=== PATIENT | female | born 1955 | race Caucasian/White ===

== ENCOUNTER 2017-09-03 06:33 | Inpatient (IN) | payer MEDICARE, OTHER ==
[~2017-09-03] VITALS: Ht 154.9 cm; Wt 43.3 kg
[~2017-09-03 06:33] MED LIST: ACETAMINOPHEN325 M1 PO; AMLODIPINE BESY10 MG PO; BYSTOLIC10 MG PO; CALCIUM CARBON500 MG PO; CATAPRES-TTS 11 EACH PO; CEFUROXIME250 MG PO; CLINDAMYCIN HC300 MG; CLONIDINE HCL0.1 MG PO; COLACE100 MG PO; CREON DR 24,001 EACH PO; CYMBALTA30 MG PO; DIPHENHYDRAMINE25 M2 PO; FERROUS FUMARA324 MG PO; FERROUS SULFAT325 MG; FLUDROCORTISON0.1 MG PO; FOLIC ACID1 MG PO; HI-CAL500 M1; HUMALOG 10100 UNITS/ SQ; HUMALOG MI100 UNIT/4; HUMALOG MI100 UNIT/4 SQ; HUMALOG100 UNIT/3 SC; HUMALOG100 UNITS/ SQ; HUMULIN R100 UNIT/2; HYDROCODON-ACE1 EA11 PO; HYDROCORTISONE10 MG PO; HYDROCORTISONE5 MG PO; LANTUS 3ML100 UNITS/ SQ; LANTUS100 UNITS/ SC; LANTUS100 UNITS/ SQ; LEVEMIR100 UNIT/1 SQ; LEVOTHROID100 MCG PO; LEVOTHYROXINE50 MCG PO; LEVOTHYROXINE75 MCG PO; LEVOTHYROXINE88 MCG PO; LEVOXYL50 MCG PO; LEXAPRO10 MG PO; LIDODERM PATCH1 EA TOP; LIDODERM700 MG TL; LISINOPRIL2.5 MG PO; LOPRESSOR25 MG PO; LOSARTAN POTAS100 MG PO; LOVENOX60 MG/0.6 SC; LYRICA 50MG50 MG; LYRICA100 MG PO; MULTI-VITAMIN1 EACH PO; NORVASC10 MG; PANTOPRAZOLE SO20 MG PO; PANTOPRAZOLE SO40 MG PO; POTASSIUM CHLO10 ME1 PO; PROCARDIA XL30 MG PO; PROGRAF1 MG PO; PROTONIX40 M2 PO; QUESTRAN PACKET4 GM PO; SODIUM BICARBO650 MG PO; TACROLIMUS1 MG PO; ULTRAM 50MG50 MG PO; VANCOMYCIN HCL PO; VICODIN ES TAB1 EACH; VITAMIN D1000 UNI1 PO; Z PROGRAF PO; Z.0.ACTONEL35 MG; Z.0.ATORVASTATIN CA2 PO; Z.0.LANTUS100 UNIT/1 SQ; Z.0.LASIX20 MG PO; Z.0.LEVOTHROID25 MCG PO; Z.0.LEXAPRO10 MG; Z.0.LISINOPRIL5 MG PO; Z.0.MAGNESIUM400 MG PO; Z.0.ZETIA10 MG PO; ZETIA10 MG PO; [UNRECOGNIZED DRUG - OTHER]; [UNRECOGNIZED DRUG - OTHER] PO; [UNRECOGNIZED DRUG - OTHER] PO
--- OUTSIDE RECORDS SUMMARY | 2017-09-03 06:37 | XMS REPORT | Clinical Summary ---
Author Author JEAN [facility] Address Unknown Phone Unavailable Care Team Providers [facility] Name Role Phone PCP Unavailable Allergies No Known Allergies Current Medications Prescription Sig. Disp. Refills Start End Date Status Date ezetimibe (ZETIA) 10 mg Take 10 mg by mouth Active tablet daily. DULOXETINE HCL (CYMBALTA Take 30 mg by mouth 2 Active ORAL) (two) times daily. amLODIPine (NORVASC) 10 Take 10 mg by mouth Active MG tablet daily. famotidine (PEPCID) 20 MG Take 1 tablet (20 mg 0 06/29/20 Active tablet total) by mouth daily. 17 folic acid-multivitamins Take 1 tablet by mouth 0 06/29/20 Active (NEPHRO-RICKY) 0.8 mg Tab daily. 17 tablet levothyroxine (SYNTHROID, Take 1 tablet (137 mcg 0 06/29/20 06/29/20 Active LEVOTHROID) 137 MCG total) by mouth Every 17 18 tablet morning on an empty stomach. hydrocortisone (CORTEF) 5 Take 2 tab (10mg in am) 90 tablet 0 Active MG tablet and 1 tablet (5mg) in the 18 evening.. insulin detemir (LEVEMIR Inject 0.03 mLs (3 Units 3 mL 0 07/29/19 Active FLEXPEN) 100 unit/mL (3 total) subcutaneously 18 mL) InPn injection every morning. insulin lispro (HUMALOG) Inject per sliding scale 3 mL 0 07/29/19 Active 100 unit/mL InPn before meals. 18 subcutaneously. tacrolimus (PROGRAF) 1 MG Take 2mg (2 tab) in the 90 capsule 0 Active capsule morning and 1mg (1tab) in 18 evening 12 HOUR APART.. insulin glargine (LANTUS) Inject 10 Units 01/30/20 Discontin 100 unit/mL injection subcutaneously 2 (two) 17 ued times daily Use as directed. insulin lispro (HUMALOG) Inject 15 Units 01/30/20 Discontin 100 unit/mL injection subcutaneously 3 (three) 17 ued times daily before meals. LISINOPRIL ORAL Take 2.5 mg by mouth 01/30/20 Discontin daily. 17 ued pantoprazole (PROTONIX) Take 40 mg by mouth 01/30/20 Discontin 40 MG tablet daily. 17 ued LEVOTHYROXINE SODIUM Take 75 mcg by mouth 01/30/20 Discontin (LEVOTHYROXINE ORAL) daily . 17 ued insulin glargine (LANTUS) Inject 12 Units 01/27/20 Discontin 100 unit/mL injection subcutaneously nightly. 17 ued Use as directed tacrolimus (PROGRAF) 1 MG Take 3 capsules (3 mg 180 capsule 11 10/09/19 Discontin capsule total) by mouth 2 (two) 15 17 ued times daily. tacrolimus (PROGRAF) 1 MG Take 3 capsules (3 mg 180 capsule 10/18/19 Discontin capsuleIndications: total) by mouth 2 (two) 17 17 ued Status post liver times daily. transplantation (HCC) furosemide (LASIX) 40 MG Take 40 mg by mouth 01/30/20 Discontin tablet daily. 17 ued losartan (COZAAR) 100 MG Take 100 mg by mouth 01/30/20 Discontin tablet daily. 17 ued potassium chloride Take 10 mEq by mouth 01/30/20 Discontin (KLOR-CON) 10 MEQ CR daily. 17 ued tablet cefuroxime (CEFTIN) 250 Take 250 mg by mouth 2 01/30/20 Discontin MG tablet (two) times daily. 17 ued tacrolimus (PROGRAF) 1 MG Take 3 mg by mouth 2 180 capsule 11 07/29/19 Discontin capsuleIndications: (two) times daily . 17 18 ued Status post liver transplantation (HCC) folic acid (FOLVITE) 1 MG Take 1 tablet (1 mg 30 tablet 11 01/30/20 06/28/20 Discontin tablet total) by mouth daily. 17 17 ued hydrocortisone (CORTEF) Take 1 tablet (10 mg 0 01/30/20 02/13/20 10 MG tablet total) by mouth daily for 17 17 14 days. hydrocortisone (CORTEF) 5 Take 1 tablet (5 mg 0 01/30/20 02/13/20 MG tablet total) by mouth every 17 17 evening for 14 days. insulin lispro (HUMALOG) Inject 0-12 Units 10 mL 0 01/30/20 Discontin 100 unit/mL injection subcutaneously as needed 17 18 ued (High blood sugar). vancomycin 125 mg/2.5 mL Take 2.5 mLs (125 mg 0 01/30/20 01/30/20 Discontin Syrg total) by mouth 4 (four) 17 17 ued times daily for 10 days. levothyroxine (SYNTHROID, Take 1 tablet (88 mcg 0 01/30/20 01/30/20 Discontin LEVOTHROID) 88 MCG tablet total) by mouth Every 17 17 ued morning on an empty stomach. vancomycin 125 mg/2.5 mL Take 2.5 mLs (125 mg 0 01/30/20 02/13/20 Syrg total) by mouth 4 (four) 17 17 times daily for 14 days. levothyroxine (SYNTHROID, Take 1 tablet (88 mcg 0 01/31/20 06/28/20 Discontin LEVOTHROID) 88 MCG tablet total) by mouth daily. 17 17 ued insulin detemir (LEVEMIR) Inject 7 Units 10 mL 0 01/30/20 06/28/20 Discontin 100 unit/mL injection subcutaneously nightly. 17 17 ued hydrocortisone (CORTEF) Take 1 tablet (10 mg 0 06/29/20 07/29/19 Discontin 10 MG tablet total) by mouth daily for 17 18 ued 30 days. hydrocortisone (CORTEF) 5 Take 1 tablet (5 mg 0 06/28/20 07/12/20 MG tablet total) by mouth nightly 17 17 for 14 days. insulin detemir (LEVEMIR) Inject 6 Units 10 mL 0 06/28/20 06/28/20 Discontin 100 unit/mL injection subcutaneously nightly. 17 17 ued lisinopril Take 1 tablet (10 mg 0 06/28/20 08/01/19 Discontin (PRINIVIL,ZESTRIL) 10 MG total) by mouth 2 (two) 17 18 ued tablet times daily. polyvinyl alcohol Place 1 drop into both 15 mL 0 06/28/20 07/29/19 Discontin (LIQUIFILM TEARS) 1.4 % eyes 4 (four) times daily 17 18 ued ophthalmic solution as needed for up to 30 days. insulin NPH (HUMULIN Use as directed. 10 mL 0 06/29/20 07/29/19 Discontin N,NOVOLIN N) 100 unit/mL 17 18 ued injection metroNIDAZOLE (FLAGYL) Take 1 tablet (500 mg 39 tablet 0 07/29/19 Discontin 500 MG tablet total) by mouth 3 (three) 18 18 ued times daily for 13 days. sevelamer (RENVELA) 800 Take 1 tablet (800 mg 90 tablet 0 07/29/19 08/28/19 mg tablet total) by mouth 3 (three) 18 18 times daily with meals for 30 days. vancomycin 125 mg/2.5 mL Take 2.5 mLs (125 mg 140 mL 0 07/29/19 Discontin Syrg total) by mouth 4 (four) 18 18 ued times daily for 14 days. tacrolimus (PROGRAF) 1 MG Take 3 mg ( 3 pills) in 180 capsule 11 07/2908/01/19 Discontin capsuleIndications: am and 2mg ( 2 pills )in 18 18 ued Status post liver pm. transplantation (HCC) hydrALAZINE (APRESOLINE) Take 1 tablet (25 mg 90 tablet 0 07/31/19 08/30/19 25 MG tablet total) by mouth 3 (three) 18 18 times daily for 30 days. vancomycin 125 mg/2.5 mL Take 2.5 mLs (125 mg 110 mL 0 07/31/19 Discontin Syrg total) by mouth 4 (four) 18 18 ued times daily for 11 days. vancomycin 125 mg/2.5 mL Take 2.5 mLs (125 mg 120 mL 0 07/31/19 Discontin Syrg total) by mouth 4 (four) 18 18 ued times daily for 12 days. tacrolimus (PROGRAF) 1 MG Take 1 capsule (1 mg 60 capsule 0 07/31/19 08/01/19 Discontin capsule total) by mouth every 12 18 18 ued (twelve) hours for 30 days. tacrolimus (PROGRAF) 1 MG Take 2 capsules (2 mg 120 capsule 0 08/01/19 Discontin capsule total) by mouth every 12 18 18 ued (twelve) hours for 30 days. vancomycin 125 mg/2.5 mL Take 2.5 mLs (125 mg 110 mL 0 08/01/19 Syrg total) by mouth 4 (four) 18 18 times daily for 11 days. lisinopril Take 1 tablet (20 mg 60 tablet 0 08/01/19 08/31/19 (PRINIVIL,ZESTRIL) 20 MG total) by mouth 2 (two) 18 18 tablet times daily for 30 days. Active Problems Problem Noted Date C. 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 She is doing well with normal liver enzymes. She is on low dose prograf for immunosuppression. Her dose has been changed and she is on 3/3 daily. Full labs pending today for dosing. DM (diabetes mellitus) (HCC) 04/21/2013 Last Assessment & Plan: Poorly controlled diabetes in the past prompting hospital admissions. On insulin. I have recommended she follow with endocrinology. Screening for malignant neoplasm 04/21/2013 Last Assessment & Plan: She can not remember when she last had a colonoscopy. She does report bowel habit changes but no bleeding. She will be seen by one of our physicians for colonoscopy. Hypothyroid 04/21/2013 Last Assessment & Plan: Continue supplement and follow up with endocrinology. Hyperlipidemia 04/21/2013 Last Assessment & Plan: I have encouraged her to verify with her assisted living apartment if she is on a defined diet when participating with meals. She needs to be on 2 gram sodium, ADA, low fat, healthy heart diet. Bowel habit changes 04/21/2013 Last Assessment & Plan: The patient has noted increase in stools on occasion. She is s/p transplant so I have recommended she has MAC-colonoscopy. Encounters Date Type Specialty Care Team Description 07/27/2017 [facility] General Internal Medicine Gee Crenshaw MD Hypoglycemia (Primary - Encounter Castro Mcclain MD Dx);ESRD (end stage renal 08/01/2017 Bryec Angelo, orlin) ([facility]);Adrenal MD insufficiency ([facility]);Dominic Nieto MD difficile diarrhea;Type 2 Arnie Syed MD diabetes mellitus with other specified complication, with long-term current use of insulin ([facility]);Status post liver transplantation ([facility]);Diabetes mellitus due to underlying condition with ketoacidosis without coma, with long-term current use of insulin ([facility]);ESRD (end stage renal disease) on dialysis ([facility]) 06/23/2017 [facility] Cardiology Chad Hendesron MD Acute - Encounter Gisele Ponce MD encephalopathy;Bradycardi 06/28/2017 a;Hypoglycemia;Hypothyroi dism, unspecified type;Status post liver transplantation ([facility]);Acute cystitis without hematuria;Adrenal insufficiency ([facility]);Severe sepsis ([facility]);Type 2 diabetes mellitus treated with insulin ([facility]);ESRD (end stage renal disease) ([facility]);Essential hypertension;Immunosuppre ssion ([facility]);VRE (vancomycin-resistant Enterococci) infection 06/23/2017 Telephone Critical Care Medicine Chad Henderson MD Advice Only 01/26/2017 [facility] General Internal Medicine Michele Ryan Severe sepsis ([facility]);Acute - Encounter MD Kali encephalopathy;Hypoglycem 01/29/2017 Iron Malik ia;Type 2 diabetes MD Antwon mellitus with other Promise Crabtree MD specified complication Hannah Su MD ([facility]);Status post liver transplantation ([facility]);Sepsis secondary to UTI ([facility]);Type 2 diabetes mellitus with other specified complication, with long-term current use of insulin ([facility]);Clostridium difficile diarrhea;Urinary tract infection without hematuria, site unspecified;Type 2 diabetes mellitus with insulin therapy ([facility]) 01/26/2017 Telephone Critical Care Medicine Michele Ryan Peer- to-Peer Call MD Kali 12/31/2016 Telephone Transplant Hepatology Kristen May RN 10/17/2016 Orders Only Transplant Hepatology Kristen May RN Status post liver transplantation (HCC) (Primary Dx) 10/17/2016 Telephone Transplant Hepatology Kristen May RN Medication Dose Change 10/15/2016 [facility] Radiology Palma Varner MD Dilated bile duct Encounter 10/15/2016 Follow-Up Transplant Hepatology Palma Varner MD Status post liver transplantation (Primary Dx);Immunosuppression (HCC);Dilated bile duct;Screening for malignant neoplasm;Type 2 diabetes mellitus with other specified complication (HCC);Elevated serum creatinine 10/15/2016 [facility] Radiology Palma Varner MD Status post liver Encounter transplantation (HCC);Encounter for long-term (current) use of high-risk medication;Encounter for therapeutic drug monitoring;Disorder of magnesium metabolism 10/15/2016 Palma Dunne MD Status post liver Encounter transplantation (HCC);Encounter for long-term (current) use of high-risk medication;Encounter for therapeutic drug monitoring;Disorder of magnesium metabolism 10/15/2016 Orders Only [facility] Palma Varner MD Status post liver transplantation (HCC);Encounter for long-term (current) use of high-risk medication;Encounter for therapeutic drug monitoring;Disorder of magnesium metabolism 10/15/2016 Abstract Transplant Hepatology Palma Varner MD 10/15/2016 Outside Orders Palma Varner MD 10/08/2016 Orders Only Transplant Hepatology Kristen May RN Status post liver transplantation (HCC) (Primary Dx) 09/12/2016 Orders Only Transplant Hepatology Kristen May RN Status post liver transplantation (HCC) (Primary Dx);Encounter for long-term (current) use of high-risk medication;Encounter for therapeutic drug monitoring;Disorder of magnesium metabolism 09/12/2016 Abstract Transplant Hepatology Kristen May RN after 09/02/2016 Family History Medical History Relation Name Comments Cancer Maternal history of cancer Grandmother Cancer Paternal history of cancer Grandmother Breast cancer Sister history of breast cancer Relation Name Status Comments Father secondary to unknown causes (Age 67) Maternal Grandmother Paternal Grandmother Sister Social History Tobacco Use Types Packs/Day Years Used Date Never Smoker Smokeless Tobacco: Never Used Sex Assigned at Date Recorded Not on file Last Filed Vital Signs Vital Sign Reading Time Taken Blood Pressure 158/77 08/01/2017 4:00 PM [employer] Pulse 68 08/01/2017 4:00 PM [employer] Temperature 35.7 C (96.3 F) 08/01/2017 4:00 PM [employer] Respiratory Rate 18 08/01/2017 4:00 PM [employer] Oxygen Saturation 100% 08/01/2017 4:00 PM [employer] Inhaled Oxygen - - Concentration Weight 41.7 kg (92 lb) 07/26/2017 3:53 PM [employer] Height 157.5 cm (5' 2") 07/26/2017 3:53 PM [employer] Body Mass Index 16.83 07/26/2017 3:53 PM [employer]ER Plan of Treatment Health Maintenance Due Date Last Done Comments INFLUENZA VACCINE 04/14/2017 Results * RHYTHM STRIP - SCAN (08/05/2017 7:20 AM) Only the most recent of 3 results within the time period is included. * POC-Glucose meter (08/01/2017 12:07 PM) Only the most recent of 79 results within the time period is included. Component Value Ref Range POC-Glucose Meter 114 (H)Comment: TESTED AT [address] 70 - 110 mg /dL [place] [id number] Specimen Performing Laboratory Blood [address] [address] * Tacrolimus level (08/01/2017 6:12 AM) Only the most recent of 14 results within the time period is included. Component Value Ref Range Tacrolimus Lvl 7.2 (L) 10.0 - 20.0 ng/mL Specimen Performing Laboratory Blood - Arm, Right [address] [address] * Hemodialysis (07/31/2017 1:21 PM) Narrative Elías Nation RN 07/31/20171:21 PM Lab Results Component Value Date WBC 4.1 07/31/2017 HGB 11.3 07/31/2017 HCT 33.5 (L) 07/31/2017 MCV 89.1 07/31/2017 PLT 109 (L) 07/31/2017 Lab Results Component Value Date GLUCOSE 94 07/31/2017 CALCIUM 7.7 (L) 07/31/2017 NA 137 07/31/2017 K 4.2 07/31/2017 CO2 25 07/31/2017 CL 104 07/31/2017 BUN 30 (H) 07/31/2017 CREATININE 2.75 (H) 07/31/2017 Lab Results Component Value Date HEPBSAG Nonreactive 07/28/2017 Vitals: 07/31/17 1305 BP: 169/88 Pulse: 74 Resp: 16 Temp: 97.9 F (36.6 C) SpO2: Hd x 3.5hrs. UF net 2L. Treatment tolerated well. * Manual Differential (07/31/2017 5:49 AM) Only the most recent of 2 results within the time period is included. Specimen Performing Laboratory Blood [address] [address] * Calcium, Ionized (07/31/2017 5:49 AM) Only the most recent of 6 results within the time period is included. Component Value Ref Range Calcium, Ion 0.94 (L) 1.12 - 1.27 mmol/L pH, Blood 7.43 Specimen Performing Laboratory Blood [address] [address] * CBC with platelet count + automated diff (07/31/2017 5:49 AM) Only the most recent of 14 results within the time period is included. Component Value Ref Range WBC 4.1 3.5 - 10.5 K/ L RBC 3.76 (L) 3.93 - 5.22 M/ L Hemoglobin 11.3 11.2 - 15.7 GM/DL Hematocrit 33.5 (L) 34.1 - 44.9 % MCV 89.1 79.4 - 94.8 fL MCH 30.1 25.6 - 32.2 pg MCHC 33.7 32.2 - 35.5 GM/DL RDW 16.0 (H) 11.7 - 14.4 % Platelets 109 (L) 150 - 450 K/CU MM MPV 9.3 (L) 9.4 - 12.3 fL nRBC 0 0 - 0 /100 WBC % Neutros 45 % % Lymphs 44 % % Monos 8 % % Eos 2 % % Baso 1 % # Neutros 1.82 1.56 - 6.13 K/ L # Lymphs 1.78 1.18 - 3.74 K/ L # Monos 0.34 0.24 - 0.36 K/ L # Eos 0.10 0.04 - 0.36 K/ L # Baso 0.05 0.01 - 0.08 K/ L Immature 0 0 - 1 % Granulocytes-Relative Specimen Performing Laboratory Blood [address] [address] * CBC with platelet count + automated diff (07/31/2017 5:49 AM) Only the most recent of 14 results within the time period is included. Specimen Performing Laboratory Blood Narrative The following orders were created for panel order CBC with platelet count + automated diff. Procedure Abnormality Status --------- - ------ CBC with platelet count ...[[id number]]AbnormalFinal result Manual Differential[[id number]] Final result Please view results for these tests on the individual orders. * Phosphorus (07/31/2017 5:49 AM) Only the most recent of 11 results within the time period is included. Component Value Ref Range Phosphorus 4.3 2.3 - 4.7 mg/dL Specimen Performing Laboratory Blood [address] [address] * Magnesium (07/31/2017 5:49 AM) Only the most recent of 13 results within the time period is included. Component Value Ref Range Magnesium 1.7 1.6 - 2.6 mg/dL Specimen Performing Laboratory Blood [address] [address] * Hepatic function panel (07/31/2017 5:49 AM) Only the most recent of 9 results within the time period is included. Component Value Ref Range Protein, Total 6.3 6.0 - 8.3 gm/dL Albumin 2.3 (L) 3.5 - 5.0 g/dL Total Bilirubin 0.5 0.2 - 1.2 mg/dL Bilirubin, Direct 0.2 0.1 - 0.5 mg/dL Alkaline Phosphatase 97 40 - 150 U/L AST 19 5 - 34 U/L ALT 11 6 - 55 U/L Specimen Performing Laboratory Blood [address] [place] [address] * Basic Metabolic Panel (07/31/2017 5:49 AM) Only the most recent of 9 results within the time period is included. Component Value Ref Range Sodium 137 136 - 145 meq/L Potassium 4.2 3.5 - 5.1 meq/L Chloride 104 98 - 107 meq/L CO2 25 22 - 29 meq/L BUN 30 (H) 7 - 21 mg/dL Creatinine 2.75 (H) 0.57 - 1.25 mg/dL Glucose 94 70 - 105 mg/dL Calcium 7.7 (L) 8.4 - 10.2 mg/dL EGFR 17Comment: ESTIMATED GFR IS NOT ACCURATE mL/min/1.73 sq m CREATININE CLEARANCE IN PREDICTING GLOMERULAR FILTRATION RATE. ESTIMATED GFR IS NOT APPLICABLE FOR DIALYSIS PATIENTS. Specimen [place] [address] * T4, free (07/29/2017 7:00 AM) Only the most recent of 5 results within the time period is included. Component Value Ref Range Free T4 0.90 0.70 - 1.48 ng/dL Specimen Performing Laboratory Blood - Arm, [address] [address] * TSH/Free T4 If Indicated (07/28/2017 3:46 PM) Only the most recent of 2 results within the time period is included. Component Value Ref Range TSH 15.97 (H) 0.35 - 4.94 uIU/mL Specimen Performing Laboratory Blood - Arm, [address] [address] * Hepatitis B surface antigen (07/28/2017 3:46 PM) Only the most recent of 4 results within the time period is included. Component Value Ref Range hepatitis B Surface Ag Nonreactive Nonreactive Specimen Performing Laboratory Blood - Arm, [address] [address] * Clostridium difficile Toxin PCR (07/27/2017 10:49 AM) Only the most recent of 2 results within the time period is included. Component Value Ref Range C.Diff Toxin, PCR Detected (A) Not Detected Specimen Performing Laboratory Stool [address] [address] Narrative This qualitative real-time polymerase chain reaction assay detects the tcdB gene , encoded on the C.difficile pathogenicity locus (PaLoc).The product of tcdB , toxin B, is a cytotoxin essential for causing C.difficile-associated disease ( CDAD) and is found in virtually all toxigenic C.difficile. This assay is performed for patients suspected of having either community- acquired or nosocomial CDAD.Accordingly, only symptomatic patients should be tested and formed stools will be rejected unless ileus is present (i.e., specified when ordering).Patients may be colonized with toxigenic C.difficile strains not causing active disease; therefore, clinical correlation is needed when deciding how to manage patients with a positive test result. The assay has not been validated as a test of cure as amplifiable nucleic acid may persist after effective treatment; therefore, follow-up testing of a positive result is not recommended. * Hemoglobin A1c (07/27/2017 10:22 AM) Only the most recent of 2 results within the time period is included. Component Value Ref Range Hemoglobin A1C 5.0 4.3 - 6.1 % Specimen [place] [address] * Urinalysis Microscopic Only (07/27/2017 10:17 AM) Component Value Ref Range RBC, UA 2 /HPF WBC, UA 119 /HPF Bacteria, UA Many Squam Epithel, UA 5 /HPF Specimen Performing Laboratory Urine - Urine, [facility] [address] [place] [id number] * Urinalysis with Microscopic If Indicated (07/27/2017 10:17 AM) Component Value Ref Range Color, UA Yellow Clarity, UA Hazy Specific [place], UA 1.009 1.001 - 1.035 pH, UA 6.5 5.0 - 8.0 Protein, UA 300 mg/dL (A) Negative Glucose, UA Negative Negative Ketones, UA Negative Negative Bilirubin, UA Negative Negative Blood, UA Small (A) Negative Nitrite, UA Negative Negative Leukocytes, UA Large (A) Negative Urobilinogen, UA 0.2 0.2 - 1.0 mg/dL Specimen Source Specimen Performing Laboratory Urine - Urine, [facility] [address] [place], [place] [id number] * Influenza A H1N1 PCR (07/27/2017 2:52 AM) Only the most recent of 2 results within the time period is included. Component Value Ref Range Influenza A RNA Not Detected Not Detected, Inconclusive Novel H1N1 RNA Not Detected Not Detected, Inconclusive Specimen Performing Laboratory Nasal - Nasopharyngeal [facility] Swab [address] [place] [address] Narrative These assays were performed by real-time RT-PCR (director of consumer affairs-PCR) utilizing fluorogenic hydrolysis probe technology for the detection of human Influenza A viruses and the differential detection of novel H1N1 Influenza virus in respiratory specimens. The test is composed of (1) an RNA extraction from patient specimen, and (2) director of consumer affairs-PCR amplification and detection with human Influenza A and novel [id number] primers and probes. A well-conserved region of the Influenza A matrix gene is targeted in one set of reactions to identify both seasonal Influenza A and novel H1N1 Influenza virus in the specimen.In addition, a specific region of the hemagglutinin gene is targeted to differentiate the novel H1N1 virus from the seasonal human influenza. An internal control is used to confirm PCR amplification.Genetic variation and other factors can affect the accuracy of nucleic acid testing; therefore, the results should be interpreted in light of clinical data. This test was developed and its performance characteristics determined by the [facility] Pathology Department, Section of Molecular Pathology.It has not been cleared or approved by the U.S. Food and Drug Administration (FDA).Since FDA approval is not required for clinical use of the test, validation was done as required by The Clinical Laboratory Amendments of 1988. These assays were performed by real-time RT-PCR (director of consumer affairs-PCR) utilizing fluorogenic hydrolysis probe technology for the detection of human Influenza A viruses and the differential detection of novel H1N1 Influenza virus in respiratory specimens. The test is composed of (1) an RNA extraction from patient specimen, and (2) director of consumer affairs-PCR amplification and detection with human Influenza A and novel [id number] primers and probes. A well-conserved region of the Influenza A matrix gene is targeted in one set of reactions to identify both seasonal Influenza A and novel H1N1 Influenza virus in the specimen.In addition, a specific region of the hemagglutinin gene is targeted to differentiate the novel H1N1 virus from the seasonal human influenza. An internal control is used to confirm PCR amplification.Genetic variation and other factors can affect the accuracy of nucleic acid testing; therefore, the results should be interpreted in light of clinical data. This test was developed and its performance characteristics determined by the [facility] Pathology Department, Section of Molecular Pathology.It has not been cleared or approved by the U.S. Food and Drug Administration (FDA).Since FDA approval is not required for clinical use of the test, validation was done as required by The Clinical Laboratory Amendments of 1988. * PT/aPTT (07/27/2017 2:52 AM) Only the most recent of 3 results within the time period is included. Component Value Ref Range Protime 15.0 (H) 11.7 - 14.7 seconds INR 1.2 <=5.9 PTT 33.9 22.5 - 36.0 seconds Specimen Performing Laboratory Blood [address] [address] Narrative RECOMMENDED COUMADIN/WARFARIN INR THERAPY RANGES STANDARD DOSE: 2.0 - 3.0 Includes: PROPHYLAXIS for venous thrombosis, systemic embolization; TREATMENT for venous thrombosis and/or pulmonary embolus. HIGH RISK: Target INR is 2.5-3.5 for patients with mechanical heart valves. * Rapid Influenza A&B Screen (07/27/2017 2:52 AM) Only the most recent of 2 results within the time period is included. Component Value Ref Range Rapid Influenza A Antigen Negative Negative, Inconclusive Rapid influenza B Antigen Negative Negative, Inconclusive Specimen Performing Laboratory Nasal - Nasopharyngeal [facility] Swab [address] [place] [address] * Lipase (07/27/2017 2:52 AM) Only the most recent of 2 results within the time period is included. Component Value Ref Range Lipase <4 (L) 8 - 78 U/L Specimen [place] [address] * XR femur right AP and lateral (07/26/2017 11:20 PM) Specimen Performing Laboratory GE R[facility] Narrative FINAL REPORT Right femur, two views. INDICATION: Leg pain COMPARISON: None FINDINGS: AP and lateral views of the right femur were obtained on four radiographs. There is no radiographic evidence of acute fracture or dislocation. There is marked atherosclerotic vascular calcifications. Degenerative changes of the right knee are present. IMPRESSION: No radiographic evidence of acute fracture or dislocation. Signed: Jesus Manuel Leblanc MD Report Verified Date/Time:07/26/2017 23:34:07 Reading Location: [facility] B1 C013W Consult Reading Room Procedure Note Interface, External Ris In - 07/26/2017 11:36 PM SECURITY ALARM INSTALLER FINAL REPORT Right femur, two views. INDICATION: Leg pain COMPARISON: None FINDINGS: AP and lateral views of the right femur were obtained on four radiographs. There is no radiographic evidence of acute fracture or dislocation. There is marked atherosclerotic vascular calcifications. Degenerative changes of the right knee are present. IMPRESSION: No radiographic evidence of acute fracture or dislocation. Signed: Jesus Manuel Leblanc MD Report Verified Date/Time: 07/26/2017 23:34:07 Reading Location: [facility] C013W Consult Reading Room * EKG-SCANNED (07/25/2017 8:42 AM) Only the most recent of 2 results within the time period is included. * CBC (Hemogram only) (06/28/2017 5:54 AM) Component Value Ref Range WBC 4.9 3.5 - 10.5 K/ L RBC 4.05 3.93 - 5.22 M/ L Hemoglobin 11.7 11.2 - 15.7 GM/DL Hematocrit 36.2 34.1 - 44.9 % MCV 89.4 79.4 - 94.8 fL MCH 28.9 25.6 - 32.2 pg MCHC 32.3 32.2 - 35.5 GM/DL RDW 17.0 (H) 11.7 - 14.4 % Platelets 117 (L) 150 - 450 K/CU MM MPV 9.6 9.4 - 12.3 fL nRBC 0 0 - 0 /100 WBC Specimen Performing Laboratory Blood - Arm, [address] [address] * TSH (06/28/2017 5:54 AM) Only the most recent of 2 results within the time period is included. Component Value Ref Range TSH 4.76 0.35 - 4.94 uIU/mL Specimen Performing Laboratory Blood - Arm, [address] [address] * Comprehensive metabolic panel (06/28/2017 5:54 AM) Only the most recent of 6 results within the time period is included. Component Value Ref Range Protein, Total 7.0 6.0 - 8.3 gm/dL Albumin 2.5 (L) 3.5 - 5.0 g/dL Alkaline Phosphatase 136 40 - 150 U/L Total Bilirubin 0.4 0.2 - 1.2 mg/dL Sodium 137 136 - 145 meq/L Potassium 4.0 3.5 - 5.1 meq/L Chloride 104 98 - 107 meq/L CO2 23 22 - 29 meq/L BUN 17 7 - 21 mg/dL Creatinine 2.19 (H) 0.57 - 1.25 mg/dL Glucose 92 70 - 105 mg/dL Calcium 7.7 (L) 8.4 - 10.2 mg/dL AST 62 (H) 5 - 34 U/L ALT 49 6 - 55 U/L EGFR 23Comment: ESTIMATED GFR IS NOT ACCURATE mL/min/1.73 sq m CREATININE CLEARANCE IN PREDICTING GLOMERULAR FILTRATION RATE. ESTIMATED GFR IS NOT APPLICABLE FOR DIALYSIS PATIENTS. Specimen Performing Laboratory Blood - Arm, [place] [address] * Vancomycin level, random (06/24/2017 4:37 AM) Only the most recent of 3 results within the time period is included. Component Value Ref Range Vancomycin Rm 16.5 ug/mL Specimen Performing Laboratory Blood [address] [address] Narrative Reference Range: No Normals * ECG 12 lead (06/23/2017 11:42 AM) Specimen Performing Laboratory GE MUSE Narrative Ventricular Rate 55 BPM Atrial Rate 55 BPM P-R Interval 128 ms QRS Duration 74 ms Q-T Interval 552 ms QTC Calculation(Bazett) 528 ms P [place] 77 degrees R [place] -1 degrees T [place] 0 degrees Sinus bradycardia Septal infarct (cited on or before 23-JUN-2017) Prolonged QT Abnormal ECG When compared with ECG of 31-JUL-2012 20:36, Nonspecific T wave abnormality now evident in Inferior leads QT has lengthened Confirmed by MD KAVITHA, TATO Encinas ([id number]) on 06/24/2017 8:28:24 AM Procedure Note Interface, External Ris In - 06/24/2017 8:28 AM SECURITY ALARM INSTALLER Ventricular Rate 55 BPM Atrial Rate 55 BPM P-R Interval 128 ms QRS Duration 74 ms Q-T Interval 552 ms QTC Calculation(Bazett) 528 ms P [place] 77 degrees R [place] -1 degrees T [place] 0 degrees Sinus bradycardia Septal infarct (cited on or before 23-JUN-2017) Prolonged QT Abnormal ECG When compared with ECG of 31-JUL-2012 20:36, Nonspecific T wave abnormality now evident in Inferior leads QT has lengthened Confirmed by MD KAVITHA, TATO Encinas ([id number]) on 06/24/2017 8:28:24 AM * US Hepatic Portal Vessel with Doppler (06/23/2017 10:42 AM) Specimen Performing Laboratory [place] Narrative FINAL REPORT Ultrasound of the Abdomen and Doppler evaluation Clinical History: Liver transplant 2008 Comparison: Abdominal ultrasound from 10/15/2016 Discussion: Sonographic evaluation of the abdomen is performed. In addition, color Doppler and spectral wave form analysis evaluations of the abdominal vasculature are performed. Liver: Measures 10.6 cm in length at the right midclavicular line. Increased echogenicity.No lesion is identified by ultrasound.Main portal vein diameter measures 0.8 cm. Biliary tree:Common duct measures 8 mm.There is unchanged mild intrahepatic biliary ductal dilation. Gallbladder:Absent. Pancreas: Head, body, and proximal tail unremarkable Ascites:None seen Right kidney measures 9.6 x 4.7 x 5.9 cm.Increased cortical echogenicity.No mass.No shadowing calculus.No hydronephrosis. IVC/Aorta:Segments partially seen. Doppler: The peak systolic velocity of the main portal vein is 47.7 cm/sec, within normal limits. The main portal, right portal, and left portal veins demonstrate normal direction of flow, hepatopetal. The splenic vein is visualized at the portal venous confluence and demonstrate normal direction of flow, hepatopetal. The proper hepatic, right hepatic, and left hepatic arteries demonstrate normal arterial wave forms but elevated resistive indices, measuring 0.9, 0.8, and 0.8, respectively. The proper hepatic artery demonstrates normal acceleration time, acceleration index, and systolic upstroke. Segments of the right hepatic, middle hepatic, and left hepatic veins visualized demonstrate flow and phasic venous waveforms. Impression: 1. Elevation of the hepatic arterial resistive indices. Remainder of the transplant vasculature is grossly within normal limits. 2. Mildly increased echogenicity of the transplant liver, a nonspecific finding which may be seen in diffuse liver disease. Unchanged mild intrahepatic biliary ductal dilation, similar in appearance to 10/15/2016. Signed: Jesus Manuel Lorenzo MD Report Verified Date/Time:06/23/2017 11:16:57 Reading Location: [facility] C013Y CT Body Reading Room Procedure Note Interface, External Ris In - 06/23/2017 11:19 AM SECURITY ALARM INSTALLER FINAL REPORT Ultrasound of the Abdomen and Doppler evaluation Clinical History: Liver transplant 2009 Comparison: Abdominal ultrasound from 10/15/2016 Discussion: Sonographic evaluation of the abdomen is performed. In addition, color Doppler and spectral wave form analysis evaluations of the abdominal vasculature are performed. Liver: Measures 10.6 cm in length at the right midclavicular line. Increased echogenicity. No lesion is identified by ultrasound. Main portal vein diameter measures 0.8 cm. Biliary tree: Common duct measures 8 mm. There is unchanged mild intrahepatic biliary ductal dilation. Gallbladder: Absent. Pancreas: Head, body, and proximal tail unremarkable Ascites: None seen Right kidney measures 9.6 x 4.7 x 5.9 cm. Increased cortical echogenicity. No mass. No shadowing calculus. No hydronephrosis. IVC/Aorta: Segments partially seen. Doppler: The peak systolic velocity of the main portal vein is 47.7 cm/sec, within normal limits. The main portal, right portal, and left portal veins demonstrate normal direction of flow, hepatopetal. The splenic vein is visualized at the portal venous confluence and demonstrate normal direction of flow, hepatopetal. The proper hepatic, right hepatic, and left hepatic arteries demonstrate normal arterial wave forms but elevated resistive indices, measuring 0.9, 0.8, and 0.8, respectively. The proper hepatic artery demonstrates normal acceleration time, acceleration index, and systolic upstroke. Segments of the right hepatic, middle hepatic, and left hepatic veins visualized demonstrate flow and phasic venous waveforms. Impression: 1. Elevation of the hepatic arterial resistive indices. Remainder of the transplant vasculature is grossly within normal limits. 2. Mildly increased echogenicity of the transplant liver, a nonspecific finding which may be seen in diffuse liver disease. Unchanged mild intrahepatic biliary ductal dilation, similar in appearance to 10/15/2016. Signed: Jesus Manuel Lorenzo MD Report Verified Date/Time: 06/23/2017 11:16:57 Reading Location: [facility] B1 C013Y CT Body Reading Room * Blood culture (06/23/2017 9:24 AM) Only the most recent of 3 results within the time period is included. Component Value Ref Range Result No growth in 5 days Specimen Performing Laboratory Blood - Arm, [place] [address] * Troponin I (06/23/2017 9:23 AM) Only the most recent of 2 results within the time period is included. Component Value Ref Range Troponin I <0.01 0.00 - 0.03 ng/mL Specimen Performing Laboratory Blood - Arm, [place] [address] Narrative Troponin I (TnI) levels must be interpreted in the context of the presenting symptoms and the clinical findings. Elevated TnI levels indicate myocardial damage, but are not specific for ischemic heart disease. Elevated TnI levels are seen in patients with other cardiac conditions (including myocarditis and congestive heart failure), and slight TnI elevations occur in patients with other conditions, including sepsis, renal failure, acidosis, acute neurological disease, and persistent tachyarrhythmia. * Lactic acid, venous, whole blood (06/23/2017 9:23 AM) Only the most recent of 5 results within the time period is included. Component Value Ref Range Lactate, Venous 0.9 0.5 - 2.2 mmol/L Specimen Performing Laboratory Blood - Arm, [address] [address] Narrative Effective 11/16/2015: Units/Reference Range Change New: 0.5-2.2 mmol/LPrevious: 5-20 mg/dL * Creatine Kinase (CK), Total and MB (06/23/2017 9:23 AM) Component Value Ref Range Total CK 29 29 - 200 U/L CK-MB 3.5 0.0 - 6.6 ng/mL MB Relative Index 12.1 % Specimen Performing Laboratory Blood - Arm, [address] [address] Narrative CK-MB Reference Range: <6.7Normal 6.7-10.0Borderline >10.0 Abnormal * Ammonia (06/23/2017 9:23 AM) Component Value Ref Range Ammonia 28 18 - 72 mol/L Specimen Performing Laboratory Blood - Arm, Left [address] [address] * Urinalysis w/Microscopic (06/23/2017 9:11 AM) Only the most recent of 2 results within the time period is included. Component Value Ref Range Color, UA Yellow Clarity, UA Hazy Specific [place], UA 1.006 1.001 - 1.035 pH, UA 8.5 (H) 5.0 - 8.0 Protein, UA 600 mg/dL (A) Negative Glucose, UA 1000 mg/dL (A) Negative Ketones, UA Negative Negative Bilirubin, UA Negative Negative Blood, UA Moderate (A) Negative Nitrite, UA Negative Negative Leukocytes, UA Large (A) Negative Urobilinogen, UA 0.2 0.2 - 1.0 mg/dL RBC, UA 29 /HPF WBC, UA 68 /HPF Squam Epithel, UA 1 /HPF Casts 1 /LPF Crystals, Urine Few Yeast Few Specimen Source Urine, [place] Specimen Performing Laboratory Urine - Urine, [address] [address] * Urine culture (06/23/2017 9:11 AM) Only the most recent of 2 results within the time period is included. Component Value Ref Range Result Result 10-19,000 col/mL Vancomycin resistant Enterococcus species (A) Specimen Performing Laboratory Urine - Urine, [address] [address] Organism Antibiotic Method Susceptibility Vancomycin resistant Ampicillin >=32: Resistant Enterococcus species Vancomycin resistant Linezolid 2: Susceptible Enterococcus species Vancomycin resistant Nitrofurantoin 64: Resistant Enterococcus species Vancomycin resistant Tetracycline >=16: Resistant Enterococcus species Vancomycin resistant Vancomycin >=32: Resistant Enterococcus species Vancomycin resistant Daptomycin 3.0: Susceptible Enterococcus species * Cortisol (06/23/2017 9:10 AM) Component Value Ref Range Cortisol, Total 12.1 3.7 - 19.4 ug/dL Specimen Performing Laboratory Blood - Arm, Right [address] [address] * Prothrombin time/INR (06/23/2017 9:10 AM) Only the most recent of 5 results within the time period is included. Component Value Ref Range Protime 15.3 (H) 11.7 - 14.7 seconds INR 1.2 <=5.9 Specimen Performing Laboratory Blood - Arm, [place] [address] Narrative RECOMMENDED COUMADIN/WARFARIN INR THERAPY RANGES STANDARD DOSE: 2.0 - 3.0 Includes: PROPHYLAXIS for venous thrombosis, systemic embolization; TREATMENT for venous thrombosis and/or pulmonary embolus. HIGH RISK: Target INR is 2.5-3.5 for patients with mechanical heart valves. * Fibrinogen (06/23/2017 9:10 AM) Component Value Ref Range Fibrinogen 297 225 - 434 mg/dl Specimen Performing Laboratory Blood - Arm, [place] [address] * T3, free (06/23/2017 9:10 AM) Component Value Ref Range T3, Free 1.26 (L) 1.71 - 3.71 pg/mL Specimen Performing Laboratory Blood - Arm, [place] [address] * Blood gas, arterial (06/23/2017 9:08 AM) Component Value Ref Range pH, Arterial 7.42 7.35 - 7.45 pCO2, Arterial 46 (H) 35 - 45 mmHg pO2, Arterial 197 (H) 80 - 90 mmHg O2 Sat, Arterial 99.4 (H) 96.0 - 97.0 % HCO3, Arterial 29 21 - 29 mmol/L Base Excess, Arterial 4.0 (H) -2.0 - 3.0 mmol/L Patient Temperature 37.0 C FIO2 21.0 % Specimen Performing Laboratory Blood, Arterial - Arm, [facility] Right [address] [place], [place] [id number] * XR chest 1 view portable / bedside (06/23/2017 8:39 AM) Only the most recent of 2 results within the time period is included. Specimen Performing Laboratory GE [facility] Narrative FINAL REPORT HISTORY : myxedema, sepsis. Comparison: 01/27/2017 Comment: Single portable view of the chest was obtained. The cardiac silhouette size is within normal limits. Stable right-sided double-lumen dialysis catheter is in place. No pneumothorax or pleural effusion is seen. There is atherosclerotic calcification of the thoracic aorta. There is some nonspecific diffuse interstitial prominence. Signed: Nga Stephens MD Report Verified Date/Time:06/23/2017 09:32:04 Reading Location: [facility] C013 Transitional Reading Room Procedure Note Interface, External Ris In - 06/23/2017 9:34 AM SECURITY ALARM INSTALLER FINAL REPORT HISTORY : myxedema, sepsis. Comparison: 01/27/2017 Comment: Single portable view of the chest was obtained. The cardiac silhouette size is within normal limits. Stable right-sided double-lumen dialysis catheter is in place. No pneumothorax or pleural effusion is seen. There is atherosclerotic calcification of the thoracic aorta. There is some nonspecific diffuse interstitial prominence. Signed: Nga Stephens MD Report Verified Date/Time: 06/23/2017 09:32:04 Reading Location: [facility] C013T Transitional Reading Room * Prepare Leuko-Red RBC (01/29/2017 11:54 PM) Component Value Ref Range CROSSMATCH COMPATIBLE Unit ABO B Pos UNIT NUMBER [id number] Status TRANSFUSED Blood Bank Product RED BLOOD CELLS PRODUCT CODE [id number] Specimen Performing Laboratory Other [facility] * Hepatitis B PCR, quantitative (01/29/2017 11:15 AM) Component Value Ref Range HBV PCR, Quantitative HBV DNA not detected HBV DNA not detected Specimen Performing Laboratory Blood [facility] [address] [address] Narrative This test uses a Real-Time Polymerase Chain Reaction (RT-PCR) methodology and was performed using [employer] AmpliPrep/SOHA TaqMan HBV Test, v2.0 ([employer] Reportable range for this assay is 20 - 170,000,000 IU per mL (1.30 - 8.23 Log IU/mL). * Hepatitis B Panel (01/29/2017 11:15 AM) Component Value Ref Range Hep B Core Total Ab Nonreactive Nonreactive Hep B S Ab <8.0 <8.0 mIU/mL hepatitis B Surface Ag Reactive (A)Comment: Reactive Hepatitis B Surface Nonreactive Antigen result; Confirmed by Hepatitis B Surface Antigen Neutralization testing. Specimen Performing Laboratory Blood [address] [address] * Hepatitis B core antibody, IgM (01/29/2017 11:15 AM) Component Value Ref Range Hep B C IgM Nonreactive Nonreactive Specimen Performing Laboratory Blood [address] [address] * Hepatitis B core antibody, total (01/29/2017 11:15 AM) Component Value Ref Range Hep B Core Total Ab Nonreactive Nonreactive Specimen Performing Laboratory Blood [address] [address] * Hepatitis B surface antibody (01/29/2017 11:15 AM) Component Value Ref Range Hep B S Ab <8.0 <8.0 mIU/mL Specimen Performing Laboratory Blood [address] [address] * Transfuse Leuko-Red RBC (01/29/2017 5:46 AM) Only the most recent of 2 results within the time period is included. * CMV PCR, quantitative (01/29/2017 5:21 AM) Component Value Ref Range CMV DNA Viral Load Negative or below the linear range of the assay (<375 copies/mL) Specimen [place] [address] Narrative Cytomegalovirus (CMV) infection can cause significant disease in immunosuppressed patients. However, it is common for CMV to manifest as a limited infection which is of no clinical significance in immunosuppressed patients or in healthy individuals. Viral load measurements are helpful to identify clinical CMV infection and to guide the pre-emptive management of antiviral therapy.For treatment of CMV infection due to reactivation in transplant recipients, a threshold between 4, 000 and 5,000 copies/mL is suggested.For treatment of primary CMV infection , a lower threshold can be used. CMV infection may also be monitored using weekly serial measurements. Serial measurements of CMV DNA viral load can be evaluated by identifying a 10-fold change, as well as assessing the CMV DNA viral load and the clinical context for each patient. The plasma CMV DNA viral load was detected using quantitative polymerase chain reaction and fluorescent monitoring of a specific hybridized probe. Genetic variation and other factors can affect the accuracy of nucleic acid testing. Therefore, the results should be interpreted in light of clinical data. A negative result may not exclude the presence of CMV disease. This test was developed and its performance characteristics determined by the [facility] Pathology Department, Section of Molecular Pathology. It has not been cleared or approved by the U.S. Food and Drug Administration ( FDA), since FDA approval is not required for clinical use of the test. Validation was done as required by The Clinical Laboratory Improvement Amendments of 1988. * Cortisol, 60 minutes (01/28/2017 10:18 AM) Component Value Ref Range Cortisol, Baseline 10.8 mcg/dL Cortisol 30 minute 15.7 mcg/dL Cortisol, 60 Minute 16.5 ug/dL Specimen Performing Laboratory Blood - Arm, [place] [address] Narrative ACTH STIMULATION TEST INTERPRETATION GUIDELINES (Synonyms: Cortrosyn Test, Cosyntropin or Corticotropin Stimulation Test) Adenocorticotropic hormone (ACTH)is a tropic hormone, made in the pituitary gland, which travels trhough the bloodstream and stimulates the cortex of the adrenal glands to release cortisol. Cortisol is a primary hormone, which aids the body's metabolism of fats, carbohydrates, and protein as well as sodium and potassium regulation. ACTH Stimulation Test: Exogenous administration of biologically active ACTH stimulates the secretion of cortisol from the adrenal gland. This test is used to evaluate adrenal function by measuring cortisol levels at baseline and at 30 and 60 minutes after the administration of 250 micrograms of cosyntropin ( Cortrosyn). Patients who have received exogenous corticosteroids immediately prior to performing the ACTH Stimulation Test will often have elevated baseline cortisol levels, which may lead to erroneous interpretation of test results. The notable exception is with dexamethasone. Normal Response: An increase in cortisol after stimulation by ACTH is normal. Post-stimulation cortisol concentration should be greater than 20 mcg/dL or the rate of rise from baseline cortisol should be greater than or equal to 9 mcg/dL. Patients with sepsis or septic shock: According to a study by Mirella et al ( DOREEN 2000,283(8):1752-45), the ACTH Stimulation Test provides important prognostic information. This study defined 3 groups of patients with sepsis or septic shock: 1. Good Survival: Low basal cortisol (<or=34 mcg/dL) and high ACTH response (>9mcg/dL) 2.Intermediate Survival: Low basal cortisol (<34 mcg/dL) and low response to ACTH (<or=9 mcg/dL) OR High basal cortisol (>34 mcg/dL) or high ACTH response (>9 mcg/dL) 3.Poor Survival: High basal cortisol (>34 mcg/dL) and low ACTH response (<or=9 mcg/dL). Treatment of patients with relative adrenal dysfunction may be indicated based on test results and the clinical condition of the patient. Additional information, including treatment recommendations, is available in critically ill patients, approved by the Pharmacy, Nutrition, and Therapeutics Committee on 06/23/2004 and available through the Pharmacy Policy and Procedure Section on The Source. Draw baseline cortisol and ACTH level just prior to cosyntropin administration. Administer cosyntropin 0.25 mg diluted in 2-5 mL of normal saline slow IV Push over a period of 2 minutes. Draw serum cortisol level 30 minutes after cosyntropin administration. Draw serum cortisol level 60 minutes after cosyntropin administration. * Store in Refrigerator * * Cortisol, 30 minutes (01/28/2017 9:40 AM) Component Value Ref Range Cortisol, Baseline 10.8 mcg/dL Cortisol, 30 Minute 15.7 ug/dL Specimen Performing Laboratory Blood - Arm, [place] [address] Narrative ACTH STIMULATION TEST INTERPRETATION GUIDELINES (Synonyms: Cortrosyn Test, Cosyntropin or Corticotropin Stimulation Test) Adenocorticotropic hormone (ACTH)is a tropic hormone, made in the pituitary gland, which travels trhough the bloodstream and stimulates the cortex of the adrenal glands to release cortisol. Cortisol is a primary hormone, which aids the body's metabolism of fats, carbohydrates, and protein as well as sodium and potassium regulation. ACTH Stimulation Test: Exogenous administration of biologically active ACTH stimulates the secretion of cortisol from the adrenal gland. This test is used to evaluate adrenal function by measuring cortisol levels at baseline and at 30 and 60 minutes after the administration of 250 micrograms of cosyntropin ( Cortrosyn). Patients who have received exogenous corticosteroids immediately prior to performing the ACTH Stimulation Test will often have elevated baseline cortisol levels, which may lead to erroneous interpretation of test results. The notable exception is with dexamethasone. Normal Response: An increase in cortisol after stimulation by ACTH is normal. Post-stimulation cortisol concentration should be greater than 20 mcg/dL or the rate of rise from baseline cortisol should be greater than or equal to 9 mcg/dL. Patients with sepsis or septic shock: According to a study by Mirella et al ( DOREEN 2000,283(4):9301-45), the ACTH Stimulation Test provides important prognostic information. This study defined 3 groups of patients with sepsis or septic shock: 1. Good Survival: Low basal cortisol (<or=34 mcg/dL) and high ACTH response (>9mcg/dL) 2.Intermediate Survival: Low basal cortisol (<34 mcg/dL) and low response to ACTH (<or=9 mcg/dL) OR High basal cortisol (>34 mcg/dL) or high ACTH response (>9 mcg/dL) 3.Poor Survival: High basal cortisol (>34 mcg/dL) and low ACTH response (<or=9 mcg/dL). Treatment of patients with relative adrenal dysfunction may be indicated based on test results and the clinical condition of the patient. Additional information, including treatment recommendations, is available in critically ill patients, approved by the Pharmacy, Nutrition, and Therapeutics Committee on 06/23/2004 and available through the Pharmacy Policy and Procedure Section on [employer]. Draw baseline cortisol and ACTH level just prior to cosyntropin administration. Administer cosyntropin 0.25 mg diluted in 2-5 mL of normal saline slow IV Push over a period of 2 minutes. Draw serum cortisol level 30 minutes after cosyntropin administration. Draw serum cortisol level 60 minutes after cosyntropin administration. * Store in Refrigerator * * Cortisol, baseline (01/28/2017 8:19 AM) Component Value Ref Range Cortisol, Baseline 10.8 ug/dL Specimen Performing Laboratory Blood - Arm, Right [address] [address] Narrative ACTH STIMULATION TEST INTERPRETATION GUIDELINES (Synonyms: Cortrosyn Test, Cosyntropin or Corticotropin Stimulation Test) Adenocorticotropic hormone (ACTH)is a tropic hormone, made in the pituitary gland, which travels trhough the bloodstream and stimulates the cortex of the adrenal glands to release cortisol. Cortisol is a primary hormone, which aids the body's metabolism of fats, carbohydrates, and protein as well as sodium and potassium regulation. ACTH Stimulation Test: Exogenous administration of biologically active ACTH stimulates the secretion of cortisol from the adrenal gland. This test is used to evaluate adrenal function by measuring cortisol levels at baseline and at 30 and 60 minutes after the administration of 250 micrograms of cosyntropin ( Cortrosyn). Patients who have received exogenous corticosteroids immediately prior to performing the ACTH Stimulation Test will often have elevated baseline cortisol levels, which may lead to erroneous interpretation of test results. The notable exception is with dexamethasone. Normal Response: An increase in cortisol after stimulation by ACTH is normal. Post-stimulation cortisol concentration should be greater than 20 mcg/dL or the rate of rise from baseline cortisol should be greater than or equal to 9 mcg/dL. Patients with sepsis or septic shock: According to a study by Mirella et al ( DOREEN 2000,283(8):1038-45), the ACTH Stimulation Test provides important prognostic information. This study defined 3 groups of patients with sepsis or septic shock: 1. Good Survival: Low basal cortisol (<or=34 mcg/dL) and high ACTH response (>9mcg/dL) 2.Intermediate Survival: Low basal cortisol (<34 mcg/dL) and low response to ACTH (<or=9 mcg/dL) OR High basal cortisol (>34 mcg/dL) or high ACTH response (>9 mcg/dL) 3.Poor Survival: High basal cortisol (>34 mcg/dL) and low ACTH response (<or=9 mcg/dL). Treatment of patients with relative adrenal dysfunction may be indicated based on test results and the clinical condition of the patient. Additional information, including treatment recommendations, is available in critically ill patients, approved by the Pharmacy, Nutrition, and Therapeutics Committee on 06/23/2004 and available through the Pharmacy Policy and Procedure Section on [employer]. Draw baseline cortisol and ACTH level just prior to cosyntropin administration. Administer cosyntropin 0.25 mg diluted in 2-5 mL of normal saline slow IV Push over a period of 2 minutes. Draw serum cortisol level 30 minutes after cosyntropin administration. Draw serum cortisol level 60 minutes after cosyntropin administration. * Store in Refrigerator * * ACTH stimulation (01/28/2017 8:19 AM) Specimen Performing Laboratory Blood Narrative The following orders were created for panel order ACTH stimulation. Procedure Abnormality Status --------- - ------ Cortisol, baseline[[id number]] Final result Cortisol, 30 minutes[[id number]] Final result Cortisol, 60 minutes[[id number]] Final result Please view results for these tests on the individual orders. * 2D Echo W/Doppler (Sepsis Protocol) (01/27/2017 3:16 PM) Component Value Ref Range Ejection Fraction LV EF 72.3 % (55-75) Index 57.8 %/m2 Specimen [facility] [address] [place] [address] Voice:[phone] Transthoracic Echocardiogram Pat.Name:TERRI GANDARA Pat.ID:[id number] St.Date: 01/27/2017 Refer.MD:MICHELE RYAN Exam Time: 3:16:00 PMStudy Type:Echo Complete Height:62inWeight:74lb BSA: 1.25 m2 DOBAge:1954,61Y Sex: FEMALEBP:90 /46 HR:71 bpmSonogrphr: Michelle Sigala [facility] Pat. Stat.:Inpatient Room:[facility] Reason for Study:Sepsis Protocol History / Clinical:Diabetes, ESRD, Sepsis, Liver Transplant (09/04/2008) Procedures:2D ECHO W/ DOPPLER (CW/PW/COLOR) SUMMARY: Left ventricular chamber size (by vol index) is normal (female - LVED vol -29-61 ml/m2). Mild basal septal hypertrophy is present. All of the LV segments contract normally. LVEF by quantitative assessment is normal (> 60%). The right ventricular chamber size and systolic function are within normal limits. Estimated Peak systolic PA pressure is 30-35 mm Hg. No pericardial effusion is visualized. FINDINGS: Rhythm/BP: Regular sinus rhythm during the exam. LV: All of the LV segments contract normally. Global LV systolic functionis normal. Left ventricular chamber size (by vol index)is normal (female - LVED vol -29-61 ml/m2). LVEF byquantitative assessment is normal (> 60%). Mild basal septalhypertrophy is present. LA: LA size is mildly enlarged (35-41 ml/m2). RV: The right ventricular chamber size and systolic function are withinnormal limits. RA: RA cavity size is normal. AV: A trace of aortic regurgitation. No evidence of aortic stenosis.Mild AoV cusp calcification. MV: Mild MV leaflet thickening. A trace of mitral regurgitation. TV: A trace of tricuspid regurgitation. TV structure is normal. EstimatedPeak systolic PA pressure is 30-35 mm Hg. PV: PV is not well visualized. AO: Aortic root size (Sinus of Valsalva diameter) is normal. Pericard: No pericardial effusion is visualized. Systemic Veins: The inferior vena cava size is normal. The estimated RApressure by IVC dynamics 5-10 mmHg. PA/PV/Pleural: The pulmonary artery is not well visualized. Comparison: No prior exam available for comparison. Quality:Technically adequate exam. MEASUREMENTS: 2D LV EF SinglePlane LV Ad 23.9 cm2(9.5-22.3)* LV CO 3.13 l/min LV As 10.9 cm2(4-11.6) LV CI 2.51 l /min/m2 LVEDV 62.8 ml (59-136) Index50.3 ml/m2 LV SV 45.4 ml LVESV 17.4 mlHR 69 bpm Left Ventricle LV A% 54.4 %(36-64) LA Sng Plane LA Vol44.9 mlIndex 35.9 ml/m2 LA Area 15.6 cm2(8.8-23.4) Parasternal Long [place] Ao An2 cm (1.4-2.6) LV%fs 33.8 %(25-46) Ao Rtd2.52 cmLVPWd 1.06 cm IVSd1.21 cm LA Ds 3.72 cm (2.3-3.8) LVIDd 3.72 cm (4.3-5.1)* LV Wmn 1.13 cm LVIDs 2.47 cm (2-4) DOPPLER LVOT LVOT For Flow TOKFckCls778 cm/s (70-110)* LVOT CO 5.77 l/min LVOT VTI26.7 cmLVOT CI 4.61 l/min/m2 LVOTpkPG6.29 mmHgLVOT Area 3.14 cm2 LVOTmnPG3.22 mmHgHR 69 bpm LVOT SV 84 ml Aortic Valve AV DI0.924 SVi (LVOT) 67.2 LVOT AV For Flow/BOOM AV pkVel 166 cm/s (100-170) AV AC/ET 0.282 AV mnVel 102 cm/sAVpkAcRt 3305 cm/s2 AV pkPG 11.1 mmHgAV DeRt 587 cm/s2 AV mnPG 5.06 mmHgArea (VTI) 2.9 cm2(3-5)* AV VTI28.9 cmArea (Jose) 2.37 cm2(3-5)* AV ET283 msec AV AC 80 msec (83-118)* MV E/A Ratio MV pkE 108 cm/s (60-130) MV E/A 0.972 MV pkA 111 cm/s DEFAULT DEFA Em7.7 cm/sDEFA E/Em 15.8 Velocity PG 25.6 mmHg Signed 01/28/2017 12:57 PM Tato White M.D. Procedure Note Interface, External Ris In - 01/28/2017 12:58 PM CDT Echocardiography Laboratory [address] [place] [address] Voice: [phone] Transthoracic Echocardiogram Pat.Name: TERRI GANDARA Pat.ID: [id number] .Date: 01/27/2017 Refer.MD: MICHELE RYAN Exam Time: 3:16:00 PM Study Type:Echo Complete Height: 62in Weight: 74lb BSA: 1.25 m2 Age: 11 1955,61Y Sex: FEMALE BP: 90/46 HR: 71 bpm Sonogrphr: Michelle Sigala [facility] Pat. Stat.:Inpatient Room: 7210 Reason for Study:Sepsis Protocol History / Clinical:Diabetes, ESRD, Sepsis, Liver Transplant (09/04/2008) Procedures:2D ECHO W/ DOPPLER (CW/PW/COLOR) SUMMARY: Left ventricular chamber size (by vol index) is normal (female - LVED vol - 29-61 ml/m2). Mild basal septal hypertrophy is present. All of the LV segments contract normally. LVEF by quantitative assessment is normal (> 60%). The right ventricular chamber size and systolic function are within normal limits. Estimated Peak systolic PA pressure is 30-35 mm Hg. No pericardial effusion is visualized. FINDINGS: Rhythm/BP: Regular sinus rhythm during the exam. LV: All of the LV segments contract normally. Global LV systolic function is normal. Left ventricular chamber size (by vol index) is normal (female - LVED vol - 29-61 ml/m2). LVEF by quantitative assessment is normal (> 60%). Mild basal septal hypertrophy is present. LA: LA size is mildly enlarged (35-41 ml/m2). RV: The right ventricular chamber size and systolic function are within normal limits. RA: RA cavity size is normal. AV: A trace of aortic regurgitation. No evidence of aortic stenosis. Mild AoV cusp calcification. MV: Mild MV leaflet thickening. A trace of mitral regurgitation. TV: A trace of tricuspid regurgitation. TV structure is normal. Estimated Peak systolic PA pressure is 30-35 mm Hg. PV: PV is not well visualized. AO: Aortic root size (Sinus of Valsalva diameter) is normal. Pericard: No pericardial effusion is visualized. Systemic Veins: The inferior vena cava size is normal. The estimated RA pressure by IVC dynamics 5-10 mmHg. PA/PV/Pleural: The pulmonary artery is not well visualized. Comparison: No prior exam available for comparison. Quality: Technically adequate exam. MEASUREMENTS: 2D LV EF SinglePlane LV Ad 23.9 cm2 (9.5-22.3)* LV CO 3.13 l/min LV As 10.9 cm2 (4-11.6) LV CI 2.51 l/min/m2 LVEDV 62.8 ml (59-136) Index 50.3 ml/m2 LV SV 45.4 ml LVESV 17.4 ml HR 69 bpm Left Ventricle LV A% 54.4 % (36-64) LA Sng Plane LA Vol 44.9 ml Index 35.9 ml/m2 LA Area 15.6 cm2 (8.8-23.4) Parasternal [place] Ao An 2 cm (1.4-2.6) LV%fs 33.8 % (25-46) Ao Rtd 2.52 cm LVPWd 1.06 cm IVSd 1.21 cm LA Ds 3.72 cm (2.3-3.8) LVIDd 3.72 cm (4.3-5.1)* LV Wmn 1.13 cm LVIDs 2.47 cm (2-4) DOPPLER LVOT LVOT For Flow LVOTpkVel 125 cm/s (70-110)* LVOT CO 5.77 l/min LVOT VTI 26.7 cm LVOT CI 4.61 l/min/m2 LVOTpkPG 6.29 mmHg LVOT Area 3.14 cm2 LVOTmnPG 3.22 mmHg HR 69 bpm LVOT SV 84 ml Aortic Valve AV DI 0.924 SVi (LVOT) 67.2 LVOT AV For Flow/BOOM AV pkVel 166 cm/s (100-170) AV AC/ET 0.282 AV mnVel 102 cm/s AVpkAcRt 3305 cm/s2 AV pkPG 11.1 mmHg AV DeRt 587 cm/s2 AV mnPG 5.06 mmHg Area (VTI) 2.9 cm2 (3-5)* AV VTI 28.9 cm Area (Jose) 2.37 cm2 (3-5)* AV ET 283 msec AV AC 80 msec (83-118)* MV E/A Ratio MV pkE 108 cm/s (60-130) MV E/A 0.972 MV pkA 111 cm/s DEFAULT DEFA Em 7.7 cm/s DEFA E/Em 15.8 Velocity PG 25.6 mmHg Signed 01/28/2017 12:57 PM Tato White M.D. * Respiratory Panel [facility] (01/27/2017 2:43 PM) Component Value Ref Range Human Metapneumovirus Not detected Not detected, Inconclusive Rhinovirus Not detected Not detected, Inconclusive Influenza A Not detected Not detected, Inconclusive Influenza A subtype H1 Not detected Not detected, Inconclusive Influenza A Subtype H3 Not detected Not detected, Inconclusive Influenza A Subtype Not detected Not detected, H1-2009 Inconclusive Influenza B Not detected Not detected, Inconclusive Respiratory Syncytial Not detected Not detected, Virus Inconclusive Parainfluenza Virus 1 Not detected Not detected, Inconclusive Parainfluenza Virus 2 Not detected Not detected, Inconclusive Parainfluenza virus 3 Not detected Not detected, Inconclusive Parainfluenza Virus 4 Not detected Not detected, Inconclusive Adenovirus Not detected Not detected, Inconclusive Coronavirus 229E Not detected Not detected, Inconclusive Coronavirus HKU1 Not detected Not detected, Inconclusive Coronavirus NL63 Not detected Not detected, Inconclusive Coronavirus OC43 Not detected Not detected, Inconclusive Bordetella Pertussis Not detected Not detected, Inconclusive Chlamydophila Pneumoniae Not detected Not detected, Inconclusive Mycoplasma Pneumoniae Not detected Not detected, Inconclusive Specimen Performing Laboratory Nasopharyngeal - Nasal, [facility] Right [address] [place] [address] * Vitamin B12 and Folate (01/27/2017 5:29 AM) Component Value Ref Range Vitamin B12 480 213 - 816 pg/mL Folate 6.3 (L) >=7.0 ng/mL Specimen Performing Laboratory Blood - Arm, Right [address] [address] Narrative Effective 06/01/2014: Folate Reference Range Change New: >=7.0Previous: >=5.4 * Iron, TIBC, % sat. (without ferritin) (01/27/2017 5:29 AM) Component Value Ref Range Iron 65 40 - 160 ug/dL TIBC 209 (L) 250 - 450 ug/dL Iron % Saturation 31 20 - 55 % Specimen Performing Laboratory Blood - Arm, [address] [address] * Ferritin (01/27/2017 5:29 AM) Component Value Ref Range Ferritin 670 (H) 5 - 275 ng/mL Specimen Performing Laboratory Blood - Arm, [address] [address] Narrative Effective 06/01/2014: Reference Range Change New: Male 5-275Previous: Male 22-322 Female 5-275Female 10-291 * Prepare RBC (01/27/2017 1:01 AM) Component Value Ref Range Status CANCELED Blood Bank Product RED BLOOD CELLS Unit ABO O Pos UNIT NUMBER [id number] Status CANCELED Blood Bank Product RED BLOOD CELLS PRODUCT CODE [id number] Unit ABO O Pos UNIT NUMBER [id number] Status WORK IN PROGRESS Blood Bank Product RED BLOOD CELLS PRODUCT CODE [id number] Specimen Performing Laboratory [facility] [place] * Type and screen, automated (01/27/2017 12:35 AM) Component Value Ref Range ABO/RH AUTOMATED (BEAKER) B POSITIVE Ab Scrn NEGATIVE Specimen Performing Laboratory Blood [address] [address] * Ketones, blood (01/27/2017 12:35 AM) Component Value Ref Range Ketones, Blood 0.0 <0.4 mmol/L Specimen Performing Laboratory Blood [address] [address] * MRI abdomen without contrast (10/15/2016 3:14 PM) Specimen Performing Laboratory [facility] Narrative FINAL REPORT History: Evaluate dilated bile ducts Comparison: CT dated 12/14/2013 and MRI dated 08/29/2011 Technique : Multiplanar imaging with multiple sequences of the abdomen was performed utilizing a 1.5 nancy magnet without the administration of gadolinium contrast. In addition, thin and thick slab images of the biliary tract as well as 3D reconstructions of the biliary system were also performed to evaluate for biliary tract abnormalities. Comment: There is a trace partially visualized right-sided pleural effusion. There are no focal or diffuse abnormalities of the osseous structures. The subcutaneous soft tissues as well as the musculature are within normal limits. The unenhanced spleen, adrenal glands, stomach, and duodenum are within normal limits. There is no abdominal or retroperitoneal lymphadenopathy. The visualized portions of the large and small bowel are within normal limits. The patient does have several cysts arising from the head/uncinate process of the pancreas. The cystic lesions do contain some septations with the largest measuring 1.3 x 1.1 cm. This has decreased in size as compared to 2.1 x 2.1 cm. There are several subcentimeter left renal T2 hyperintense foci that most likely represent cysts. These cannot be fully evaluated with imaging sequences provided. No ascites is identified. The patient does have dilatation of the common hepatic duct as well as some intrahepatic biliary ductal dilatation. The common hepatic duct measures up to a maximum of 1.1 cm in diameter. This finding does not appear to be appreciably changed compared to the prior MRI of 2011. Of note, there is limited visualization of the common bile duct. There is no definite dilatation of the common bile duct. Underlying stones or strictures or other processes cannot be excluded. The findings can be better assessed with an ERCP. Impression: 1. Relatively stable intrahepatic and hepatic ductal dilatation compared to the MRI of 08/29/2011 with a transition possibly at the level of the anastomosis. There is no definite choledocholithiasis. Please see above. 2. Several pancreatic head/uncinate process cystic lesions. Follow-up MRI in 6 months is advised. The largest has diminished in size. Signed: Nga Stephens MD Report Verified Date/Time:10/15/2016 15:39:30 Reading Location: [address] Radiology Reading Room Procedure Note Interface, External Ris In - 10/15/2016 3:41 PM CDT FINAL REPORT History: Evaluate dilated bile ducts Comparison: CT dated 12/14/2013 and MRI dated 08/29/2011 Technique : Multiplanar imaging with multiple sequences of the abdomen was performed utilizing a 1.5 nancy magnet without the administration of gadolinium contrast. In addition, thin and thick slab images of the biliary tract as well as 3D reconstructions of the biliary system were also performed to evaluate for biliary tract abnormalities. Comment: There is a trace partially visualized right-sided pleural effusion. There are no focal or diffuse abnormalities of the osseous structures. The subcutaneous soft tissues as well as the musculature are within normal limits. The unenhanced spleen, adrenal glands, stomach, and duodenum are within normal limits. There is no abdominal or retroperitoneal lymphadenopathy. The visualized portions of the large and small bowel are within normal limits. The patient does have several cysts arising from the head/uncinate process of the pancreas. The cystic lesions do contain some septations with the largest measuring 1.3 x 1.1 cm. This has decreased in size as compared to 2.1 x 2.1 cm. There are several subcentimeter left renal T2 hyperintense foci that most likely represent cysts. These cannot be fully evaluated with imaging sequences provided. No ascites is identified. The patient does have dilatation of the common hepatic duct as well as some intrahepatic biliary ductal dilatation. The common hepatic duct measures up to a maximum of 1.1 cm in diameter. This finding does not appear to be appreciably changed compared to the prior MRI of 2011. Of note, there is limited visualization of the common bile duct. There is no definite dilatation of the common bile duct. Underlying stones or strictures or other processes cannot be excluded. The findings can be better assessed with an ERCP. Impression: 1. Relatively stable intrahepatic and hepatic ductal dilatation compared to the MRI of 08/29/2011 with a transition possibly at the level of the anastomosis. There is no definite choledocholithiasis. Please see above. 2. Several pancreatic head/uncinate process cystic lesions. Follow-up MRI in 6 months is advised. The largest has diminished in size. Signed: Nga Stephens MD Report Verified Date/Time: 10/15/2016 15:39:30 Reading Location: [address] Radiology Reading Room * US abdominal with doppler (10/15/2016 10:34 AM) Specimen Performing Laboratory [place] Narrative FINAL REPORT HISTORY : Liver transplant COMPARISON : 06/22/2014 COMMENT : Complete ultrasound examination of the abdomen with color Doppler and spectral evaluation of the abdominal vasculature was performed. The liver is homogenous in echo-texture without evidence of a focal mass. The patient is status post cholecystectomy. There is biliary ductal dilatation with the common hepatic duct measuring up to a maximum of 9 mm in diameter, increased as compared to the prior exam. There is also some intrahepatic biliary ductal dilatation. The visualized portions of the pancreas are within normal limits. The spleen is normal in size and echo-texture measuring 7.2 x 4.0 x 3.6 cm.The right kidney measures 10.9 x 6.2 x 5.0 cm and the left kidney 10.1 x 5.5 x 5.1 cm in maximum size. There is no evidence of cysts, masses, stones. There is some right renal pelviectasis. There is increased echogenicity of the kidneys suggestive of underlying medical renal disease. There is no ascites or pleural effusion. The abdominal aorta measures to a maximum of 2.3 cm. The main portal vein demonstrates hepatopetal flow and measures 0.9 cm in diameter with a peak systolic velocity of 0.17 m/s. The left and right portal veins demonstrates hepatopetal and hepatopetal flow respectively. No thrombus is identified in the portal veins. The resistive index of the proper hepatic artery is 0.7 with an acceleration time of 0.02 sec. The resistive index of the right hepatic artery is 0.7 and of the left hepatic artery is 0.7. The visualized IVC, hepatic and splenic veins are patent with appropriate directional flow. IMPRESSION : 1. Status post hepatic transplant with a homogeneous echotexture of the transplant liver. 2. Persistent central intrahepatic biliary ductal dilatation and also the common hepatic duct. This has increased as compared to the prior exam. 3. Right renal pelviectasis. 4. Nonspecifically elevated resistive indices of the hepatic arterial system. The remainder of the Doppler examination of the abdominal/hepatic vasculature is within normal limits. 5. Increased echogenicity of the kidneys suggestive of underlying medical renal disease. Signed: Nga Stephens MD Report Verified Date/Time:10/15/2016 11:19:07 Reading Location: [address] Radiology Reading Room Procedure Note Interface, External Ris In - 10/15/2016 11:21 AM CDT FINAL REPORT HISTORY : Liver transplant COMPARISON : 06/22/2014 COMMENT : Complete ultrasound examination of the abdomen with color Doppler and spectral evaluation of the abdominal vasculature was performed. The liver is homogenous in echo-texture without evidence of a focal mass. The patient is status post cholecystectomy. There is biliary ductal dilatation with the common hepatic duct measuring up to a maximum of 9 mm in diameter, increased as compared to the prior exam. There is also some intrahepatic biliary ductal dilatation. The visualized portions of the pancreas are within normal limits. The spleen is normal in size and echo-texture measuring 7.2 x 4.0 x 3.6 cm. The right kidney measures 10.9 x 6.2 x 5.0 cm and the left kidney 10.1 x 5.5 x 5.1 cm in maximum size. There is no evidence of cysts, masses, stones. There is some right renal pelviectasis. There is increased echogenicity of the kidneys suggestive of underlying medical renal disease. There is no ascites or pleural effusion. The abdominal aorta measures to a maximum of 2.3 cm. The main portal vein demonstrates hepatopetal flow and measures 0.9 cm in diameter with a peak systolic velocity of 0.17 m/s. The left and right portal veins demonstrates hepatopetal and hepatopetal flow respectively. No thrombus is identified in the portal veins. The resistive index of the proper hepatic artery is 0.7 with an acceleration time of 0.02 sec. The resistive index of the right hepatic artery is 0.7 and of the left hepatic artery is 0.7. The visualized IVC, hepatic and splenic veins are patent with appropriate directional flow. IMPRESSION : 1. Status post hepatic transplant with a homogeneous echotexture of the transplant liver. 2. Persistent central intrahepatic biliary ductal dilatation and also the common hepatic duct. This has increased as compared to the prior exam. 3. Right renal pelviectasis. 4. Nonspecifically elevated resistive indices of the hepatic arterial system. The remainder of the Doppler examination of the abdominal/hepatic vasculature is within normal limits. 5. Increased echogenicity of the kidneys suggestive of underlying medical renal disease. Signed: Nga Stephens MD Report Verified Date/Time: 10/15/2016 11:19:07 Reading Location: [address] Radiology Reading Room * Bilirubin, direct (10/15/2016 8:40 AM) Component Value Ref Range Bilirubin, Direct 0.2 0.1 - 0.5 mg/dL Specimen Performing Laboratory Blood [address] [address] * Lipid panel (10/15/2016 8:40 AM) Component Value Ref Range Triglycerides 63 mg/dL Cholesterol 124 mg/dL HDL 34 mg/dL LDL Calculated 77 mg/dL Specimen Performing Laboratory Blood [address] [address] Narrative Triglyceride Reference Range: Low Risk <150 [id number] High Risk 200-499 Very High Risk>=500 Cholesterol Reference Range: Low Risk <200 [id number] High Risk>240 HDL Cholesterol Reference Range: Low Risk >=60 High Risk <40 LDL Cholesterol Reference Range: Optimal<100 Near [id number] Very High >=190 * XR chest 2 views (10/15/2016 8:38 AM) Specimen Performing Laboratory GE RIS Narrative FINAL REPORT HISTORY : liver transplant. Comparison: 06/22/2014 Comment: Two views of the chest, PA and lateral, were obtained. The cardiac silhouette is within normal limits. There is no pleural effusion, pneumothorax or infiltrate. No lytic or blastic abnormalities. There is a tortuous/ectatic thoracic aorta with some atherosclerotic calcification. Multilevel degenerative disc changes of the thoracic spine are seen. Impression: No acute cardiothoracic abnormalities. No significant interval change. Signed: Nga Stephens MD Report Verified Date/Time:10/15/2016 08:43:36 Reading Location: [address] Radiology Reading Room Procedure Note Interface, External Ris In - 10/15/2016 8:45 AM CDT FINAL REPORT HISTORY : liver transplant. Comparison: 06/22/2014 Comment: Two views of the chest, PA and lateral, were obtained. The cardiac silhouette is within normal limits. There is no pleural effusion, pneumothorax or infiltrate. No lytic or blastic abnormalities. There is a tortuous/ectatic thoracic aorta with some atherosclerotic calcification. Multilevel degenerative disc changes of the thoracic spine are seen. Impression: No acute cardiothoracic abnormalities. No significant interval change. Signed: Nga Stephens MD Report Verified Date/Time: 10/15/2016 08:43:36 Reading Location: [address] Radiology Reading Room after 09/02/2016
--- OUTSIDE RECORDS SUMMARY | 2017-09-03 06:38 | XMS REPORT ---
Author [facility] Address Unknown Phone Unavailable Care Team Providers Care Manager [employer] Name Role Phone OZIEL RECIO Unavailable Unavailable FLAVIA, NICHELLE Unavailable Unavailable SWEET, LAIRD Unavailable Unavailable LOIS, EBONY Unavailable Unavailable CHUN, CHRISTOPHER Unavailable Unavailable KHADERI, SIDDHARTH Unavailable Unavailable Problems This patient has no known problems. Allergies, Adverse Reactions, Alerts This patient has no known allergies or adverse reactions. Medications This patient has no known medications. Results Test Description Test Time Test Comments Text Results Atomic Results Result Comments POCT-GLUCOSE METER 2017-08-01 12:19:00 POC-GLUCOSE METER (BEAKER) (test qwdo=2410) 114 mg/dL 70-110 TESTED AT [address] [address] TACROLIMUS [id number] 09:46:00* Test Item Value Reference Range Comments TACROLIMUS BLOOD (BEAKER) (test ryuf=183) 7.2 ng/mL 10.0-20.0 POCT-GLUCOSE [id number] 08:08:00* Test Item Value Reference Range Comments POC-GLUCOSE METER (BEAKER) (test axaq=9308) 113 mg/dL 70-110 TESTED AT [address] [address] POCT-GLUCOSE [id number] 23:13:00* Test Item Value Reference Range Comments POC-GLUCOSE METER (BEAKER) (test vswm=4421) 182 mg/dL 70-110 TESTED AT [address] [address] POCT-GLUCOSE [id number] 18:19:00* Test Item Value Reference Range Comments POC-GLUCOSE METER (BEAKER) (test jlkv=5520) 161 mg/dL 70-110 TESTED AT [address] [address] POCT-GLUCOSE [id number] 14:21:00* Test Item Value Reference Range Comments POC-GLUCOSE METER (BEAKER) (test ynub=8431) 89 mg/dL 70-110 TESTED AT [facility] [address] [facility] [address] TACROLIMUS [id number] 11:36:00* Test Item Value Reference Range Comments TACROLIMUS BLOOD (BEAKER) (test uhrj=120) 11.4 ng/mL 10.0-20.0 POCT-GLUCOSE [id number] 08:24:00* Test Item Value Reference Range Comments POC-GLUCOSE METER (BEAKER) (test ryum=6295) 78 mg/dL 70-110 TESTED AT [facility] [address] [facility] [address] BASIC METABOLIC [id number] 07:04:00* Test Item Value Reference Range Comments SODIUM (BEAKER) (test avwr=844) 137 meq/L 136-145 POTASSIUM (BEAKER) (test yrfy=939) 4.2 meq/L 3.5-5.1 CHLORIDE (BEAKER) (test vkeo=372) 104 meq/L 98-107 CO2 (BEAKER) (test zwbx=122) 25 meq/L 22-29 BLOOD UREA NITROGEN (BEAKER) (test mgbb=087) 30 mg/dL 7-21 CREATININE (BEAKER) (test gmui=022) 2.75 mg/dL 0.57-1.25 GLUCOSE RANDOM (BEAKER) (test zswa=159) 94 mg/dL 70-105 CALCIUM (BEAKER) (test pcdn=671) 7.7 mg/dL 8.4-10.2 EGFR (BEAKER) (test rdyf=3199) 17 mL/min/1.73 sq m ESTIMATED GFR IS NOT ACCURATE CREATININE CLEARANCE IN PREDICTING GLOMERULAR FILTRATION RATE. ESTIMATED GFR IS NOT APPLICABLE FOR DIALYSIS PATIENTS. [id number] 07:02:00* Test Item Value Reference Range Comments PHOSPHORUS (BEAKER) (test frvz=667) 4.3 mg/dL 2.3-4.7 [id number] 07:02:00* Test Item Value Reference Range Comments MAGNESIUM (BEAKER) (test jvgn=780) 1.7 mg/dL 1.6-2.6 HEPATIC FUNCTION [id number] 07:02:00* Test Item Value Reference Range Comments TOTAL PROTEIN (BEAKER) (test hzlk=882) 6.3 gm/dL 6.0-8.3 ALBUMIN (BEAKER) (test zkge=2145) 2.3 g/dL 3.5-5.0 BILIRUBIN TOTAL (BEAKER) (test jhib=419) 0.5 mg/dL 0.2-1.2 BILIRUBIN DIRECT (BEAKER) (test enlq=886) 0.2 mg/dL 0.1-0.5 ALKALINE PHOSPHATASE (BEAKER) (test zpaj=519) 97 U/L 40-150 AST (SGOT) (BEAKER) (test midk=023) 19 U/L 5-34 ALT (SGPT) (BEAKER) (test hvme=368) 11 U/L 6-55 CALCIUM, [id number] 06:57:00* Test Item Value Reference Range Comments CALCIUM IONIZED (BEAKER) (test gqev=591) 0.94 mmol/L 1.12-1.27 PH, BLOOD (BEAKER) (test wzxv=3437) 7.43 CBC W/PLT COUNT & AUTO [id number] 06:45:00* Test Item Value Reference Range Comments WHITE BLOOD CELL COUNT (BEAKER) (test ifmd=226) 4.1 K/ L 3.5-10.5 RED BLOOD CELL COUNT (BEAKER) (test yizn=750) 3.76 M/ L 3.93-5.22 HEMOGLOBIN (BEAKER) (test bfgj=793) 11.3 GM/DL 11.2-15.7 HEMATOCRIT (BEAKER) (test qjsy=216) 33.5 % 34.1-44.9 MEAN CORPUSCULAR VOLUME (BEAKER) (test tzuc=552) 89.1 fL 79.4-94.8 MEAN CORPUSCULAR HEMOGLOBIN (BEAKER) (test ylde=106) 30.1 pg 25.6-32.2 MEAN CORPUSCULAR HEMOGLOBIN CONC (BEAKER) (test oirt=640) 33.7 GM/DL 32.2- 35.5 RED CELL DISTRIBUTION WIDTH (BEAKER) (test gfgi=216) 16.0 % 11.7-14.4 PLATELET COUNT (BEAKER) (test bbib=683) 109 K/CU MM 150-450 MEAN PLATELET VOLUME (BEAKER) (test awjr=572) 9.3 fL 9.4-12.3 NUCLEATED RED BLOOD CELLS (BEAKER) (test nwnh=868) 0 /100 WBC 0-0 NEUTROPHILS RELATIVE PERCENT (BEAKER) (test yvly=628) 45 % LYMPHOCYTES RELATIVE PERCENT (BEAKER) (test yuaj=084) 44 % MONOCYTES RELATIVE PERCENT (BEAKER) (test zkpn=404) 8 % EOSINOPHILS RELATIVE PERCENT (BEAKER) (test uirv=530) 2 % BASOPHILS RELATIVE PERCENT (BEAKER) (test cjrf=689) 1 % NEUTROPHILS ABSOLUTE COUNT (BEAKER) (test cbrn=356) 1.82 K/ L 1.56-6.13 LYMPHOCYTES ABSOLUTE COUNT (BEAKER) (test uuet=868) 1.78 K/ L 1.18-3.74 MONOCYTES ABSOLUTE COUNT (BEAKER) (test rvnh=530) 0.34 K/ L 0.24-0.36 EOSINOPHILS ABSOLUTE COUNT (BEAKER) (test ywdy=362) 0.10 K/ L 0.04-0.36 BASOPHILS ABSOLUTE COUNT (BEAKER) (test lwnn=453) 0.05 K/ L 0.01-0.08 IMMATURE GRANULOCYTES-RELATIVE PERCENT (BEAKER) (test etmz=2196) 0 % 0-1 POCT-GLUCOSE [id number] 22:56:00* Test Item Value Reference Range Comments POC-GLUCOSE METER (BEAKER) (test vlyf=1960) 115 mg/dL 70-110 [address]ED AT [address] [address] POCT-GLUCOSE [id number] 17:38:00* Test Item Value Reference Range Comments POC-GLUCOSE METER (BEAKER) (test jfpm=3268) 171 mg/dL 70-110 TESTED AT [address] [address] POCT-GLUCOSE [id number] 12:17:00* Test Item Value Reference Range Comments POC-GLUCOSE METER (BEAKER) (test jfpu=4720) 169 mg/dL 70-110 TESTED AT [address] [address] TACROLIMUS [id number] 11:10:00* Test Item Value Reference Range Comments TACROLIMUS BLOOD (BEAKER) (test manc=960) 8.6 ng/mL 10.0-20.0 POCT-GLUCOSE [id number] 09:40:00* Test Item Value Reference Range Comments POC-GLUCOSE METER (BEAKER) (test ykos=1726) 133 mg/dL 70-110 TESTED AT [place] [address] [facility] [address] BASIC METABOLIC [id number] 08:25:00* Test Item Value Reference Range Comments SODIUM (BEAKER) (test guxo=583) 137 meq/L 136-145 POTASSIUM (BEAKER) (test oubl=389) 3.6 meq/L 3.5-5.1 Specimen slightly hemolyzed CHLORIDE (BEAKER) (test eujv=048) 104 meq/L 98-107 CO2 (BEAKER) (test ldmf=661) 25 meq/L 22-29 BLOOD UREA NITROGEN (BEAKER) (test czej=324) 21 mg/dL 7-21 CREATININE (BEAKER) (test pllz=989) 2.35 mg/dL 0.57-1.25 Specimen slightly hemolyzed GLUCOSE RANDOM (BEAKER) (test zgku=893) 114 mg/dL 70-105 CALCIUM (BEAKER) (test rzps=527) 8.0 mg/dL 8.4-10.2 EGFR (BEAKER) (test zpqg=4923) 21 mL/min/1.73 sq m ESTIMATED GFR IS NOT ACCURATE CREATININE CLEARANCE IN PREDICTING GLOMERULAR FILTRATION RATE. ESTIMATED GFR IS NOT APPLICABLE FOR DIALYSIS PATIENTS. CBC W/PLT COUNT & AUTO [id number] 08:25:00* Test Item Value Reference Range Comments WHITE BLOOD CELL COUNT (BEAKER) (test eaof=910) 3.7 K/ L 3.5-10.5 RED BLOOD CELL COUNT (BEAKER) (test gsta=829) 3.59 M/ L 3.93-5.22 HEMOGLOBIN (BEAKER) (test bobk=964) 10.8 GM/DL 11.2-15.7 HEMATOCRIT (BEAKER) (test ivwt=684) 32.3 % 34.1-44.9 MEAN CORPUSCULAR VOLUME (BEAKER) (test kjuf=450) 90.0 fL 79.4-94.8 MEAN CORPUSCULAR HEMOGLOBIN (BEAKER) (test janp=469) 30.1 pg 25.6-32.2 MEAN CORPUSCULAR HEMOGLOBIN CONC (BEAKER) (test cnby=542) 33.4 GM/DL 32.2- 35.5 RED CELL DISTRIBUTION WIDTH (BEAKER) (test idet=642) 16.1 % 11.7-14.4 PLATELET COUNT (BEAKER) (test erwx=506) 111 K/CU MM 150-450 MEAN PLATELET VOLUME (BEAKER) (test pgzt=106) 9.3 fL 9.4-12.3 NUCLEATED RED BLOOD CELLS (BEAKER) (test iqgw=680) 0 /100 WBC 0-0 NEUTROPHILS RELATIVE PERCENT (BEAKER) (test rhky=247) 40 % LYMPHOCYTES RELATIVE PERCENT (BEAKER) (test gzgd=768) 48 % MONOCYTES RELATIVE PERCENT (BEAKER) (test xgap=339) 8 % EOSINOPHILS RELATIVE PERCENT (BEAKER) (test cumq=650) 3 % BASOPHILS RELATIVE PERCENT (BEAKER) (test ueyr=638) 1 % NEUTROPHILS ABSOLUTE COUNT (BEAKER) (test imrt=165) 1.49 K/ L 1.56-6.13 LYMPHOCYTES ABSOLUTE COUNT (BEAKER) (test xnbj=831) 1.78 K/ L 1.18-3.74 MONOCYTES ABSOLUTE COUNT (BEAKER) (test oekf=365) 0.28 K/ L 0.24-0.36 EOSINOPHILS ABSOLUTE COUNT (BEAKER) (test oonm=897) 0.11 K/ L 0.04-0.36 BASOPHILS ABSOLUTE COUNT (BEAKER) (test bhww=771) 0.05 K/ L 0.01-0.08 IMMATURE GRANULOCYTES-RELATIVE PERCENT (BEAKER) (test mmvq=2782) 0 % 0-1 (MANUAL DIFFERENTIAL)2017-07-30 08:25:00* Test Item Value Reference Range Comments TOTAL COUNTED (BEAKER) (test axig=0950) CALCIUM, [id number] 07:50:00* Test Item Value Reference Range Comments CALCIUM IONIZED (BEAKER) (test juxc=027) 0.93 mmol/L 1.12-1.27 PH, BLOOD (BEAKER) (test ecvn=2916) 7.38 [id number] 07:13:00* Test Item Value Reference Range Comments MAGNESIUM (BEAKER) (test xnjc=393) 1.7 mg/dL 1.6-2.6 Specimen slightly hemolyzed [id number] 07:13:00* Test Item Value Reference Range Comments PHOSPHORUS (BEAKER) (test svdq=360) 3.6 mg/dL 2.3-4.7 Specimen slightly hemolyzed HEPATIC FUNCTION [id number] 07:13:00* Test Item Value Reference Range Comments TOTAL PROTEIN (BEAKER) (test ciuz=754) 6.9 gm/dL 6.0-8.3 Specimen slightly hemolyzed ALBUMIN (BEAKER) (test wjwl=4941) 2.6 g/dL 3.5-5.0 Specimen slightly hemolyzed BILIRUBIN TOTAL (BEAKER) (test lvbb=248) 0.6 mg/dL 0.2-1.2 Specimen slightly hemolyzed BILIRUBIN DIRECT (BEAKER) (test oqjk=633) 0.2 mg/dL 0.1-0.5 Specimen slightly hemolyzed ALKALINE PHOSPHATASE (BEAKER) (test asrv=449) 104 U/L 40-150 AST (SGOT) (BEAKER) (test gofh=157) 23 U/L 5-34 Specimen slightly hemolyzed ALT (SGPT) (BEAKER) (test cjxa=282) 13 U/L 6-55 Specimen slightly hemolyzed POCT-GLUCOSE [id number] 21:42:00* Test Item Value Reference Range Comments POC-GLUCOSE METER (BEAKER) (test ydkl=1449) 202 mg/dL 70-110 [address]ED AT [address] [address] POCT-GLUCOSE [id number] 16:40:00* Test Item Value Reference Range Comments POC-GLUCOSE METER (BEAKER) (test lbtw=2821) 181 mg/dL 70-110 TESTED AT [address] [address] POCT-GLUCOSE [id number] 13:45:00* Test Item Value Reference Range Comments POC-GLUCOSE METER (BEAKER) (test sxht=0954) 151 mg/dL 70-110 TESTED AT [address] [address] TACROLIMUS [id number] 11:43:00* Test Item Value Reference Range Comments TACROLIMUS BLOOD (BEAKER) (test lsta=597) 10.9 ng/mL 10.0-20.0 POCT-GLUCOSE [id number] 08:34:00* Test Item Value Reference Range Comments POC-GLUCOSE METER (BEAKER) (test lpic=4929) 70 mg/dL 70-110 TESTED AT [address] [address] T4, [id number] 07:50:00* Test Item Value Reference Range Comments FREE T4 (BEAKER) (test cmij=963) 0.90 ng/dL 0.70-1.48 BASIC METABOLIC [id number] 07:48:00* Test Item Value Reference Range Comments SODIUM (BEAKER) (test jijm=142) 133 meq/L 136-145 POTASSIUM (BEAKER) (test egyo=189) 3.5 meq/L 3.5-5.1 CHLORIDE (BEAKER) (test jjdk=129) 102 meq/L 98-107 CO2 (BEAKER) (test ttjd=728) 22 meq/L 22-29 BLOOD UREA NITROGEN (BEAKER) (test dvkq=953) 52 mg/dL 7-21 CREATININE (BEAKER) (test fpgy=363) 4.05 mg/dL 0.57-1.25 GLUCOSE RANDOM (BEAKER) (test urru=296) 76 mg/dL 70-105 CALCIUM (BEAKER) (test wjbq=606) 7.7 mg/dL 8.4-10.2 EGFR (BEAKER) (test qpwk=6835) 11 mL/min/1.73 sq m ESTIMATED GFR IS NOT ACCURATE CREATININE CLEARANCE IN PREDICTING GLOMERULAR FILTRATION RATE. ESTIMATED GFR IS NOT APPLICABLE FOR DIALYSIS PATIENTS. [id number] 07:34:00* Test Item Value Reference Range Comments PHOSPHORUS (BEAKER) (test pdsm=638) 5.3 mg/dL 2.3-4.7 [id number] 07:34:00* Test Item Value Reference Range Comments MAGNESIUM (BEAKER) (test rjhc=594) 1.9 mg/dL 1.6-2.6 HEPATIC FUNCTION [id number] 07:34:00* Test Item Value Reference Range Comments TOTAL PROTEIN (BEAKER) (test jouj=325) 6.6 gm/dL 6.0-8.3 ALBUMIN (BEAKER) (test fwnr=9848) 2.4 g/dL 3.5-5.0 BILIRUBIN TOTAL (BEAKER) (test btwr=682) 0.4 mg/dL 0.2-1.2 BILIRUBIN DIRECT (BEAKER) (test eqnz=090) 0.2 mg/dL 0.1-0.5 ALKALINE PHOSPHATASE (BEAKER) (test qggm=813) 109 U/L 40-150 AST (SGOT) (BEAKER) (test bidr=779) 21 U/L 5-34 ALT (SGPT) (BEAKER) (test whxb=731) 13 U/L 6-55 CALCIUM, [id number] 07:30:00* Test Item Value Reference Range Comments CALCIUM IONIZED (BEAKER) (test gazo=177) 0.81 mmol/L 1.12-1.27 PH, BLOOD (BEAKER) (test sqir=5478) 7.50 CBC W/PLT COUNT & AUTO [id number] 07:15:00* Test Item Value Reference Range Comments WHITE BLOOD CELL COUNT (BEAKER) (test sbmd=841) 5.3 K/ L 3.5-10.5 RED BLOOD CELL COUNT (BEAKER) (test qiij=461) 3.54 M/ L 3.93-5.22 HEMOGLOBIN (BEAKER) (test poth=996) 10.6 GM/DL 11.2-15.7 HEMATOCRIT (BEAKER) (test jokj=158) 31.1 % 34.1-44.9 MEAN CORPUSCULAR VOLUME (BEAKER) (test fxeu=929) 87.9 fL 79.4-94.8 MEAN CORPUSCULAR HEMOGLOBIN (BEAKER) (test lscs=740) 29.9 pg 25.6-32.2 MEAN CORPUSCULAR HEMOGLOBIN CONC (BEAKER) (test ghfu=869) 34.1 GM/DL 32.2- 35.5 RED CELL DISTRIBUTION WIDTH (BEAKER) (test iety=908) 16.2 % 11.7-14.4 PLATELET COUNT (BEAKER) (test dbhx=392) 124 K/CU MM 150-450 MEAN PLATELET VOLUME (BEAKER) (test jjci=490) 8.8 fL 9.4-12.3 NUCLEATED RED BLOOD CELLS (BEAKER) (test whez=768) 0 /100 WBC 0-0 NEUTROPHILS RELATIVE PERCENT (BEAKER) (test adwr=032) 47 % LYMPHOCYTES RELATIVE PERCENT (BEAKER) (test beib=556) 41 % MONOCYTES RELATIVE PERCENT (BEAKER) (test jsbv=259) 7 % EOSINOPHILS RELATIVE PERCENT (BEAKER) (test gvom=924) 3 % BASOPHILS RELATIVE PERCENT (BEAKER) (test fksn=605) 2 % NEUTROPHILS ABSOLUTE COUNT (BEAKER) (test alvz=848) 2.51 K/ L 1.56-6.13 LYMPHOCYTES ABSOLUTE COUNT (BEAKER) (test zzhe=468) 2.16 K/ L 1.18-3.74 MONOCYTES ABSOLUTE COUNT (BEAKER) (test qknk=210) 0.39 K/ L 0.24-0.36 EOSINOPHILS ABSOLUTE COUNT (BEAKER) (test uapc=396) 0.14 K/ L 0.04-0.36 BASOPHILS ABSOLUTE COUNT (BEAKER) (test arqg=785) 0.09 K/ L 0.01-0.08 IMMATURE GRANULOCYTES-RELATIVE PERCENT (BEAKER) (test jkvk=4353) 0 % 0-1 POCT-GLUCOSE [id number] 23:36:00* Test Item Value Reference Range Comments POC-GLUCOSE METER (BETRISTON) (test jgma=7817) 84 mg/dL 70-110 TESTED AT [address] [address] HEPATITIS B SURFACE [id number] 18:32:00* Test Item Value Reference Range Comments HEPATITIS B SURFACE ANTIGEN (2) ([facility]) (test cihm=7976) Nonreactive Nonreactive T4, [id number] 18:21:00* Test Item Value Reference Range Comments FREE T4 ([facility]) (test cqum=170) 0.90 ng/dL 0.70-1.48 TSH/FREE T4 IF [id number] 17:05:00* Test Item Value Reference Range Comments THYROID STIMULATING HORMONE ([facility]) (test cogu=391) 15.97 uIU/mL 0.35-4.94 POCT-GLUCOSE [id number] 12:19:00* Test Item Value Reference Range Comments POC-GLUCOSE METER (BEAKER) (test tnjy=2790) 226 mg/dL 70-110 TESTED AT [address] [address] POCT-GLUCOSE [id number] 08:40:00* Test Item Value Reference Range Comments POC-GLUCOSE METER (BEAKER) (test fqek=8947) 68 mg/dL 70-110 Notified ABRAHAM WONG/ TESTED AT [address] [address] POCT-GLUCOSE [id number] 00:41:00* Test Item Value Reference Range Comments POC-GLUCOSE METER (BEAKER) (test pzeg=0915) 481 mg/dL 70-110 TESTED AT [place] [id number] POCT-GLUCOSE [id number] 22:26:00* Test Item Value Reference Range Comments POC-GLUCOSE METER (BEAKER) (test wfaq=7232) 458 mg/dL 70-110 Notified ABRAHAM WONG/ TESTED AT [place] [address] POCT-GLUCOSE [id number] 18:18:00* Test Item Value Reference Range Comments POC-GLUCOSE METER (BEAKER) (test kfbn=7481) 225 mg/dL 70-110 TESTED AT [place] [address] POCT-GLUCOSE [id number] 13:49:00* Test Item Value Reference Range Comments POC-GLUCOSE METER (BEAKER) (test xzro=1675) 104 mg/dL 70-110 TESTED AT [place] [address] INFLUENZA A H1N1 [id number] 13:47:00* Test Item Value Reference Range Comments INFLUENZA A RNA (BEAKER) (test ycnf=0926) Not Detected Not Detected, Inconclusive NOVEL H1N1 RNA (BEAKER) (test kxiv=1733) Not Detected Not Detected, Inconclusive These assays were performed by real-time RT-PCR (artificial marble worker-PCR) utilizing fluorogenic hydrolysis probe technology for the detection of human Influenza A viruses and the differential detection of novel H1N1 Influenza virus in respiratory specimens. The test is composed of (1) an RNA extraction from patient specimen, and (2) artificial marble worker-PCR amplification and detection with human Influenza A and novel U0A7-jzslksge primers and probes. A well-conserved region of the Influenza A matrix gene is targeted in one set of reactions to identify both seasonal Influenza A and novel H1N1 Influenza virus in the specimen. In addition, a specific region of the hemagglutinin gene is targeted to differentiate the novel H1N1 virus from the seasonal human influenza. An internal control is used to confirm PCR amplification. Genetic variation and other factors can affect the accuracy of nucleic acid testing; therefore, the results should be interpreted in light of clinical data. This test was developed and its performance characteristics determined by the [facility]ology Department, Section of Molecular Pathology. It has not been cleared or approved by the U.S. Food and Drug Administration (FDA). Since FDA approval is not required for clinical use of the test, validation was done as required by The Clinical Laboratory Amendments of 1988.These assays were performed by real-time RT-PCR (artificial marble worker-PCR) utilizing fluorogenic hydrolysis probe technology for the detection of human Influenza A viruses and the differential detection of novel H1N1 Influenza virus in respiratory specimens. The test is composed of (1) an RNA extraction from patient specimen, and (2) artificial marble worker-PCR amplification and detection with human Influenza A and novel M2R2-nwxtwlbm primers and probes. A well-conserved region of the Influenza A matrix gene is targeted in one set of reactions to identify both seasonal Influenza A and novel H1N1 Influenza virus in the specimen. In addition, a specific region of the hemagglutinin gene is targeted to differentiate the novel H1N1 virus from the seasonal human influenza. An internal control is used to confirm PCR amplification. Genetic variation and other factors can affect the accuracy of nucleic acid testing; therefore, the results should be interpreted in light of clinical data. This test was developed and its performance characteristics determined by the [facility] Pathology Department, Section of Molecular Pathology. It has not been cleared or approved by the U.S. Food and Drug Administration ( FDA). Since FDA approval is not required for clinical use of the test, validation was done as required by The Clinical Laboratory Amendments of 1988.CLOSTRIDIUM DIFFICILE TOXIN [id number] 13:31:00* Test Item Value Reference Range Comments CLOSTRIDIUM DIFFICILE TOXIN, PCR ([employer]) (test abuh=7792) Detected Not Detected This qualitative real-time polymerase chain reaction assay detects the tcdB gene , encoded on the C.difficile pathogenicity locus (PaLoc). The product of tcdB, toxin B, is a cytotoxin essential for causing C.difficile-associated disease ( CDAD) and is found in virtually all toxigenic C.difficile.This assay is performed for patients suspected of having either community-acquired or nosocomial CDAD. Accordingly, only symptomatic patients should be tested and formed stools will be rejected unless ileus is present (i.e., specified when ordering). Patients may be colonized with toxigenic C.difficile strains not causing active disease; therefore, clinical correlation is needed when deciding how to manage patients with a positive test result.The assay has not been validated as a test of cure as amplifiable nucleic acid may persist after effective treatment; therefore, follow-up testing of a positive result is not recommended.URINALYSIS WITH MICROSCOPIC IF [id number] 11:39:00* Test Item Value Reference Range Comments COLOR (BEAKER) (test yllh=904) Yellow CLARITY (BEAKER) (test vhse=497) Hazy SPECIFIC GRAVITY UA (BEAKER) (test fmxy=602) 1.009 1.001-1.035 PH UA (BEAKER) (test mgdh=900) 6.5 5.0-8.0 PROTEIN UA (BEAKER) (test nwue=208) 300 mg/dL Negative GLUCOSE UA (BEAKER) (test oakm=589) Negative Negative KETONES UA (BEAKER) (test weqj=069) Negative Negative BILIRUBIN UA (BEAKER) (test iebg=418) Negative Negative BLOOD UA (BEAKER) (test kpzj=209) Small Negative NITRITE UA (BEAKER) (test jtxk=708) Negative Negative LEUKOCYTE ESTERASE UA (BEAKER) (test myzf=189) Large Negative UROBILINOGEN UA (BEAKER) (test vbmi=967) 0.2 mg/dL 0.2-1.0 SOURCE(BEAKER) (test woxi=6761) URINALYSIS [id number] 11:39:00* Test Item Value Reference Range Comments RBC UA (BEAKER) (test cjvr=903) 2 /HPF WBC UA (BEAKER) (test qbio=299) 119 /HPF BACTERIA (BEAKER) (test bkel=749) Many SQUAMOUS EPITHELIAL (BEAKER) (test ikhf=206) 5 /HPF HEMOGLOBIN [id number] 11:15:00* Test Item Value Reference Range Comments HEMOGLOBIN A1C (BEAKER) (test mtnc=375) 5.0 % 4.3-6.1 POCT-GLUCOSE [id number] 10:17:00* Test Item Value Reference Range Comments POC-GLUCOSE METER (BEAKER) (test eemg=0283) 155 mg/dL 70-110 TESTED AT [facility] [address] [facility] [address] POCT-GLUCOSE [id number] 08:14:00* Test Item Value Reference Range Comments POC-GLUCOSE METER (BEAKER) (test guou=1392) 129 mg/dL 70-110 TESTED AT [place] [id number] [facility] [address] POCT-GLUCOSE [id number] 08:14:00* Test Item Value Reference Range Comments POC-GLUCOSE METER (BEAKER) (test xvfz=9985) 193 mg/dL 70-110 TESTED AT [facility] [address] [facility] [address] POCT-GLUCOSE [id number] 08:14:00* Test Item Value Reference Range Comments POC-GLUCOSE METER (BEAKER) (test jdek=7645) 39 mg/dL 70-110 TESTED AT [facility] [address] [facility] [address] POCT-GLUCOSE [id number] 08:14:00* Test Item Value Reference Range Comments POC-GLUCOSE METER (BEAKER) (test jppf=1998) 34 mg/dL 70-110 TESTED AT [facility] [address] [facility] [address] RAPID INFLUENZA A&B [id number] 04:28:00* Test Item Value Reference Range Comments RAPID INFLUENZA A AG (BEAKER) (test qgdi=6481) Negative Negative, Inconclusive RAPID INFLUENZA B AG (BEAKER) (test spfx=8808) Negative Negative, Inconclusive [id number] 04:15:00* Test Item Value Reference Range Comments LIPASE (BEAKER) (test tvin=675) < U/L 8-78 [id number] 03:46:00* Test Item Value Reference Range Comments MAGNESIUM (BEAKER) (test ftmu=439) 1.8 mg/dL 1.6-2.6 [id number] 03:28:00* Test Item Value Reference Range Comments PROTIME (BEAKER) (test mbpe=492) 15.0 seconds 11.7-14.7 INR (BEAKER) (test whvu=245) 1.2 <=5.9 PARTIAL THROMBOPLASTIN TIME (BEAKER) (test bago=931) 33.9 seconds 22.5-36.0 RECOMMENDED COUMADIN/WARFARIN INR THERAPY RANGESSTANDARD DOSE: 2.0 - 3.0 Includes: PROPHYLAXIS for venous thrombosis, systemic embolization; TREATMENT for venous thrombosis and/or pulmonary embolus.HIGH RISK: Target INR is 2.5-3.5 for patients with mechanical heart valves.RAD, FEMUR, MIN. 2 VIEWS, [id number] 23:34:00Reason for exam:->LEG PAINReason for exam:->DIARRHEAFINAL REPORT Right femur, two views. INDICATION: Leg pain COMPARISON: None FINDINGS:AP and lateral views of the right femur were obtained on four radiographs. There is no radiographic evidence of acute fracture or dislocation. There is marked atherosclerotic vascular calcifications. Degenerative changes of the right knee are present. IMPRESSION:No radiographic evidence of acute fracture or dislocation. Signed: Jesus Manuel Leblancort Verified Date/Time: 07/26/2017 23:34:07 Reading Location: [address] Consult Reading Room C METABOLIC [id number] 18:23:00* Test Item Value Reference Range Comments SODIUM (BEAKER) (test nbhl=745) 137 meq/L 136-145 POTASSIUM (BEAKER) (test zqpd=430) 4.2 meq/L 3.5-5.1 CHLORIDE (BEAKER) (test zuqg=414) 100 meq/L 98-107 CO2 (BEAKER) (test qggs=668) 27 meq/L 22-29 BLOOD UREA NITROGEN (BEAKER) (test fukq=898) 48 mg/dL 7-21 CREATININE (BEAKER) (test pfmm=648) 2.91 mg/dL 0.57-1.25 GLUCOSE RANDOM (BEAKER) (test ozxp=217) 62 mg/dL 70-105 CALCIUM (BEAKER) (test hunb=802) 8.2 mg/dL 8.4-10.2 EGFR (BEAKER) (test ljie=3143) 16 mL/min/1.73 sq m ESTIMATED GFR IS NOT ACCURATE CREATININE CLEARANCE IN PREDICTING GLOMERULAR FILTRATION RATE. ESTIMATED GFR IS NOT APPLICABLE FOR DIALYSIS PATIENTS. CBC W/PLT COUNT & AUTO [id number] 17:59:00* Test Item Value Reference Range Comments WHITE BLOOD CELL COUNT (BEAKER) (test vwec=989) 6.4 K/ L 3.5-10.5 RED BLOOD CELL COUNT (BEAKER) (test axus=441) 3.79 M/ L 3.93-5.22 HEMOGLOBIN (BEAKER) (test hmfq=188) 11.7 GM/DL 11.2-15.7 HEMATOCRIT (BEAKER) (test prto=997) 34.4 % 34.1-44.9 MEAN CORPUSCULAR VOLUME (BEAKER) (test rtoa=027) 90.8 fL 79.4-94.8 MEAN CORPUSCULAR HEMOGLOBIN (BEAKER) (test knav=818) 30.9 pg 25.6-32.2 MEAN CORPUSCULAR HEMOGLOBIN CONC (BEAKER) (test spuo=949) 34.0 GM/DL 32.2- 35.5 RED CELL DISTRIBUTION WIDTH (BEAKER) (test cjhw=789) 16.9 % 11.7-14.4 PLATELET COUNT (BEAKER) (test volr=156) 120 K/CU MM 150-450 MEAN PLATELET VOLUME (BEAKER) (test rwyo=799) 8.7 fL 9.4-12.3 NUCLEATED RED BLOOD CELLS (BEAKER) (test smeb=467) 0 /100 WBC 0-0 NEUTROPHILS RELATIVE PERCENT (BEAKER) (test qbvt=979) 61 % LYMPHOCYTES RELATIVE PERCENT (BEAKER) (test cdma=304) 30 % MONOCYTES RELATIVE PERCENT (BEAKER) (test jaci=421) 5 % EOSINOPHILS RELATIVE PERCENT (BEAKER) (test xvlo=667) 3 % BASOPHILS RELATIVE PERCENT (BEAKER) (test rtku=199) 1 % NEUTROPHILS ABSOLUTE COUNT (BEAKER) (test ayss=688) 3.92 K/ L 1.56-6.13 LYMPHOCYTES ABSOLUTE COUNT (BEAKER) (test apdg=127) 1.91 K/ L 1.18-3.74 MONOCYTES ABSOLUTE COUNT (BEAKER) (test wwth=751) 0.31 K/ L 0.24-0.36 EOSINOPHILS ABSOLUTE COUNT (BEAKER) (test yhtd=454) 0.20 K/ L 0.04-0.36 BASOPHILS ABSOLUTE COUNT (BEAKER) (test aztf=755) 0.08 K/ L 0.01-0.08 IMMATURE GRANULOCYTES-RELATIVE PERCENT (BEAKER) (test cdci=4463) 0 % 0-1 POCT-GLUCOSE [id number] 06:05:00* Test Item Value Reference Range Comments POC-GLUCOSE METER (BEAKER) (test wloy=7715) 201 mg/dL 70-110 TESTED AT [place] [id number] [facility] [address] BLOOD [id number] 17:00:00* Test Item Value Reference Range Comments CULTURE (BEAKER) (test ckmx=0517) No growth in 5 days BLOOD [id number] 17:00:00* Test Item Value Reference Range Comments CULTURE (BEAKER) (test zjsz=7675) No growth in 5 days POCT-GLUCOSE [id number] 11:47:00* Test Item Value Reference Range Comments POC-GLUCOSE METER (BEAKER) (test nbgk=9669) 113 mg/dL 70-110 TESTED AT [facility] [address] [facility] [address] TACROLIMUS [id number] 11:43:00* Test Item Value Reference Range Comments TACROLIMUS BLOOD (BEAKER) (test lqsp=771) 12.3 ng/mL 10.0-20.0 COMPREHENSIVE METABOLIC [id number] 10:52:00* Test Item Value Reference Range Comments TOTAL PROTEIN (BEAKER) (test ueai=599) 7.0 gm/dL 6.0-8.3 ALBUMIN (BEAKER) (test hwzj=5403) 2.5 g/dL 3.5-5.0 ALKALINE PHOSPHATASE (BEAKER) (test wjoj=231) 136 U/L 40-150 BILIRUBIN TOTAL (BEAKER) (test axrg=403) 0.4 mg/dL 0.2-1.2 SODIUM (BEAKER) (test tnck=760) 137 meq/L 136-145 POTASSIUM (BEAKER) (test htdj=463) 4.0 meq/L 3.5-5.1 CHLORIDE (BEAKER) (test aujf=732) 104 meq/L 98-107 CO2 (BEAKER) (test enit=684) 23 meq/L 22-29 BLOOD UREA NITROGEN (BEAKER) (test gscj=774) 17 mg/dL 7-21 CREATININE (BEAKER) (test tznz=936) 2.19 mg/dL 0.57-1.25 GLUCOSE RANDOM (BEAKER) (test quun=105) 92 mg/dL 70-105 CALCIUM (BEAKER) (test gbyr=503) 7.7 mg/dL 8.4-10.2 AST (SGOT) (BEAKER) (test sodr=076) 62 U/L 5-34 ALT (SGPT) (BEAKER) (test wiax=942) 49 U/L 6-55 EGFR (BEAKER) (test mkbx=3410) 23 mL/min/1.73 sq m ESTIMATED GFR IS NOT ACCURATE CREATININE CLEARANCE IN PREDICTING GLOMERULAR FILTRATION RATE. ESTIMATED GFR IS NOT APPLICABLE FOR DIALYSIS PATIENTS. HEPATIC FUNCTION [id number] 10:01:00* Test Item Value Reference Range Comments TOTAL PROTEIN (BEAKER) (test rcio=090) 7.0 gm/dL 6.0-8.3 ALBUMIN (BEAKER) (test hpdd=3332) 2.5 g/dL 3.5-5.0 BILIRUBIN TOTAL (BEAKER) (test cbaz=060) 0.4 mg/dL 0.2-1.2 BILIRUBIN DIRECT (BEAKER) (test lrpu=947) 0.2 mg/dL 0.1-0.5 ALKALINE PHOSPHATASE (BEAKER) (test tzac=937) 136 U/L 40-150 AST (SGOT) (BEAKER) (test dpmp=615) 62 U/L 5-34 ALT (SGPT) (BEAKER) (test uozd=286) 49 U/L 6-55 POCT-GLUCOSE [id number] 08:12:00* Test Item Value Reference Range Comments POC-GLUCOSE METER (BEAKER) (test llfr=0868) 87 mg/dL 70-110 TESTED AT [facility] [address] [facility] [address] T4, [id number] 07:43:00* Test Item Value Reference Range Comments FREE T4 (BEAKER) (test bvxi=912) 1.07 ng/dL 0.70-1.48 [id number] 07:43:00* Test Item Value Reference Range Comments THYROID STIMULATING HORMONE (BEAKER) (test avmk=678) 4.76 uIU/mL 0.35-4.94 CBC (HEMOGRAM ONLY)2017-06-28 06:52:00* Test Item Value Reference Range Comments WHITE BLOOD CELL COUNT (BEAKER) (test lglu=593) 4.9 K/ L 3.5-10.5 RED BLOOD CELL COUNT (BEAKER) (test snrb=398) 4.05 M/ L 3.93-5.22 HEMOGLOBIN (BEAKER) (test jvvh=716) 11.7 GM/DL 11.2-15.7 HEMATOCRIT (BEAKER) (test chjz=863) 36.2 % 34.1-44.9 MEAN CORPUSCULAR VOLUME (BEAKER) (test zcie=499) 89.4 fL 79.4-94.8 MEAN CORPUSCULAR HEMOGLOBIN (BEAKER) (test gmms=779) 28.9 pg 25.6-32.2 MEAN CORPUSCULAR HEMOGLOBIN CONC (BEAKER) (test vmff=024) 32.3 GM/DL 32.2- 35.5 RED CELL DISTRIBUTION WIDTH (BEAKER) (test sctx=296) 17.0 % 11.7-14.4 PLATELET COUNT (BEAKER) (test vfjz=608) 117 K/CU MM 150-450 MEAN PLATELET VOLUME (BEAKER) (test veww=377) 9.6 fL 9.4-12.3 NUCLEATED RED BLOOD CELLS (BEAKER) (test zozi=578) 0 /100 WBC 0-0 POCT-GLUCOSE [id number] 22:17:00* Test Item Value Reference Range Comments POC-GLUCOSE METER (BEAKER) (test jsen=3871) 201 mg/dL 70-110 TESTED AT [address] [address] POCT-GLUCOSE [id number] 17:48:00* Test Item Value Reference Range Comments POC-GLUCOSE METER (BEAKER) (test ozpb=8129) 173 mg/dL 70-110 TESTED AT [address] [address] POCT-GLUCOSE [id number] 12:47:00* Test Item Value Reference Range Comments POC-GLUCOSE METER (BEAKER) (test arlg=3021) 119 mg/dL 70-110 TESTED AT [address] [address] POCT-GLUCOSE [id number] 11:42:00* Test Item Value Reference Range Comments POC-GLUCOSE METER (BEAKER) (test dfic=8432) 142 mg/dL 70-110 TESTED AT [address] [address] TACROLIMUS [id number] 09:48:00* Test Item Value Reference Range Comments TACROLIMUS BLOOD (BEAKER) (test csuy=995) 17.8 ng/mL 10.0-20.0 POCT-GLUCOSE [id number] 08:47:00* Test Item Value Reference Range Comments POC-GLUCOSE METER (BEAKER) (test xpzt=4732) 71 mg/dL 70-110 TESTED AT [address] [address] BASIC METABOLIC [id number] 07:04:00* Test Item Value Reference Range Comments SODIUM (BEAKER) (test nfdo=876) 137 meq/L 136-145 POTASSIUM (BEAKER) (test zohm=412) 4.0 meq/L 3.5-5.1 Specimen slightly hemolyzed CHLORIDE (BEAKER) (test jhyh=965) 106 meq/L 98-107 CO2 (BEAKER) (test nopx=845) 22 meq/L 22-29 BLOOD UREA NITROGEN (BEAKER) (test opik=386) 38 mg/dL 7-21 CREATININE (BEAKER) (test tyjb=343) 3.43 mg/dL 0.57-1.25 Specimen slightly hemolyzed GLUCOSE RANDOM (BEAKER) (test gcao=520) 73 mg/dL 70-105 CALCIUM (BEAKER) (test fnta=977) 7.6 mg/dL 8.4-10.2 EGFR (BEAKER) (test utta=2018) 14 mL/min/1.73 sq m ESTIMATED GFR IS NOT ACCURATE CREATININE CLEARANCE IN PREDICTING GLOMERULAR FILTRATION RATE. ESTIMATED GFR IS NOT APPLICABLE FOR DIALYSIS PATIENTS. CALCIUM, [id number] 06:58:00* Test Item Value Reference Range Comments CALCIUM IONIZED (BEAKER) (test itxw=886) 1.02 mmol/L 1.12-1.27 PH, BLOOD (BEAKER) (test nbxz=2748) 7.35 [id number] 06:53:00* Test Item Value Reference Range Comments MAGNESIUM (BEAKER) (test vkxx=884) 2.1 mg/dL 1.6-2.6 Specimen slightly hemolyzed [id number] 06:53:00* Test Item Value Reference Range Comments PHOSPHORUS (BEAKER) (test sgkn=519) 6.1 mg/dL 2.3-4.7 Specimen slightly hemolyzed HEPATIC FUNCTION [id number] 06:53:00* Test Item Value Reference Range Comments TOTAL PROTEIN (BEAKER) (test botw=127) 6.6 gm/dL 6.0-8.3 Specimen slightly hemolyzed ALBUMIN (BEAKER) (test oimr=0383) 2.3 g/dL 3.5-5.0 Specimen slightly hemolyzed BILIRUBIN TOTAL (BEAKER) (test answ=589) 0.4 mg/dL 0.2-1.2 Specimen slightly hemolyzed BILIRUBIN DIRECT (BEAKER) (test utmk=990) 0.2 mg/dL 0.1-0.5 Specimen slightly hemolyzed ALKALINE PHOSPHATASE (BEAKER) (test hxib=052) 143 U/L 40-150 AST (SGOT) (BEAKER) (test dfmq=062) 95 U/L 5-34 Specimen slightly hemolyzed ALT (SGPT) (BEAKER) (test otkl=256) 54 U/L 6-55 Specimen slightly hemolyzed CBC W/PLT COUNT & AUTO [id number] 06:26:00* Test Item Value Reference Range Comments WHITE BLOOD CELL COUNT (BEAKER) (test xwfm=834) 8.0 K/ L 3.5-10.5 RED BLOOD CELL COUNT (BEAKER) (test vuvx=131) 4.01 M/ L 3.93-5.22 HEMOGLOBIN (BEAKER) (test igzz=125) 11.7 GM/DL 11.2-15.7 HEMATOCRIT (BEAKER) (test rsoe=933) 35.4 % 34.1-44.9 MEAN CORPUSCULAR VOLUME (BEAKER) (test qwdm=255) 88.3 fL 79.4-94.8 MEAN CORPUSCULAR HEMOGLOBIN (BEAKER) (test goct=328) 29.2 pg 25.6-32.2 MEAN CORPUSCULAR HEMOGLOBIN CONC (BEAKER) (test qbex=627) 33.1 GM/DL 32.2- 35.5 RED CELL DISTRIBUTION WIDTH (BEAKER) (test cgwh=521) 17.0 % 11.7-14.4 PLATELET COUNT (BEAKER) (test cjto=054) 128 K/CU MM 150-450 MEAN PLATELET VOLUME (BEAKER) (test crld=195) 9.9 fL 9.4-12.3 NUCLEATED RED BLOOD CELLS (BEAKER) (test mvef=216) 0 /100 WBC 0-0 NEUTROPHILS RELATIVE PERCENT (BEAKER) (test aqbp=919) 62 % LYMPHOCYTES RELATIVE PERCENT (BEAKER) (test mmkw=678) 26 % MONOCYTES RELATIVE PERCENT (BEAKER) (test snxu=103) 8 % EOSINOPHILS RELATIVE PERCENT (BEAKER) (test amum=113) 3 % BASOPHILS RELATIVE PERCENT (BEAKER) (test ezag=700) 1 % NEUTROPHILS ABSOLUTE COUNT (BEAKER) (test fghj=283) 4.95 K/ L 1.56-6.13 LYMPHOCYTES ABSOLUTE COUNT (BEAKER) (test kuvy=692) 2.09 K/ L 1.18-3.74 MONOCYTES ABSOLUTE COUNT (BEAKER) (test gbmz=093) 0.63 K/ L 0.24-0.36 EOSINOPHILS ABSOLUTE COUNT (BEAKER) (test vsym=956) 0.24 K/ L 0.04-0.36 BASOPHILS ABSOLUTE COUNT (BEAKER) (test xybf=920) 0.07 K/ L 0.01-0.08 IMMATURE GRANULOCYTES-RELATIVE PERCENT (BEAKER) (test gpcg=9670) 0 % 0-1 POCT-GLUCOSE [id number] 22:20:00* Test Item Value Reference Range Comments POC-GLUCOSE METER (BEAKER) (test imzc=7413) 198 mg/dL 70-110 TESTED AT [address] [address] POCT-GLUCOSE [id number] 17:27:00* Test Item Value Reference Range Comments POC-GLUCOSE METER (BEAKER) (test sffk=6149) 164 mg/dL 70-110 TESTED AT [address] [address] POCT-GLUCOSE [id number] 12:07:00* Test Item Value Reference Range Comments POC-GLUCOSE METER (BEAKER) (test kwpx=9821) 256 mg/dL 70-110 TESTED AT [address] [address] URINE [id number] 10:41:00* Test Item Value Reference Range Comments CULTURE (AKER) (test vwba=9817) Ampicillin (test code=26) Linezolid (test code=40) Nitrofurantoin (test code=23) Tetracycline (test code=2) Vancomycin (test code=13) Daptomycin (test code=59) Susceptible 0-4 , No Interpretations Established <0 or >4 CULTURE (BEAKER) (test gnsy=0244) 10-19,000 col/mL Vancomycin resistant Enterococcus species TACROLIMUS [id number] 10:25:00* Test Item Value Reference Range Comments TACROLIMUS BLOOD (BEAKER) (test lvnk=384) 11.4 ng/mL 10.0-20.0 POCT-GLUCOSE [id number] 09:45:00* Test Item Value Reference Range Comments POC-GLUCOSE METER (BEAKER) (test zmom=0793) 119 mg/dL 70-110 TESTED AT [address] [address] BASIC METABOLIC [id number] 06:29:00* Test Item Value Reference Range Comments SODIUM (BEAKER) (test eeuc=019) 138 meq/L 136-145 POTASSIUM (BEAKER) (test view=181) 3.9 meq/L 3.5-5.1 CHLORIDE (BEAKER) (test dnyf=578) 105 meq/L 98-107 CO2 (BEAKER) (test jknd=709) 23 meq/L 22-29 BLOOD UREA NITROGEN (BEAKER) (test egrz=824) 27 mg/dL 7-21 CREATININE (BEAKER) (test mbpz=410) 2.88 mg/dL 0.57-1.25 GLUCOSE RANDOM (BEAKER) (test wqwo=820) 164 mg/dL 70-105 CALCIUM (BEAKER) (test xsfw=125) 8.2 mg/dL 8.4-10.2 EGFR (BEAKER) (test nqwz=8837) 17 mL/min/1.73 sq m ESTIMATED GFR IS NOT ACCURATE CREATININE CLEARANCE IN PREDICTING GLOMERULAR FILTRATION RATE. ESTIMATED GFR IS NOT APPLICABLE FOR DIALYSIS PATIENTS. [id number] 06:26:00* Test Item Value Reference Range Comments MAGNESIUM (BEAKER) (test maqc=393) 2.0 mg/dL 1.6-2.6 HEPATIC FUNCTION [id number] 06:26:00* Test Item Value Reference Range Comments TOTAL PROTEIN (BEAKER) (test lmop=142) 7.3 gm/dL 6.0-8.3 ALBUMIN (BEAKER) (test chuu=2406) 2.5 g/dL 3.5-5.0 BILIRUBIN TOTAL (BEAKER) (test lspe=088) 0.4 mg/dL 0.2-1.2 BILIRUBIN DIRECT (BEAKER) (test bcyw=239) 0.2 mg/dL 0.1-0.5 ALKALINE PHOSPHATASE (BEAKER) (test bbob=954) 118 U/L 40-150 AST (SGOT) (BEAKER) (test fpas=343) 73 U/L 5-34 ALT (SGPT) (BEAKER) (test xyvz=288) 36 U/L 6-55 CBC W/PLT COUNT & AUTO [id number] 06:13:00* Test Item Value Reference Range Comments WHITE BLOOD CELL COUNT (BEAKER) (test wctv=168) 6.6 K/ L 3.5-10.5 RED BLOOD CELL COUNT (BEAKER) (test hyhd=669) 4.00 M/ L 3.93-5.22 HEMOGLOBIN (BEAKER) (test ymjo=515) 11.5 GM/DL 11.2-15.7 HEMATOCRIT (BEAKER) (test ifpq=293) 35.5 % 34.1-44.9 MEAN CORPUSCULAR VOLUME (BEAKER) (test jkjp=324) 88.8 fL 79.4-94.8 MEAN CORPUSCULAR HEMOGLOBIN (BEAKER) (test mjko=088) 28.8 pg 25.6-32.2 MEAN CORPUSCULAR HEMOGLOBIN CONC (BEAKER) (test qutf=461) 32.4 GM/DL 32.2- 35.5 RED CELL DISTRIBUTION WIDTH (BEAKER) (test galu=926) 17.2 % 11.7-14.4 PLATELET COUNT (BEAKER) (test qxmv=735) 104 K/CU MM 150-450 MEAN PLATELET VOLUME (BEAKER) (test inoy=049) 11.4 fL 9.4-12.3 NUCLEATED RED BLOOD CELLS (BEAKER) (test nxrp=789) 0 /100 WBC 0-0 NEUTROPHILS RELATIVE PERCENT (BEAKER) (test elrq=219) 78 % LYMPHOCYTES RELATIVE PERCENT (BEAKER) (test kndx=145) 17 % MONOCYTES RELATIVE PERCENT (BEAKER) (test ukpe=570) 4 % EOSINOPHILS RELATIVE PERCENT (BEAKER) (test nlge=958) 0 % BASOPHILS RELATIVE PERCENT (BEAKER) (test giaq=750) 1 % NEUTROPHILS ABSOLUTE COUNT (BEAKER) (test mttz=496) 5.14 K/ L 1.56-6.13 LYMPHOCYTES ABSOLUTE COUNT (BEAKER) (test ssob=466) 1.11 K/ L 1.18-3.74 MONOCYTES ABSOLUTE COUNT (BEAKER) (test hjmi=623) 0.28 K/ L 0.24-0.36 EOSINOPHILS ABSOLUTE COUNT (BEAKER) (test nxzp=649) 0.02 K/ L 0.04-0.36 BASOPHILS ABSOLUTE COUNT (BEAKER) (test kwog=477) 0.04 K/ L 0.01-0.08 IMMATURE GRANULOCYTES-RELATIVE PERCENT (BEAKER) (test uvdg=6857) 0 % 0-1 POCT-GLUCOSE [id number] 21:44:00* Test Item Value Reference Range Comments POC-GLUCOSE METER (BEAKER) (test mmng=7583) 270 mg/dL 70-110 TESTED AT [address] [address] POCT-GLUCOSE [id number] 17:14:00* Test Item Value Reference Range Comments POC-GLUCOSE METER (BEAKER) (test cody=6297) 390 mg/dL 70-110 TESTED AT [address] [address] TACROLIMUS [id number] 13:17:00* Test Item Value Reference Range Comments TACROLIMUS BLOOD (BEAKER) (test khgm=503) 12.9 ng/mL 10.0-20.0 POCT-GLUCOSE [id number] 12:07:00* Test Item Value Reference Range Comments POC-GLUCOSE METER (BEAKER) (test hbtn=1660) 305 mg/dL 70-110 TESTED AT [address] [address] POCT-GLUCOSE [id number] 10:11:00* Test Item Value Reference Range Comments POC-GLUCOSE METER (BEAKER) (test ggrs=3881) 298 mg/dL 70-110 TESTED AT [address] [address] CALCIUM, [id number] 06:39:00* Test Item Value Reference Range Comments CALCIUM IONIZED (BEAKER) (test pwcz=770) 1.12 mmol/L 1.12-1.27 PH, BLOOD (BEAKER) (test mhqz=6028) 7.36 BASIC METABOLIC [id number] 04:31:00* Test Item Value Reference Range Comments SODIUM (BEAKER) (test ibla=227) 137 meq/L 136-145 POTASSIUM (BEAKER) (test qxnb=993) 3.9 meq/L 3.5-5.1 CHLORIDE (BEAKER) (test kueb=845) 108 meq/L 98-107 CO2 (BEAKER) (test hxbc=949) 24 meq/L 22-29 BLOOD UREA NITROGEN (BEAKER) (test ajdh=654) 11 mg/dL 7-21 CREATININE (BEAKER) (test wmop=476) 1.92 mg/dL 0.57-1.25 GLUCOSE RANDOM (BEAKER) (test hfxe=945) 219 mg/dL 70-105 CALCIUM (BEAKER) (test rprr=762) 7.2 mg/dL 8.4-10.2 EGFR (BEAKER) (test cqyb=3295) 26 mL/min/1.73 sq m ESTIMATED GFR IS NOT ACCURATE CREATININE CLEARANCE IN PREDICTING GLOMERULAR FILTRATION RATE. ESTIMATED GFR IS NOT APPLICABLE FOR DIALYSIS PATIENTS. [id number] 04:21:00* Test Item Value Reference Range Comments PHOSPHORUS (BEAKER) (test elsa=660) 3.3 mg/dL 2.3-4.7 [id number] 04:21:00* Test Item Value Reference Range Comments MAGNESIUM (BEAKER) (test nfte=861) 1.7 mg/dL 1.6-2.6 HEPATIC FUNCTION [id number] 04:21:00* Test Item Value Reference Range Comments TOTAL PROTEIN (BEAKER) (test pvld=518) 6.3 gm/dL 6.0-8.3 ALBUMIN (BEAKER) (test rbxa=7019) 2.1 g/dL 3.5-5.0 BILIRUBIN TOTAL (BEAKER) (test shlo=354) 0.3 mg/dL 0.2-1.2 BILIRUBIN DIRECT (BEAKER) (test bwsl=611) 0.1 mg/dL 0.1-0.5 ALKALINE PHOSPHATASE (BEAKER) (test spxu=731) 76 U/L 40-150 AST (SGOT) (BEAKER) (test xhln=180) 16 U/L 5-34 ALT (SGPT) (BEAKER) (test bihm=809) 11 U/L 6-55 CBC W/PLT COUNT & AUTO [id number] 03:53:00* Test Item Value Reference Range Comments WHITE BLOOD CELL COUNT (BEAKER) (test gctc=517) 5.7 K/ L 3.5-10.5 RED BLOOD CELL COUNT (BEAKER) (test hqed=295) 3.88 M/ L 3.93-5.22 HEMOGLOBIN (BEAKER) (test kwyz=657) 11.2 GM/DL 11.2-15.7 HEMATOCRIT (BEAKER) (test jbrv=221) 34.5 % 34.1-44.9 MEAN CORPUSCULAR VOLUME (BEAKER) (test tpcm=407) 88.9 fL 79.4-94.8 MEAN CORPUSCULAR HEMOGLOBIN (BEAKER) (test yzoh=287) 28.9 pg 25.6-32.2 MEAN CORPUSCULAR HEMOGLOBIN CONC (BEAKER) (test ngvu=026) 32.5 GM/DL 32.2- 35.5 RED CELL DISTRIBUTION WIDTH (BEAKER) (test spkn=800) 17.2 % 11.7-14.4 PLATELET COUNT (BEAKER) (test bsdm=024) 102 K/CU MM 150-450 MEAN PLATELET VOLUME (BEAKER) (test ewju=496) 10.0 fL 9.4-12.3 NUCLEATED RED BLOOD CELLS (BEAKER) (test ezjj=245) 0 /100 WBC 0-0 NEUTROPHILS RELATIVE PERCENT (BEAKER) (test gdfu=925) 80 % LYMPHOCYTES RELATIVE PERCENT (BEAKER) (test sxlg=931) 17 % MONOCYTES RELATIVE PERCENT (BEAKER) (test huej=485) 3 % EOSINOPHILS RELATIVE PERCENT (BEAKER) (test imzt=928) 0 % BASOPHILS RELATIVE PERCENT (BEAKER) (test sizi=548) 1 % NEUTROPHILS ABSOLUTE COUNT (BEAKER) (test giao=661) 4.52 K/ L 1.56-6.13 LYMPHOCYTES ABSOLUTE COUNT (BEAKER) (test soql=039) 0.95 K/ L 1.18-3.74 MONOCYTES ABSOLUTE COUNT (BEAKER) (test dkls=675) 0.14 K/ L 0.24-0.36 EOSINOPHILS ABSOLUTE COUNT (BEAKER) (test tlfs=132) 0.02 K/ L 0.04-0.36 BASOPHILS ABSOLUTE COUNT (BEAKER) (test wzag=039) 0.03 K/ L 0.01-0.08 IMMATURE GRANULOCYTES-RELATIVE PERCENT (BEAKER) (test doyl=2685) 0 % 0-1 POCT-GLUCOSE [id number] 22:01:00* Test Item Value Reference Range Comments POC-GLUCOSE METER (BEAKER) (test ffyn=7952) 188 mg/dL 70-110 TESTED AT [address] [address] POCT-GLUCOSE [id number] 17:37:00* Test Item Value Reference Range Comments POC-GLUCOSE METER (BEAKER) (test wxxd=5106) 116 mg/dL 70-110 TESTED AT [address] [address] HEPATITIS B SURFACE [id number] 16:45:00* Test Item Value Reference Range Comments HEPATITIS B SURFACE ANTIGEN (2) (BEAKER) (test lkrs=0853) Nonreactive Nonreactive INFLUENZA A H1N1 [id number] 15:29:00* Test Item Value Reference Range Comments INFLUENZA A RNA (BEAKER) (test gaue=6718) Not Detected Not Detected, Inconclusive NOVEL H1N1 RNA (BEAKER) (test agvf=1934) Not Detected Not Detected, Inconclusive These assays were performed by real-time RT-PCR (artificial marble worker-PCR) utilizing fluorogenic hydrolysis probe technology for the detection of human Influenza A viruses and the differential detection of novel H1N1 Influenza virus in respiratory specimens. The test is composed of (1) an RNA extraction from patient specimen, and (2) artificial marble worker-PCR amplification and detection with human Influenza A and novel [id number] primers and probes. A well-conserved region of the Influenza A matrix gene is targeted in one set of reactions to identify both seasonal Influenza A and novel H1N1 Influenza virus in the specimen. In addition, a specific region of the hemagglutinin gene is targeted to differentiate the novel H1N1 virus from the seasonal human influenza. An internal control is used to confirm PCR amplification. Genetic variation and other factors can affect the accuracy of nucleic acid testing; therefore, the results should be interpreted in light of clinical data. This test was developed and its performance characteristics determined by the [facility] Department, Section of Molecular Pathology. It has not been cleared or approved by the U.S. Food and Drug Administration (FDA). Since FDA approval is not required for clinical use of the test, validation was done as required by The Clinical Laboratory Amendments of 1988.These assays were performed by real-time RT-PCR (artificial marble worker-PCR) utilizing fluorogenic hydrolysis probe technology for the detection of human Influenza A viruses and the differential detection of novel H1N1 Influenza virus in respiratory specimens. The test is composed of (1) an RNA extraction from patient specimen, and (2) artificial marble worker-PCR amplification and detection with human Influenza A and novel [id number] primers and probes. A well-conserved region of the Influenza A matrix gene is targeted in one set of reactions to identify both seasonal Influenza A and novel H1N1 Influenza virus in the specimen. In addition, a specific region of the hemagglutinin gene is targeted to differentiate the novel H1N1 virus from the seasonal human influenza. An internal control is used to confirm PCR amplification. Genetic variation and other factors can affect the accuracy of nucleic acid testing; therefore, the results should be interpreted in light of clinical data. This test was developed and its performance characteristics determined by the [facility]ology Department, Section of Molecular Pathology. It has not been cleared or approved by the U.S. Food and Drug Administration ( FDA). Since FDA approval is not required for clinical use of the test, validation was done as required by The Clinical Laboratory Amendments of 1988.POCT-GLUCOSE [id number] 12:20:00* Test Item Value Reference Range Comments POC-GLUCOSE METER (BEAKER) (test jyij=9725) 101 mg/dL 70-110 TESTED AT [address] [address] BASIC METABOLIC [id number] 09:26:00* Test Item Value Reference Range Comments SODIUM (BEAKER) (test lodx=099) 133 meq/L 136-145 POTASSIUM (BEAKER) (test msiy=953) 3.5 meq/L 3.5-5.1 CHLORIDE (BEAKER) (test irxo=860) 98 meq/L 98-107 CO2 (BEAKER) (test qikv=792) 25 meq/L 22-29 BLOOD UREA NITROGEN (BEAKER) (test jzoe=790) 42 mg/dL 7-21 CREATININE (BEAKER) (test njhj=549) 4.12 mg/dL 0.57-1.25 GLUCOSE RANDOM (BEAKER) (test nzbj=329) 37 mg/dL 70-105 CALCIUM (BEAKER) (test bmwz=314) 8.2 mg/dL 8.4-10.2 EGFR (BEAKER) (test eeqr=2010) 11 mL/min/1.73 sq m ESTIMATED GFR IS NOT ACCURATE CREATININE CLEARANCE IN PREDICTING GLOMERULAR FILTRATION RATE. ESTIMATED GFR IS NOT APPLICABLE FOR DIALYSIS PATIENTS. POCT-GLUCOSE [id number] 08:13:00* Test Item Value Reference Range Comments POC-GLUCOSE METER (BEAKER) (test oxud=8627) 90 mg/dL 70-110 TESTED AT [facility] [address] [facility] [address] POCT-GLUCOSE [id number] 07:29:00* Test Item Value Reference Range Comments POC-GLUCOSE METER (BEAKER) (test ejpy=3903) 163 mg/dL 70-110 TESTED AT [facility] [address] [facility] [address] POCT-GLUCOSE [id number] 07:29:00* Test Item Value Reference Range Comments POC-GLUCOSE METER (BEAKER) (test mtan=8442) 24 mg/dL 70-110 TESTED AT [facility] [address] [facility] [address] CBC W/PLT COUNT & AUTO [id number] 07:20:00* Test Item Value Reference Range Comments WHITE BLOOD CELL COUNT (BEAKER) (test epst=919) 7.3 K/ L 3.5-10.5 RED BLOOD CELL COUNT (BEAKER) (test ploy=509) 3.70 M/ L 3.93-5.22 HEMOGLOBIN (BEAKER) (test ztuh=990) 10.8 GM/DL 11.2-15.7 HEMATOCRIT (BEAKER) (test mzsu=606) 32.8 % 34.1-44.9 MEAN CORPUSCULAR VOLUME (BEAKER) (test vhqe=512) 88.6 fL 79.4-94.8 MEAN CORPUSCULAR HEMOGLOBIN (BEAKER) (test rebu=620) 29.2 pg 25.6-32.2 MEAN CORPUSCULAR HEMOGLOBIN CONC (BEAKER) (test oaly=360) 32.9 GM/DL 32.2- 35.5 RED CELL DISTRIBUTION WIDTH (BEAKER) (test eepi=778) 17.2 % 11.7-14.4 PLATELET COUNT (BEAKER) (test jtut=873) 113 K/CU MM 150-450 MEAN PLATELET VOLUME (BEAKER) (test gyfc=425) 10.9 fL 9.4-12.3 NUCLEATED RED BLOOD CELLS (BEAKER) (test jxxm=401) 0 /100 WBC 0-0 NEUTROPHILS RELATIVE PERCENT (BEAKER) (test ahln=772) 61 % LYMPHOCYTES RELATIVE PERCENT (BEAKER) (test yqwa=143) 27 % MONOCYTES RELATIVE PERCENT (BEAKER) (test mwqh=871) 9 % EOSINOPHILS RELATIVE PERCENT (BEAKER) (test rkbi=946) 2 % BASOPHILS RELATIVE PERCENT (BEAKER) (test lqmt=159) 1 % NEUTROPHILS ABSOLUTE COUNT (BEAKER) (test crgg=796) 4.43 K/ L 1.56-6.13 LYMPHOCYTES ABSOLUTE COUNT (BEAKER) (test ileo=056) 1.95 K/ L 1.18-3.74 MONOCYTES ABSOLUTE COUNT (BEAKER) (test podq=452) 0.65 K/ L 0.24-0.36 EOSINOPHILS ABSOLUTE COUNT (BEAKER) (test eonv=405) 0.17 K/ L 0.04-0.36 BASOPHILS ABSOLUTE COUNT (BEAKER) (test ncye=543) 0.07 K/ L 0.01-0.08 IMMATURE GRANULOCYTES-RELATIVE PERCENT (BEAKER) (test pdli=7401) 0 % 0-1 VANCOMYCIN LEVEL, [id number] 07:13:00* Test Item Value Reference Range Comments VANCOMYCIN RANDOM (BEAKER) (test esqb=289) 16.5 ug/mL Reference Range: No NormalsPOCT-GLUCOSE [id number] 22:14:00* Test Item Value Reference Range Comments POC-GLUCOSE METER (BEAKER) (test nplj=7829) 349 mg/dL 70-110 Notified ABRAHAM WONG/ TESTED AT [address] [address] POCT-GLUCOSE [id number] 18:34:00* Test Item Value Reference Range Comments POC-GLUCOSE METER (BEAKER) (test dmmq=3040) 386 mg/dL 70-110 TESTED AT [address] [address] RAPID INFLUENZA A&B [id number] 16:54:00* Test Item Value Reference Range Comments RAPID INFLUENZA A AG (BEAKER) (test gucn=8947) Negative Negative, Inconclusive RAPID INFLUENZA B AG (BEAKER) (test zddj=1814) Negative Negative, Inconclusive POCT-GLUCOSE [id number] 16:13:00* Test Item Value Reference Range Comments POC-GLUCOSE METER (BEAKER) (test yjse=8565) 401 mg/dL 70-110 TESTED AT [address] [address] POCT-GLUCOSE [id number] 15:19:00* Test Item Value Reference Range Comments POC-GLUCOSE METER (BEAKER) (test kcyd=0577) 380 mg/dL 70-110 TESTED AT [address] [address] POCT-GLUCOSE [id number] 14:31:00* Test Item Value Reference Range Comments POC-GLUCOSE METER (BEAKER) (test ppgw=9492) 329 mg/dL 70-110 TESTED AT [facility] [address] [facility] [address] POCT-GLUCOSE [id number] 13:03:00* Test Item Value Reference Range Comments POC-GLUCOSE METER (BEAKER) (test muen=3121) 299 mg/dL 70-110 TESTED AT [facility] [address] [facility] [address] TACROLIMUS [id number] 12:55:00* Test Item Value Reference Range Comments TACROLIMUS BLOOD (BEAKER) (test gbqm=452) < ng/mL 10.0-20.0 URINALYSIS W/ [id number] 12:13:00* Test Item Value Reference Range Comments COLOR (BEAKER) (test sbin=649) Yellow CLARITY (BEAKER) (test svao=121) Hazy SPECIFIC GRAVITY UA (BEAKER) (test ruwc=348) 1.006 1.001-1.035 PH UA (BEAKER) (test qsdm=964) 8.5 5.0-8.0 PROTEIN UA (BEAKER) (test kwwo=455) 600 mg/dL Negative GLUCOSE UA (BEAKER) (test vixc=823) 1000 mg/dL Negative KETONES UA (BEAKER) (test cicp=263) Negative Negative BILIRUBIN UA (BEAKER) (test qxna=021) Negative Negative BLOOD UA (BEAKER) (test szzn=501) Moderate Negative NITRITE UA (BEAKER) (test kjrq=988) Negative Negative LEUKOCYTE ESTERASE UA (BEAKER) (test jffl=338) Large Negative UROBILINOGEN UA (BEAKER) (test tkmk=749) 0.2 mg/dL 0.2-1.0 RBC UA (BEAKER) (test vkvf=524) 29 /HPF WBC UA (BEAKER) (test dvep=618) 68 /HPF SQUAMOUS EPITHELIAL (BEAKER) (test btfk=069) 1 /HPF CASTS (BEAKER) (test kbff=7776) 1 /LPF CRYSTALS, URINE (BEAKER) (test gdxl=6441) Few YEAST (BEAKER) (test hgoe=7826) Few SOURCE(BEAKER) (test cuxw=2382) Urine, Mann POCT-GLUCOSE [id number] 12:00:00* Test Item Value Reference Range Comments POC-GLUCOSE METER (BEAKER) (test zekg=2750) 213 mg/dL 70-110 TESTED AT [facility] [address] [facility] [address] [id number] 11:32:00* Test Item Value Reference Range Comments THYROID STIMULATING HORMONE (BEAKER) (test gsof=183) 27.48 uIU/mL 0.35-4.94 BASIC METABOLIC [id number] 11:22:00* Test Item Value Reference Range Comments SODIUM (BEAKER) (test vooy=226) 134 meq/L 136-145 POTASSIUM (BEAKER) (test fgpc=168) 3.2 meq/L 3.5-5.1 CHLORIDE (BEAKER) (test uexb=349) 99 meq/L 98-107 CO2 (BEAKER) (test heuj=459) 27 meq/L 22-29 BLOOD UREA NITROGEN (BEAKER) (test vhwe=341) 41 mg/dL 7-21 CREATININE (BEAKER) (test gtbp=130) 3.75 mg/dL 0.57-1.25 GLUCOSE RANDOM (BEAKER) (test lkqe=482) 276 mg/dL 70-105 CALCIUM (BEAKER) (test qxyq=529) 7.7 mg/dL 8.4-10.2 EGFR (BEAKER) (test fvba=1777) 12 mL/min/1.73 sq m ESTIMATED GFR IS NOT ACCURATE CREATININE CLEARANCE IN PREDICTING GLOMERULAR FILTRATION RATE. ESTIMATED GFR IS NOT APPLICABLE FOR DIALYSIS PATIENTS. [id number] 11:22:00* Test Item Value Reference Range Comments LIPASE (BEAKER) (test ihmg=513) < U/L 8-78 POCT-GLUCOSE [id number] 11:17:00* Test Item Value Reference Range Comments POC-GLUCOSE METER (BEAKER) (test mfeg=0633) 246 mg/dL 70-110 TESTED AT [facility] [address] [facility] [address] T4, [id number] 11:17:00* Test Item Value Reference Range Comments FREE T4 (BEAKER) (test tsdc=743) 0.77 ng/dL 0.70-1.48 T3, [id number] 11:17:00* Test Item Value Reference Range Comments T3 FREE (BEAKER) (test ljbt=870) 1.26 pg/mL 1.71-3.71 [id number] 11:16:00* Test Item Value Reference Range Comments CORTISOL, TOTAL (TAHMINA) (test jxuk=5495) 12.1 ug/dL 3.7-19.4 U/S, HEPATIC PORTAL VESSEL WITH [id number] 11:16:00Reason for exam:->s/p liver transplant, now sepsis; assess transplant liver, including vascular doppler Should this be performed at the bedside?->YesFINAL REPORT Ultrasound of the Abdomen and Doppler evaluation Clinical History: Liver transplant 2008 Comparison: Abdominal ultrasound from 10/15/2016 Discussion : Sonographic evaluation of the abdomen is performed. [...] elevated resistive indices, measuring 0.9, 0.8, and 0.8 , respectively. The proper hepatic artery demonstrates normal acceleration time , acceleration index, and systolic upstroke. Segments of the right hepatic, middle hepatic, and left hepatic veins visualized demonstrate flow and phasic venous waveforms. Impression:1. Elevation of the hepatic arterial resistive indices. Remainder of the transplant vasculature is grossly within normal limits.2. Mildly increased echogenicity of the transplant liver, a nonspecific finding which may be seen in diffuse liver disease. Unchanged mild intrahepatic biliary ductal dilation, similar in appearance to 10/15/2016. Signed: Jesus Manuel Lorenzoeport Verified Date/Time: 06/23/2017 11:16:57 Reading Location: [facility] B1 C013Y CT Body Reading Room TINE KINASE (CK), TOTAL AND [id number] 11:06:00 * Test Item Value Reference Range Comments CREATINE KINASE TOTAL (BEAKER) (test amjl=056) 29 U/L 29-200 CREATINE KINASE-MB (BEAKER) (test swso=107) 3.5 ng/mL 0.0-6.6 CREATINE KINASE-MB INDEX (BEAKER) (test fljx=935) 12.1 % CK-MB Reference Range:<6.7 Normal6.7-10.0 Borderline>10.0 AbnormalTROPONIN [id number] 11:06:00* Test Item Value Reference Range Comments TROPONIN I (BEAKER) (test dnim=670) < ng/mL 0.00-0.03 Troponin I (TnI) levels must be interpreted [...] failure, acidosis, acute neurological disease, and persistent tachyarrhythmia.[id number] 11:00:00* Test Item Value Reference Range Comments PHOSPHORUS (BEAKER) (test ksfb=790) 4.0 mg/dL 2.3-4.7 [id number] 11:00:00* Test Item Value Reference Range Comments MAGNESIUM (BEAKER) (test cxzi=444) 1.6 mg/dL 1.6-2.6 HEPATIC FUNCTION [id number] 11:00:00* Test Item Value Reference Range Comments TOTAL PROTEIN (BEAKER) (test cnxv=940) 7.1 gm/dL 6.0-8.3 ALBUMIN (BEAKER) (test huul=5473) 2.5 g/dL 3.5-5.0 BILIRUBIN TOTAL (BEAKER) (test rcks=783) 0.5 mg/dL 0.2-1.2 BILIRUBIN DIRECT (BEAKER) (test rptn=904) 0.3 mg/dL 0.1-0.5 ALKALINE PHOSPHATASE (BEAKER) (test etyy=132) 87 U/L 40-150 AST (SGOT) (BEAKER) (test ajic=923) 21 U/L 5-34 ALT (SGPT) (BEAKER) (test zbwx=649) 15 U/L 6-55 VANCOMYCIN LEVEL, [id number] 10:57:00* Test Item Value Reference Range Comments VANCOMYCIN RANDOM (BEAKER) (test pvae=705) 21.6 ug/mL Reference Range: No NormalsNeed baseline Vanc lvl as pt supposedly received it in [id number] 10:52:00* Test Item Value Reference Range Comments AMMONIA (BEAKER) (test knmd=712) 28 mol/L 18-72 LACTIC ACID, VENOUS, WHOLE [id number] 10:52:00* Test Item Value Reference Range Comments LACTATE BLOOD VENOUS (2) (BEAKER) (test upih=6643) 0.9 mmol/L 0.5-2.2 Effective 11/16/2015: Units/Reference Range ChangeNew: 0.5-2.2 mmol/L Previous: 5 -20 mg/dLPOCT-GLUCOSE [id number] 10:34:00* Test Item Value Reference Range Comments POC-GLUCOSE METER (BEAKER) (test zrpt=2181) 262 mg/dL 70-110 [address]ED AT [address] [address] PT/[id number] 09:54:00* Test Item Value Reference Range Comments PROTIME (BEAKER) (test uubo=073) 15.3 seconds 11.7-14.7 INR (BEAKER) (test ayuj=400) 1.2 <=5.9 PARTIAL THROMBOPLASTIN TIME (BEAKER) (test cfeb=742) 30.9 seconds 22.5-36.0 RECOMMENDED COUMADIN/WARFARIN INR THERAPY RANGESSTANDARD DOSE: 2.0 - 3.0 Includes: PROPHYLAXIS for venous thrombosis, systemic embolization; TREATMENT for venous thrombosis and/or pulmonary embolus.HIGH RISK: Target INR is 2.5-3.5 for patients with mechanical heart valves.PROTHROMBIN [id number] 09:53: 00* Test Item Value Reference Range Comments PROTIME (BEAKER) (test nnrt=103) 15.3 seconds 11.7-14.7 INR (BEAKER) (test srbg=094) 1.2 <=5.9 RECOMMENDED COUMADIN/WARFARIN INR THERAPY RANGESSTANDARD DOSE: 2.0 - 3.0 Includes: PROPHYLAXIS for venous thrombosis, systemic embolization; TREATMENT for venous thrombosis and/or pulmonary embolus.HIGH RISK: Target INR is 2.5-3.5 for patients with mechanical heart valves.[id number] 09:53:00* Test Item Value Reference Range Comments FIBRINOGEN LEVEL (BEAKER) (test gihd=346) 297 mg/dl 225-434 CBC W/PLT COUNT & AUTO [id number] 09:42:00* Test Item Value Reference Range Comments WHITE BLOOD CELL COUNT (BEAKER) (test dhpl=312) 6.2 K/ L 3.5-10.5 RED BLOOD CELL COUNT (BEAKER) (test kzfi=555) 4.07 M/ L 3.93-5.22 HEMOGLOBIN (BEAKER) (test ptmj=908) 11.8 GM/DL 11.2-15.7 HEMATOCRIT (BEAKER) (test xqyv=477) 35.4 % 34.1-44.9 MEAN CORPUSCULAR VOLUME (BEAKER) (test olqw=965) 87.0 fL 79.4-94.8 MEAN CORPUSCULAR HEMOGLOBIN (BEAKER) (test nrfy=388) 29.0 pg 25.6-32.2 MEAN CORPUSCULAR HEMOGLOBIN CONC (BEAKER) (test djab=741) 33.3 GM/DL 32.2- 35.5 RED CELL DISTRIBUTION WIDTH (BEAKER) (test cjhj=031) 16.9 % 11.7-14.4 PLATELET COUNT (BEAKER) (test jeoo=764) 94 K/CU MM 150-450 MEAN PLATELET VOLUME (BEAKER) (test nwoy=084) 10.5 fL 9.4-12.3 NUCLEATED RED BLOOD CELLS (BEAKER) (test wwzz=633) 0 /100 WBC 0-0 NEUTROPHILS RELATIVE PERCENT (BEAKER) (test xmzf=647) 64 % LYMPHOCYTES RELATIVE PERCENT (BEAKER) (test wbtp=179) 22 % MONOCYTES RELATIVE PERCENT (BEAKER) (test stwn=906) 5 % EOSINOPHILS RELATIVE PERCENT (BEAKER) (test wglg=822) 7 % BASOPHILS RELATIVE PERCENT (BEAKER) (test biqv=922) 2 % NEUTROPHILS ABSOLUTE COUNT (BEAKER) (test kgoo=008) 3.98 K/ L 1.56-6.13 LYMPHOCYTES ABSOLUTE COUNT (BEAKER) (test lemv=623) 1.35 K/ L 1.18-3.74 MONOCYTES ABSOLUTE COUNT (BEAKER) (test ylbm=066) 0.33 K/ L 0.24-0.36 EOSINOPHILS ABSOLUTE COUNT (BEAKER) (test kokm=125) 0.40 K/ L 0.04-0.36 BASOPHILS ABSOLUTE COUNT (BEAKER) (test wzif=591) 0.11 K/ L 0.01-0.08 IMMATURE GRANULOCYTES-RELATIVE PERCENT (BEAKER) (test mcey=4175) 0 % 0-1 POCT-GLUCOSE [id number] 09:32:00* Test Item Value Reference Range Comments POC-GLUCOSE METER (BEAKER) (test yyxj=6056) 263 mg/dL 70-110 TESTED AT [facility] [address] [facility] [address] RAD, CHEST, 1 VIEW, NON [id number] 09:32:00Reason for exam:->myxedema, sepsisShould this be performed at the bedside?->YesFINAL REPORT HISTORY : myxedema, sepsis. Comparison: 01/27/2017 Comment: Single portable view of the chest was obtained. The cardiac silhouette size is within normal limits. Stable right-sided double-lumen dialysis catheter is in place. No pneumothorax or pleural effusion is seen. There is atherosclerotic calcification of the thoracic aorta. There is some nonspecific diffuse interstitial prominence. Signed: Nga Stephens MDReport Verified Date/Time: 04/2017 09:32:04 Reading Location: [address] Transitional Reading Room D GAS, [id number] 09:19:00* Test Item Value Reference Range Comments PH ARTERIAL (BEAKER) (test enat=649) 7.42 7.35-7.45 PCO2 ARTERIAL (BEAKER) (test lxet=000) 46 mmHg 35-45 PO2 ARTERIAL (BEAKER) (test skjy=205) 197 mmHg 80-90 O2 SATURATION ARTERIAL (BEAKER) (test uyja=176) 99.4 % 96.0-97.0 HCO3 ARTERIAL (BEAKER) (test wcav=345) 29 mmol/L 21-29 BASE EXCESS ARTERIAL (BEAKER) (test xwjx=830) 4.0 mmol/L -2.0-3.0 PATIENT TEMPERATURE (BEAKER) (test exxe=8974) 37.0 C FIO2 (BEAKER) (test awhd=3764) 21.0 % BLOOD [id number] 06:00:00* Test Item Value Reference Range Comments CULTURE (BEAKER) (test hppz=8355) No growth in 5 days HEPATITIS B PCR, [id number] 11:38:00* Test Item Value Reference Range Comments HBV RESULT COMPONENT (BEAKER) (test wgpl=3283) HBV DNA not detected HBV DNA not detected This test uses a Real-Time Polymerase Chain Reaction (RT-PCR) methodology and was performed using [employer] AmpliPrep/SOH[employer] TaqMan HBV Test, v2.0 ([employer]Reportable range for this assay is 20 - 170,000,000 IU per mL (1.30 - 8.23 Log IU/mL).HEPATITIS B [id number] 14:55:00* Test Item Value Reference Range Comments HEPATITIS B CORE TOTAL ANTIBODY (BEAKER) (test vlxs=459) Nonreactive Nonreactive HEPATITIS B SURFACE ANTIBODY (BEAKER) (test irez=452) < mIU/mL <8.0 HEPATITIS B SURFACE ANTIGEN (2) (BEAKER) (test xkxj=5065) Reactive Nonreactive Reactive Hepatitis B Surface Antigen result; Confirmed by Hepatitis B Surface Antigen Neutralization testing. HEPATITIS B SURFACE [id number] 14:55:00* Test Item Value Reference Range Comments HEPATITIS B SURFACE ANTIGEN (2) (BEAKER) (test aczs=0582) Reactive Nonreactive Reactive Hepatitis B Surface Antigen result; Confirmed by Hepatitis B Surface Antigen Neutralization testing. CMV PCR, [id number] 14:46:00* Test Item Value Reference Range Comments CMV VIRAL LOAD - NEGATIVE (BEAKER) (test zztz=3156) Negative or below the linear range of the assay (<375 copies/mL) Cytomegalovirus (CMV) infection can cause significant disease in immunosuppressed patients. However, it is common for CMV to manifest as a limited infection which is of no clinical significance in immunosuppressed patients or in healthy individuals.Viral load measurements are helpful to identify clinical CMV infection and to guide the pre-emptive management of antiviral therapy. For treatment of CMV infection due to reactivation in transplant recipients, a threshold between 4,000 and 5,000 copies/mL is suggested. For treatment of primary CMV infection, a lower threshold can be used.CMV infection may also be monitored using weekly serial measurements. Serial measurements of CMV DNA viral load can be evaluated by identifying a 10- fold change, as well as assessing the CMV DNA viral load and the clinical context for each patient.The plasma CMV DNA viral load was detected using quantitative polymerase chain reaction and fluorescent monitoring of a specific hybridized probe. Genetic variation and other factors can affect the accuracy of nucleic acid testing. Therefore, the results should be interpreted in light of clinical data. A negative result may not exclude the presence of CMV disease.This test was developed and its performance characteristics determined by the [facility] Department, Section of Molecular Pathology. It has not been cleared or approved by the U.S. Food and Drug Administration (FDA), since FDA approval is not required for clinical use of the test. Validation was done as required by The Clinical Laboratory Improvement Amendments of 1988.POCT-GLUCOSE [id number] 12:42:00* Test Item Value Reference Range Comments POC-GLUCOSE METER (BEAKER) (test eink=2045) 212 mg/dL 70-110 TESTED AT [place] [address] HEPATITIS B SURFACE [id number] 12:17:00* Test Item Value Reference Range Comments HEPATITIS B SURFACE ANTIBODY (BEAKER) (test ngea=793) < mIU/mL <8.0 HEPATITIS B CORE ANTIBODY, [id number] 12:15:00* Test Item Value Reference Range Comments HEPATITIS B CORE IGM ANTIBODY (BEAKER) (test uncr=036) Nonreactive Nonreactive HEPATITIS B CORE ANTIBODY, [id number] 12:15:00* Test Item Value Reference Range Comments HEPATITIS B CORE TOTAL ANTIBODY (BEAKER) (test jcaq=199) Nonreactive Nonreactive POCT-GLUCOSE [id number] 11:48:00* Test Item Value Reference Range Comments POC-GLUCOSE METER (BEAKER) (test kprx=0357) 145 mg/dL 70-110 TESTED AT [address] [address] TACROLIMUS [id number] 10:36:00* Test Item Value Reference Range Comments TACROLIMUS BLOOD (BEAKER) (test ioiu=180) 8.3 ng/mL 10.0-20.0 URINE [id number] 09:19:00* Test Item Value Reference Range Comments CULTURE (BEAKER) (test fnnd=2929) No growth COMPREHENSIVE METABOLIC [id number] 08:13:00* Test Item Value Reference Range Comments TOTAL PROTEIN (BEAKER) (test rjtn=079) 6.2 gm/dL 6.0-8.3 ALBUMIN (BEAKER) (test lanm=7899) 2.2 g/dL 3.5-5.0 ALKALINE PHOSPHATASE (BEAKER) (test jyrm=111) 89 U/L 40-150 BILIRUBIN TOTAL (BEAKER) (test ekpz=532) 0.3 mg/dL 0.2-1.2 SODIUM (BEAKER) (test ftek=394) 138 meq/L 136-145 POTASSIUM (BEAKER) (test necv=810) 3.4 meq/L 3.5-5.1 CHLORIDE (BEAKER) (test imzk=346) 106 meq/L 98-107 CO2 (BEAKER) (test hykq=380) 24 meq/L 22-29 BLOOD UREA NITROGEN (BEAKER) (test kqjf=285) 23 mg/dL 7-21 CREATININE (BEAKER) (test neht=033) 2.19 mg/dL 0.57-1.25 GLUCOSE RANDOM (BEAKER) (test ukse=129) 98 mg/dL 70-105 CALCIUM (BEAKER) (test holu=458) 7.8 mg/dL 8.4-10.2 AST (SGOT) (BEAKER) (test eozr=555) 17 U/L 5-34 ALT (SGPT) (BEAKER) (test uywv=325) 13 U/L 6-55 EGFR (BEAKER) (test ppny=2392) 23 mL/min/1.73 sq m ESTIMATED GFR IS NOT ACCURATE CREATININE CLEARANCE IN PREDICTING GLOMERULAR FILTRATION RATE. ESTIMATED GFR IS NOT APPLICABLE FOR DIALYSIS PATIENTS. CBC W/PLT COUNT & AUTO [id number] 08:07:00* Test Item Value Reference Range Comments WHITE BLOOD CELL COUNT (BEAKER) (test dnsw=213) 7.3 K/ L 4.0-10.0 RED BLOOD CELL COUNT (BEAKER) (test uxvy=283) 2.70 M/ L 4.00-5.00 HEMOGLOBIN (BEAKER) (test htvk=629) 8.7 GM/DL 12.0-15.0 HEMATOCRIT (BEAKER) (test oqhv=276) 25.2 % 36.0-45.0 MEAN CORPUSCULAR VOLUME (BEAKER) (test oqih=335) 93.2 fL 82.0-99.0 MEAN CORPUSCULAR HEMOGLOBIN (BEAKER) (test xrnh=649) 32.1 pg 27.0-33.0 MEAN CORPUSCULAR HEMOGLOBIN CONC (BEAKER) (test sufo=792) 34.4 GM/DL 32.0- 36.0 RED CELL DISTRIBUTION WIDTH (BEAKER) (test uaqi=001) 13.8 % 10.3-14.2 PLATELET COUNT (BEAKER) (test vqta=048) 180 K/CU MM 150-430 MEAN PLATELET VOLUME (BEAKER) (test smry=058) 7.2 fL 6.5-10.5 NUCLEATED RED BLOOD CELLS (BEAKER) (test rdij=622) 0 /100 WBC 0-0 NEUTROPHILS RELATIVE PERCENT (BEAKER) (test jayi=373) 68 % LYMPHOCYTES RELATIVE PERCENT (BEAKER) (test wspz=171) 20 % MONOCYTES RELATIVE PERCENT (BEAKER) (test yzsh=528) 7 % EOSINOPHILS RELATIVE PERCENT (BEAKER) (test gbvq=922) 4 % BASOPHILS RELATIVE PERCENT (BEAKER) (test cndq=897) 1 % NEUTROPHILS ABSOLUTE COUNT (BEAKER) (test pvcd=377) 4.96 K/ L 1.80-8.00 LYMPHOCYTES ABSOLUTE COUNT (BEAKER) (test dkoa=257) 1.49 K/ L 1.48-4.50 MONOCYTES ABSOLUTE COUNT (BEAKER) (test kjfv=463) 0.50 K/ L 0.00-1.30 EOSINOPHILS ABSOLUTE COUNT (BEAKER) (test ufzi=305) 0.32 K/ L 0.00-0.50 BASOPHILS ABSOLUTE COUNT (BEAKER) (test jzip=495) 0.05 K/ L 0.00-0.20 [id number] 08:04:00* Test Item Value Reference Range Comments PHOSPHORUS (BEAKER) (test shva=290) 4.2 mg/dL 2.3-4.7 [id number] 08:04:00* Test Item Value Reference Range Comments MAGNESIUM (BEAKER) (test zdkq=596) 1.8 mg/dL 1.6-2.6 HEPATIC FUNCTION [id number] 08:04:00* Test Item Value Reference Range Comments TOTAL PROTEIN (BEAKER) (test lovz=007) 6.2 gm/dL 6.0-8.3 ALBUMIN (BEAKER) (test ouvg=6878) 2.2 g/dL 3.5-5.0 BILIRUBIN TOTAL (BEAKER) (test nari=414) 0.3 mg/dL 0.2-1.2 BILIRUBIN DIRECT (BEAKER) (test cgdi=011) 0.2 mg/dL 0.1-0.5 ALKALINE PHOSPHATASE (BEAKER) (test flxa=150) 89 U/L 40-150 AST (SGOT) (BEAKER) (test zkby=818) 17 U/L 5-34 ALT (SGPT) (BEAKER) (test mumv=429) 13 U/L 6-55 POCT-GLUCOSE [id number] 07:58:00* Test Item Value Reference Range Comments POC-GLUCOSE METER (BEAKER) (test dfwi=1101) 114 mg/dL 70-110 TESTED AT [address] [address] PROTHROMBIN [id number] 07:39:00* Test Item Value Reference Range Comments PROTIME (BEAKER) (test fbyj=753) 14.2 seconds 11.7-14.7 INR (BEAKER) (test qocv=727) 1.1 <=5.9 RECOMMENDED COUMADIN/WARFARIN INR THERAPY RANGESSTANDARD DOSE: 2.0 - 3.0 Includes: PROPHYLAXIS for venous thrombosis, systemic embolization; TREATMENT for venous thrombosis and/or pulmonary embolus.HIGH RISK: Target INR is 2.5-3.5 for patients with mechanical heart valves.POCT-GLUCOSE [id number] 02:59:00 * Test Item Value Reference Range Comments POC-GLUCOSE METER (BEAKER) (test srnx=1620) 321 mg/dL 70-110 Notified ABRAHAM WONG/ TESTED AT [address] [address] HEPATITIS B SURFACE [id number] 18:08:00* Test Item Value Reference Range Comments HEPATITIS B SURFACE ANTIGEN (2) (BEAKER) (test exem=7263) Reactive Nonreactive Reactive Hepatitis B Surface Antigen result; Confirmed by Hepatitis B Surface Antigen Neutralization testing. RESPIRATORY PANEL [id number] 13:23:00* Test Item Value Reference Range Comments HUMAN METAPNEUMOVIRUS (BEAKER) (test xvxj=8751) Not detected Not detected, Inconclusive RHINOVIRUS (BEAKER) (test vlxf=7875) Not detected Not detected, Inconclusive INFLUENZA A (BEAKER) (test rpjd=8251) Not detected Not detected, Inconclusive INFLUENZA A SUBTYPE H1 (BEAKER) (test wozb=1031) Not detected Not detected, Inconclusive INFLUENZA A SUBTYPE H3 (BEAKER) (test znty=4602) Not detected Not detected, Inconclusive INFLUENZA A SUBTYPE H1-2009 (BEAKER) (test jdrm=1059) Not detected Not detected, Inconclusive INFLUENZA B (BEAKER) (test hdlx=9056) Not detected Not detected, Inconclusive RESPIRATORY SYNCYTIAL VIRUS (BEAKER) (test ujth=0569) Not detected Not detected, Inconclusive PARAINFLUENZA VIRUS 1 (BEAKER) (test aglp=6238) Not detected Not detected, Inconclusive PARAINFLUENZA VIRUS 2 (BEAKER) (test tomk=8464) Not detected Not detected, Inconclusive PARAINFLUENZA VIRUS 3 (BEAKER) (test huim=4592) Not detected Not detected, Inconclusive PARAINFLUENZA VIRUS 4 (BEAKER) (test rpkv=6219) Not detected Not detected, Inconclusive ADENOVIRUS (BEAKER) (test twir=4086) Not detected Not detected, Inconclusive CORONAVIRUS 229E (BEAKER) (test wmvh=8951) Not detected Not detected, Inconclusive CORONAVIRUS HKU1 (BEAKER) (test wvtb=0437) Not detected Not detected, Inconclusive CORONAVIRUS NL63 (BEAKER) (test gipv=6229) Not detected Not detected, Inconclusive CORONAVIRUS OC43 (BEAKER) (test cwpl=4769) Not detected Not detected, Inconclusive BORDETELLA PERTUSSIS (BEAKER) (test ngdc=8236) Not detected Not detected, Inconclusive CHLAMYDOPHILA PNEUMONIAE (BEAKER) (test xfrm=9718) Not detected Not detected , Inconclusive MYCOPLASMA PNEUMONIAE (BEAKER) (test ghpi=1017) Not detected Not detected, Inconclusive CORTISOL,60 [id number] 12:53:00* Test Item Value Reference Range Comments CORTISOL BASELINE NETWORKED (BEAKER) (test bwhg=0201) 10.8 mcg/dL CORTISOL 30 MINUTE NETWORKED (BEAKER) (test tnrz=4955) 15.7 mcg/dL CORTISOL, 60 MINUTE (BEAKER) (test jnbv=1414) 16.5 ug/dL ACTH STIMULATION TEST INTERPRETATION GUIDELINES(Synonyms: Cortrosyn Test, Cosyntropin or Corticotropin Stimulation Test)Adenocorticotropic hormone (ACTH) is a tropic hormone, made in the pituitary gland, which travels trhough the bloodstream and stimulates the cortex of the adrenal glands to release cortisol. Cortisol is a primary hormone, which aids the body's metabolism of fats, carbohydrates, and protein as well as sodium and potassium regulation.ACTH Stimulation Test: Exogenous administration of biologically active ACTH stimulates the secretion of cortisol from the adrenal gland. This test is used to evaluate adrenal function by measuring cortisol levels at baseline and at 30 and 60 minutes after the administration of 250 micrograms of cosyntropin (Cortrosyn). Patients who have received exogenous corticosteroids immediately prior to performing the ACTH Stimulation Test will often have elevated baseline cortisol levels, which may lead to erroneous interpretation of test results. The notable exception is with dexamethasone.Normal Response: An increase in cortisol after stimulation by ACTH is normal. Post-stimulation cortisol concentration should be greater than 20 mcg/dL or the rate of rise from baseline cortisol should be greater than or equal to 9 mcg/dL.Patients with sepsis or septic shock: According to a study by Mirella et al (DOREEN [id number] (8):1038-45), the ACTH Stimulation Test provides important prognostic information. This study defined 3 groups of patients with sepsis or septic shock : 1. Good Survival: Low basal cortisol (<or=34 mcg/dL) and high ACTH response (>9mcg/dL) 2. Intermediate Survival: Low basal cortisol (<34 mcg/dL) and low response to ACTH (<or=9 mcg/dL) OR High basal cortisol (>34 mcg/dL ) or high ACTH response (>9 mcg/dL) 3. Poor Survival: High basal cortisol (> 34 mcg/dL) and low ACTH response (<or=9 mcg/dL).Treatment of patients with relative adrenal dysfunction may be indicated based on test results and the clinical condition of the patient. Additional information, including treatment recommendations, is available in critically ill patients, approved by the Pharmacy, Nutrition, and Therapeutics Committee on 06/23/2004 and available through the Pharmacy Policy and Procedure Section on The Source.Draw baseline cortisol and ACTH level just prior to cosyntropin administration.Administer cosyntropin 0.25 mg diluted in 2-5 mL of normal saline slow IV Push over a period of 2 minutes.Draw serum cortisol level 30 minutes after cosyntropin administration.Draw serum cortisol level 60 minutes after cosyntropin administration.* Store in Refrigerator *CORTISOL,30 [id number] 12:53:00* Test Item Value Reference Range Comments CORTISOL BASELINE NETWORKED (BEAKER) (test sheb=5464) 10.8 mcg/dL CORTISOL, 30 MINUTE (BEAKER) (test gjbd=1533) 15.7 ug/dL ACTH STIMULATION TEST INTERPRETATION GUIDELINES(Synonyms: Cortrosyn Test, Cosyntropin or Corticotropin Stimulation Test)Adenocorticotropic hormone (ACTH) is a tropic hormone, made in the pituitary gland, which travels trhough the bloodstream and stimulates the cortex of the adrenal glands to release cortisol. Cortisol is a primary hormone, which aids the body's metabolism of fats, carbohydrates, and protein as well as sodium and potassium regulation.ACTH Stimulation Test: Exogenous administration of biologically active ACTH stimulates the secretion of cortisol from the adrenal gland. This test is used to evaluate adrenal function by measuring cortisol levels at baseline and at 30 and 60 minutes after the administration of 250 micrograms of cosyntropin (Cortrosyn). Patients who have received exogenous corticosteroids immediately prior to performing the ACTH Stimulation Test will often have elevated baseline cortisol levels, which may lead to erroneous interpretation of test results. The notable exception is with dexamethasone.Normal Response: An increase in cortisol after stimulation by ACTH is normal. Post-stimulation cortisol concentration should be greater than 20 mcg/dL or the rate of rise from baseline cortisol should be greater than or equal to 9 mcg/dL.Patients with sepsis or septic shock: According to a study by Mirella et al (DOREEN 2000,283 (8):6330-45), the ACTH Stimulation Test provides important prognostic information. This study defined 3 groups of patients with sepsis or septic shock : 1. Good Survival: Low basal cortisol (<or=34 mcg/dL) and high ACTH response (>9mcg/dL) 2. Intermediate Survival: Low basal cortisol (<34 mcg/dL) and low response to ACTH (<or=9 mcg/dL) OR High basal cortisol (>34 mcg/dL ) or high ACTH response (>9 mcg/dL) 3. Poor Survival: High basal cortisol (> 34 mcg/dL) and low ACTH response (<or=9 mcg/dL).Treatment of patients with relative adrenal dysfunction may be indicated based on test results and the clinical condition of the patient. Additional information, including treatment recommendations, is available in critically ill patients, approved by the Pharmacy, Nutrition, and Therapeutics Committee on 06/23/2004 and available through the Pharmacy Policy and Procedure Section on The Source.Draw baseline cortisol and ACTH level just prior to cosyntropin administration.Administer cosyntropin 0.25 mg diluted in 2-5 mL of normal saline slow IV Push over a period of 2 minutes.Draw serum cortisol level 30 minutes after cosyntropin administration.Draw serum cortisol level 60 minutes after cosyntropin administration.* Store in Refrigerator *POCT-GLUCOSE [id number] 12:13:00* Test Item Value Reference Range Comments POC-GLUCOSE METER (Arachnys) (test nwlc=1150) 328 mg/dL 70-110 Notified ABRAHAM WONG/ TESTED AT [facility] [address] [place] [address] CLOSTRIDIUM DIFFICILE TOXIN [id number] 10:10:00* Test Item Value Reference Range Comments CLOSTRIDIUM DIFFICILE TOXIN, PCR (Arachnys) (test ziom=2698) Detected Not Detected This qualitative real-time polymerase chain reaction assay detects the tcdB gene , encoded on the C.difficile pathogenicity locus (PaLoc). The product of tcdB, toxin B, is a cytotoxin essential for causing C.difficile-associated disease ( CDAD) and is found in virtually all toxigenic C.difficile.This assay is performed for patients suspected of having either community-acquired or nosocomial CDAD. Accordingly, only symptomatic patients should be tested and formed stools will be rejected unless ileus is present (i.e., specified when ordering). Patients may be colonized with toxigenic C.difficile strains not causing active disease; therefore, clinical correlation is needed when deciding how to manage patients with a positive test result.The assay has not been validated as a test of cure as amplifiable nucleic acid may persist after effective treatment; therefore, follow-up testing of a positive result is not recommended.CORTISOL,[id number] 09:48:00* Test Item Value Reference Range Comments CORTISOL, BASELINE (TAHMINA) (test fbxw=6827) 10.8 ug/dL ACTH STIMULATION TEST INTERPRETATION GUIDELINES(Synonyms: Cortrosyn Test, Cosyntropin or Corticotropin Stimulation Test)Adenocorticotropic hormone (ACTH) is a tropic hormone, made in the pituitary gland, which travels trhough the bloodstream and stimulates the cortex of the adrenal glands to release cortisol. Cortisol is a primary hormone, which aids the body's metabolism of fats, carbohydrates, and protein as well as sodium and potassium regulation.ACTH Stimulation Test: Exogenous administration of biologically active ACTH stimulates the secretion of cortisol from the adrenal gland. This test is used to evaluate adrenal function by measuring cortisol levels at baseline and at 30 and 60 minutes after the administration of 250 micrograms of cosyntropin (Cortrosyn). Patients who have received exogenous corticosteroids immediately prior to performing the ACTH Stimulation Test will often have elevated baseline cortisol levels, which may lead to erroneous interpretation of test results. The notable exception is with dexamethasone.Normal Response: An increase in cortisol after stimulation by ACTH is normal. Post-stimulation cortisol concentration should be greater than 20 mcg/dL or the rate of rise from baseline cortisol should be greater than or equal to 9 mcg/dL.Patients with sepsis or septic shock: According to a study by Mirella et al (DOREEN 2000,283 (8):1982-45), the ACTH Stimulation Test provides important prognostic information. This study defined 3 groups of patients with sepsis or septic shock : 1. Good Survival: Low basal cortisol (<or=34 mcg/dL) and high ACTH response (>9mcg/dL) 2. Intermediate Survival: Low basal cortisol (<34 mcg/dL) and low response to ACTH (<or=9 mcg/dL) OR High basal cortisol (>34 mcg/dL ) or high ACTH response (>9 mcg/dL) 3. Poor Survival: High basal cortisol (> 34 mcg/dL) and low ACTH response (<or=9 mcg/dL).Treatment of patients with relative adrenal dysfunction may be indicated based on test results and the clinical condition of the patient. Additional information, including treatment recommendations, is available in critically ill patients, approved by the Pharmacy, Nutrition, and Therapeutics Committee on 06/23/2004 and available through the Pharmacy Policy and Procedure Section on The Source.Draw baseline cortisol and ACTH level just prior to cosyntropin administration.Administer cosyntropin 0.25 mg diluted in 2-5 mL of normal saline slow IV Push over a period of 2 minutes.Draw serum cortisol level 30 minutes after cosyntropin administration.Draw serum cortisol level 60 minutes after cosyntropin administration.* Store in Refrigerator *TACROLIMUS [id number] 09:05:00* Test Item Value Reference Range Comments TACROLIMUS BLOOD (BEAKER) (test kchw=425) 6.0 ng/mL 10.0-20.0 POCT-GLUCOSE [id number] 07:47:00* Test Item Value Reference Range Comments POC-GLUCOSE METER (BEAKER) (test utov=9266) 173 mg/dL 70-110 TESTED AT [facility] [address] [facility] [address] CBC W/PLT COUNT & AUTO [id number] 05:32:00* Test Item Value Reference Range Comments WHITE BLOOD CELL COUNT (BEAKER) (test rygy=084) 10.0 K/ L 4.0-10.0 RED BLOOD CELL COUNT (BEAKER) (test pwdb=377) 2.00 M/ L 4.00-5.00 HEMOGLOBIN (BEAKER) (test flws=086) 6.7 GM/DL 12.0-15.0 HEMATOCRIT (BEAKER) (test fymt=159) 19.3 % 36.0-45.0 MEAN CORPUSCULAR VOLUME (BEAKER) (test yqtm=240) 96.1 fL 82.0-99.0 MEAN CORPUSCULAR HEMOGLOBIN (BEAKER) (test rdfp=062) 33.5 pg 27.0-33.0 MEAN CORPUSCULAR HEMOGLOBIN CONC (BEAKER) (test pvkd=263) 34.8 GM/DL 32.0- 36.0 RED CELL DISTRIBUTION WIDTH (BEAKER) (test dzno=151) 14.0 % 10.3-14.2 PLATELET COUNT (BEAKER) (test olct=053) 144 K/CU MM 150-430 MEAN PLATELET VOLUME (BEAKER) (test szzj=667) 7.1 fL 6.5-10.5 NUCLEATED RED BLOOD CELLS (BEAKER) (test nxcc=677) 0 /100 WBC 0-0 NEUTROPHILS RELATIVE PERCENT (BEAKER) (test sxrh=191) 65 % LYMPHOCYTES RELATIVE PERCENT (BEAKER) (test yohc=109) 25 % MONOCYTES RELATIVE PERCENT (BEAKER) (test iist=798) 5 % EOSINOPHILS RELATIVE PERCENT (BEAKER) (test aghw=004) 4 % BASOPHILS RELATIVE PERCENT (BEAKER) (test jzmf=649) 1 % NEUTROPHILS ABSOLUTE COUNT (BEAKER) (test zedm=092) 6.50 K/ L 1.80-8.00 LYMPHOCYTES ABSOLUTE COUNT (BEAKER) (test djza=803) 2.51 K/ L 1.48-4.50 MONOCYTES ABSOLUTE COUNT (BEAKER) (test ahwp=312) 0.52 K/ L 0.00-1.30 EOSINOPHILS ABSOLUTE COUNT (BEAKER) (test tapr=855) 0.44 K/ L 0.00-0.50 BASOPHILS ABSOLUTE COUNT (BEAKER) (test xmpr=506) 0.06 K/ L 0.00-0.20 0.00COMPREHENSIVE METABOLIC [id number] 05:32:00* Test Item Value Reference Range Comments TOTAL PROTEIN (BEAKER) (test jmte=879) 5.8 gm/dL 6.0-8.3 ALBUMIN (BEAKER) (test kzar=8504) 2.1 g/dL 3.5-5.0 ALKALINE PHOSPHATASE (BEAKER) (test krei=079) 81 U/L 40-150 BILIRUBIN TOTAL (BEAKER) (test xoct=763) 0.3 mg/dL 0.2-1.2 SODIUM (BEAKER) (test kfrk=331) 130 meq/L 136-145 POTASSIUM (BEAKER) (test uahd=936) 4.3 meq/L 3.5-5.1 CHLORIDE (BEAKER) (test keuz=090) 103 meq/L 98-107 CO2 (BEAKER) (test nmed=060) 19 meq/L 22-29 BLOOD UREA NITROGEN (BEAKER) (test hovf=232) 36 mg/dL 7-21 CREATININE (BEAKER) (test zkrm=077) 3.22 mg/dL 0.57-1.25 GLUCOSE RANDOM (BEAKER) (test tdwo=309) 128 mg/dL 70-105 CALCIUM (BEAKER) (test fmyv=104) 7.4 mg/dL 8.4-10.2 AST (SGOT) (BEAKER) (test bchl=832) 16 U/L 5-34 ALT (SGPT) (BEAKER) (test vmin=667) 15 U/L 6-55 EGFR (BEAKER) (test gjyt=4345) 15 mL/min/1.73 sq m ESTIMATED GFR IS NOT ACCURATE CREATININE CLEARANCE IN PREDICTING GLOMERULAR FILTRATION RATE. ESTIMATED GFR IS NOT APPLICABLE FOR DIALYSIS PATIENTS. [id number] 05:28:00* Test Item Value Reference Range Comments PHOSPHORUS (BEAKER) (test yyue=729) 6.0 mg/dL 2.3-4.7 [id number] 05:28:00* Test Item Value Reference Range Comments MAGNESIUM (BEAKER) (test ourj=320) 1.8 mg/dL 1.6-2.6 VANCOMYCIN LEVEL, [id number] 05:23:00* Test Item Value Reference Range Comments VANCOMYCIN RANDOM (BEAKER) (test ujiy=166) 15.0 ug/mL Reference Range: No NormalsLACTIC ACID, VENOUS, WHOLE [id number] 05:14:00* Test Item Value Reference Range Comments LACTATE BLOOD VENOUS (2) (BEAKER) (test kgvp=9489) 0.9 mmol/L 0.5-2.2 Effective 11/16/2015: Units/Reference Range ChangeNew: 0.5-2.2 mmol/L Previous: 5 -20 mg/dLCALCIUM, [id number] 05:07:00* Test Item Value Reference Range Comments CALCIUM IONIZED (BEAKER) (test gpyo=532) 0.98 mmol/L 1.12-1.27 PH, BLOOD (BEAKER) (test oljx=1421) 7.44 PROTHROMBIN [id number] 05:00:00* Test Item Value Reference Range Comments PROTIME (BEAKER) (test klpf=329) 15.1 seconds 11.7-14.7 INR (BEAKER) (test otjb=350) 1.2 <=5.9 RECOMMENDED COUMADIN/WARFARIN INR THERAPY RANGESSTANDARD DOSE: 2.0 - 3.0 Includes: PROPHYLAXIS for venous thrombosis, systemic embolization; TREATMENT for venous thrombosis and/or pulmonary embolus.HIGH RISK: Target INR is 2.5-3.5 for patients with mechanical heart valves.POCT-GLUCOSE [id number] 22:28:00 * Test Item Value Reference Range Comments POC-GLUCOSE METER (BEAKER) (test gafz=0683) 172 mg/dL 70-110 TESTED AT [facility] [address] [facility] [address] POCT-GLUCOSE [id number] 18:29:00* Test Item Value Reference Range Comments POC-GLUCOSE METER (BEAKER) (test cbwg=6143) 42 mg/dL 70-110 TESTED AT [place] [id number] [facility] [address] HEMOGLOBIN [id number] 12:19:00* Test Item Value Reference Range Comments HEMOGLOBIN A1C (BEAKER) (test jjfw=661) 6.0 % 4.3-6.1 POCT-GLUCOSE [id number] 11:49:00* Test Item Value Reference Range Comments POC-GLUCOSE METER (BEAKER) (test nwxd=5967) 431 mg/dL 70-110 TESTED AT [place] [id number] [facility] [address] TACROLIMUS [id number] 09:53:00* Test Item Value Reference Range Comments TACROLIMUS BLOOD (BEAKER) (test znvr=827) 2.8 ng/mL 10.0-20.0 TACROLIMUS [id number] 08:33:00* Test Item Value Reference Range Comments TACROLIMUS BLOOD (BEAKER) (test tzqu=420) 3.8 ng/mL 10.0-20.0 URINALYSIS W/ [id number] 07:47:00* Test Item Value Reference Range Comments COLOR (BEAKER) (test jspz=471) Yellow CLARITY (BEAKER) (test iflt=506) Hazy SPECIFIC GRAVITY UA (BEAKER) (test ulqg=603) 1.014 1.001-1.035 PH UA (BEAKER) (test sdlv=105) 6.5 5.0-8.0 PROTEIN UA (BEAKER) (test tmoj=238) 600 mg/dL Negative GLUCOSE UA (BEAKER) (test csip=465) 50 mg/dL Negative KETONES UA (BEAKER) (test jnoa=178) Negative Negative BILIRUBIN UA (BEAKER) (test rnko=265) Negative Negative BLOOD UA (BEAKER) (test majp=976) Small Negative NITRITE UA (BEAKER) (test hxic=905) Negative Negative LEUKOCYTE ESTERASE UA (BEAKER) (test dsuc=987) Moderate Negative UROBILINOGEN UA (BEAKER) (test pawo=536) 0.2 mg/dL 0.2-1.0 RBC UA (BEAKER) (test bvig=045) 1 /HPF WBC UA (BEAKER) (test qbxg=122) 60 /HPF MUCUS (BEAKER) (test pkqc=1127) Rare SQUAMOUS EPITHELIAL (BEAKER) (test pkxd=713) 1 /HPF SOURCE(BEAKER) (test tqzh=5934) Urine, Mann POCT-GLUCOSE [id number] 07:12:00* Test Item Value Reference Range Comments POC-GLUCOSE METER (BEAKER) (test kvph=0715) 172 mg/dL 70-110 TESTED AT [facility] [address] [facility] [address] [id number] 07:10:00* Test Item Value Reference Range Comments FERRITIN (BEAKER) (test dfal=291) 670 ng/mL 5-275 Effective 06/01/2014: Reference Range ChangeNew: Male 5-275 Previous: Male 22-322 Female 5-275 Female 10-291 VITAMIN B12 AND [id number] 07:10:00* Test Item Value Reference Range Comments VITAMIN B12 (BEAKER) (test ckxa=193) 480 pg/mL 213-816 FOLATE (BEAKER) (test nqls=699) 6.3 ng/mL >=7.0 Effective 06/01/2014: Folate Reference Range ChangeNew: >=7.0 Previous: >= 5.4COMPREHENSIVE METABOLIC [id number] 06:53:00* Test Item Value Reference Range Comments TOTAL PROTEIN (BEAKER) (test mebj=543) 6.5 gm/dL 6.0-8.3 ALBUMIN (BEAKER) (test flds=7886) 2.5 g/dL 3.5-5.0 ALKALINE PHOSPHATASE (BEAKER) (test skic=078) 94 U/L 40-150 BILIRUBIN TOTAL (BEAKER) (test rwtc=958) 0.3 mg/dL 0.2-1.2 SODIUM (BEAKER) (test cjqn=497) 136 meq/L 136-145 POTASSIUM (BEAKER) (test jzml=800) 3.8 meq/L 3.5-5.1 CHLORIDE (BEAKER) (test biae=434) 105 meq/L 98-107 CO2 (BEAKER) (test prwa=526) 20 meq/L 22-29 BLOOD UREA NITROGEN (BEAKER) (test tvbd=222) 28 mg/dL 7-21 CREATININE (BEAKER) (test acfl=259) 2.75 mg/dL 0.57-1.25 GLUCOSE RANDOM (BEAKER) (test hyhv=095) 94 mg/dL 70-105 CALCIUM (BEAKER) (test ohoc=599) 7.4 mg/dL 8.4-10.2 AST (SGOT) (BEAKER) (test vvge=086) 37 U/L 5-34 ALT (SGPT) (BEAKER) (test qnmx=322) 26 U/L 6-55 EGFR (BEAKER) (test kquu=9677) 17 mL/min/1.73 sq m ESTIMATED GFR IS NOT ACCURATE CREATININE CLEARANCE IN PREDICTING GLOMERULAR FILTRATION RATE. ESTIMATED GFR IS NOT APPLICABLE FOR DIALYSIS PATIENTS. IRON, TIBC, % SAT. (WITHOUT FERRITIN)2017-01-27 06:43:00* Test Item Value Reference Range Comments IRON (BEAKER) (test puuq=273) 65 ug/dL 40-160 TOTAL IRON BINDING CAPACITY (BEAKER) (test lyqg=865) 209 ug/dL 250-450 IRON % SATURATION (2) (BEAKER) (test vjsp=9791) 31 % 20-55 [id number] 06:37:00* Test Item Value Reference Range Comments PHOSPHORUS (BEAKER) (test sggz=702) 5.7 mg/dL 2.3-4.7 [id number] 06:37:00* Test Item Value Reference Range Comments MAGNESIUM (BEAKER) (test wplj=419) 1.4 mg/dL 1.6-2.6 LACTIC ACID, VENOUS, WHOLE [id number] 06:34:00* Test Item Value Reference Range Comments LACTATE BLOOD VENOUS (2) (BEAKER) (test qkop=7033) 1.8 mmol/L 0.5-2.2 Specimen slightly hemolyzed Effective 11/16/2015: Units/Reference Range ChangeNew: 0.5-2.2 mmol/L Previous: 5 -20 mg/dLCBC W/PLT COUNT & AUTO [id number] 06:26:00* Test Item Value Reference Range Comments WHITE BLOOD CELL COUNT (BEAKER) (test bwue=239) 11.8 K/ L 4.0-10.0 RED BLOOD CELL COUNT (BEAKER) (test xeti=000) 2.24 M/ L 4.00-5.00 HEMOGLOBIN (BEAKER) (test bgkz=146) 7.3 GM/DL 12.0-15.0 HEMATOCRIT (BEAKER) (test skjb=024) 21.5 % 36.0-45.0 MEAN CORPUSCULAR VOLUME (BEAKER) (test pmns=426) 95.9 fL 82.0-99.0 MEAN CORPUSCULAR HEMOGLOBIN (BEAKER) (test fexn=456) 32.7 pg 27.0-33.0 MEAN CORPUSCULAR HEMOGLOBIN CONC (BEAKER) (test bybq=289) 34.1 GM/DL 32.0- 36.0 RED CELL DISTRIBUTION WIDTH (BEAKER) (test pxcm=176) 14.0 % 10.3-14.2 PLATELET COUNT (BEAKER) (test horg=380) 178 K/CU MM 150-430 MEAN PLATELET VOLUME (BEAKER) (test fubf=660) 7.0 fL 6.5-10.5 NUCLEATED RED BLOOD CELLS (BEAKER) (test owqr=677) 0 /100 WBC 0-0 NEUTROPHILS RELATIVE PERCENT (BEAKER) (test oacd=425) 81 % LYMPHOCYTES RELATIVE PERCENT (BEAKER) (test niap=210) 11 % MONOCYTES RELATIVE PERCENT (BEAKER) (test dumg=713) 5 % EOSINOPHILS RELATIVE PERCENT (BEAKER) (test sdtt=030) 3 % BASOPHILS RELATIVE PERCENT (BEAKER) (test nplu=528) 0 % NEUTROPHILS ABSOLUTE COUNT (BEAKER) (test szqk=443) 9.52 K/ L 1.80-8.00 LYMPHOCYTES ABSOLUTE COUNT (BEAKER) (test dkke=511) 1.33 K/ L 1.48-4.50 MONOCYTES ABSOLUTE COUNT (BEAKER) (test qtpq=357) 0.60 K/ L 0.00-1.30 EOSINOPHILS ABSOLUTE COUNT (BEAKER) (test xyub=367) 0.31 K/ L 0.00-0.50 BASOPHILS ABSOLUTE COUNT (BEAKER) (test wfds=410) 0.05 K/ L 0.00-0.20 0.00POCT-GLUCOSE [id number] 06:21:00* Test Item Value Reference Range Comments POC-GLUCOSE METER (BEAKER) (test jszy=4336) 199 mg/dL 70-110 TESTED AT [address] [address] PROTHROMBIN [id number] 06:05:00* Test Item Value Reference Range Comments PROTIME (BEAKER) (test pvfb=512) 14.0 seconds 11.7-14.7 INR (BEAKER) (test iudc=270) 1.1 <=5.9 RECOMMENDED COUMADIN/WARFARIN INR THERAPY RANGESSTANDARD DOSE: 2.0 - 3.0 Includes: PROPHYLAXIS for venous thrombosis, systemic embolization; TREATMENT for venous thrombosis and/or pulmonary embolus.HIGH RISK: Target INR is 2.5-3.5 for patients with mechanical heart valves.T4, [id number] 05:03:00* Test Item Value Reference Range Comments FREE T4 (TAHMINA) (test iock=035) 0.85 ng/dL 0.70-1.48 POCT-GLUCOSE [id number] 05:02:00* Test Item Value Reference Range Comments POC-GLUCOSE METER (BEAKER) (test hafg=5645) 138 mg/dL 70-110 TESTED AT [address] [address] TSH/FREE T4 IF [id number] 04:18:00* Test Item Value Reference Range Comments THYROID STIMULATING HORMONE (TERRENCEAKER) (test pizk=264) 24.18 uIU/mL 0.35-4.94 POCT-GLUCOSE [id number] 03:57:00* Test Item Value Reference Range Comments POC-GLUCOSE METER (BEAKER) (test rwma=3993) 55 mg/dL 70-110 Will Repeat Test /TESTED AT [address] [address] LACTIC ACID, VENOUS, WHOLE [id number] 03:25:00* Test Item Value Reference Range Comments LACTATE BLOOD VENOUS (2) (BEAKER) (test ymmx=2176) 3.6 mmol/L 0.5-2.2 Effective 11/16/2015: Units/Reference Range ChangeNew: 0.5-2.2 mmol/L Previous: 5 -20 mg/dLPOCT-GLUCOSE [id number] 02:59:00* Test Item Value Reference Range Comments POC-GLUCOSE METER (BEAKER) (test aiwv=4135) 74 mg/dL 70-110 TESTED AT [place] [id number] [facility] [address] POCT-GLUCOSE [id number] 02:03:00* Test Item Value Reference Range Comments POC-GLUCOSE METER (BEAKER) (test cjmv=9715) 57 mg/dL 70-110 Will Repeat Test /TESTED AT [address] [address] POCT-GLUCOSE [id number] 01:53:00* Test Item Value Reference Range Comments POC-GLUCOSE METER (BEAKER) (test gfmp=7143) 61 mg/dL 70-110 Will Repeat Test /TESTED AT [address] [address] COMPREHENSIVE METABOLIC [id number] 01:51:00* Test Item Value Reference Range Comments TOTAL PROTEIN (BEAKER) (test rhis=164) 6.8 gm/dL 6.0-8.3 ALBUMIN (BEAKER) (test aygk=1265) 2.6 g/dL 3.5-5.0 ALKALINE PHOSPHATASE (BEAKER) (test nasd=186) 92 U/L 40-150 BILIRUBIN TOTAL (BEAKER) (test apmw=445) 0.4 mg/dL 0.2-1.2 SODIUM (BEAKER) (test eedq=880) 138 meq/L 136-145 POTASSIUM (BEAKER) (test yfqz=983) 4.1 meq/L 3.5-5.1 CHLORIDE (BEAKER) (test klpl=591) 105 meq/L 98-107 CO2 (BEAKER) (test qauf=564) 22 meq/L 22-29 BLOOD UREA NITROGEN (BEAKER) (test lvwj=040) 27 mg/dL 7-21 CREATININE (BEAKER) (test rlme=784) 2.68 mg/dL 0.57-1.25 GLUCOSE RANDOM (BEAKER) (test yzls=486) 72 mg/dL 70-105 CALCIUM (BEAKER) (test dzlt=738) 7.4 mg/dL 8.4-10.2 AST (SGOT) (BEAKER) (test vdwt=990) 41 U/L 5-34 ALT (SGPT) (BEAKER) (test dbvy=755) 27 U/L 6-55 EGFR (BEAKER) (test qmvf=7094) 18 mL/min/1.73 sq m ESTIMATED GFR IS NOT ACCURATE CREATININE CLEARANCE IN PREDICTING GLOMERULAR FILTRATION RATE. ESTIMATED GFR IS NOT APPLICABLE FOR DIALYSIS PATIENTS. TROPONIN [id number] 01:15:00* Test Item Value Reference Range Comments TROPONIN I (BEAKER) (test pwbe=439) 0.01 ng/mL 0.00-0.03 Effective 06/01/2014: Reference Range ChangeNew: 0.00-0.03 Previous 0.00- 0.15Troponin I (TnI) levels must be interpreted in [...] failure, acidosis, acute neurological disease, and persistent tachyarrhythmia.[id number] 01:11:00* Test Item Value Reference Range Comments PHOSPHORUS (BEAKER) (test ugop=210) 5.5 mg/dL 2.3-4.7 [id number] 01:11:00* Test Item Value Reference Range Comments MAGNESIUM (BEAKER) (test qsjm=928) 1.6 mg/dL 1.6-2.6 LACTIC ACID, VENOUS, WHOLE [id number] 01:03:00* Test Item Value Reference Range Comments LACTATE BLOOD VENOUS (2) (BEAKER) (test vmzi=7529) 1.7 mmol/L 0.5-2.2 Effective 11/16/2015: Units/Reference Range ChangeNew: 0.5-2.2 mmol/L Previous: 5 -20 mg/dLCBC W/PLT COUNT & AUTO [id number] 00:58:00* Test Item Value Reference Range Comments WHITE BLOOD CELL COUNT (BEAKER) (test wayd=136) 10.3 K/ L 4.0-10.0 RED BLOOD CELL COUNT (BEAKER) (test ztcl=194) 2.38 M/ L 4.00-5.00 HEMOGLOBIN (BEAKER) (test ydnt=705) 8.3 GM/DL 12.0-15.0 HEMATOCRIT (BEAKER) (test jtqs=912) 22.5 % 36.0-45.0 MEAN CORPUSCULAR VOLUME (BEAKER) (test klke=703) 94.6 fL 82.0-99.0 MEAN CORPUSCULAR HEMOGLOBIN (BEAKER) (test zkrt=132) 34.9 pg 27.0-33.0 MEAN CORPUSCULAR HEMOGLOBIN CONC (BEAKER) (test emwh=938) 36.9 GM/DL 32.0- 36.0 RED CELL DISTRIBUTION WIDTH (BEAKER) (test rydm=501) 15.7 % 10.3-14.2 PLATELET COUNT (BEAKER) (test fnvn=876) 188 K/CU MM 150-430 MEAN PLATELET VOLUME (BEAKER) (test diuq=738) 7.0 fL 6.5-10.5 NUCLEATED RED BLOOD CELLS (BEAKER) (test ynds=437) 0 /100 WBC 0-0 NEUTROPHILS RELATIVE PERCENT (BEAKER) (test yagk=173) 81 % LYMPHOCYTES RELATIVE PERCENT (BEAKER) (test eflo=832) 10 % MONOCYTES RELATIVE PERCENT (BEAKER) (test sdrg=308) 5 % EOSINOPHILS RELATIVE PERCENT (BEAKER) (test bbft=846) 3 % BASOPHILS RELATIVE PERCENT (BEAKER) (test qkfu=880) 1 % NEUTROPHILS ABSOLUTE COUNT (BEAKER) (test sgwo=689) 8.29 K/ L 1.80-8.00 LYMPHOCYTES ABSOLUTE COUNT (BEAKER) (test kdhb=127) 1.06 K/ L 1.48-4.50 MONOCYTES ABSOLUTE COUNT (BEAKER) (test bgfw=712) 0.47 K/ L 0.00-1.30 EOSINOPHILS ABSOLUTE COUNT (BEAKER) (test vcch=895) 0.34 K/ L 0.00-0.50 BASOPHILS ABSOLUTE COUNT (BEAKER) (test pndf=768) 0.10 K/ L 0.00-0.20 0.00PROTHROMBIN [id number] 00:57:00* Test Item Value Reference Range Comments PROTIME (BEAKER) (test bjkd=627) 13.3 seconds 11.7-14.7 INR (BEAKER) (test hoqw=191) 1.0 <=5.9 RECOMMENDED COUMADIN/WARFARIN INR THERAPY RANGESSTANDARD DOSE: 2.0 - 3.0 Includes: PROPHYLAXIS for venous thrombosis, systemic embolization; TREATMENT for venous thrombosis and/or pulmonary embolus.HIGH RISK: Target INR is 2.5-3.5 for patients with mechanical heart valves.PT/[id number] 00:57:00* Test Item Value Reference Range Comments PROTIME (BEAKER) (test uiha=526) 13.3 seconds 11.7-14.7 INR (BEAKER) (test zvux=275) 1.0 <=5.9 PARTIAL THROMBOPLASTIN TIME (BEAKER) (test fala=419) 30.3 seconds 22.5-36.0 RECOMMENDED COUMADIN/WARFARIN INR THERAPY RANGESSTANDARD DOSE: 2.0 - 3.0 Includes: PROPHYLAXIS for venous thrombosis, systemic embolization; TREATMENT for venous thrombosis and/or pulmonary embolus.HIGH RISK: Target INR is 2.5-3.5 for patients with mechanical heart valves.POCT-GLUCOSE [id number] 00:56:00 * Test Item Value Reference Range Comments POC-GLUCOSE METER (BEAKER) (test lpud=6066) 81 mg/dL 70-110 TESTED AT [address] [address] [place], [id number] 00:56:00* Test Item Value Reference Range Comments KETONES, BLOOD (BEAKER) (test vcxj=9900) 0.0 mmol/L <0.4 POCT-GLUCOSE [id number] 00:31:00* Test Item Value Reference Range Comments POC-GLUCOSE METER (BEAKER) (test mixn=3898) 94 mg/dL 70-110 [address]ED AT [address] [address] POCT-GLUCOSE [id number] 23:07:00* Test Item Value Reference Range Comments POC-GLUCOSE METER (BEAKER) (test skcj=9880) 110 mg/dL 70-110 TESTED AT [address] [address] POCT-GLUCOSE [id number] 22:38:00* Test Item Value Reference Range Comments POC-GLUCOSE METER (BEAKER) (test xvsa=4918) 135 mg/dL 70-110 TESTED AT [address] [address] POCT-GLUCOSE [id number] 22:14:00* Test Item Value Reference Range Comments POC-GLUCOSE METER (BEAKER) (test fjra=4574) < mg/dL 70-110 OUTSIDE MEASURING RANGETESTED AT [facility] [address] [place] [address] TACROLIMUS [id number] 13:40:00* Test Item Value Reference Range Comments TACROLIMUS BLOOD (BEAKER) (test psgf=340) < ng/mL 10.0-20.0 COMPREHENSIVE METABOLIC [id number] 10:02:00* Test Item Value Reference Range Comments TOTAL PROTEIN (BEAKER) (test vrzy=758) 7.1 gm/dL 6.0-8.3 ALBUMIN (BEAKER) (test izpa=3100) 2.0 g/dL 3.5-5.0 ALKALINE PHOSPHATASE (BEAKER) (test xoak=863) 92 U/L 40-150 BILIRUBIN TOTAL (BEAKER) (test mqpl=799) 0.3 mg/dL 0.2-1.2 SODIUM (BEAKER) (test msjk=156) 134 meq/L 136-145 POTASSIUM (BEAKER) (test awik=666) 4.0 meq/L 3.5-5.1 CHLORIDE (BEAKER) (test tlan=158) 100 meq/L 98-107 CO2 (BEAKER) (test ebhc=005) 22 meq/L 22-29 BLOOD UREA NITROGEN (BEAKER) (test jgvi=263) 45 mg/dL 7-21 CREATININE (BEAKER) (test kfoj=210) 2.19 mg/dL 0.57-1.25 GLUCOSE RANDOM (BEAKER) (test yeml=820) 160 mg/dL 70-105 CALCIUM (BEAKER) (test okfz=282) 6.8 mg/dL 8.4-10.2 AST (SGOT) (BEAKER) (test xsps=362) 20 U/L 5-34 ALT (SGPT) (BEAKER) (test qxwz=919) 8 U/L 6-55 EGFR (BEAKER) (test rkne=3635) 23 mL/min/1.73 sq m ESTIMATED GFR IS NOT ACCURATE CREATININE CLEARANCE IN PREDICTING GLOMERULAR FILTRATION RATE. ESTIMATED GFR IS NOT APPLICABLE FOR DIALYSIS PATIENTS. [id number] 10:00:00* Test Item Value Reference Range Comments PHOSPHORUS (BEAKER) (test yhwz=262) 5.9 mg/dL 2.3-4.7 [id number] 10:00:00* Test Item Value Reference Range Comments MAGNESIUM (BEAKER) (test iaio=267) 1.3 mg/dL 1.6-2.6 LIPID [id number] 10:00:00* Test Item Value Reference Range Comments TRIGLYCERIDES (BEAKER) (test oxpo=662) 63 mg/dL CHOLESTEROL (BEAKER) (test keqr=526) 124 mg/dL HDL CHOLESTEROL (BEAKER) (test oata=772) 34 mg/dL LDL CHOLESTEROL CALCULATED (BEAKER) (test lfmy=453) 77 mg/dL Triglyceride Reference Range: Low Risk <150 Borderline 150-199 High Risk 200-499 Very High Risk >=500Cholesterol Reference Range: Low Risk <200 Borderline 200-239 High Risk >240HDL Cholesterol Reference Range: Low Risk >=60 High Risk <40LDL Cholesterol Reference Range: Optimal <100 Near Optimal 100-129 Borderline 130-159 High 160-189 Very High >=190 BILIRUBIN, [id number] 10:00:00* Test Item Value Reference Range Comments BILIRUBIN DIRECT (BEAKER) (test ainv=334) 0.2 mg/dL 0.1-0.5 CBC W/PLT COUNT & AUTO [id number] 09:52:00* Test Item Value Reference Range Comments WHITE BLOOD CELL COUNT (BEAKER) (test qnkq=371) 7.7 K/ L 4.0-10.0 RED BLOOD CELL COUNT (BEAKER) (test fdap=765) 3.10 M/ L 4.00-5.00 HEMOGLOBIN (BEAKER) (test xlbc=537) 10.0 GM/DL 12.0-15.0 HEMATOCRIT (BEAKER) (test gqmr=205) 28.4 % 36.0-45.0 MEAN CORPUSCULAR VOLUME (BEAKER) (test kbvx=570) 91.7 fL 82.0-99.0 MEAN CORPUSCULAR HEMOGLOBIN (BEAKER) (test yobs=284) 32.3 pg 27.0-33.0 MEAN CORPUSCULAR HEMOGLOBIN CONC (BEAKER) (test ovqa=788) 35.2 GM/DL 32.0- 36.0 RED CELL DISTRIBUTION WIDTH (BEAKER) (test hlux=553) 13.2 % 10.3-14.2 PLATELET COUNT (BEAKER) (test nwci=129) 178 K/CU MM 150-430 MEAN PLATELET VOLUME (BEAKER) (test rrtu=153) 7.3 fL 6.5-10.5 NUCLEATED RED BLOOD CELLS (BEAKER) (test cjcz=919) 0 /100 WBC 0-0 NEUTROPHILS RELATIVE PERCENT (BEAKER) (test rmiq=859) 57 % LYMPHOCYTES RELATIVE PERCENT (BEAKER) (test amhm=550) 27 % MONOCYTES RELATIVE PERCENT (BEAKER) (test sdyq=166) 8 % EOSINOPHILS RELATIVE PERCENT (BEAKER) (test hrke=055) 7 % BASOPHILS RELATIVE PERCENT (BEAKER) (test jcvt=427) 1 % NEUTROPHILS ABSOLUTE COUNT (BEAKER) (test fkyq=596) 4.41 K/ L 1.80-8.00 LYMPHOCYTES ABSOLUTE COUNT (BEAKER) (test lukh=137) 2.08 K/ L 1.48-4.50 MONOCYTES ABSOLUTE COUNT (BEAKER) (test lscm=953) 0.62 K/ L 0.00-1.30 EOSINOPHILS ABSOLUTE COUNT (BEAKER) (test owre=866) 0.51 K/ L 0.00-0.50 BASOPHILS ABSOLUTE COUNT (BEAKER) (test yits=026) 0.09 K/ L 0.00-0.20 0.00CT BRAIN WO [place] [address] Patient Name: NINFA GANDARA MR #: [id number] : 1955 Age/Sex: 62/F Req #: [id number] Adm Physician: Ordered by: EDA SAVAGE MD Report #: [id number] Location: ER Room/Bed: Procedure: [id number] CT/CT BRAIN WO Exam Date: Exam Time: REPORT STATUS : Signed History:hypoglycemia Comparison studies:None Technique: Axial images were obtained from the skull base to the vertex. Coronal and sagittal images reconstructed from the axial data. Intravenous contrast: None Findings: Scalp/skull: No abnormalities. Extra-axial spaces: No masses. No fluid collections. Brain sulci: Appropriate for age. Ventricles: Asymmetric prominence of the left lateral ventricle atria and temporal horn. No hydrocephalus. Parenchyma: No abnormal densities No masses, hemorrhage, acute or chronic cortical vascular insults. Volume loss right hippocampus. Sellar/suprasellar region: No abnormalities. Craniocervical junction: Patent foramen magnum. No Chiari one malformation. Incidental findings: Atherosclerotic calcifications in the carotid siphons . Impression: No acute abnormalities. Signed by: DR Phuc Zelaya M.D. on 06/23/2017 3:35 AM Dictated By: PHUC ZELAYA MD 4 Transcribed By: AYDEE on 06/23/17334 COPY TO: EDA SAVAGE MD CHEST SINGLE (PORTABLE) [place] [address] Patient Name: NINFA GANDARA MR #: [id number] : 1955 Age/Sex: 62/F Req #: [id number] Adm Physician: Ordered by: EDA SAVAGE MD Report #: [id number] Location: ER Room/Bed: Procedure: [id number] DX/CHEST SINGLE (PORTABLE) Exam Date: Exam Time: REPORT STATUS: Signed EXAM: CHEST SINGLE (PORTABLE), AP 1 view DATE: 06/23/2017 1:33 AM Time stamp on exam: 0304 hours INDICATION: Hypoglycemia COMPARISON: PA and lateral view of the chest May 31, 2017 FINDINGS: LINES/TUBES: Stable position right internal jugular vein tunneled hemodialysis catheter. LUNGS: No consolidations or edema. PLEURA: No effusions or pneumothorax. HEART AND MEDIASTINUM: Stable BONES AND SOFT TISSUES : No acute findings. IMPRESSION: No acute thoracic abnormality. Signed by: Dr. Tobin Flowers M.D. on 06/23/2017 3:42 AM Dictated By: TOBIN FLOWERS MD 1 COPY TO: EDA SAVAGE MD Stress Test - Treadmill ONLY [place] [address] Patient Name : NINFA GANDARA MR #: [id number] : 1955 Age/Sex : 62/F Adm Physician : EBONY ABREU MD Admit Date : 06/01/17 Location : [facility] Room/Bed : [place] [address] REPORT: Cardiology Report DATE OF STUDY: June 03, 2017 LEXISCAN NUCLEAR STRESS TEST INDICATIONS: Chest pain. DESCRIPTION OF PROCEDURE: After informed consent, patient was brought to the stress lab. She was given 0.4 mg Lexiscan over 10 seconds. Patient was given 10 mCi of technetium 99 Myoview, and myocardial perfusion SPECT images were obtained in the horizontal long-axis, short-axis and vertical long-axis views. Subsequently patient was given 30.5 mCi of technetium 99 Myoview, and myocardial perfusion SPECT images were obtained in the horizontal long-axis, short-axis and vertical long-axis views. Gating images were also obtained. Patient tolerated the procedure without any complications. REPORT: Baseline EKG shows sinus bradycardia at 51 beats per minute, normal axis, normal intervals, T-wave inversions in II, III , AVF. PARAMETERS 1. Resting heart rate is 51 beats per minute. 2. Maximum heart rate is 60 beats per minute. 3. Resting blood pressure 113/65 mmHg. 4. Maximum blood pressure 113/65 mmHg. REASON FOR TERMINATION: Endpoint attained. INTERPRETATION 1. Negative for chest pain. 2. Negative for arrhythmias. 3. Blood pressure response consistent with Lexiscan. 4. No significant ST-T changes seen during Lexiscan infusion compared to baseline. 5. Analysis of SPECT images reveals uniform radioisotope uptake in all segments of the myocardium without any significant perfusion defects. CONCLUSION 1. No evidence of significant ischemia or infarction on this study. 2. No wall motion abnormalities. 3. Overall ejection fraction is 67%. Job#: [id number] EV Signature Date Dictated By: MARIMAR MARCH MD Transcribed By: SMEDS on 06/03/17 < Electronically signed by MARIMAR MARCH MD><<Signature on File>>06/11/17 1139 COPY TO: CHEST 2 VIEWS [place] [address] Patient Name: NINFA GANDARA MR #: [id number] : 1955 Age/Sex: 61/F Req #: [id number] Adm Physician: Ordered by: EDA SAVAGE MD Report #: [id number] Location: ER Room/Bed: Procedure: [id number] DX/CHEST 2 VIEWS Exam Date: Exam Time: REPORT STATUS: Signed EXAMINATION: CHEST 2 VIEWS INDICATION: COMPARISON: Chest radiograph 02/18/2017 FINDINGS: PA and lateral views TUBES and LINES: Dual-lumen central venous catheter tips overlie the cavoatrial junction and right atrium. LUNGS: Lungs are well inflated. Lungs are clear. There is no evidence of pneumonia or pulmonary edema. PLEURA: No pleural effusion or pneumothorax. HEART AND MEDIASTINUM: Aortic arch calcifications. The cardiomediastinal silhouette is unremarkable. BONES AND SOFT TISSUES: No acute osseous lesion. Soft tissues are unremarkable. UPPER ABDOMEN: No free air under the diaphragm. IMPRESSION: No acute thoracic abnormality. Signed by: DR. Michele Pagan MD on 05/31/2017 8:35 PM Dictated By: MICHELE PAGAN MD 34 Transcribed By: AYDEE on 05/31/172034 COPY TO: EDA SAVAGE MD
[2017-09-03] MEDS ORDERED: DEXTROSE 50% SYRINGE 50 ML IV STA (06:43)
[2017-09-03] MEDS ORDERED: DEXTROSE 5%/0.45% SOD CHL 1,000 ML IV ONE (06:45)
[2017-09-03 06:59] LABS: BASOPHILS # (AUTO) 0.1 (0.0-0.1); BASOPHILS % 0.5 % (0.0-1.0); EOSINOPHILS # (AUTO) 0.1 (0.0-0.4); EOSINOPHILS % 0.3 % (0.0-6.0); HEMATOCRIT 36.6 % (34.2-44.1); HEMOGLOBIN 12.4 g/dL (12.0-16.0); LYMPHOCYTES # (AUTO) 0.7 (1.0-3.2); LYMPHOCYTES % 4.2 % (18.0-39.1); MEAN CORPUSCULAR HEMOGLOBIN 31.2 pg (28-32); MEAN CORPUSCULAR HGB CONC 33.9 g/dL (31-35); MONOCYTES # (AUTO) 0.7 (0.2-0.8); MONOCYTES % 4.1 % (4.4-11.3); NEUTROPHILS # (AUTO) 14.9 (2.1-6.9); NEUTROPHILS % 90.1 % (38.7-80.0); PLATELET COUNT 145 x10e3/uL (140-360); RED BLOOD COUNT 3.98 x10e6/uL (3.6-5.1); RED CELL DISTRIBUTION WIDTH 15.6 % (11.7-14.4)
[2017-09-03 07:13] LABS: ALBUMIN/GLOBULIN RATIO 0.4 (0.8-2.0); ALKALINE PHOSPHATASE 121 IU/L (40-150); ANION GAP 15.4 mmol/L (8-16); BLOOD UREA NITROGEN 60 mg/dL (7-26); BUN/CREATININE RATIO 16 (6-25); CALCIUM 7.1 mg/dL (8.4-10.2); CARBON DIOXIDE 26 mmol/L (22-29); CHLORIDE 98 mmol/L (98-107); CREATININE, SERUM 3.69 mg/dL (0.57-1.11); EST GLOMERULAR FILTRATION RATE 12 ML/MIN (60-); POTASSIUM 3.4 mmol/L (3.5-5.1); SODIUM 136 mmol/L (136-145)
[2017-09-03 07:18] LABS: ALANINE AMINOTRANSFERASE < 6 IU/L (0-55); GLUCOSE 37 mg/dL (74-118)
[2017-09-03] MEDS ORDERED: CEFTRIAXONE SOD 1 GM VIAL IM STA (07:31)
--- NOTE | 2017-09-03 07:42 | Diagnostic Imaging Report ---
PROCEDURE: A single AP view of the chest. COMPARISON: Portable chest 06/23/2017. INDICATIONS: SHORTNESS OF BREATH. WEAKNESS. NAUSEA/VOMITING FINDINGS: Lines/tubes: Right internal jugular tunneled central venous catheter with tip projecting over the expected region of the right atrium. Lungs: No focal consolidation. No parenchymal mass. Bibasilar atelectasis. Pleura: Small left pleural effusion. No pneumothorax. Heart and mediastinum: The heart and the mediastinum are unremarkable. Atherosclerotic calcifications. Bones: No acute bony abnormality. Degenerative changes of the thoracic spine. IMPRESSION: Small left pleural effusion. Dictated by: Wilson Cox M.D. on 09/03/2017 at 7:40 Electronically approved by: Wilson Cox M.D. on 09/03/2017 at 7:40
[2017-09-03] MEDS ORDERED: VANCOMYCIN 1GM/NS 250 ML 250 ML IV ONE (07:45)
[2017-09-03] MEDS ORDERED: ONDANSETRON HCL INJ 2 MG/ML VIAL IV PRN (08:00)
[2017-09-03] MEDS ORDERED: SODIUM CHLORIDE FLUSH 10 ML SYR INJ PRN (08:00)
[2017-09-03 08:10] LABS: CREATINE KINASE MB 2.1 ng/mL (0-5.0)
--- OUTSIDE RECORDS SUMMARY | 2017-09-03 08:40 | XMS REPORT | Clinical Summary ---
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 L ast Assessment & Plan: The patient [...] Date Type Specialty Care Team Description 07/27/2017 [facility] General Internal Medicine Gee Crenshaw MD Hypoglycemia (Primary - Encounter Castro Mcclain MD Dx);ESRD (end stage renal 08/01/2017 Bryce Angelo, orlin) ([facility]);Adrenal MD insufficiency ([facility]);Dominic Neito MD difficile diarrhea;Type 2 Arnie Syed MD diabetes mellitus with other specified complication, with long-term current use of insulin ([facility]);Status post liver transplantation ([facility]);Diabetes mellitus due to underlying condition with ketoacidosis without coma, with long-term current use of insulin ([facility]);ESRD (end stage renal disease) on dialysis ([facility]) 06/23/2017 [facility] Cardiology Chad Henderson MD Acute - Encounter Gisele Ponce MD encephalopathy;Bradycardi 06/28/2017 a;Hypoglycemia;Hypothyroi dism, unspecified type;Status post liver transplantation ([facility]);Acute cystitis without hematuria;Adrenal insufficiency ([facility]);Severe sepsis ([facility]);Type 2 diabetes mellitus treated with insulin ([facility]);ESRD (end stage renal disease) ([facility]);Essential hypertension;Immunosuppre ssion ([facility]);VRE (vancomycin-resistant Enterococci) infection 06/23/2017 Telephone Critical Care Medicine Chad Henderson MD Advice Only 01/26/2017 [facility] General Internal Medicine Michele Ryan Severe sepsis ([facility]);Acute - Encounter MD Kali encephalopathy;Hypoglycem 01/29/2017 Iron Malik ia;Type 2 diabetes MD Antwon mellitus with other Promise Crabtree MD specified complication Hannah Su MD ([facility]);Status post liver transplantation ([facility]);Sepsis secondary to UTI ([facility]);Type 2 diabetes mellitus with other specified complication, with long-term current use of insulin ([facility]);Clostridium difficile diarrhea;Urinary tract infection without hematuria, site unspecified;Type 2 diabetes mellitus with insulin therapy ([facility]) 01/26/2017 Telephone Critical Care Medicine Michele Ryan Peer- to-Peer Call MD Kali 12/31/2016 Telephone Transplant Hepatology Kristen May RN 10/17/2016 Orders Only Transplant Hepatology Kristen May RN Status post liver transplantation (HCC) (Primary Dx) 10/17/2016 Telephone Transplant Hepatology Kristen May RN Medication Dose Change 10/15/2016 [facility] Radiology Palma Varner MD Dilated bile duct Encounter 10/15/2016 Follow-Up Transplant Hepatology Palma Varner MD Status post liver transplantation (Primary Dx);Immunosuppression (HCC);Dilated bile duct;Screening for malignant neoplasm;Type 2 diabetes mellitus with other specified complication (HCC);Elevated serum creatinine 10/15/2016 [facility] Radiology Palma Varner MD Status post liver Encounter transplantation (HCC);Encounter for long-term (current) use of high-risk medication;Encounter for therapeutic drug monitoring;Disorder of magnesium metabolism 10/15/2016 Palma Dunne MD Status post liver Encounter transplantation (HCC);Encounter for long-term (current) use of high-risk medication;Encounter for therapeutic drug monitoring;Disorder of magnesium metabolism 10/15/2016 Orders Only [facility] Palma Varner MD Status post liver transplantation [...] Taken Blood Pressure 158/77 08/01/2017 4:00 PM MALT HOUSE OPERATOR Pulse 68 08/01/2017 4:00 PM MALT HOUSE OPERATOR Temperature 35.7 C (96.3 F) 08/01/2017 4:00 PM MALT HOUSE OPERATOR Respiratory Rate 18 08/01/2017 4:00 PM MALT HOUSE OPERATOR Oxygen Saturation 100% 08/01/2017 4:00 PM MALT HOUSE OPERATOR Inhaled Oxygen - - Concentration Weight 41.7 kg (92 lb) 07/26/2017 3:53 PM MALT HOUSE OPERATOR Height 157.5 cm (5' 2") 07/26/2017 3:53 PM MALT HOUSE OPERATOR Body Mass Index 16.83 07/26/2017 3:53 PM MALT HOUSE OPERATOR Plan of Treatment Health Maintenance Due Date [...] Range POC-Glucose Meter 114 (H)Comment: TESTED AT [address] 70 - 110 mg /dL [place] [id number] Specimen Performing Laboratory Blood [address] [address] * Tacrolimus level (08/01/2017 6:12 AM) Only the most recent of 14 results within the time period is included. Component Value Ref Range Tacrolimus Lvl 7.2 (L) 10.0 - 20.0 ng/mL Specimen Performing Laboratory Blood - Arm, Right [address] [address] * Hemodialysis (07/31/2017 1:21 PM) Narrative Elías [...] period is included. Specimen Performing Laboratory Blood [address] [address] * Calcium, Ionized (07/31/2017 5:49 AM) Only the most recent of 6 results within the time period is included. Component Value Ref Range Calcium, Ion 0.94 (L) 1.12 - 1.27 mmol/L pH, Blood 7.43 Specimen Performing Laboratory Blood [address] [address] * CBC with platelet count + automated [...] 1 % Granulocytes-Relative Specimen Performing Laboratory Blood [address] [address] * CBC with platelet count + automated diff (07/31/2017 5:49 AM) Only the most recent of 14 results within the time period is included. Specimen Performing Laboratory Blood Narrative The following orders were created for panel order CBC with platelet count + automated diff. Procedure Abnormality Status --------- - ------ CBC with platelet count ...[[id number]]AbnormalFinal result Manual Differential[[id number]] Final result Please view results for these tests on the individual orders. * Phosphorus (07/31/2017 5:49 AM) Only the most recent of 11 results within the time period is included. Component Value Ref Range Phosphorus 4.3 2.3 - 4.7 mg/dL Specimen Performing Laboratory Blood [address] [address] * Magnesium (07/31/2017 5:49 AM) Only the most recent of 13 results within the time period is included. Component Value Ref Range Magnesium 1.7 1.6 - 2.6 mg/dL Specimen Performing Laboratory Blood [address] [address] * Hepatic function panel (07/31/2017 5:49 AM) [...] - 55 U/L Specimen Performing Laboratory Blood [address] [place] [address] * Basic Metabolic Panel (07/31/2017 5:49 AM) [...] FOR DIALYSIS PATIENTS. Specimen Performing [place] [address] * T4, free (07/29/2017 7:00 AM) Only the most recent of 5 results within the time period is included. Component Value Ref Range Free T4 0.90 0.70 - 1.48 ng/dL Specimen Performing Laboratory Blood - Arm, [address] [address] * TSH/Free T4 If Indicated (07/28/2017 3:46 PM) Only the most recent of 2 results within the time period is included. Component Value Ref Range TSH 15.97 (H) 0.35 - 4.94 uIU/mL Specimen Performing Laboratory Blood - Arm, [address] [address] * Hepatitis B surface antigen (07/28/2017 3:46 PM) Only the most recent of 4 results within the time period is included. Component Value Ref Range hepatitis B Surface Ag Nonreactive Nonreactive Specimen Performing Laboratory Blood - Arm, [address] [address] * Clostridium difficile Toxin PCR (07/27/2017 10:49 AM) Only the most recent of 2 results within the time period is included. Component Value Ref Range C.Diff Toxin, PCR Detected (A) Not Detected Specimen Performing Laboratory Stool [address] [address] Narrative This qualitative real-time polymerase chain reaction [...] - 6.1 % Specimen Performing [place] [address] * Urinalysis Microscopic Only (07/27/2017 10:17 AM) Component Value Ref Range RBC, UA 2 /HPF WBC, UA 119 /HPF Bacteria, UA Many Squam Epithel, UA 5 /HPF Specimen Performing Laboratory Urine - Urine, [facility] Catch [address] [place] [address] * Urinalysis with Microscopic If Indicated (07/27/2017 10:17 AM) Component Value Ref Range Color, UA Yellow Clarity, UA Hazy Specific [place], UA 1.009 1.001 - 1.035 pH, UA 6.5 5.0 - 8.0 Protein, UA 300 mg/dL (A) Negative Glucose, UA Negative Negative Ketones, UA Negative Negative Bilirubin, UA Negative Negative Blood, UA Small (A) Negative Nitrite, UA Negative Negative Leukocytes, UA Large (A) Negative Urobilinogen, UA 0.2 0.2 - 1.0 mg/dL Specimen Source Specimen Performing Laboratory Urine - Urine, [facility] Catch [address] [place], [place] [address] * Influenza A H1N1 PCR (07/27/2017 2:52 AM) Only the most recent of 2 results within the time period is included. Component Value Ref Range Influenza A RNA Not Detected Not Detected, Inconclusive Novel H1N1 RNA Not Detected Not Detected, Inconclusive Specimen Performing Laboratory Nasal - Nasopharyngeal [facility] Swab [address] [place] [address] Narrative These assays were performed by real-time RT-PCR (baker apprentice-PCR) utilizing fluorogenic hydrolysis probe technology for the detection of human Influenza A viruses and the differential detection of novel H1N1 Influenza virus in respiratory specimens. The test is composed of (1) an RNA extraction from patient specimen, and (2) baker apprentice-PCR amplification and detection with human Influenza A and novel M4H2-lahobpju primers and probes. A well-conserved region of [...] and its performance characteristics determined by the [facility] Pathology Department, Section of Molecular Pathology.It has not been cleared or approved by the U.S. Food and Drug Administration (FDA).Since FDA approval is not required for clinical use of the test, validation was done as required by The Clinical Laboratory Amendments of 1988. These assays were performed by real-time RT-PCR (baker apprentice-PCR) utilizing fluorogenic hydrolysis probe technology for the detection of human Influenza A viruses and the differential detection of novel H1N1 Influenza virus in respiratory specimens. The test is composed of (1) an RNA extraction from patient specimen, and (2) baker apprentice-PCR amplification and detection with human Influenza A and novel [id number]-zeslknxh primers and probes. A well-conserved region of [...] and its performance characteristics determined by the [facility] Pathology Department, Section of Molecular Pathology.It has [...] - 36.0 seconds Specimen Performing Laboratory Blood [address] [address] Narrative RECOMMENDED COUMADIN/WARFARIN INR THERAPY RANGES STANDARD [...] Inconclusive Specimen Performing Laboratory Nasal - Nasopharyngeal [facility] Swab [address] [place] [address] * Lipase (07/27/2017 2:52 AM) Only the most recent of 2 results within the time period is included. Component Value Ref Range Lipase <4 (L) 8 - 78 U/L Specimen Performing [place] [address] * XR femur right AP and lateral [...] MD Report Verified Date/Time:07/26/2017 23:34:07 Reading Location: [facility] B1 C013W Consult Reading Room Procedure Note Interface, External Ris In - 07/26/2017 11:36 PM MALT HOUSE OPERATOR FINAL REPORT Right femur, two views. INDICATION: [...] Report Verified Date/Time: 07/26/2017 23:34:07 Reading Location: [facility] C013W Consult Reading Room * EKG-SCANNED (07/25/2017 [...] WBC Specimen Performing Laboratory Blood - Arm, [address] [address] * TSH (06/28/2017 5:54 AM) Only the most recent of 2 results within the time period is included. Component Value Ref Range TSH 4.76 0.35 - 4.94 uIU/mL Specimen Performing Laboratory Blood - Arm, [address] [address] * Comprehensive metabolic panel (06/28/2017 5:54 AM) [...] Specimen Performing Laboratory Blood - Arm, [place] [address] * Vancomycin level, random (06/24/2017 4:37 AM) Only the most recent of 3 results within the time period is included. Component Value Ref Range Vancomycin Rm 16.5 ug/mL Specimen Performing Laboratory Blood [address] [address] Narrative Reference Range: No Normals * ECG 12 lead (06/23/2017 11:42 AM) Specimen Performing Laboratory GE MUSE Narrative Ventricular Rate 55 BPM Atrial Rate 55 BPM P-R Interval 128 ms QRS Duration 74 ms Q-T Interval 552 ms QTC Calculation(Bazett) 528 ms P Garrison 77 degrees R Garrison -1 degrees T Garrison 0 degrees Sinus bradycardia Septal infarct (cited on or before 23-JUN-2017) Prolonged QT Abnormal ECG When compared with ECG of 31-JUL-2012 20:36, Nonspecific T wave abnormality now evident in Inferior leads QT has lengthened Confirmed by MD KAVITHA, TATO Encinas ([id number]) on 06/24/2017 8:28:24 AM Procedure Note Interface, External Ris In - 06/24/2017 8:28 AM MALT HOUSE OPERATOR Ventricular Rate 55 BPM Atrial Rate 55 BPM P-R Interval 128 ms QRS Duration 74 ms Q-T Interval 552 ms QTC Calculation(Bazett) 528 ms P Garrison 77 degrees R Garrison -1 degrees T Garrison 0 degrees Sinus bradycardia Septal infarct (cited on or before 23-JUN-2017) Prolonged QT Abnormal ECG When compared with ECG of 31-JUL-2012 20:36, Nonspecific T wave abnormality now evident in Inferior leads QT has lengthened Confirmed by MD KAVITHA, TATO Encinas ([id number]) on 06/24/2017 8:28:24 AM * US Hepatic Portal Vessel with Doppler (06/23/2017 10:42 AM) Specimen Performing Laboratory Magin Narrative FINAL REPORT Ultrasound of the Abdomen [...] MD Report Verified Date/Time:06/23/2017 11:16:57 Reading Location: [facility] C013Y CT Body Reading Room Procedure Note Interface, External Ris In - 06/23/2017 11:19 AM MALT HOUSE OPERATOR FINAL REPORT Ultrasound of the Abdomen and [...] Report Verified Date/Time: 06/23/2017 11:16:57 Reading Location: [facility] B1 C013Y CT Body Reading Room * Blood culture (06/23/2017 9:24 AM) Only the most recent of 3 results within the time period is included. Component Value Ref Range Result No growth in 5 days Specimen Performing Laboratory Blood - Arm, [place] [address] * Troponin I (06/23/2017 9:23 AM) Only the most recent of 2 results within the time period is included. Component Value Ref Range Troponin I <0.01 0.00 - 0.03 ng/mL Specimen Performing Laboratory Blood - Arm, [place] [address] Narrative Troponin I (TnI) levels must be [...] mmol/L Specimen Performing Laboratory Blood - Arm, [address] [address] Narrative Effective 11/16/2015: Units/Reference Range Change New: 0.5-2.2 mmol/LPrevious: 5-20 mg/dL * Creatine Kinase (CK), Total and MB (06/23/2017 9:23 AM) Component Value Ref Range Total CK 29 29 - 200 U/L CK-MB 3.5 0.0 - 6.6 ng/mL MB Relative Index 12.1 % Specimen Performing Laboratory Blood - Arm, [address] [address] Narrative CK-MB Reference Range: <6.7Normal 6.7-10.0Borderline >10.0 Abnormal * Ammonia (06/23/2017 9:23 AM) Component Value Ref Range Ammonia 28 18 - 72 mol/L Specimen Performing Laboratory Blood - Arm, Left [address] [address] * Urinalysis w/Microscopic (06/23/2017 9:11 AM) Only the most recent of 2 results within the time period is included. Component Value Ref Range Color, UA Yellow Clarity, UA Hazy Specific [place], UA 1.006 1.001 - 1.035 pH, UA [...] Urine Few Yeast Few Specimen Source Urine, [place] Specimen Performing Laboratory Urine - Urine, [address] [address] * Urine culture (06/23/2017 9:11 AM) Only the most recent of 2 results within the time period is included. Component Value Ref Range Result Result 10-19,000 col/mL Vancomycin resistant Enterococcus species (A) Specimen Performing Laboratory Urine - Urine, [address] [address] Organism Antibiotic Method Susceptibility Vancomycin resistant Ampicillin [...] Specimen Performing Laboratory Blood - Arm, Right [address] [address] * Prothrombin time/INR (06/23/2017 9:10 AM) Only the most recent of 5 results within the time period is included. Component Value Ref Range Protime 15.3 (H) 11.7 - 14.7 seconds INR 1.2 <=5.9 Specimen Performing Laboratory Blood - Arm, [place] [address] Narrative RECOMMENDED COUMADIN/WARFARIN INR THERAPY RANGES STANDARD DOSE: 2.0 - 3.0 Includes: PROPHYLAXIS for venous thrombosis, systemic embolization; TREATMENT for venous thrombosis and/or pulmonary embolus. HIGH RISK: Target INR is 2.5-3.5 for patients with mechanical heart valves. * Fibrinogen (06/23/2017 9:10 AM) Component Value Ref Range Fibrinogen 297 225 - 434 mg/dl Specimen Performing Laboratory Blood - Arm, [place] [address] * T3, free (06/23/2017 9:10 AM) Component Value Ref Range T3, Free 1.26 (L) 1.71 - 3.71 pg/mL Specimen Performing Laboratory Blood - Arm, [place] [address] * Blood gas, arterial (06/23/2017 9:08 AM) [...] Specimen Performing Laboratory Blood, Arterial - Arm, [facility] Right [address] [place], [place] [address] * XR chest 1 view portable / [...] MD Report Verified Date/Time:06/23/2017 09:32:04 Reading Location: [facility] C013 Transitional Reading Room Procedure Note Interface, External Ris In - 06/23/2017 9:34 AM MALT HOUSE OPERATOR FINAL REPORT HISTORY : myxedema, sepsis. Comparison: [...] Report Verified Date/Time: 06/23/2017 09:32:04 Reading Location: [facility] C013T Transitional Reading Room * Prepare Leuko-Red RBC (01/29/2017 11:54 PM) Component Value Ref Range CROSSMATCH COMPATIBLE Unit ABO B Pos UNIT NUMBER [id number] Status TRANSFUSED Blood Bank Product RED BLOOD CELLS PRODUCT CODE [id number] Specimen Performing Laboratory Other [place] * Hepatitis B PCR, quantitative (01/29/2017 11:15 AM) Component Value Ref Range HBV PCR, Quantitative HBV DNA not detected HBV DNA not detected Specimen Performing Laboratory Blood [facility] [address] [address] Narrative This test uses a Real-Time Polymerase [...] Antigen Neutralization testing. Specimen Performing Laboratory Blood [address] [address] * Hepatitis B core antibody, IgM (01/29/2017 11:15 AM) Component Value Ref Range Hep B C IgM Nonreactive Nonreactive Specimen Performing Laboratory Blood [address] [address] * Hepatitis B core antibody, total (01/29/2017 11:15 AM) Component Value Ref Range Hep B Core Total Ab Nonreactive Nonreactive Specimen Performing Laboratory Blood [address] [address] * Hepatitis B surface antibody (01/29/2017 11:15 AM) Component Value Ref Range Hep B S Ab <8.0 <8.0 mIU/mL Specimen Performing Laboratory Blood [address] [address] * Transfuse Leuko-Red RBC (01/29/2017 5:46 AM) Only the most recent of 2 results within the time period is included. * CMV PCR, quantitative (01/29/2017 5:21 AM) Component Value Ref Range CMV DNA Viral Load Negative or below the linear range of the assay (<375 copies/mL) Specimen Performing [place] [address] Narrative Cytomegalovirus (CMV) infection can cause significant [...] and its performance characteristics determined by the [facility] Pathology Department, Section of Molecular Pathology. It [...] Performing Laboratory Blood - Arm, [place] [address] Narrative ACTH STIMULATION TEST INTERPRETATION GUIDELINES (Synonyms: [...] study by Mirella et al ( DOREEN 2000,283(8):7442-45), the ACTH Stimulation Test provides important prognostic [...] Specimen Performing Laboratory Blood - Arm, [place] [address] Narrative ACTH STIMULATION TEST INTERPRETATION GUIDELINES (Synonyms: [...] study by Mirella et al ( DOREEN 2000,283(5):3933-45), the ACTH Stimulation Test provides important prognostic [...] Specimen Performing Laboratory Blood - Arm, Right [address] [address] Narrative ACTH STIMULATION TEST INTERPRETATION GUIDELINES (Synonyms: [...] Procedure Abnormality Status --------- - ------ Cortisol, baseline[[id number]] Final result Cortisol, 30 minutes[[id number]] Final result Cortisol, 60 minutes[[id number]] Final result Please view results for these tests on the individual orders. * 2D Echo W/Doppler (Sepsis Protocol) (01/27/2017 3:16 PM) Component Value Ref Range Ejection Fraction LV EF 72.3 % (55-75) Index 57.8 %/m2 Specimen Performing [facility] [address] [place] [address] Voice:[phone] Transthoracic Echocardiogram Pat.Name:TERRI GANDARA Pat.ID:[id number] St.Date: 01/27/2017 Refer.MD:MICHELE RYAN Exam Time: 3:16:00 PMStudy Type:Echo Complete Height:62inWeight:74lb BSA: 1.25 m2 DOBAge:1954,61Y Sex: FEMALEBP:90 /46 HR:71 bpmSonogrphr: Michelle Sigala [facility] Pat. Stat.:Inpatient Room:[facility] Reason for Study:Sepsis Protocol History / Clinical:Diabetes, [...] ml/m2 LA Area 15.6 cm2(8.8-23.4) Parasternal Long [place] Ao An2 cm (1.4-2.6) LV%fs 33.8 %(25-46) Ao Rtd2.52 cmLVPWd 1.06 cm IVSd1.21 cm LA Ds 3.72 cm (2.3-3.8) LVIDd 3.72 cm (4.3-5.1)* LV Wmn 1.13 cm LVIDs 2.47 cm (2-4) DOPPLER LVOT LVOT For Flow [id number] cm/s (70-110)* LVOT CO 5.77 l/min LVOT [...] - 01/28/2017 12:58 PM CDT Echocardiography Laboratory [address] [place] [address] Voice: [phone] Transthoracic Echocardiogram Pat.Name: TERRI GANDARA Pat.ID: [id number] .Date: 01/27/2017 Refer.MD: MICHELE RYAN Exam Time: 3:16:00 PM Study Type:Echo Complete Height: 62in Weight: 74lb BSA: 1.25 m2 Age: 11 1955,61Y Sex: FEMALE BP: 90/46 HR: 71 bpm Sonogrphr: Michelle Sigala [facility] Pat. Stat.:Inpatient Room: 7210 Reason for [...] LA Area 15.6 cm2 (8.8-23.4) Parasternal Long [place] Ao An 2 cm (1.4-2.6) LV%fs 33.8 [...] PM Tato White M.D. * Respiratory Panel [facility] (01/27/2017 2:43 PM) Component Value Ref Range [...] Inconclusive Specimen Performing Laboratory Nasopharyngeal - Nasal, [facility] Right [address] [place] [address] * Vitamin B12 and Folate (01/27/2017 5:29 AM) Component Value Ref Range Vitamin B12 480 213 - 816 pg/mL Folate 6.3 (L) >=7.0 ng/mL Specimen Performing Laboratory Blood - Arm, Right [address] [address] Narrative Effective 06/01/2014: Folate Reference Range Change New: >=7.0Previous: >=5.4 * Iron, TIBC, % sat. (without ferritin) (01/27/2017 5:29 AM) Component Value Ref Range Iron 65 40 - 160 ug/dL TIBC 209 (L) 250 - 450 ug/dL Iron % Saturation 31 20 - 55 % Specimen Performing Laboratory Blood - Arm, [address] [address] * Ferritin (01/27/2017 5:29 AM) Component Value Ref Range Ferritin 670 (H) 5 - 275 ng/mL Specimen Performing Laboratory Blood - Arm, [address] [address] Narrative Effective 06/01/2014: Reference Range Change New: Male 5-275Previous: Male 22-322 Female 5-275Female 10-291 * Prepare RBC (01/27/2017 1:01 AM) Component Value Ref Range Status CANCELED Blood Bank Product RED BLOOD CELLS Unit ABO O Pos UNIT NUMBER [id number] Status CANCELED Blood Bank Product RED BLOOD CELLS PRODUCT CODE [id number] Unit ABO O Pos UNIT NUMBER [id number] Status WORK IN PROGRESS Blood Bank Product RED BLOOD CELLS PRODUCT CODE [id number] Specimen Performing Laboratory [place] * Type and screen, automated (01/27/2017 12:35 AM) Component Value Ref Range ABO/RH AUTOMATED (BEAKER) B POSITIVE Ab Scrn NEGATIVE Specimen Performing Laboratory Blood [address] [address] * Ketones, blood (01/27/2017 12:35 AM) Component Value Ref Range Ketones, Blood 0.0 <0.4 mmol/L Specimen Performing Laboratory Blood [address] [address] * MRI abdomen without contrast (10/15/2016 3:14 [...] MD Report Verified Date/Time:10/15/2016 15:39:30 Reading Location: [address] Radiology Reading Room Procedure Note Interface, [...] Report Verified Date/Time: 10/15/2016 15:39:30 Reading Location: [address] Radiology Reading Room * US abdominal with doppler (10/15/2016 10:34 AM) Specimen Performing Laboratory Magin Narrative FINAL REPORT HISTORY : Liver transplant [...] MD Report Verified Date/Time:10/15/2016 11:19:07 Reading Location: [address] Radiology Reading Room Procedure Note Interface, [...] Report Verified Date/Time: 10/15/2016 11:19:07 Reading Location: [address] Radiology Reading Room * Bilirubin, direct (10/15/2016 8:40 AM) Component Value Ref Range Bilirubin, Direct 0.2 0.1 - 0.5 mg/dL Specimen Performing Laboratory Blood [address] [address] * Lipid panel (10/15/2016 8:40 AM) Component Value Ref Range Triglycerides 63 mg/dL Cholesterol 124 mg/dL HDL 34 mg/dL LDL Calculated 77 mg/dL Specimen Performing Laboratory Blood [address] [address] Narrative Triglyceride Reference Range: Low Risk <150 [id number] High Risk 200-499 Very High Risk>=500 Cholesterol Reference Range: Low Risk <200 [id number] High Risk>240 HDL Cholesterol Reference Range: Low Risk >=60 High Risk <40 LDL Cholesterol Reference Range: Optimal<100 Near [id number] Very High >=190 * XR chest 2 [...] MD Report Verified Date/Time:10/15/2016 08:43:36 Reading Location: [address] Radiology Reading Room Procedure Note Interface, [...] Report Verified Date/Time: 10/15/2016 08:43:36 Reading Location: [address] Radiology Reading Room after 09/02/2016
[2017-09-03] MEDS ORDERED: ACETAMINOPHEN 325 MG TAB PO PRN ×2 (08:45→09:00)
[2017-09-03] MEDS ORDERED: LEVOTHYROXINE SODIUM 50 MCG TAB PO SCH (09:00)
[2017-09-03] MEDS: HYDROCORTISONE 10 MG TAB PO SCH (09:18)
[2017-09-03] MEDS: TACROLIMUS 1 MG CAP PO SCH ×2 (09:18→17:47)
[2017-09-03] MEDS: EZETIMIBE 10 MG TAB PO SCH (09:18)
[2017-09-03] MEDS: OYST-CAL-D 500MG TABLET PO SCH ×3 (09:18→21:00)
[2017-09-03] MEDS: DULOXETINE HCL 30 MG DELAYED RELEASE PO SCH ×2 (09:18→17:47)
--- NOTE | 2017-09-03 09:24 | History and Physical ---
CHIEF COMPLAINT: The patient found to have altered mental status this morning with very low sugar at assisted. HISTORY OF PRESENT MEDICAL ILLNESS: A 62-year-old pleasant white female with a past medical history of multiple medical problems was admitted at [facility] this morning with the above complaints. Also, the patient started having upper lip sore with redness, swelling of the face surrounding it for the last 1-2 days. The patient this morning was found confused and altered mental status this morning. Found to have a very low blood sugar. Was referred to ER. In the ER, the patient was seen by the emergency room doctor. Blood sugar was 32. The patient was given D50 IV. The patient improved. At present, the patient is lying comfortably in bed. No apparent distress. No chest pain. No shortness of breath. No nausea. No diarrhea. No abdominal pain, loss of consciousness or headaches. No edema. No hematuria or dysuria. No fever. No cough. No witnessed seizures. PAST MEDICAL HISTORY 1. Hypertension. 2. Diabetes mellitus, brittle. 3. Liver cirrhosis, status post liver transplant. 4. End-stage renal disease, on dialysis. 5. CHF. 6. Chronic back pain. 7. Eric's disease. PAST SURGICAL HISTORY 1. Cholecystectomy. 2. Hysterectomy. 3. Liver transplant. 4. Appendectomy. ALLERGIES: NO KNOWN DRUG ALLERGIES. SOCIAL HISTORY: No smoking. No alcohol. long-term resident. FAMILY HISTORY: Unremarkable. REVIEW OF SYSTEMS: As per HPI. PHYSICAL EXAMINATION GENERAL: The patient is alert, awake and oriented times 3 and in no apparent distress. Sitting in bed eating breakfast. VITALS: Temperature is 97, pulse 82 per minute, respiratory rate 16 per minute, blood pressure is 150/80, and saturation is 97%. HEENT: No icterus. No pallor. Normocephalic and atraumatic. PERRLA. Upper lip swelling, sore plus surrounding redness, swelling of the face plus. NECK: Soft and supple. No JVD. No carotid bruits. LUNGS: Air entry bilaterally. HEART: Regular rate and rhythm. ABDOMEN: Soft. Normal bowel sounds. RELASTER: Alert and without any focal deficits. EXTREMITIES: No cyanosis, clubbing or edema. No calf pain. LABS: On admission to the ER, white count 16.56, hemoglobin 12.4, hematocrit 36.6, and platelets 145,000. Sodium 136, potassium 3.5, chloride 98, bicarb 26, BUN 60, creatinine 3.69. Sugar 37 on admission to the ER. Right now is 133. LFTs noted. Chest x-ray with small left pleural effusion. ASSESSMENT 1. Altered mental status likely due to severe hypoglycemia. 2. Face cellulitis and sepsis. 3. History of brittle diabetes mellitus. 4. Liver cirrhosis, status post liver transplant. 5. End-stage renal disease, on hemodialysis. 6. Hypertension. 7. Eric's disease. PLAN: Admit the patient to the medical floor. The patient received IV vancomycin and IV Rocephin in the ER. Will get pancultures, blood cultures times 2. ID consultation with Dr. Mayfield. Renal consultation with Dr. Su. Endocrine consultation with Dr. Diaz. Further care for the patient here in the hospital. Discussed with the patient in detail. Job#: [id number] DC
--- NOTE | 2017-09-03 12:58 | Consultation ---
DATE OF CONSULTATION: September 03, 2017 RENAL CONSULTATION REASON FOR CONSULTATION: End-stage renal disease. HISTORY OF PRESENT ILLNESS: Ms. Terri Black is known to me. She is a pleasant 62-year-old female, looks much older than stated age. History of orthotopic liver transplant, end-stage renal disease, dialyzes at [facility] with our associate, Dr. Ness. Presented with weakness, swelling of the upper lip. There is a small eschar there just at the base of the naris. The swelling involves the upper lip only, and it is difficult to open her mouth entirely to take a look at the gums. She denies any difficulty breathing. Has an elevated white count of 16.5, hemoglobin 12.2. Her chemistry shows potassium 3.4. Other than that, except for hypoalbuminemia, labs look relatively stable. ALLERGIES: SHE HAS NO APPARENT DRUG ALLERGIES. She is maintained on tacrolimus 2 mg p.o. b.i.d. for her liver transplant. She is on levothyroxine 25 mcg p.o. daily. She did receive a liter of D5 half NS because of hypoglycemia. Repeat blood sugar is 133. She is currently on calcium carbonate 1000 mg p.o. t.i.d., ceftriaxone 1 gram IV stat. She received hydrocortisone 10 mg p.o. daily. She is on ezetimibe/Zetia 10 mg daily. She is on Cymbalta 30 mg p.o. b.i.d. PHYSICAL EXAMINATION: GENERAL: Awake, alert, lying supine. Thin-built female. Very poor muscle mass. VITALS: Blood pressure 152/81. Pulse rate 82. HEAD AND NECK: Exam as described. Oral mucosa relatively moist. Neck veins flat. Right IJ tunneled dialysis catheter noted with dressing which is dry, not removed for evaluation. HEART: S1 and S2 audible. ABDOMEN: Otherwise soft, nontender. LOWER EXTREMITY EXAMINATION: No edema. IMPRESSION/PLAN: 1. End-stage renal disease, stable. No acute indications for dialysis. Orthotopic liver transplant back in 2008, maintained on immunosuppression. 2. Upper lip swelling. This could be an insect bite and abscess. I am not really sure since it is so close to the nose and she is immunosuppressed. I will consult ENT/ear, nose, throat stat. Agree with empiric antibiotics. No respiratory compromise noted. She is breathing fine. Nurse in the room. I will arrange for dialysis. Appropriate diet. Hypokalemia should correct with diet. Please see orders. Job#: [id number] EV
[2017-09-03 13:09] VITALS: BP 162/78
[2017-09-03 15:18] LABS: FREE T4 (FREE THYROXINE) 0.77 ng/dL (0.9-1.8); THYROID STIMULATING HORMONE 29.986 uIU/mL (0.350-4.940)
--- NOTE | 2017-09-03 15:25 | Consultation ---
DATE OF CONSULTATION: September 03, 2017 HISTORY OF PRESENT ILLNESS: Ms. Murray is known to me. A 62-year-old female who appears quite ill. She has got a some evidence of swelling in the upper and lower lip area, which is reddish in appearance. She has got some excoriations noted on upper extremities. She is a end-stage renal disease patient with multiple comorbidities, very thin-built, poor muscle mass, awake, alert, but looks ill. Denies shortness of breath or nausea. Here in the emergency room, patient was found to have hypoglycemia, currently on D5 half NS at 100 mL an hour. She is due for dialysis tomorrow. Workup shows chest x-ray which is negative. Her chemistry shows a potassium level of 3.4 with creatinine of 3.69 and calcium 7.1. LFTs normal. CK 19, albumin low at 2. Last blood sugar 133. Lactic acid is 9.5. CBC shows white count 16.5, hemoglobin 12.4, and platelets 145. She has prior history of hypothyroidism. Allograft transplant on Prograf 2 mg p.o. b.i.d. CANCELLED DICTATION Job#: [id number] VAS
[2017-09-03 15:28] LABS: CREATINE KINASE MB 2.6 ng/mL (0-5.0)
[2017-09-03 16:14] VITALS: BP 180/95
[2017-09-03] MEDS: INSULIN LISPRO 100 UNIT/1 ML 3ML VIAL SQ SCH ×2 (16:30→21:24)
--- NOTE | 2017-09-03 17:16 | Consultation ---
DATE OF CONSULTATION: September 03, 2017 INFECTIOUS DISEASE CONSULTATION REASON FOR CONSULTATION: Cellulitis of the face. HISTORY OF PRESENT ILLNESS: This patient, who is a 62-year-old female who has history of hypertension, diabetes mellitus brittle, liver cirrhosis status post liver transplant, end-stage renal disease on hemodialysis, congestive heart failure, chronic back pain, [place] disease, looks very ill, comes in with redness and swelling of her upper lip both sides. There is swelling, tender. She is not really sure how long this has been going on. The patient is a little bit confused. She is coming with pain in the upper lip. The patient apparently was transferred here. Her glucose was low, in the 30s. She was given D50. She was started on antibiotic. Infectious Disease was asked to see her. She is currently alert, follows simple command. PAST MEDICAL HISTORY: This patient has history of hypertension, diabetes, liver cirrhosis, end-stage renal disease, congestive heart failure, chronic back pain, [place] disease. PAST SURGICAL HISTORY: Status post liver transplant, status post cholecystectomy, hysterectomy, appendectomy. ALLERGIES: NKA. SOCIAL HISTORY: There is no smoking, drug abuse, alcohol abuse. FAMILY HISTORY: Hypertension. REVIEW OF SYSTEMS CONSTITUTIONAL: At the present time she is feeling fair. HEENT: There is no headache or visual changes or hearing changes. GI: There is no nausea, no vomiting, no diarrhea. CARDIAC: There is no arrhythmia. NEURO: No seizure activity. SKIN: There is no rash. Laboratory data reviewed. Her medication list reviewed. She is currently on Prograf 2 mg p.o. b.i.d., Cortef 10 mg p.o. daily, Zetia, Cymbalta, Os-Patricio, Humalog, Synthroid. She received 1 dose of vancomycin. Her blood culture is still pending. Her laboratory data: White count 16.56, hemoglobin 12. Her sodium 136, potassium 3.4, creatinine 3.69, glucose is 37. PHYSICAL EXAMINATION GENERAL: She is currently alert, oriented, does not seem to be in acute distress. VITAL SIGNS: Stable. Afebrile. HEENT: She does not appear icteric. There is significant erythema and edema affecting her upper lip. NECK: Supple. No JVD, no lymphadenopathy, no thyromegaly. CHEST: Clear bilaterally. HEART: S1 and S2. No S3 or S4, no murmur. ABDOMEN: Soft. Bowel sounds present. No tenderness. EXTREMITIES: Otherwise no edema. IMPRESSION 1. Sepsis in a patient who is immunocompromised with face cellulitis, perhaps early abscess. Agree with vancomycin. Will add Zosyn. Would consult Plastic Surgery because she may need I\T\D. 2. End-stage renal disease. She is not on dialysis. 3. End-stage liver disease. 4. History of anemia. Will follow with you. Job#: [id number] EV
--- NOTE | 2017-09-03 17:29 | Consultation ---
DATE OF CONSULTATION: September 03, 2017 ENDOCRINE CONSULTATION This is a patient of Dr. Young. Thank you very much for referring this patient. HISTORY OF PRESENT ILLNESS: This is a 62-year-old female who is very well known to me from her previous hospital admissions. This time the patient came to the hospital with altered mental status. Her blood sugar was found to be 37, and the repeat blood sugar was 54. Patient also was found to have cellulitis of the face. She is a known diabetic for the last several years and takes a combination of the Levemir and the Humalog at home. Her other medical problems include history of hypothyroidism. She is at end-stage renal failure on hemodialysis. Patient also has history of anemia, status post liver transplant. She is on several medications at home including levothyroxine 0.137 mg once daily. PHYSICAL EXAMINATION GENERAL: On physical examination today, the patient is alert, awake. She is thin-built, looks slightly cachectic. She has cellulitis of the face, particularly upper lip. VITAL SIGNS: Her heart rate is around 70. Blood pressure 130 mmHg. HEENT: Essentially unremarkable. NECK: Thyroid is palpable. Clinically she looks near euthyroid. CHEST: Bilateral vesicular breathing. She has mild bronchospasm. CARDIOVASCULAR: Both 1st and 2nd heart sounds. There is no 3rd or 4th heart sound. Ejection sound grade 2/6. EXTREMITIES: Patient has evidence of diabetic sensory neuropathy in both lower extremities. CLINICAL IMPRESSION 1. Diabetes mellitus type 2, uncontrolled with complications. 2. Hypoglycemia. 3. Decreased, poor oral intake. 4. End-stage renal failure on chronic hemodialysis. 5. Chronic anemia. 6. Hypothyroidism. 7. Status post liver transplant. The plan at this time is to monitor her blood sugars closely, put her on the sliding scale, increase the p.o. intake, IV antibiotics. Thanks for referring this patient. I will be following this patient with you. Job#: [id number] EV
[2017-09-03] MEDS ORDERED: SODIUM CHLORIDE 0.9% 250ML 250 ML ONE (17:38)
[2017-09-03] MEDS: PIPERACILLIN/TAZO 2.25 GM 50 ML IV SCH (17:47)
[2017-09-03] MEDS: DEXTROSE 5%/0.45% SOD CHL 1,000 ML IV SCH (17:47)
[2017-09-03 20:00] VITALS: BP 164/84
[2017-09-03 20:01] VITALS: BP 164/84
[2017-09-03] MEDS: MUPIROCIN 2% OINT 22 GM TUBE TOP SCH (21:25)
[2017-09-04] VITALS: BP 174/82
[2017-09-04] MEDS: PIPERACILLIN/TAZO 2.25 GM 50 ML IV SCH ×3 (00:18→16:02)
[2017-09-04] MEDS ORDERED: NIFEDIPINE CR 30 MG TAB PO ONE (01:15)
[2017-09-04] MEDS: HYDROCODONE/APAP 5MG-325MG TAB PO PRN ×2 (01:26→01:56)
[2017-09-04 04:00] VITALS: BP 169/85
[2017-09-04 05:44] LABS: BASOPHILS # (AUTO) 0.1 (0.0-0.1); BASOPHILS % 0.5 % (0.0-1.0); EOSINOPHILS # (AUTO) 0.3 (0.0-0.4); EOSINOPHILS % 2.7 % (0.0-6.0); HEMATOCRIT 33.9 % (34.2-44.1); HEMOGLOBIN 11.5 g/dL (12.0-16.0); LYMPHOCYTES # (AUTO) 1.5 (1.0-3.2); LYMPHOCYTES % 12.3 % (18.0-39.1); MEAN CORPUSCULAR HEMOGLOBIN 30.7 pg (28-32); MEAN CORPUSCULAR HGB CONC 33.9 g/dL (31-35); MEAN CORPUSCULAR VOLUME 90.4 fL (81-99); MONOCYTES # (AUTO) 0.5 (0.2-0.8); MONOCYTES % 4.2 % (4.4-11.3); NEUTROPHILS # (AUTO) 9.8 (2.1-6.9); PLATELET COUNT 163 x10e3/uL (140-360); RED BLOOD COUNT 3.75 x10e6/uL (3.6-5.1); RED CELL DISTRIBUTION WIDTH 15.2 % (11.7-14.4)
[2017-09-04] MEDS ORDERED: LEVOTHYROXINE SODIUM 112 MCG TAB PO SCH (06:00)
[2017-09-04] MEDS ORDERED: LEVOTHYROXINE SODIUM 25 MCG TABLET PO SCH (06:00)
[2017-09-04 06:08] LABS: ALBUMIN 1.9 g/dL (3.5-5.0); ALBUMIN/GLOBULIN RATIO 0.4 (0.8-2.0); ANION GAP 16.2 mmol/L (8-16); CREATININE, SERUM 4.15 mg/dL (0.57-1.11); POTASSIUM 3.2 mmol/L (3.5-5.1)
[2017-09-04 06:18] LABS: CREATINE KINASE MB 2.3 ng/mL (0-5.0)
[2017-09-04] MEDS: INSULIN LISPRO 100 UNIT/1 ML 3ML VIAL SQ SCH ×4 (07:30→21:00)
[2017-09-04] MEDS: DEXTROSE 5%/0.45% SOD CHL 1,000 ML IV SCH ×2 (08:15→13:45)
[2017-09-04] MEDS ORDERED: SODIUM CHLORIDE 0.9% 1000ML 2,000 ML ONE (08:21)
[2017-09-04] MEDS ORDERED: ALBUMIN HUMAN 50 ML IV PRN (08:30)
[2017-09-04] MEDS ORDERED: HEPARIN SOD (PORCINE) 1000 UNIT/ML SDV IV PRN (08:30)
[2017-09-04] MEDS ORDERED: MANNITOL 25% 12.5GM/50 ML VIAL IV PRN (08:30)
[2017-09-04] MEDS: OYST-CAL-D 500MG TABLET PO SCH ×3 (09:00→22:06)
[2017-09-04] MEDS: DULOXETINE HCL 30 MG DELAYED RELEASE PO SCH ×2 (09:00→16:02)
[2017-09-04] MEDS: NIFEDIPINE CR 30 MG TAB PO SCH (09:00)
[2017-09-04] MEDS: MUPIROCIN 2% OINT 22 GM TUBE TOP SCH ×4 (09:00→22:06)
[2017-09-04] MEDS: TACROLIMUS 1 MG CAP PO SCH ×2 (09:00→16:02)
[2017-09-04 09:16] VITALS: BP 118/70
--- NOTE | 2017-09-04 12:47 | Consultation ---
HISTORY OF PRESENT ILLNESS: I was kindly asked to see this pleasant 62-year-old woman with multiple medical problems for evaluation of facial cellulitis and early abscess formation. The patient reports a 1-week history of progressive discomfort and swelling at her upper lip and region below her nose. She presented with hypoglycemia. Her history of present illness is reviewed in detail and is pertinent for previous liver transplant and currently on immunosuppressive medications. PAST MEDICAL HISTORY AND PAST SURGICAL HISTORY: Reviewed in detail in the chart. PHYSICAL EXAMINATION: The tympanic membranes and external auditory canals are normal. There is erythema and edema from the floor of the nose extending to the lip and extending to the nasolabial fold region. Intraoral examination is limited due to the swelling, but is otherwise unremarkable. There is eschar located at the septocollumellar region just below the base of the nose. There is no palpable cervical adenopathy. Intranasal examination is pertinent for edema and erythema along the floor of the nose, but not active paranasal sinus pathology is noted. She has a mild nasal septal deviation to the left. ASSESSMENT 1. Patient with cellulitis and possible early abscess formation. The epicenter of the infection is at the base of the nose and extending to the upper lip region. 2. No palpable abscess formation. PLAN 1. Continue patient with antibiotic therapy. 2. Consideration of incision and drainage based on clinical course. Job#: [id number] BECKI
[2017-09-04] MEDS: HYDROCORTISONE 10 MG TAB PO SCH (14:24)
[2017-09-04] MEDS: EZETIMIBE 10 MG TAB PO SCH (14:24)
[2017-09-04 15:27] VITALS: BP 93/56
[2017-09-04] MEDS ORDERED: SODIUM CHLORIDE 0.9% 250ML 500 ML IV PRN (16:45)
[2017-09-04] MEDS ORDERED: SODIUM CHLORIDE 0.9% 1000ML 2,000 ML IV PRN (16:45)
[2017-09-04 19:00] VITALS: BP 119/65
[2017-09-04] MEDS ORDERED: IOPAMIDOL 370 MG/ML 200 ML INFUS..BTL INJ ONE (22:19)
[2017-09-05] VITALS (7 sets, daily range): BP systolic 122–167; BP diastolic 66–91
[2017-09-05] MEDS: PIPERACILLIN/TAZO 2.25 GM 50 ML IV SCH ×3 (00:32→17:07)
[2017-09-05] MEDS: LEVOTHYROXINE SODIUM 100 MCG TAB PO SCH (05:18)
[2017-09-05] MEDS: LEVOTHYROXINE SODIUM 75 MCG TAB PO SCH (05:19)
[2017-09-05] MEDS ORDERED: LEVOTHYROXINE SODIUM 112 MCG TAB PO SCH (06:00)
[2017-09-05] MEDS: OYST-CAL-D 500MG TABLET PO SCH ×4 (08:47→23:44)
[2017-09-05] MEDS: NIFEDIPINE CR 30 MG TAB PO SCH (08:47)
[2017-09-05] MEDS: EZETIMIBE 10 MG TAB PO SCH ×2 (08:47→09:00)
[2017-09-05] MEDS: HYDROCORTISONE 10 MG TAB PO SCH ×2 (08:47→09:00)
[2017-09-05] MEDS: DULOXETINE HCL 30 MG DELAYED RELEASE PO SCH ×3 (08:47→17:07)
[2017-09-05] MEDS: MUPIROCIN 2% OINT 22 GM TUBE TOP SCH ×4 (08:47→21:00)
[2017-09-05] MEDS: TACROLIMUS 1 MG CAP PO SCH ×2 (08:47→17:07)
[2017-09-05] MEDS: HYDROCODONE/APAP 5MG-325MG TAB PO PRN (08:48)
[2017-09-05] MEDS: INSULIN LISPRO 100 UNIT/1 ML 3ML VIAL SQ SCH ×4 (09:33→23:44)
[2017-09-05] MEDS: DEXTROSE 5%/0.45% SOD CHL 1,000 ML IV SCH (09:45)
[2017-09-05] MEDS: INSULIN DETEMIR 100 UNIT/ML PEN SQ SCH (13:20)
[2017-09-06] VITALS (8 sets, daily range): BP systolic 141–197; BP diastolic 75–92
[2017-09-06] MEDS: PIPERACILLIN/TAZO 2.25 GM 50 ML IV SCH ×3 (00:50→16:42)
[2017-09-06] MEDS: LEVOTHYROXINE SODIUM 100 MCG TAB PO SCH (05:31)
[2017-09-06] MEDS: LEVOTHYROXINE SODIUM 75 MCG TAB PO SCH (05:31)
[2017-09-06] MEDS: DEXTROSE 50% SYRINGE 50 ML IV PRN ×3 (07:15→07:21)
[2017-09-06 07:23] LABS: BASOPHILS # (AUTO) 0.1 (0.0-0.1); BASOPHILS % 0.9 % (0.0-1.0); EOSINOPHILS # (AUTO) 0.4 (0.0-0.4); EOSINOPHILS % 4.1 % (0.0-6.0); HEMATOCRIT 34.2 % (34.2-44.1); HEMOGLOBIN 11.6 g/dL (12.0-16.0); LYMPHOCYTES # (AUTO) 2.1 (1.0-3.2); LYMPHOCYTES % 23.4 % (18.0-39.1); MEAN CORPUSCULAR HEMOGLOBIN 31.1 pg (28-32); MEAN CORPUSCULAR HGB CONC 33.9 g/dL (31-35); MEAN CORPUSCULAR VOLUME 91.7 fL (81-99); MONOCYTES # (AUTO) 0.7 (0.2-0.8); MONOCYTES % 7.7 % (4.4-11.3); NEUTROPHILS # (AUTO) 5.7 (2.1-6.9); NEUTROPHILS % 63.6 % (38.7-80.0); PLATELET COUNT 128 x10e3/uL (140-360); RED BLOOD COUNT 3.73 x10e6/uL (3.6-5.1); RED CELL DISTRIBUTION WIDTH 14.7 % (11.7-14.4)
[2017-09-06] MEDS: INSULIN LISPRO 100 UNIT/1 ML 3ML VIAL SQ SCH ×4 (07:30→21:36)
--- NOTE | 2017-09-06 08:01 | Diagnostic Imaging Report ---
Images made available for interpretation on 09/06/2017. EXAMINATION: CT of the face HISTORY: Upper lip swelling, cellulitis, patient on dialysis COMPARISON: None available TECHNIQUE: Multidetector helical axial images were acquired through the face with contrast and were reconstructed in bone and soft tissue algorithms. Images were viewed in multiplanar format. Intravenous contrast: 100 mL of Isovue-370 FINDINGS: Bones: Unremarkable. Facial soft tissues: Prominent upper lid/premaxillary soft tissue swelling with peripherally enhancing multiloculated/septated fluid collection, the largest transverse diameter is about 6 cm x 1 cm AP and about 2.2 cm superior to inferior. Stranding/inflammation of the surrounding subcutaneous fat is consistent with cellulitis. Paranasal sinuses and drainage pathways: Possible small retention cyst and mucosal inflammatory thickening in the left sphenoid sinus, otherwise the frontal, ethmoidal, maxillary and right sphenoid sinuses are clear. The ostiomeatal units, fronto-nasal and spheno-ethmoidal recesses are clear. Orbits contents: Unremarkable. Nasal septum: Mildly S-shaped Anatomic variations: No significant anatomic variations. Dentition: Partially visualized. Dental cavities and some biapical lucencies. IMPRESSION: 1. Prominent upper lip/premaxillary cellulitis and subcutaneous multiloculated abscess. 2. Multiple scatter dental cavities and a few periapical lucencies. No discrete direct extension of dental process into the soft tissues at this time. Signed by: Dr. Zoe Ogden M.D. on 09/06/2017 7:57 AM
[2017-09-06] MEDS: NIFEDIPINE CR 30 MG TAB PO SCH (08:22)
[2017-09-06] MEDS: MUPIROCIN 2% OINT 22 GM TUBE TOP SCH ×4 (09:00→21:35)
[2017-09-06] MEDS: EZETIMIBE 10 MG TAB PO SCH (09:00)
[2017-09-06] MEDS: INSULIN DETEMIR 100 UNIT/ML PEN SQ SCH (09:00)
[2017-09-06] MEDS: TACROLIMUS 1 MG CAP PO SCH ×2 (09:00→16:42)
[2017-09-06] MEDS ORDERED: INSULIN DETEMIR 100 UNIT/ML PEN SQ SCH (09:00)
[2017-09-06] MEDS: HYDROCORTISONE 10 MG TAB PO SCH (09:00)
[2017-09-06] MEDS: DULOXETINE HCL 30 MG DELAYED RELEASE PO SCH ×2 (09:00→16:42)
[2017-09-06] MEDS: OYST-CAL-D 500MG TABLET PO SCH ×3 (09:00→20:51)
[2017-09-06] MEDS: DEXTROSE 5%/0.45% SOD CHL 1,000 ML IV SCH (12:22)
[2017-09-07] VITALS (9 sets, daily range): BP systolic 133–196; BP diastolic 63–89
[2017-09-07] MEDS: PIPERACILLIN/TAZO 2.25 GM 50 ML IV SCH ×3 (00:37→17:00)
[2017-09-07] MEDS: DEXTROSE 5%/0.45% SOD CHL 1,000 ML IV SCH ×2 (01:45→21:40)
[2017-09-07] MEDS: LEVOTHYROXINE SODIUM 100 MCG TAB PO SCH (05:57)
[2017-09-07] MEDS: LEVOTHYROXINE SODIUM 75 MCG TAB PO SCH (05:57)
[2017-09-07] MEDS: DEXTROSE 50% SYRINGE 50 ML IV PRN (07:15)
[2017-09-07] MEDS ORDERED: BACITRACIN 50,000 UNIT VIAL ONE (07:26)
[2017-09-07] MEDS ORDERED: MUPIROCIN 2% OINT 22 GM TUBE ONE (07:26)
[2017-09-07] MEDS: INSULIN LISPRO 100 UNIT/1 ML 3ML VIAL SQ SCH ×4 (07:30→20:56)
[2017-09-07] MEDS ORDERED: LIDOCAINE 2% /EPINEPHRINE 20 ML SDV INJ ONE (07:40)
[2017-09-07] MEDS: OYST-CAL-D 500MG TABLET PO SCH ×3 (09:00→20:55)
[2017-09-07] MEDS: MUPIROCIN 2% OINT 22 GM TUBE TOP SCH ×3 (09:00→17:07)
[2017-09-07] MEDS: INSULIN DETEMIR 100 UNIT/ML PEN SQ SCH (09:00)
--- NOTE | 2017-09-07 09:18 | Operative Report ---
DATE OF PROCEDURE: September 07, 2017 PREOPERATIVE DIAGNOSIS: Bilateral facial abscesses. POSTOPERATIVE DIAGNOSIS: Bilateral facial abscesses. PROCEDURE: Incision and drainage of bilateral facial abscess. ANESTHESIA: MAC/local. HISTORY: The patient is a 62-year-old female who was admitted to the hospital several days ago with cellulitis of the upper lip and cheeks. The cellulitis has progressed to 2 fluctuant areas amenable to incision and drainage on the inferior portion of the nasolabial lines. The risks, benefits and alternatives of treatment were discussed with the patient and the family. They are prepared to undergo the procedures outlined. DETAILS OF PROCEDURE: Patient was marked preoperatively in the holding area. She was brought to the operating theater, and after the induction of adequate IV sedation she was prepped and draped in a supine position. Two percent Xylocaine with epinephrine was injected into the soft tissues around the proposed incisions. The incisions were then made through the skin and subcutaneous tissues. Small bleeding areas were coapted with the electrocautery. Using a hemostat, the incisions were deepened into the subcutaneous abscesses where a multilobular abscess was located on each cheek. The loculations were widely broken up and purulent exudate was encountered. The exudate was cultured for both anaerobic and aerobic studies. At this point, using antibiotic containing solution several hundred mL was used to irrigate both pockets until the effluent was clear. At this point, intraoral exam revealed there to be no extension of the abscesses into the intraoral cavity. There was multiple carries and devitalized tooth sockets noted on exam. Quarter-inch packing was placed into each abscess cavity and then Bactroban ointment and sterile dressings were applied. The estimated blood loss for the procedure was minimal. The patient tolerated the procedure well, and was brought to the recovery room in satisfactory condition, and then readmitted to her hospital room for further care and treatment. Job#: [id number] LONG
[2017-09-07] MEDS: EZETIMIBE 10 MG TAB PO SCH (09:45)
[2017-09-07] MEDS: NIFEDIPINE CR 30 MG TAB PO SCH (09:45)
[2017-09-07] MEDS: HYDROCORTISONE 10 MG TAB PO SCH (09:45)
[2017-09-07] MEDS: DULOXETINE HCL 30 MG DELAYED RELEASE PO SCH ×2 (09:45→17:00)
[2017-09-07] MEDS: TACROLIMUS 1 MG CAP PO SCH ×2 (09:45→17:00)
[2017-09-07] MEDS ORDERED: FENTANYL CITRATE/PF 100MCG/2 ML INJ ONE (15:53)
[2017-09-07] MEDS ORDERED: MIDAZOLAM HCL 2 MG/2 ML VIAL ONE (15:53)
[2017-09-08] VITALS (7 sets, daily range): BP systolic 139–197; BP diastolic 83–98
[2017-09-08] MEDS: PIPERACILLIN/TAZO 2.25 GM 50 ML IV SCH ×3 (00:30→17:00)
[2017-09-08] MEDS: MUPIROCIN 2% OINT 22 GM TUBE TOP SCH ×5 (00:41→20:41)
[2017-09-08] MEDS: LEVOTHYROXINE SODIUM 75 MCG TAB PO SCH (05:30)
[2017-09-08] MEDS: LEVOTHYROXINE SODIUM 100 MCG TAB PO SCH (05:30)
[2017-09-08] MEDS: INSULIN LISPRO 100 UNIT/1 ML 3ML VIAL SQ SCH ×4 (07:30→20:41)
[2017-09-08] MEDS: NIFEDIPINE CR 30 MG TAB PO SCH (08:41)
[2017-09-08] MEDS: OYST-CAL-D 500MG TABLET PO SCH ×3 (08:41→20:40)
[2017-09-08] MEDS: HYDROCORTISONE 10 MG TAB PO SCH (08:41)
[2017-09-08] MEDS: DULOXETINE HCL 30 MG DELAYED RELEASE PO SCH ×2 (08:41→16:30)
[2017-09-08] MEDS: TACROLIMUS 1 MG CAP PO SCH ×2 (08:42→17:00)
[2017-09-08] MEDS: EZETIMIBE 10 MG TAB PO SCH (08:42)
[2017-09-08] MEDS: INSULIN DETEMIR 100 UNIT/ML PEN SQ SCH (09:00)
[2017-09-09] VITALS (9 sets, daily range): BP systolic 128–198; BP diastolic 78–99
[2017-09-09] MEDS ORDERED: CLONIDINE HCL 0.1 MG TAB PO ONE (00:30)
[2017-09-09] MEDS: PIPERACILLIN/TAZO 2.25 GM 50 ML IV SCH ×3 (01:00→16:57)
[2017-09-09] MEDS: LEVOTHYROXINE SODIUM 100 MCG TAB PO SCH (05:37)
[2017-09-09] MEDS: LEVOTHYROXINE SODIUM 75 MCG TAB PO SCH (05:37)
[2017-09-09 06:26] LABS: BASOPHILS % 0.7 % (0.0-1.0); EOSINOPHILS # (AUTO) 0.3 (0.0-0.4); EOSINOPHILS % 5.4 % (0.0-6.0); HEMATOCRIT 28.7 % (34.2-44.1); HEMOGLOBIN 9.8 g/dL (12.0-16.0); LYMPHOCYTES # (AUTO) 1.9 (1.0-3.2); LYMPHOCYTES % 33.9 % (18.0-39.1); MEAN CORPUSCULAR HEMOGLOBIN 30.9 pg (28-32); MEAN CORPUSCULAR HGB CONC 34.1 g/dL (31-35); MEAN CORPUSCULAR VOLUME 90.5 fL (81-99); MONOCYTES # (AUTO) 0.3 (0.2-0.8); MONOCYTES % 6.1 % (4.4-11.3); NEUTROPHILS % 53.5 % (38.7-80.0); PLATELET COUNT 104 x10e3/uL (140-360); RED BLOOD COUNT 3.17 x10e6/uL (3.6-5.1); RED CELL DISTRIBUTION WIDTH 14.2 % (11.7-14.4)
[2017-09-09 06:48] LABS: ALBUMIN 1.6 g/dL (3.5-5.0); ALBUMIN/GLOBULIN RATIO 0.4 (0.8-2.0); ANION GAP 9.4 mmol/L (8-16); CREATININE, SERUM 2.87 mg/dL (0.57-1.11); POTASSIUM 3.4 mmol/L (3.5-5.1)
[2017-09-09 06:51] LABS: CALCIUM 6.8 mg/dL (8.4-10.2)
[2017-09-09] MEDS: INSULIN LISPRO 100 UNIT/1 ML 3ML VIAL SQ SCH ×4 (07:30→21:00)
[2017-09-09] MEDS ORDERED: EPOETIN ALFA 10000 UNIT/ML VIAL SC NR (08:00)
[2017-09-09] MEDS: OYST-CAL-D 500MG TABLET PO SCH ×4 (09:00→22:30)
[2017-09-09] MEDS: HYDROCORTISONE 10 MG TAB PO SCH (09:00)
[2017-09-09] MEDS: DULOXETINE HCL 30 MG DELAYED RELEASE PO SCH ×2 (09:00→16:57)
[2017-09-09] MEDS: EZETIMIBE 10 MG TAB PO SCH (09:00)
[2017-09-09] MEDS: INSULIN DETEMIR 100 UNIT/ML PEN SQ SCH (09:00)
[2017-09-09] MEDS: NIFEDIPINE CR 30 MG TAB PO SCH (09:00)
[2017-09-09] MEDS: LOSARTAN POTASSIUM 100 MG TAB PO SCH ×2 (09:00→16:30)
[2017-09-09] MEDS: TACROLIMUS 1 MG CAP PO SCH ×2 (09:00→16:57)
[2017-09-09] MEDS: MUPIROCIN 2% OINT 22 GM TUBE TOP SCH ×5 (09:03→22:30)
[2017-09-09] MEDS ORDERED: VANCOMYCIN 1GM/NS 250 ML 250 ML IV ONE (12:30)
[2017-09-10] VITALS: BP 154/82
[2017-09-10] MEDS: PIPERACILLIN/TAZO 2.25 GM 50 ML IV SCH ×3 (01:41→16:50)
[2017-09-10 04:00] VITALS: BP 149/76
[2017-09-10] MEDS: LEVOTHYROXINE SODIUM 75 MCG TAB PO SCH (06:23)
[2017-09-10] MEDS: LEVOTHYROXINE SODIUM 100 MCG TAB PO SCH (06:23)
[2017-09-10] MEDS: INSULIN LISPRO 100 UNIT/1 ML 3ML VIAL SQ SCH ×4 (07:30→21:00)
[2017-09-10 08:00] VITALS: BP 184/89
[2017-09-10] MEDS: TACROLIMUS 1 MG CAP PO SCH ×2 (09:00→16:50)
[2017-09-10] MEDS: HYDROCORTISONE 10 MG TAB PO SCH (09:00)
[2017-09-10] MEDS: OYST-CAL-D 500MG TABLET PO SCH ×3 (09:00→20:25)
[2017-09-10] MEDS: DULOXETINE HCL 30 MG DELAYED RELEASE PO SCH ×2 (09:00→16:50)
[2017-09-10] MEDS: EZETIMIBE 10 MG TAB PO SCH (09:00)
[2017-09-10] MEDS: INSULIN DETEMIR 100 UNIT/ML PEN SQ SCH (09:00)
[2017-09-10] MEDS: LOSARTAN POTASSIUM 100 MG TAB PO SCH (09:47)
[2017-09-10] MEDS: MUPIROCIN 2% OINT 22 GM TUBE TOP SCH ×4 (09:48→21:00)
[2017-09-10] MEDS: NIFEDIPINE CR 30 MG TAB PO SCH (09:48)
[2017-09-10 12:00] VITALS: BP 187/88
[2017-09-10] MEDS ORDERED: VANCOMYCIN 750MG/NS 150ML IVPB 150 ML IV SCH (14:00)
[2017-09-10 16:00] VITALS: BP 171/79
[2017-09-10 20:00] VITALS: BP 155/82
[2017-09-11] MEDS: PIPERACILLIN/TAZO 2.25 GM 50 ML IV SCH ×3 (00:25→22:15)
[2017-09-11] MEDS: CLONIDINE HCL 0.1 MG TAB PO PRN (00:25)
[2017-09-11 04:00] VITALS: BP 154/82
[2017-09-11] MEDS: LEVOTHYROXINE SODIUM 75 MCG TAB PO SCH (05:34)
[2017-09-11] MEDS: LEVOTHYROXINE SODIUM 100 MCG TAB PO SCH (05:34)
[2017-09-11] MEDS: INSULIN LISPRO 100 UNIT/1 ML 3ML VIAL SQ SCH ×4 (07:30→20:54)
[2017-09-11] MEDS ORDERED: HEPARIN SOD (PORCINE) 1000 UNIT/ML SDV IV PRN (08:45)
[2017-09-11] MEDS ORDERED: EPOETIN ALFA 10000 UNIT/ML VIAL SC NR (09:00)
[2017-09-11] MEDS: INSULIN DETEMIR 100 UNIT/ML PEN SQ SCH (09:00)
[2017-09-11] MEDS: OYST-CAL-D 500MG TABLET PO SCH ×3 (09:00→20:54)
[2017-09-11 09:29] VITALS: BP 179/87
[2017-09-11 09:38] VITALS: BP 179/87
[2017-09-11] MEDS: HYDROCORTISONE 10 MG TAB PO SCH (15:08)
[2017-09-11] MEDS: EZETIMIBE 10 MG TAB PO SCH (15:09)
[2017-09-11] MEDS: LOSARTAN POTASSIUM 100 MG TAB PO SCH (15:09)
[2017-09-11] MEDS: DULOXETINE HCL 30 MG DELAYED RELEASE PO SCH ×2 (15:09→17:00)
[2017-09-11] MEDS: TACROLIMUS 1 MG CAP PO SCH ×2 (15:09→17:00)
[2017-09-11] MEDS: NIFEDIPINE CR 30 MG TAB PO SCH (15:09)
[2017-09-11] MEDS: MUPIROCIN 2% OINT 22 GM TUBE TOP SCH ×3 (15:10→22:54)
[2017-09-11 16:15] VITALS: BP 164/77
[2017-09-11 21:03] VITALS: BP 198/87
[2017-09-11] MEDS ORDERED: SODIUM CHLORIDE 0.9% 250ML 250 ML ONE (22:13)
[2017-09-12] VITALS (7 sets, daily range): BP systolic 155–188; BP diastolic 76–91
[2017-09-12] MEDS: PIPERACILLIN/TAZO 2.25 GM 50 ML IV SCH ×3 (01:02→16:51)
[2017-09-12] MEDS: LEVOTHYROXINE SODIUM 75 MCG TAB PO SCH (05:20)
[2017-09-12] MEDS: LEVOTHYROXINE SODIUM 100 MCG TAB PO SCH (05:20)
[2017-09-12] MEDS: INSULIN LISPRO 100 UNIT/1 ML 3ML VIAL SQ SCH ×5 (07:30→20:33)
[2017-09-12] MEDS: MUPIROCIN 2% OINT 22 GM TUBE TOP SCH ×4 (08:14→21:22)
[2017-09-12] MEDS: LOSARTAN POTASSIUM 100 MG TAB PO SCH (08:38)
[2017-09-12] MEDS: HYDROCORTISONE 10 MG TAB PO SCH (08:38)
[2017-09-12] MEDS: DULOXETINE HCL 30 MG DELAYED RELEASE PO SCH ×2 (08:38→16:51)
[2017-09-12] MEDS: OYST-CAL-D 500MG TABLET PO SCH ×3 (08:38→20:33)
[2017-09-12] MEDS: TACROLIMUS 1 MG CAP PO SCH ×2 (08:39→16:52)
[2017-09-12] MEDS: NIFEDIPINE CR 30 MG TAB PO SCH ×2 (08:39→16:51)
[2017-09-12] MEDS: INSULIN DETEMIR 100 UNIT/ML PEN SQ SCH (08:39)
[2017-09-12] MEDS: EZETIMIBE 10 MG TAB PO SCH (08:39)
[2017-09-12] MEDS: CLONIDINE HCL 0.1 MG TAB PO PRN (12:38)
[2017-09-12] MEDS ORDERED: INSULIN LISPRO 100 UNIT/1 ML 3ML VIAL SQ SCH (16:30)
[2017-09-13] MEDS: PIPERACILLIN/TAZO 2.25 GM 50 ML IV SCH ×2 (00:59→09:00)
[2017-09-13 01:04] VITALS: BP 119/62
[2017-09-13] MEDS: LEVOTHYROXINE SODIUM 100 MCG TAB PO SCH (05:38)
[2017-09-13] MEDS: LEVOTHYROXINE SODIUM 75 MCG TAB PO SCH (05:38)
[2017-09-13] MEDS: INSULIN LISPRO 100 UNIT/1 ML 3ML VIAL SQ SCH ×6 (07:30→16:30)
[2017-09-13 08:00] VITALS: BP 150/85
[2017-09-13] MEDS: NIFEDIPINE CR 30 MG TAB PO SCH ×2 (09:00→16:50)
[2017-09-13] MEDS: LOSARTAN POTASSIUM 100 MG TAB PO SCH (09:00)
[2017-09-13] MEDS: OYST-CAL-D 500MG TABLET PO SCH ×2 (09:00→15:00)
[2017-09-13] MEDS: EZETIMIBE 10 MG TAB PO SCH (09:06)
[2017-09-13] MEDS: DULOXETINE HCL 30 MG DELAYED RELEASE PO SCH ×2 (09:06→16:50)
[2017-09-13] MEDS: MUPIROCIN 2% OINT 22 GM TUBE TOP SCH ×3 (09:06→16:50)
[2017-09-13] MEDS: HYDROCORTISONE 10 MG TAB PO SCH (09:06)
[2017-09-13] MEDS: TACROLIMUS 1 MG CAP PO SCH ×2 (09:06→16:50)
[2017-09-13 09:17] LABS: BASOPHILS # (AUTO) 0.1 (0.0-0.1); BASOPHILS % 1.1 % (0.0-1.0); EOSINOPHILS # (AUTO) 0.3 (0.0-0.4); EOSINOPHILS % 4.6 % (0.0-6.0); HEMATOCRIT 30.3 % (34.2-44.1); HEMOGLOBIN 10.6 g/dL (12.0-16.0); LYMPHOCYTES # (AUTO) 2.3 (1.0-3.2); MEAN CORPUSCULAR HEMOGLOBIN 30.4 pg (28-32); MEAN CORPUSCULAR VOLUME 86.8 fL (81-99); MONOCYTES # (AUTO) 0.4 (0.2-0.8); MONOCYTES % 6.7 % (4.4-11.3); NEUTROPHILS # (AUTO) 3.1 (2.1-6.9); NEUTROPHILS % 50.6 % (38.7-80.0); PLATELET COUNT 98 x10e3/uL (140-360); RED BLOOD COUNT 3.49 x10e6/uL (3.6-5.1); RED CELL DISTRIBUTION WIDTH 13.9 % (11.7-14.4)
[2017-09-13] MEDS: INSULIN DETEMIR 100 UNIT/ML PEN SQ SCH (09:31)
[2017-09-13 09:34] LABS: CREATININE, SERUM 2.45 mg/dL (0.57-1.11)
[2017-09-13 12:00] VITALS: BP 121/73
[2017-09-13 16:00] VITALS: BP 187/84
== END 2017-09-13 18:00 | DRG 871 ==
LOC: ER 06:33 → ERHOLD 08:38 → IMCU 12:02 → OBSVTOIN 09-05 08:40 → MED/SURG2 09-05 15:57
PROVIDERS: ADMIT Internal Medicine; ATTEND Internal Medicine
PROC: 0J910ZX Drainage of Face Subcutaneous Tissue and Fascia, Open Approach, Diagnostic (ICD-10-PCS; principal; 2017-09-07 08:00)
DX: A41.9 Sepsis, unspecified organism (principal); E43 Unspecified severe protein-calorie malnutrition; I13.2 Hypertensive heart and chronic kidney disease with heart failure and with stage 5 chronic kidney disease, or end stage renal disease; E11.22 Type 2 diabetes mellitus with diabetic chronic kidney disease; Z94.4 Liver transplant status; E11.649 Type 2 diabetes mellitus with hypoglycemia without coma; E27.1 Primary adrenocortical insufficiency; R63.0 Anorexia; J34.0 Abscess, furuncle and carbuncle of nose; E11.65 Type 2 diabetes mellitus with hyperglycemia; R63.3 Feeding difficulties; Z99.2 Dependence on renal dialysis; Z79.4 Long term (current) use of insulin; E03.9 Hypothyroidism, unspecified; D63.1 Anemia in chronic kidney disease; J98.01 Acute bronchospasm; I50.9 Heart failure, unspecified; B95.62 Methicillin resistant Staphylococcus aureus infection as the cause of diseases classified elsewhere
CPT/HCPCS: 36415; 70487; 71045; 80048; 80053; 80202; 82550; 82553; 82948; 83036; 83605; 84100; 84132; 84439; 84443; 84484; 85025; 86704; 86705; 86706; 87040; 87071; 87075; 87186; 87205; 87340; 90962; 93005; 99285; G0378; J0696; J1644; J2001; J2150; J2250; J2405; J2543; J3370; J7030; J7050; J7507; J7799; Q9967

== ENCOUNTER 2017-09-30 02:57 | Inpatient (IN) | payer MEDICARE, OTHER ==
[~2017-09-30] VITALS: Ht 154.9 cm; Wt 42.2 kg
--- OUTSIDE RECORDS SUMMARY | 2017-09-30 03:02 | XMS REPORT | Continuity of Care Document ---
Author Author [facility] Organization [facility] Address [address] [place] [address] Phone Unavailable Care Team Providers Care Acute Care Occupational Therapist Name Role Phone EBONY ABREU MD PCP Insurance Providers Guarantor Terri Gandara Address [address] [place] [address] Payer [employer] Policy Number [id number] Subscriber's Name Terri Gandara Relationship 18 Self / Same As Patient Group Number [id number] Group Name FORMERLY [facility], 1928–1983 Effective Date 17 Payer [employer] Policy Number [id number] Subscriber's Name Terri Gandara Relationship 18 Self / Same As Patient Group Number [id number] Group Name [place] MEDICARE [place]AN ([place] Effective Date 17 Advance Directives Directive Response Recorded Date/Time Does the patient have an advance directive? No 09/03/17 1:00pm If yes, is advance directive on file with [facility]? No 09/03/17 1:00pm If not on file with [facility] will patient provide a copy? No 09/03/17 1:00pm Do you have a Directive to Physician? No 09/03/17 7:33am Do you have a Medical Power of Quarry Plug And Feather Driller? No 09/03/17 7:33am Do you have an out of hospital Do Not Resuscitate Order? No 09/03/17 7:33am Do you have any special needs we should be aware of? No 09/03/17 7:33am Do you have a support person here with you today? No 09/03/17 7:33am Did patient receive Notice of Privacy Practices? No 09/03/17 7:33am Did patient receive patient rights and responsibilities? No 09/03/17 7:33am Problems Medical Problem Onset Date Status Anemia Unknown Cellulitis, face Unknown Chronic anemia Unknown Dehydration Unknown Hyperglycemia 09/09/2014 Acute Hypocalcemia Unknown Hypoglycemia Unknown Renal failure Unknown Syncope and collapse Unknown UTI (urinary tract infection) Unknown Surgical Problem Onset Date Status Liver transplanted Unknown Medications Current Home Medications Medication Dose Units Route Directions Days Qty Instructions Start Date Acetaminophen 325 Mg Tablet 500 Mg Oral Every 6 Hours as needed for Pain 5 Days Amlodipine Besylate 10 Mg Tablet 10 Mg Oral Daily 30 Tab Calcium Carbonate 500 Mg Tablet 1,000 Mg Oral Three Times A Day Cholestyramine (With Sugar) (Questran Packet) 4 Gm Packet 4 Gm Oral Four Times Daily Clonidine Hcl 0.1 Mg Tablet 0.1 Mg Oral Every 8 Hours as needed for High Blood Pressure 60 Tab Diphenhydramine Hcl 25 Mg Tablet 25 Mg Oral Every 8 Hours as needed for Itching Duloxetine Hcl (Cymbalta) 30 Mg Capsule.dr 30 Mg Oral Twice A Day 30 Cap Ezetimibe (Zetia) 10 Mg Tablet 10 Mg Oral Daily 30 Tab Fludrocortisone Acetate 0.1 Mg Tab 0.1 Mg Oral Every 48 Hours Hydrocortisone 5 Mg Tablet 5 Mg Oral Bedtime 14 Hydrocortisone 10 Mg Tablet 10 Mg Oral Daily 14 Tab Insulin Detemir (Levemir) 100 Unit/1 Ml Vial 5 Units Sub-Q Daily Levothyroxine Sodium 50 Mcg Tablet 25 Mcg Oral Daily 30 Tab Multivitamin (Multi-Vitamin Daily) 1 Each Tablet 1 Ea Oral Daily Nebivolol Hcl (Bystolic) 10 Mg Tablet 10 Mg Oral Daily Nifedipine (Procardia Xl) 30 Mg Tab.er.24 30 Mg Oral Every 12 Hours 30 Tab Pantoprazole Sodium (Protonix) 40 Mg Tablet.dr 40 Mg Oral Daily Sodium Bicarbonate 650 Mg Tablet 1,300 Mg Oral Daily 30 Tab Tacrolimus 1 Mg Capsule 3 Mg Oral Twice A Day 30 Cap Vancomycin Hcl Susp 2.5 Ml Oral Four Times Daily as needed for C.diff 14 Days Past Home Medications Medication Directions Ordered Status Amlodipine Besylate (Norvasc) 10 Mg Tab, Daily Discontinued Atorvastatin Calcium 20 Mg Tablet, 20 Mg Oral Bedtime Discontinued Cefuroxime Axetil (Cefuroxime) 250 Mg Tablet, 250 Mg Oral Every 12 Hours Discontinued Cholecalciferol (Vitamin D3) (Vitamin D) 1,000 Unit Tablet, 5000 Unit Oral Discontinued Clindamycin Hcl 300 Mg Capsule, Discontinued Docusate Sodium (Colace) 100 Mg Cap, 100 Mg Oral Daily Discontinued Duloxetine Hcl (Cymbalta) 30 Mg Capsule., 30 Mg Oral Twice A Day Discontinued Enoxaparin Sodium (Lovenox) 60 Mg/0.6 Ml Inj, 40 Mg Subcutaneously Today At 5: 00PM Discontinued Escitalopram Oxalate (Lexapro) 10 Mg Tablet, 10 Mg Oral Daily Discontinued Ezetimibe (Zetia) 10 Mg Tablet, 10 Mg Oral Daily Discontinued Ezetimibe (Zetia) 10 Mg Tablet, 10 Mg Oral Daily Discontinued Ferrous Fumarate 324 Mg Tablet, 324 Mg Oral Daily Discontinued Ferrous Sulfate 325 Mg Tablet, Discontinued Fludrocortisone Acetate 0.1 Mg Tab, 0.5 Mg Oral Daily Discontinued Fludrocortisone Acetate 0.1 Mg Tablet, 0.1 Mg Oral Daily Discontinued Folic Acid 1 Mg Tablet, 1 Mg Oral Daily Discontinued Furosemide (Lasix) 20 Mg Tablet, 20 Mg Oral Daily Discontinued Hydrocodone Bit/Acetaminophen (Hydrocodon-Acetaminophen 5-325) 1 Each Tablet, 1 Tab Oral Q6prn Discontinued Insulin Glargine (Lantus) 100 Units/Ml Ml, 10 Units Sub-Q Twice A Day Discontinued Insulin Glargine (Lantus) 100 Units/Ml Ml, 12 Units Sub-Q 7 Am Discontinued Insulin Glargine (Lantus 3ML Pen) 100 Units/1 Ml Inj, 8 Units Sub-Q Bedtime Discontinued Insulin Glargine (Lantus) 100 Units/Ml Ml, 12 Units Subcutaneously Before Supper Discontinued Insulin Glargine,Hum.rec.anlog (Lantus) 100 Unit/1 Ml Vial, 6 Units Sub-Q Every Morning Discontinued Insulin Human Lispro (Humalog) 100 Units/Ml Ml, 8 Units Sub-Q Before Meals Discontinued Insulin Human Lispro (Humalog 10ML Vial) 100 Units/Ml Ml, 40 Units Sub-Q Before Meals Discontinued Insulin Lispro (Humalog) 100 Unit/1 Ml Insuln.pen, 10 Units Subcutaneously Three Times A Day Discontinued Insulin Npl/Insulin Lispro (Humalog Mix 50-50 Kwikpen) 100 Unit/1 Ml Insuln.pen , Discontinued Insulin Npl/Insulin Lispro (Humalog Mix 50-50 Kwikpen) 100 Unit/1 Ml Insuln.pen , 12 U Sub-Q Before Meals Discontinued Insulin Regular, Human (Humulin R) 100 Unit/1 Ml Vial, Discontinued Levothyroxine Sodium 75 Mcg Tablet, 75 Mcg Oral Daily Discontinued Levothyroxine Sodium 50 Mcg Tablet, 50 Mcg Oral Daily Discontinued Levothyroxine Sodium (Levoxyl) 50 Mcg Tablet, 50 Mcg Oral Daily Discontinued Levothyroxine Sodium (Levothroid) 100 Mcg Tablet, 100 Mcg Oral Daily Discontinued Levothyroxine Sodium (Levothroid) 25 Mcg Tablet, 25 Mcg Oral Daily Discontinued Lidocaine (Lidoderm Patch) 1 Ea Patch, 1 Patch Topically As Needed Discontinued Lidocaine (Lidoderm) 700 Mg Adh..patch, Transling Daily as needed Discontinued Lipase/Protease/Amylase (Danial Pryor 24,000 Units Capsule) 1 Each Capsule.dr, 2 Cap Oral Ac Once A Day Discontinued Lisinopril 2.5 Mg Tablet, 2.5 Mg Oral Daily Discontinued Lisinopril 5 Mg Tablet, 5 Mg Oral Daily Discontinued Losartan Potassium 100 Mg Tablet, 100 Mg Oral Daily Discontinued Magnesium Oxide (Magnesium) 400 Mg Capsule, 400 Mg Oral Three Times A Day Discontinued Metoprolol Tartrate (Lopressor) 25 Mg Tab, 25 Mg Oral Daily Discontinued Pantoprazole Sodium (Protonix) 40 Mg Tablet.dr, 40 Mg Oral Discontinued Pantoprazole Sodium 20 Mg Tablet.dr, 80 Mg Oral Daily Discontinued Pantoprazole Sodium (Protonix) 40 Mg Suspdr.pkt, 40 Mg Oral Daily Discontinued Potassium Chloride 10 Meq Tab.er.prt, 10 Meq Oral Daily Discontinued Pregabalin (Lyrica) 100 Mg Capsule, 100 Mg Oral Bedtime Discontinued Tacrolimus (Prograf) 1 Mg Cap, 3 Mg Oral Twice A Day Discontinued Tacrolimus (Prograf) 1 Mg Cap, 1 Oral Twice A Day Discontinued Tacrolimus (Prograf) 1 Mg Cap, 1 Mg Oral Twice A Day Discontinued Tacrolimus (Prograf) 1 Mg Cap, 1 - 2 Mg Oral Twice A Day Discontinued Tacrolimus Anhydrous (Prograf) 5 Mg Capsule, 2 Mg Oral Twice A Day Discontinued Tramadol Hcl (Ultram 50MG*) 50 Mg Tab, 50 Mg Oral Three Times A Day as needed Discontinued Ursodiol 300 Mg Capsule, 300 Mg Oral Twice A Day Discontinued Social History Social History Problem Response Recorded Date/Time Onset Date Status Hx Psychiatric Problems No 09/03/2017 1:00pm Not Applicable Not Applicable Hx Eating Disorder No 09/03/2017 1:00pm Not Applicable Not Applicable Hx Substance Use Disorder No 09/03/2017 1:00pm Not Applicable Not Applicable Hx Depression No 09/03/2017 1:00pm Not Applicable Not Applicable Hx Alcohol Use No 09/03/2017 1:00pm Not Applicable Not Applicable Hx Substance Use Treatment No 09/03/2017 1:00pm Not Applicable Not Applicable Hx Physical Abuse No 09/03/2017 1:00pm Not Applicable Not Applicable Smoking Status Start Date Stop Date Never Smoker Hospital Discharge Instructions No hospital discharge instruction information available. Plan of Care Discharge Date 09/13/17 6:00pm Disposition [facility] Prescriptions See Medication Section Functional Status Query Response Date Recorded FUNCTIONAL STATUS . September 12, 2017 11:59am Assistive Devices None September 03, 2017 1:09pm Ambulation Ability Maximum Assistance September 03, 2017 1:09pm Toileting Ability Total Assistance September 13, 2017 5:41pm Allergies, Adverse Reactions, Alerts No known allergies. Immunizations No immunization information available. Vital Signs Acute Vital Signs Vital Response Date/Time Temperature (Fahrenheit) 96.6 degrees F (97.6 - 99.5) 09/13/2017 4:00pm Pulse Pulse Rate (adult) 61 bpm (60 - 90) 09/13/2017 4:00pm Respiratory Rate 18 bpm (12 - 24) 09/13/2017 4:00pm Blood Pressure 187/84 mm Hg 09/13/2017 4:00pm Height 5 ft 1 in 09/03/2017 1:00pm Weight 95.50 lb 09/12/2017 8:42am Body Mass Index 18.0 kg/m^2 09/12/2017 8:42am Results Laboratory Results Test Name Result Units Flags Reference Collection Date/Time Result Date/ Time Comments Percent Reticulocyte Count 0.9 % 0.8-2.2 11/19/2016 7:20pm 11/19/2016 7 :46pm Urine Random Total Protein < 0.1 mg/dL L 1-14 11/20/2016 11:30am 2016 12:29pm Urine Collection Time 24 hrs 11/20/2016 11:30am 11/20/2016 12:31pm Urine Total Volume 600 ml/24hr L 800-2000 11/20/2016 11:30am 11/20/2016 12:31pm Urine Creatinine 42.56 mg/dL L 47-110 11/20/2016 11:30am 11/20/2016 12: 29pm Urine Creatinine 24 Hour 255 mg/24hr L 600-1800 11/20/2016 11:30am 11/20 12:31pm Creatinine Clearance 4 ml/min L 88-128 11/20/2016 11:30am 11/20/2016 12: 31pm Urine Total Protein 24 Hour 0.47778 mg/24hr L 50-100 11/20/2016 11:30am 11/20/2016 12:31pm Ionized Calcium 0.8 mmol/L L 1.09-1.30 11/21/2016 2:20pm 11/21/2016 3: 52pm Immunoglobulin A 494 mg/dL H 87-352 11/19/2016 7:20pm 11/21/2016 7:57am Immunoglobulin G 2020 mg/dL H 700-1600 11/19/2016 7:20pm 11/21/2016 7: 57am Immunoglobulin M 76 mg/dL 26-217 11/19/2016 7:20pm 11/21/2016 7:57am Performed at: [address] [id number] [employer] Architect: Sharath Sims MD, Phone: [phone] Clostridium Difficile Toxin A & B NEGATIVE NEGATIVE 11/19/2016 10: 00am 11/19/2016 9:28pm test performed by Matti Rosa MLS Testing on stool aspirate specimens is outside bench worker helper claims since specimen type not validated on this assay. Lipase < 4 U/L L 8-78 01/26/2017 5:43pm 01/26/2017 6:34pm Platelet Estimate SLIGHTLY DECREASED 02/03/2017 3:36pm 02/03/2017 4 :59pm Platelet Morphology Comment NORMAL 02/03/2017 3:36pm 02/03/2017 4: 59pm Red Cell Morphology Comment NORMAL 02/03/2017 3:36pm 02/03/2017 4: 59pm Free Thyroxine Index 1.3477 L 1.4-3.8 02/05/2017 6:02am 02/05/2017 7: 01am Thyroxine (T4) 4.28 ug/dL L 4.5-10.9 02/05/2017 6:02am 02/05/2017 7: 01am Our current method for Total T4 is not recommended for use as the only marker for evaluating patients for thyroid disorders. Triiodothyronine (T3) Uptake 31.49 % 22.50-37.00 02/05/2017 6:02am 7:01am Hepatitis Be Antibody Negative Negative 02/04/2017 3:00pm 02/06/2017 4:07pm Performed at: [address] [id number] [employer] Architect: Edd Worthington MD, Phone: [phone] Hepatitis B Surface Ag Confirmation Positive H . 02/04/2017 3:00pm 3:32pm HBsAg testing of a subsequent specimen may be required to confirm the results. In some instances, samples found to be repeatedly weakly reactive and confirmed by a neutralization assay have been found negative on subsequent testing. For diagnostic purposes, these results should be used in conjunction with other serological and clinical information. Result confirmed by neutralization. Performed at: [address] [id number] [employer] Architect: Sharath Sims MD, Phone: [phone] B-Type Natriuretic Peptide 760.8 pg/mL H 0-100 05/31/2017 7:45pm 2016 5:27am Hepatitis A IgM Antibody Negative 06/01/2017 1:25pm 06/04/2017 8: 49am Hepatitis C Antibody 0.1 06/01/2017 1:25pm 06/04/2017 8:49am Reference Range: 0.0 - 0.9 Negative: < 0.8 Indeterminate: 0.8 - 0.9 Positive: > 0.9 The CDC recommends that a positive HCV antibody result be followed up with a HCV Nucleic Acid Amplification test (117477). Testing performed by: [facility] [id number] Dir. Edd Worthington MD Prothrombin Time 13.9 seconds 11.9-14.5 06/23/2017 1:56am 06/23/2017 2: 25am Prothromb Time International Ratio 1.02 06/23/2017 1:56am 2016 2:25am Oral Anticoagulant Therapy INR Values: 1. Low Intensity Therapy 1.5 - 2.0 2. Moderate Intensity Therapy 2.0 - 3.0 3. High Intensity Therapy(1) 2.5 - 3.5 4. High Intensity Therapy(2) 3.0 - 4.0 5. Panic Value INR > 5.0 Activated Partial Thromboplast Time 32.6 seconds 23.8-35.5 06/23/2017 1: 56am 06/23/2017 2:25am Urine Color YELLOW YELLOW 06/23/2017 3:40am 06/23/2017 4:08am Urine Clarity SL CLOUDY CLEAR 06/23/2017 3:40am 06/23/2017 4:08am Urine Specific [place] 1.015 1.010-1.025 06/23/2017 3:40am 2016 4:08am Urine pH 8 H 5 - 7 06/23/2017 3:40am 06/23/2017 4:08am Urine Leukocyte Esterase 1+ H NEGATIVE 06/23/2017 3:40am 06/23/2017 4: 08am Urine Nitrite NEGATIVE NEGATIVE 06/23/2017 3:40am 06/23/2017 4:08am Urine Protein 2+ H NEGATIVE 06/23/2017 3:40am 06/23/2017 4:08am Urine Glucose (UA) 3+ H NEGATIVE 06/23/2017 3:40am 06/23/2017 4:08am Urine Ketones NEGATIVE NEGATIVE 06/23/2017 3:40am 06/23/2017 4:08am Urine Urobilinogen 0.2 mg/dL 0.2 - 1 06/23/2017 3:40am 06/23/2017 4: 08am Urine Bilirubin NEGATIVE NEGATIVE 06/23/2017 3:40am 06/23/2017 4: 08am Urine Blood 3+ H NEGATIVE 06/23/2017 3:40am 06/23/2017 4:08am Urine WBC 11-20 /HPF H 0-5 06/23/2017 3:40am 06/23/2017 4:17am Urine RBC 21-50 /HPF H 0-5 06/23/2017 3:40am 06/23/2017 4:17am Urine Bacteria FEW /HPF NONE 06/23/2017 3:40am 06/23/2017 4:17am Urine Epithelial Cells FEW /LPF NONE 06/23/2017 3:40am 06/23/2017 4: 17am Influenza Virus Types A,B Antigen NEGATIVE NEGATIVE 06/23/2017 2:40am 06/23/2017 3:31am Magnesium Level 2.1 MG/DL 1.3-2.1 06/23/2017 1:56am 06/23/2017 2:39am Group A Streptococcus Screen NEGATIVE NEGATIVE 06/23/2017 2:40am 04/2017 3:29am White Blood Count 6.11 x10e3/uL 4.8-10.8 09/13/2017 8:59am 09/13/2017 9 :18am Red Blood Count 3.49 x10e6/uL L 3.6-5.1 09/13/2017 8:59am 09/13/2017 9: 18am Hemoglobin 10.6 g/dL L 12.0-16.0 09/13/2017 8:59am 09/13/2017 9:18am Hematocrit 30.3 % L 34.2-44.1 09/13/2017 8:59am 09/13/2017 9:18am Mean Corpuscular Volume 86.8 fL 81-99 09/13/2017 8:59am 09/13/2017 9: 18am Mean Corpuscular Hemoglobin 30.4 pg 28-32 09/13/2017 8:59am 09/13/2017 9:18am Mean Corpuscular Hemoglobin Concent 35.0 g/dL 31-35 09/13/2017 8:59am 09/13/2017 9:18am Red Cell Distribution Width 13.9 % 11.7-14.4 09/13/2017 8:59am 2017 9:18am Platelet Count 98 x10e3/uL L 140-360 09/13/2017 8:59am 09/13/2017 9: 18am Neutrophils (%) (Auto) 50.6 % 38.7-80.0 09/13/2017 8:59am 09/13/2017 9: 18am Lymphocytes (%) (Auto) 37.0 % 18.0-39.1 09/13/2017 8:59am 09/13/2017 9: 18am Monocytes (%) (Auto) 6.7 % 4.4-11.3 09/13/2017 8:59am 09/13/2017 9: 18am Eosinophils (%) (Auto) 4.6 % 0.0-6.0 09/13/2017 8:59am 09/13/2017 9: 18am Basophils (%) (Auto) 1.1 % H 0.0-1.0 09/13/2017 8:59am 09/13/2017 9: 18am IM GRANULOCYTES % 0.0 % 0.0-1.0 09/13/2017 8:59am 09/13/2017 9:18am Neutrophils # (Auto) 3.1 2.1-6.9 09/13/2017 8:59am 09/13/2017 9:18am Lymphocytes # (Auto) 2.3 1.0-3.2 09/13/2017 8:59am 09/13/2017 9:18am Monocytes # (Auto) 0.4 0.2-0.8 09/13/2017 8:59am 09/13/2017 9:18am Eosinophils # (Auto) 0.3 0.0-0.4 09/13/2017 8:59am 09/13/2017 9:18am Basophils # (Auto) 0.1 0.0-0.1 09/13/2017 8:59am 09/13/2017 9:18am Absolute Immature Granulocyte (auto 0 x10e3/uL 0-0.1 09/13/2017 8:59am 09/13/2017 9:18am Sodium Level 132 mmol/L L 136-145 09/13/2017 8:59am 09/13/2017 9:48am Potassium Level 3.0 mmol/L L 3.5-5.1 09/13/2017 8:59am 09/13/2017 9: 48am Results called to [] at 0948 on 09/13/17 by Teri Marin. RB OK. Chloride Level 102 mmol/L 98-107 09/13/2017 8:59am 09/13/2017 9:48am Carbon Dioxide Level 22 mmol/L 22-29 09/13/2017 8:59am 09/13/2017 9: 48am Anion Gap 11.0 mmol/L 8-16 09/13/2017 8:59am 09/13/2017 9:48am Blood Urea Nitrogen 12 mg/dL 7-26 09/13/2017 8:59am 09/13/2017 9:48am Creatinine 2.45 mg/dL H 0.57-1.11 09/13/2017 8:59am 09/13/2017 9:48am BUN/Creatinine Ratio 5 L 6-25 09/13/2017 8:59am 09/13/2017 9:48am Estimat Glomerular Filtration Rate 20 ML/MIN L 60- 09/13/2017 8:59am 08/2017 9:48am Ranges were taken from the National Kidney Disease Education Program and the National Kid[employer] Foundation literature. Reference ranges: 60 or greater: Normal 16-59 (for 3 consecutive months): Chronic kidney disease 15 or less: Kidney failure Glucose Level 128 mg/dL H 74-118 09/13/2017 8:59am 09/13/2017 9:48am Calcium Level 7.0 mg/dL L 8.4-10.2 09/13/2017 8:59am 09/13/2017 9:48am Bedside Glucose 95 mg/dL 70-120 09/13/2017 4:00pm 09/13/2017 4:40pm Meter ID: [id number] Hemoglobin A1c Percent 4.2 % 4.0-7.0 09/03/2017 6:35am 09/03/2017 2: 57pm Lactic Acid Level 9.5 MG/DL 4.5-19.8 09/03/2017 7:49am 09/03/2017 8: 21am Phosphorus Level 2.9 MG/DL 2.3-4.7 09/09/2017 6:05am 09/09/2017 6:52am Total Bilirubin 0.4 mg/dL 0.2-1.2 09/09/2017 6:05am 09/09/2017 6:51am Aspartate Amino Transf (AST/SGOT) 16 IU/L 5-34 09/09/2017 6:05am 2017 6:51am Alanine Aminotransferase (ALT/SGPT) 7 IU/L 0-55 09/09/2017 6:05am 09/09 6:51am Total Protein 5.5 g/dL L 6.5-8.1 09/09/2017 6:05am 09/09/2017 6:51am Albumin 1.6 g/dL L 3.5-5.0 09/09/2017 6:05am 09/09/2017 6:51am Globulin 3.9 g/dL H 2.3-3.5 09/09/2017 6:05am 09/09/2017 6:51am Albumin/Globulin Ratio 0.4 L 0.8-2.0 09/09/2017 6:05am 09/09/2017 6: 51am Alkaline Phosphatase 81 IU/L 40-150 09/09/2017 6:05am 09/09/2017 6: 51am Creatine Kinase 15 IU/L L 29-168 09/04/2017 5:23am 09/04/2017 6:15am Creatine Kinase MB 2.30 ng/mL 0-5.0 09/04/2017 5:23am 09/04/2017 6: 22am Troponin I 0.018 ng/mL 0-0.300 09/04/2017 5:23am 09/04/2017 6:22am Free Thyroxine 0.77 ng/dL L 0.9-1.8 09/03/2017 6:35am 09/03/2017 3:18pm Thyroid Stimulating Hormone (TSH) 29.986 uIU/mL H 0.350-4.940 09/03/2017 6:35am 09/03/2017 3:18pm Random Vancomycin Level 8.4 ug/mL 09/05/2017 4:14pm 09/05/2017 4: 51pm Hepatitis B Surface Antibody, Quant 16.9 mIU/mL Immunity>9.9 09/04/2017 8:45am 09/05/2017 7:42am Status of Immunity Anti-HBs Level Inconsistent with Immunity 0.0 - 9.9 Consistent with Immunity >9.9 Hepatitis B Core Total Antibody Negative Negative 09/04/2017 8:45am 09/05/2017 7:42am Hepatitis B Surface Antigen Negative Negative 09/04/2017 8:45am 09/05 7:42am Hepatitis B Core IgM Antibody Negative Negative 09/04/2017 8:45am 7:42am Performed at: - [facility] [id number] [employer]: Sharath Sims MD, Phone: [phone] Microbiology Results Procedure Source Organism/Result Collection Date/Time Result Date/Time Result Status Urine Culture Urine,Clean Catch ESCHERICHIA COLI 11/16/2016 7:49pm 2016 7:57am Final Blood Culture Blood STAPH HOMINIS SUB HOMINIS 06/23/2017 2:40am 2017 5:56am Final Blood Culture Blood NO GROWTH AFTER 5 DAYS, FINAL REPORT 09/03/2017 7:54am 09/08/2017 8:02am Final Wound Culture Face STAPHYLOCOCCUS AUREUS-MRSA 09/07/2017 8:29am 2017 6:20am Final Procedures Procedure Status Date Provider(s) TRANSFUSE NONAUT RED BLOOD CELLS IN CENTRAL VEIN, PERC Completed 11/17/16 HONG BUNDY MD INSERTION OF INFUSION DEV INTO SUP VENA CAVA, PERC APPROACH Completed EBONY ABREU MD INSERTION OF INFUSION DEV INTO SUP VENA CAVA, PERC APPROACH Completed LINDA MASTERSON PERFORMANCE OF URINARY FILTRATION, MULTIPLE Completed 11/21/16 LINDA MASTERSON REPAIR CHEST SKIN, EXTERNAL APPROACH Completed 11/23/16 PARVIZ WORTHINGTON MD Unsched dialysis ESRD pt hos Completed 02/03/17 LINDA MASTERSON Unsched dialysis ESRD pt hos Completed 06/01/17 LINDA MASTERSON Incision and drainage Completed 09/07/17 DOTTIE HERNANDEZ MD Ultrasound, renal Active 11/17/[address] of abdomen and pelvis without contrast Active 11/19/16 EBONY ABREU MD Ultrasound guidance for vascular access Active 11/20/16 EBONY ABREU MD X-ray of chest, two views Active 05/31/17 EDA SAVAGE MD Computed tomography of brain without radiopaque contrast Active 06/23/17 EDA SAVAGE MD Computed tomography of maxillofacial area with contrast Active 09/04/17 DOTTIE HERNANDEZ MD Encounters Encounter Location Arrival/Admit Date Discharge/Depart Date Attending Provider Discharged Inpatient [facility] 09/05/17 8:40am 09/13/17 6:00pm EBONY ABREU MD Departed Emergency Room [facility] 06/23/17 12:59am 06/23 6:30am EDA SAVAGE MD Discharged Inpatient (obs) [facility] 06/01/17 9:49am 12:53pm EBONY ABREU MD Departed Emergency Room [facility] 02/26/17 4:01pm 11:00pm JOSEY PINK MD Departed Emergency Room [facility] 02/18/17 9:02pm 2:30am JOSEY PINK MD Discharged Inpatient (obs) [facility] 02/03/17 5:48pm 3:56pm EBONY ABREU MD Departed Emergency Room [facility] 01/26/17 4:30pm 9:01pm ERNIE PAUL Discharged Inpatient [facility] 11/16/16 10:17pm 7:39pm EBONY ABREU MD
[2017-09-30] MEDS ORDERED: ONDANSETRON HCL INJ 2 MG/ML VIAL IV STA (03:08)
[2017-09-30 03:20] LABS: BASOPHILS % 0.3 % (0.0-1.0); EOSINOPHILS % 0.3 % (0.0-6.0); HEMATOCRIT 28.4 % (34.2-44.1); HEMOGLOBIN 9.9 g/dL (12.0-16.0); LYMPHOCYTES # (AUTO) 0.9 (1.0-3.2); MEAN CORPUSCULAR HGB CONC 34.9 g/dL (31-35); MONOCYTES # (AUTO) 0.4 (0.2-0.8); MONOCYTES % 3.3 % (4.4-11.3); NEUTROPHILS # (AUTO) 10.2 (2.1-6.9); NEUTROPHILS % 87.6 % (38.7-80.0); PLATELET COUNT 109 x10e3/uL (140-360); RED BLOOD COUNT 3.19 x10e6/uL (3.6-5.1); RED CELL DISTRIBUTION WIDTH 17.6 % (11.7-14.4)
[2017-09-30 03:39] LABS: ALBUMIN 1.9 g/dL (3.5-5.0); ALBUMIN/GLOBULIN RATIO 0.5 (0.8-2.0); ANION GAP 14.4 mmol/L (8-16); CALCIUM 7.7 mg/dL (8.4-10.2); CREATININE, SERUM 3.14 mg/dL (0.57-1.11); POTASSIUM 3.4 mmol/L (3.5-5.1)
[2017-09-30 03:46] LABS: CREATINE KINASE MB 2.4 ng/mL (0-5.0)
[2017-09-30 04:01] LABS: BAND NEUTROPHILS % (MANUAL) 15 %; EOSINOPHILS % (MANUAL) 1 % (0-7); LYMPHOCYTES % (MANUAL) 7 % (19-48); MONOCYTES % (MANUAL) 2 % (3.4-9.0); NEUTROPHILS % (MANUAL) 75 % (40-74)
--- NOTE | 2017-09-30 04:01 | Diagnostic Imaging Report ---
CHEST SINGLE (PORTABLE), 09/30/2017 3:06 AM Technique: CHEST SINGLE (PORTABLE) Comparison: 09/03/2017 Clinical history: Shortness of breath Findings: See Impression Impression: 1. Lines/Tubes: Stable right tunneled hemodialysis catheter over the right atrium. Placement of left IJ IVC at least to the cavoatrial junction, tip partially obscured. 2. Stable normal cardiomediastinal silhouette. 3. Mild bibasilar opacities which may reflect atelectasis, aspiration or infection. Possible small effusions. Signed by: Dr Homa Fernández MD on 09/30/2017 3:57 AM
[2017-09-30 04:02] LABS: POIKILOCYTOSIS SLIGHT
[2017-09-30 04:03] LABS: ANISOCYTOSIS SLIG; PLATELET ESTIMATE SLIGHTLY DECREASED; PLATELET MORPHOLOGY COMMENT NORMAL
[2017-09-30] MEDS ORDERED: HYDRALAZINE HCL 20 MG/ML VIAL IV STA (05:46)
--- NOTE | 2017-09-30 06:12 | Diagnostic Imaging Report ---
EXAM: CT CHEST WO DATE: 09/30/2017 4:23 AM INDICATION: Evaluate chest x-ray changes, shortness of breath COMPARISON: 04/19/2011 TECHNIQUE: Multidetector CT scanning of the chest was performed. Coronal and sagittal multiplanar reformations were obtained. IV Contrast: 0 ml Isovue 370/300 FINDINGS: Right tunneled hemodialysis catheter terminates in the right atrium. Left IJ central venous catheter at the cavoatrial junction. LUNGS AND PLEURA: There are bibasilar consolidative opacities with minimal groundglass and nodular opacity in the upper and right middle lobes. Small bilateral effusions. HEART, MEDIASTINUM, VESSELS: Normal heart size with coronary artery and aortic atherosclerotic calcifications. No pericardial effusion. No adenopathy. UPPER ABDOMEN: Diffuse atherosclerotic calcifications. Postsurgical related to liver transplantation. Ascites. Mild biliary ductal dilation status post cholecystectomy. MUSCULOSKELETAL: Multilevel degenerative changes with unchanged mild anterior wedging at T7. Nonspecific epidural calcification along the posterior aspect of T8, similar to prior, possibly migrated disc or old calcified hematoma. IMPRESSION: Multifocal pneumonia with small effusions. Signed by: Dr Homa Fernández MD on 09/30/2017 5:25 AM
[2017-09-30] MEDS ORDERED: SODIUM CHLORIDE FLUSH 10 ML SYR INJ PRN (06:30)
[2017-09-30] MEDS ORDERED: CEFTRIAXONE SOD 1 GM VIAL IV SCH (06:30)
[2017-09-30] MEDS: AZITHROMYCIN 500MG/NS 250 ML 250 ML IV SCH (07:34)
[2017-09-30] MEDS: ALBUTEROL SULF 0.083% NEB SOLN 3 ML NEB NEB SCH ×4 (07:35→19:25)
[2017-09-30] MEDS: INSULIN REGULAR, HUMAN 100 UNIT/1 ML 3ML VIAL SQ SCH ×4 (07:35→21:00)
[2017-09-30] MEDS: IPRATROPIUM BROMIDE 0.02% 2.5 ML NEB NEB SCH ×3 (07:35→19:25)
[2017-09-30] MEDS ORDERED: ACETAMINOPHEN 325 MG TAB PO PRN (08:30)
--- NOTE | 2017-09-30 08:53 | History and Physical ---
CHIEF COMPLAINT: Patient was transferred from the skilled nursing due to decreased mental status and low blood sugar. HISTORY OF PRESENT ILLNESS: A 62-year-old pleasant white female with a past medical history of multiple medical problems was admitted at [facility] with the above complaints. As per ER notes, in the skilled nursing the patient was found have decreased mental status. EMS was called. EMS checked blood sugar and was 38. Patient was given IV D50 dose. Patient's responsiveness improved. By the time the patient reached the hospital, the patient was alert and oriented times 3 at baseline. In the emergency room, the patient was seen by the emergency room doctor. Basic workup was done. X-ray of chest and CT scan of the chest was done, which showed multifocal pneumonia. Hence, the patient was admitted to the hospital. Patient is laying comfortably in the bed. No apparent distress. No chest pain. No shortness of breath. No nausea, vomiting or diarrhea. No abdominal pain or loss of consciousness. No paresthesia. No headaches. No hematemesis or melena. No hematuria or dysuria. No fever. No cough. No witnessed seizures. PAST MEDICAL HISTORY 1. Hypertension. 2. Diabetes mellitus, brittle. 3. Liver cirrhosis, status post liver transplant. 4. End-stage renal disease, on hemodialysis. 5. CHF. 6. Chronic back pain. 7. Eric's disease. PAST SURGICAL HISTORY 1. Cholecystectomy. 2. Hysterectomy. 3. Liver transplant. 4. Appendectomy. ALLERGIES: NO KNOWN DRUG ALLERGIES. SOCIAL HISTORY: No smoking. No alcohol. [facility] resident. FAMILY HISTORY: Unremarkable. REVIEW OF SYSTEMS: As per HPI. PHYSICAL EXAMINATION GENERAL: The patient is alert and oriented times 3. No apparent distress. Laying in bed. VITALS: Temperature is 98, pulse 80 per minute, respirations , blood pressure 117/70, and saturation is 100% on 2 L oxygen. HEENT: No cyanosis. No icterus. No pallor. Normocephalic and atraumatic. PERRLA. NECK: Soft and supple. No JVD or carotid bruits. LUNGS: Air entry bilaterally. HEART: S1 and S2 normal. ABDOMEN: Soft and nontender. Normal bowel sounds. MEDIA ACCOUNT EXECUTIVE: Alert, awake and oriented times 3. No apparent distress. Moves extremities. LABS: On admission to ER, white count 11.6, hemoglobin 9.9, hematocrit 28.4, and platelets 109,000. Sodium 134, potassium 3.4, chloride 108, bicarb 23, BUN 33, creatinine 3.14, glucose 163, AST 88, ALT 76. Chest x-ray shows mild bibasilar opacities and may be atelectasis as the patient has an infection and possible small effusion. CT scan of the chest without contrast shows multifocal pneumonia with small effusions. ASSESSMENT 1. Hypoglycemia with brittle diabetes mellitus. 2. Multifocal pneumonia. 3. History of hypertension. 4. End-stage renal disease, on hemodialysis. 5. Eric's disease. PLAN: Admit the patient to [facility]. Patient was started on IV Rocephin and IV Zithromax. Will get pulmonary consultation, Dr. Ansari. The patient receives hemodialysis on Saturday, Saturday and Saturday. Will get renal consultation, Dr. Su. Endocrine consultation with Dr. Diaz for hypoglycemia and brittle diabetes mellitus. Pancultures. Further care and treatment while the patient is in the hospital. Prognosis and condition guarded. Discussed with the patient in detail. Job#: [id number] LONG
[2017-09-30] MEDS ORDERED: LEVOTHYROXINE SODIUM 50 MCG TAB PO SCH (09:00)
[2017-09-30] MEDS ORDERED: AMLODIPINE BESYLATE 10 MG TAB PO SCH (09:00)
[2017-09-30] MEDS: TACROLIMUS 1 MG CAP PO SCH (10:18)
[2017-09-30] MEDS: LEVOTHYROXINE SODIUM 75 MCG TAB PO SCH (10:18)
[2017-09-30] MEDS: LEVOTHYROXINE SODIUM 100 MCG TAB PO SCH (10:18)
[2017-09-30] MEDS: PANTOPRAZOLE SOD 40 MG TABEC PO SCH (10:18)
[2017-09-30] MEDS: NIFEDIPINE CR 30 MG TAB PO SCH ×2 (10:19→20:30)
[2017-09-30] MEDS: HYDROCORTISONE 10 MG TAB PO SCH (10:19)
[2017-09-30] MEDS: DULOXETINE HCL 30 MG DELAYED RELEASE PO SCH ×2 (10:19→17:34)
[2017-09-30 11:52] LABS: CREATINE KINASE 20 IU/L (29-168)
--- NOTE | 2017-09-30 14:35 | Consultation ---
DATE OF CONSULTATION: September 30, 2017 HISTORY OF PRESENT ILLNESS: The patient was seen in the emergency room. This 62-year-old female is well known to me with history of type-2 diabetes and underlying liver cirrhosis, status post orthotopic liver transplant, end-stage renal disease, failure to thrive, underlying [place] disease, prior appendectomy and cholecystectomy. Apparently was at [facility] and was found to have altered mental status and was subsequently sent here. Found to have a blood sugar of 38. She is currently comfortable, awake, alert, oriented times 3 in no apparent distress. She is due for dialysis today. She herself does not know why she was sent here, though. MEDICATIONS: Include: 1. Amlodipine 10 mg daily, which has been stopped. 2. She is on albuterol and Atrovent nebulizer. 3. She is on azithromycin IV q.24. 4. She is on Cymbalta 30 mg p.o. b.i.d. 5. Ceftriaxone 1 g q.24. 6. Nifedipine 30 mg p.o. q.12. 7. Tacrolimus 2 mg p.o. q.12. 8. Levothyroxine 100 mcg daily. 9. Hydrocortisone 10 mg daily. 10. Insulin. 11. Duloxetine. ALLERGIES: NO APPARENT DRUG ALLERGIES. SOCIAL HISTORY: Does not smoke or drink. FAMILY HISTORY: Significant for hypertension. CURRENT LABS: White count 11.6 and hemoglobin 9.9 with chemistry showing potassium 3.4, creatinine 3.1, bicarbonate 23, CK 26. Troponin I less than 0.001. PHYSICAL EXAMINATION GENERAL: Awake, alert, lying supine. Frail, older lady in no apparent distress. VITALS: Blood pressure 102/54, pulse rate 77, afebrile. Oxygen saturation 100% on 2 L nasal cannula. HEAD AND NECK: Corneas clear. Oral mucosa dry. Neck veins flat. LUNGS: Relatively clear. HEART: S1 and S2 audible. ABDOMEN: Otherwise soft and nontender. LOWER EXTREMITY EXAMINATION: No edema. IMPRESSION AND PLAN 1. Orthotopic liver transplant on immunosuppressive medication. 2. Underlying Eric disease on steroids. 3. End-stage renal disease. 4. No evidence of fluid overload. 5. Hypokalemia. 6. Blood sugar better. 7. Plan on hemodialysis. Please see orders. Job#: [id number]
[2017-09-30] MEDS: INSULIN LISPRO 100 UNIT/1 ML 3ML VIAL SQ SCH ×2 (14:51→21:00)
[2017-09-30] MEDS ORDERED: SODIUM CHLORIDE 0.9% 1000ML 1,000 ML ONE (14:51)
--- NOTE | 2017-09-30 15:09 | Consultation ---
DATE OF CONSULTATION: September 30, 2017 ENDOCRINE CONSULTATION Thank you very much for referring this patient. This is a 62-year-old female who is very well known to me from her previous hospital admission. In fact, the patient was recently discharged from the hospital. Patient has history of diabetes mellitus with complications, end-stage renal failure on chronic hemodialysis, hypocortisolism, hypothyroidism, and she is status post liver transplant. At this time, the patient came to the hospital with history of altered mental status, cough, chest congestion and possible pneumonia. She also has history of hypothyroidism, and she is on Synthroid 0.1 mg once daily. She is on a combination of the NovoLog and the Lantus at bedtime. Patient is also on hydrocortisone 30 mg once daily. PHYSICAL EXAMINATION GENERAL: Today, the patient is alert, awake, a little bit apprehensive. She is thin built, slightly cachectic. VITALS: Her heart rate is around 70. Blood pressure is 110/70 mmHg. HEENT: Essentially unremarkable. NECK: Thyroid is barely palpable. Clinically, she looks hypothyroid. CHEST: Bilateral vesicular breathing. She has mild bronchospasm. CARDIAC: First and 2nd heart sounds. There is no 3rd or 4th heart sound. Ejection systolic murmur, grade 2/6. CLINICAL IMPRESSION 1. Diabetes mellitus, type 2, with complications. 2. End-stage renal failure on chronic hemodialysis. 3. Hypocortisolism. 4. Hypothyroidism. 5. Pneumonia. 6. Status post liver transplant. The plan at this time is to do hemoglobin A1c and thyroid function test. Monitor her blood sugars. Put her on sliding-scale insulin for now. Increase the p.o. feedings. Thanks again for referring this patient. I will be following this patient with you. Job#: [id number]
[2017-09-30 15:30] VITALS: BP 133/69
[2017-09-30 15:56] VITALS: BP 133/69
[2017-09-30 19:00] VITALS: BP 125/59
[2017-09-30 19:37] LABS: CREATINE KINASE MB 3.6 ng/mL (0-5.0)
[2017-09-30 20:00] VITALS: BP 115/67
--- NOTE | 2017-09-30 21:03 | Consultation ---
DATE OF CONSULTATION: September 30, 2017 PULMONARY CONSULTATION REASON FOR CONSULTATION: Possibility of pneumonia. HPI: Ms. Black is a 62-year-old female. She is unable to give me a detailed history. She is awake and alert but she is telling me I do not remember anything. She was transferred from [facility] because of altered mental status. Patient's blood sugar was 38. She was given D50. She denies any complaints of chest pain, nausea, vomiting. Her CT of the chest was done in the emergency room. I reviewed the images showing right lower lobe pneumonia. It is reported as multifocal pneumonia. Patient is denying any complaints of nausea, vomiting or diarrhea. REVIEW OF SYSTEMS: GENERAL: Denies any fever or chills. Denies any head trauma. HEENT: Denies any earache, nose bleed, throat pain. CVS: Denies any chest pain. RESPIRATORY: She denies any shortness of breath. GI: Denies any nausea, vomiting. Rest of the review systems are negative except as in history of present illness. PAST MEDICAL HISTORY: Hypertension, diabetes, cirrhosis of liver, status post liver transplant, end-stage renal disease on hemodialysis, chronic back pain, Eric's disease. PAST SURGICAL HISTORY: Cholecystectomy, hysterectomy, liver transplant, appendectomy. ALLERGIES: NO KNOWN DRUG ALLERGIES. FAMILY HISTORY: Never smoked. A [place] resident. PHYSICAL EXAMINATION: VITALS: Temperature 96, pulse of 83, blood pressure 133/69, respiratory rate of 18, O2 sat was 100% on 2 liters. SKIN: Warm and dry. GENERAL APPEARANCE: She is a middle-aged female, very cachectic, weak looking. HEENT: Head atraumatic, normocephalic. Pupils are reactive. NECK: Supple. CHEST: Clear to auscultation bilaterally. HEART: S1 and S2 audible. ABDOMEN: Soft and nontender, nondistended. EXTREMITIES: No clubbing, cyanosis or edema. NEUROLOGIC: Awake and alert. LABORATORY DATA: White count of 11,000, hemoglobin 9.9, platelets 109,000. Chemistry: Sodium 134, potassium 3.4, chloride 100, BUN 33, creatinine 3.14, AST and ALT slightly high. CT of the chest: I reviewed the images and most likely right lower lobe pneumonia, possibility of multifocal but mostly right lower lobe. ASSESSMENT/PLAN: 1. Mr. Black is a 62-year-old female who presented with altered mental status, was hypoglycemic. CT of the chest a possibility of pneumonia. She is a [place] [facility] resident. I will discontinue Rocephin and start the patient on Zosyn. The patient is a [place] [facility] resident and will broaden the antibiotic coverage and also she is on immunosuppressant because of liver transplant. 2. Blood pressure is stable. Continue the patient on Cortef as ordered. 3. Nebulizer treatment. 4. Hemodialysis per nephrology recommendations. Thank you for this consult. Job#: [id number] DANTE
[2017-10-01] VITALS (7 sets, daily range): BP systolic 106–153; BP diastolic 57–79
[2017-10-01] MEDS: ALBUTEROL SULF 0.083% NEB SOLN 3 ML NEB NEB SCH ×6 (00:10→19:25)
[2017-10-01] MEDS: IPRATROPIUM BROMIDE 0.02% 2.5 ML NEB NEB SCH ×4 (00:10→19:25)
[2017-10-01] MEDS: PIPER-TAZ 3.375 GM 50 ML IV SCH ×4 (01:31→22:25)
[2017-10-01] MEDS ORDERED: SODIUM CHLORIDE 0.9% 250ML 250 ML ONE (04:56)
[2017-10-01] MEDS: LEVOTHYROXINE SODIUM 75 MCG TAB PO SCH (05:36)
[2017-10-01] MEDS: LEVOTHYROXINE SODIUM 100 MCG TAB PO SCH (05:36)
[2017-10-01] MEDS: INSULIN LISPRO 100 UNIT/1 ML 3ML VIAL SQ SCH ×4 (07:30→23:34)
[2017-10-01] MEDS: INSULIN REGULAR, HUMAN 100 UNIT/1 ML 3ML VIAL SQ SCH ×4 (07:30→23:34)
[2017-10-01] MEDS: AZITHROMYCIN 500MG/NS 250 ML 250 ML IV SCH (07:38)
[2017-10-01] MEDS: NIFEDIPINE CR 30 MG TAB PO SCH ×2 (09:45→20:30)
[2017-10-01] MEDS: PANTOPRAZOLE SOD 40 MG TABEC PO SCH (09:45)
[2017-10-01] MEDS: HYDROCORTISONE 10 MG TAB PO SCH (09:45)
[2017-10-01] MEDS: TACROLIMUS 1 MG CAP PO SCH ×3 (09:45→22:25)
[2017-10-01] MEDS: DULOXETINE HCL 30 MG DELAYED RELEASE PO SCH ×2 (09:45→17:49)
[2017-10-02] VITALS (8 sets, daily range): BP systolic 116–188; BP diastolic 65–99
[2017-10-02] MEDS: ALBUTEROL SULF 0.083% NEB SOLN 3 ML NEB NEB SCH ×7 (00:10→23:10)
[2017-10-02] MEDS: IPRATROPIUM BROMIDE 0.02% 2.5 ML NEB NEB SCH ×4 (00:10→20:00)
[2017-10-02] MEDS: PIPER-TAZ 3.375 GM 50 ML IV SCH ×3 (05:12→21:57)
[2017-10-02] MEDS: LEVOTHYROXINE SODIUM 100 MCG TAB PO SCH (05:12)
[2017-10-02] MEDS: LEVOTHYROXINE SODIUM 75 MCG TAB PO SCH (05:13)
[2017-10-02] MEDS: AZITHROMYCIN 500MG/NS 250 ML 250 ML IV SCH (05:35)
[2017-10-02 06:53] LABS: BASOPHILS # (AUTO) 0.1 (0.0-0.1); BASOPHILS % 0.5 % (0.0-1.0); EOSINOPHILS # (AUTO) 0.3 (0.0-0.4); EOSINOPHILS % 2.7 % (0.0-6.0); HEMATOCRIT 23.9 % (34.2-44.1); LYMPHOCYTES # (AUTO) 1.6 (1.0-3.2); LYMPHOCYTES % 14.9 % (18.0-39.1); MEAN CORPUSCULAR HEMOGLOBIN 30.7 pg (28-32); MEAN CORPUSCULAR HGB CONC 32.6 g/dL (31-35); MEAN CORPUSCULAR VOLUME 94.1 fL (81-99); MONOCYTES # (AUTO) 0.4 (0.2-0.8); MONOCYTES % 3.7 % (4.4-11.3); NEUTROPHILS # (AUTO) 8.1 (2.1-6.9); NEUTROPHILS % 77.5 % (38.7-80.0); PLATELET COUNT 109 x10e3/uL (140-360); RED BLOOD COUNT 2.54 x10e6/uL (3.6-5.1); RED CELL DISTRIBUTION WIDTH 19.1 % (11.7-14.4)
[2017-10-02 06:59] LABS: HEMOGLOBIN 7.8 g/dL (12.0-16.0)
[2017-10-02 07:20] LABS: ALBUMIN 1.7 g/dL (3.5-5.0); ALBUMIN/GLOBULIN RATIO 0.4 (0.8-2.0); ANION GAP 8.1 mmol/L (8-16); CALCIUM 7.5 mg/dL (8.4-10.2); CREATININE, SERUM 2.06 mg/dL (0.57-1.11); POTASSIUM 3.1 mmol/L (3.5-5.1)
[2017-10-02] MEDS: INSULIN LISPRO 100 UNIT/1 ML 3ML VIAL SQ SCH ×4 (07:30→21:00)
[2017-10-02] MEDS: NIFEDIPINE CR 30 MG TAB PO SCH ×2 (08:30→21:00)
[2017-10-02] MEDS ORDERED: SODIUM CHLORIDE 0.9% 250ML 250 ML IV ONE (09:30)
[2017-10-02] MEDS: HYDROCORTISONE 10 MG TAB PO SCH (09:46)
[2017-10-02] MEDS: PANTOPRAZOLE SOD 40 MG TABEC PO SCH (09:46)
[2017-10-02] MEDS: TACROLIMUS 1 MG CAP PO SCH ×2 (09:46→21:15)
[2017-10-02] MEDS: DULOXETINE HCL 30 MG DELAYED RELEASE PO SCH ×2 (09:46→17:13)
[2017-10-02] MEDS ORDERED: SODIUM CHLORIDE 0.9% 250ML 250 ML ONE (18:13)
[2017-10-03] VITALS (8 sets, daily range): BP systolic 132–187; BP diastolic 68–98
[2017-10-03] MEDS: IPRATROPIUM BROMIDE 0.02% 2.5 ML NEB NEB SCH ×4 (01:00→20:25)
[2017-10-03] MEDS ORDERED: CLONIDINE HCL 0.1 MG TAB PO PRN (01:15)
[2017-10-03] MEDS: ALBUTEROL SULF 0.083% NEB SOLN 3 ML NEB NEB SCH ×6 (03:00→23:25)
[2017-10-03] MEDS: PIPER-TAZ 3.375 GM 50 ML IV SCH ×3 (05:37→21:39)
[2017-10-03] MEDS: LEVOTHYROXINE SODIUM 100 MCG TAB PO SCH (05:37)
[2017-10-03] MEDS: LEVOTHYROXINE SODIUM 75 MCG TAB PO SCH (05:37)
[2017-10-03] MEDS: AZITHROMYCIN 500MG/NS 250 ML 250 ML IV SCH (06:11)
[2017-10-03 07:18] LABS: BASOPHILS % 0.5 % (0.0-1.0); EOSINOPHILS # (AUTO) 0.3 (0.0-0.4); EOSINOPHILS % 3.9 % (0.0-6.0); HEMATOCRIT 35.7 % (34.2-44.1); HEMOGLOBIN 12.4 g/dL (12.0-16.0); LYMPHOCYTES # (AUTO) 1.6 (1.0-3.2); LYMPHOCYTES % 21.5 % (18.0-39.1); MEAN CORPUSCULAR HEMOGLOBIN 30.8 pg (28-32); MEAN CORPUSCULAR HGB CONC 34.7 g/dL (31-35); MEAN CORPUSCULAR VOLUME 88.6 fL (81-99); MONOCYTES # (AUTO) 0.3 (0.2-0.8); MONOCYTES % 3.4 % (4.4-11.3); NEUTROPHILS # (AUTO) 5.4 (2.1-6.9); NEUTROPHILS % 70.2 % (38.7-80.0); PLATELET COUNT 78 x10e3/uL (140-360); RED BLOOD COUNT 4.03 x10e6/uL (3.6-5.1); RED CELL DISTRIBUTION WIDTH 17.5 % (11.7-14.4)
[2017-10-03] MEDS: INSULIN LISPRO 100 UNIT/1 ML 3ML VIAL SQ SCH ×4 (07:30→21:00)
[2017-10-03 08:10] LABS: CALCIUM 7.5 mg/dL (8.4-10.2); CREATININE, SERUM 1.33 mg/dL (0.57-1.11)
[2017-10-03] MEDS: LOSARTAN POTASSIUM 100 MG TAB PO SCH (08:42)
[2017-10-03] MEDS: PANTOPRAZOLE SOD 40 MG TABEC PO SCH (08:42)
[2017-10-03] MEDS: NIFEDIPINE CR 30 MG TAB PO SCH ×2 (08:42→21:39)
[2017-10-03] MEDS: HYDROCORTISONE 10 MG TAB PO SCH (08:42)
[2017-10-03] MEDS: DULOXETINE HCL 30 MG DELAYED RELEASE PO SCH ×2 (08:42→17:02)
[2017-10-03] MEDS: TACROLIMUS 1 MG CAP PO SCH ×2 (08:42→21:39)
--- NOTE | 2017-10-03 11:04 | Diagnostic Imaging Report ---
PROCEDURE: A single AP view of the chest. COMPARISON: Portable chest 09/30/2017. INDICATIONS: PNEUMONIA FINDINGS: Lines/tubes: Right internal jugular tunneled central venous catheter with tip projecting over the expected region of the right atrium. Left internal jugular temporary central venous catheter with the tip projecting over the expected region of the right atrium. Lungs: The lungs are well inflated and clear. There is no evidence of pneumonia or pulmonary edema. Pleura: There is no pleural effusion or pneumothorax. Heart and mediastinum: The heart and the mediastinum are unremarkable. Atherosclerotic calcifications. Bones: No acute bony abnormality. Degenerative changes of the thoracic spine. IMPRESSION: No acute radiographic abnormality. Dictated by: Wilson Cox M.D. on 10/03/2017 at 11:04 Electronically approved by: Wilson Cox M.D. on 10/03/2017 at 11:04
[2017-10-03] MEDS: BALSAM PERU/CASTOR OIL 60 GM OINT...G. TP SCH (17:02)
[2017-10-03] MEDS: CLONIDINE HCL 0.1 MG TAB PO PRN (17:02)
[2017-10-04] VITALS (7 sets, daily range): BP systolic 114–200; BP diastolic 60–86
[2017-10-04] MEDS: IPRATROPIUM BROMIDE 0.02% 2.5 ML NEB NEB SCH ×4 (03:35→19:00)
[2017-10-04] MEDS: ALBUTEROL SULF 0.083% NEB SOLN 3 ML NEB NEB SCH ×6 (03:35→22:05)
[2017-10-04] MEDS: LEVOTHYROXINE SODIUM 100 MCG TAB PO SCH (06:12)
[2017-10-04] MEDS: PIPER-TAZ 3.375 GM 50 ML IV SCH ×3 (06:12→22:10)
[2017-10-04] MEDS: LEVOTHYROXINE SODIUM 75 MCG TAB PO SCH (06:12)
[2017-10-04] MEDS: INSULIN LISPRO 100 UNIT/1 ML 3ML VIAL SQ SCH ×4 (07:30→20:49)
[2017-10-04] MEDS: BALSAM PERU/CASTOR OIL 60 GM OINT...G. TP SCH ×2 (08:00→17:38)
[2017-10-04] MEDS: NIFEDIPINE CR 30 MG TAB PO SCH ×2 (08:30→20:48)
[2017-10-04] MEDS: DULOXETINE HCL 30 MG DELAYED RELEASE PO SCH ×2 (09:17→17:38)
[2017-10-04] MEDS: TACROLIMUS 1 MG CAP PO SCH ×2 (09:17→20:48)
[2017-10-04] MEDS: PANTOPRAZOLE SOD 40 MG TABEC PO SCH (09:17)
[2017-10-04] MEDS: AZITHROMYCIN 250 MG TAB PO SCH (09:17)
[2017-10-04] MEDS: HYDROCORTISONE 10 MG TAB PO SCH (09:17)
[2017-10-04] MEDS ORDERED: HEPARIN SOD (PORCINE) 1000 UNIT/ML SDV IV PRN (11:15)
[2017-10-04] MEDS ORDERED: MANNITOL 25% 12.5GM/50 ML VIAL IV PRN (11:15)
[2017-10-04] MEDS ORDERED: SODIUM CHLORIDE 0.9% 250ML 500 ML IV PRN (11:15)
[2017-10-04] MEDS ORDERED: ALBUMIN 25% 12.5GM 0.25 GM/ML BTL IV PRN (11:15)
[2017-10-04] MEDS ORDERED: SODIUM CHLORIDE 0.9% 1000ML 2,000 ML IV PRN (11:15)
[2017-10-04] MEDS: LOSARTAN POTASSIUM 100 MG TAB PO SCH (17:38)
[2017-10-04] MEDS: DEXTROSE 50% SYRINGE 50 ML IV PRN (22:09)
[2017-10-05] VITALS (9 sets, daily range): BP systolic 134–209; BP diastolic 73–110
[2017-10-05] MEDS: CLONIDINE HCL 0.1 MG TAB PO PRN ×3 (01:12→16:06)
[2017-10-05] MEDS: ALBUTEROL SULF 0.083% NEB SOLN 3 ML NEB NEB SCH ×6 (02:45→23:05)
[2017-10-05] MEDS: IPRATROPIUM BROMIDE 0.02% 2.5 ML NEB NEB SCH ×4 (02:45→18:50)
[2017-10-05] MEDS: LEVOTHYROXINE SODIUM 100 MCG TAB PO SCH (05:16)
[2017-10-05] MEDS: PIPER-TAZ 3.375 GM 50 ML IV SCH ×3 (05:16→22:06)
[2017-10-05] MEDS: LEVOTHYROXINE SODIUM 75 MCG TAB PO SCH (05:17)
[2017-10-05] MEDS: INSULIN LISPRO 100 UNIT/1 ML 3ML VIAL SQ SCH ×4 (07:30→21:10)
[2017-10-05] MEDS: PANTOPRAZOLE SOD 40 MG TABEC PO SCH (08:48)
[2017-10-05] MEDS: TACROLIMUS 1 MG CAP PO SCH ×2 (08:48→20:19)
[2017-10-05] MEDS: DULOXETINE HCL 30 MG DELAYED RELEASE PO SCH ×2 (08:48→17:01)
[2017-10-05] MEDS: AZITHROMYCIN 250 MG TAB PO SCH (08:48)
[2017-10-05] MEDS: LOSARTAN POTASSIUM 100 MG TAB PO SCH (08:48)
[2017-10-05] MEDS: HYDROCORTISONE 10 MG TAB PO SCH (08:48)
[2017-10-05] MEDS: BALSAM PERU/CASTOR OIL 60 GM OINT...G. TP SCH ×2 (08:48→16:59)
[2017-10-05] MEDS: NIFEDIPINE CR 30 MG TAB PO SCH ×2 (08:48→20:19)
[2017-10-05 11:31] LABS: ANION GAP 9.5 mmol/L (8-16); CALCIUM 7.9 mg/dL (8.4-10.2); CREATININE, SERUM 1.48 mg/dL (0.57-1.11); POTASSIUM 3.5 mmol/L (3.5-5.1)
[2017-10-06] VITALS (7 sets, daily range): BP systolic 127–203; BP diastolic 73–100
[2017-10-06] MEDS: ALBUTEROL SULF 0.083% NEB SOLN 3 ML NEB NEB SCH ×5 (03:25→15:11)
[2017-10-06] MEDS: IPRATROPIUM BROMIDE 0.02% 2.5 ML NEB NEB SCH ×4 (03:25→19:38)
[2017-10-06] MEDS: PIPER-TAZ 3.375 GM 50 ML IV SCH ×3 (05:09→21:14)
[2017-10-06] MEDS: LEVOTHYROXINE SODIUM 75 MCG TAB PO SCH (05:13)
[2017-10-06] MEDS: LEVOTHYROXINE SODIUM 100 MCG TAB PO SCH (05:13)
[2017-10-06] MEDS: INSULIN LISPRO 100 UNIT/1 ML 3ML VIAL SQ SCH ×4 (07:30→20:21)
[2017-10-06] MEDS: BALSAM PERU/CASTOR OIL 60 GM OINT...G. TP SCH ×3 (08:16→20:20)
[2017-10-06] MEDS: LOSARTAN POTASSIUM 100 MG TAB PO SCH (08:20)
[2017-10-06] MEDS: DULOXETINE HCL 30 MG DELAYED RELEASE PO SCH ×2 (08:20→16:17)
[2017-10-06] MEDS: TACROLIMUS 1 MG CAP PO SCH ×2 (08:20→20:20)
[2017-10-06] MEDS: NIFEDIPINE CR 30 MG TAB PO SCH ×2 (08:20→20:20)
[2017-10-06] MEDS: HYDROCORTISONE 10 MG TAB PO SCH (08:20)
[2017-10-06] MEDS: PANTOPRAZOLE SOD 40 MG TABEC PO SCH (08:20)
[2017-10-06] MEDS: AZITHROMYCIN 250 MG TAB PO SCH (08:20)
[2017-10-06] MEDS: DEXTROSE 50% SYRINGE 50 ML IV PRN (11:29)
[2017-10-06] MEDS: CLONIDINE HCL 0.1 MG TAB PO PRN (20:19)
[2017-10-06] MEDS ORDERED: INSULIN DETEMIR 100 UNIT/ML PEN SQ SCH (21:00)
[2017-10-07] VITALS: BP_SYST 149; BP_SYST 214; BP_DIAS 105; BP_DIAS 70
[2017-10-07] MEDS: IPRATROPIUM BROMIDE 0.02% 2.5 ML NEB NEB SCH ×3 (00:02→11:35)
[2017-10-07] MEDS: ALBUTEROL SULF 0.083% NEB SOLN 3 ML NEB NEB SCH ×5 (00:02→15:00)
[2017-10-07 00:05] VITALS: BP 160/85
[2017-10-07 04:00] VITALS: BP 150/80
[2017-10-07] MEDS: LEVOTHYROXINE SODIUM 100 MCG TAB PO SCH (05:15)
[2017-10-07] MEDS: PIPER-TAZ 3.375 GM 50 ML IV SCH (05:16)
[2017-10-07] MEDS: LEVOTHYROXINE SODIUM 75 MCG TAB PO SCH (05:38)
[2017-10-07] MEDS: INSULIN LISPRO 100 UNIT/1 ML 3ML VIAL SQ SCH ×3 (07:30→16:17)
[2017-10-07] MEDS: TACROLIMUS 1 MG CAP PO SCH (09:23)
[2017-10-07] MEDS: PANTOPRAZOLE SOD 40 MG TABEC PO SCH (09:23)
[2017-10-07] MEDS: HYDROCORTISONE 10 MG TAB PO SCH (09:23)
[2017-10-07] MEDS: DULOXETINE HCL 30 MG DELAYED RELEASE PO SCH ×2 (09:23→16:25)
[2017-10-07 09:25] VITALS: BP 133/69
[2017-10-07 10:07] VITALS: BP 133/69
[2017-10-07] MEDS: LOSARTAN POTASSIUM 100 MG TAB PO SCH (14:59)
[2017-10-07] MEDS: NIFEDIPINE CR 30 MG TAB PO SCH (14:59)
[2017-10-07] MEDS: BALSAM PERU/CASTOR OIL 60 GM OINT...G. TP SCH (16:25)
[2017-10-07 16:28] VITALS: BP 178/86
[2017-10-07] MEDS: CLONIDINE HCL 0.1 MG TAB PO PRN (16:35)
--- NOTE | 2017-11-08 21:00 | Discharge Summary ---
CHIEF COMPLAINT: 1. End-stage renal disease. 2. Multifocal pneumonia. 3. Dialysis dependence. This is a 62-year-old female with history of multiple medical problems presents to the ER from the senior living where the patient was noted to have decreased mental status as well as a low blood sugar. In the field with EMS patient showed blood sugar of 38 and was given D50. Patient's responsiveness improved and by the time the patient reached the hospital the patient was alert and oriented x3. Reviewed further in the emergency room, temperature showing 98. Pulse 80, blood pressure 117/70. Laboratory studies were showing a white cell count 11,600. Chest x-ray was showing evidence of mild basilar opacities. CT of chest was showing multifocal pneumonia with small effusions. With further care and management, patient was admitted to the facility for treatment regarding hypoglycemia with brittle diabetes mellitus, multifocal pneumonia, history of hypertension and stage renal disease on dialysis, Nenzel's disease. With admission regarding the chest x-ray findings and CT findings, patient started on Rocephin and Zithromax. Requesting a pulmonary follow. Her next dialysis will be on Saturday. Request Dr. Su to follow Diabetic status requesting Dr. Diaz. With admission, patient was undergoing nephrology review with Dr. 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 Will continue dialysis schedule. Her brittle diabetes was reviewed by Dr. Diaz. His impression was diabetes mellitus type 2 with complications, end-stage renal failure on chronic dialysis, hypocortisolism, hypothyroidism, pneumonia, status post liver transplant. We will be obtaining a hemoglobin A1c and thyroid function to her normal blood studies. Will begin with sliding scale coverage for now. Pulmonary follow regarding the CT findings of chest was reviewed by Dr. Mccormack. His review reveals CT of chest shows possibility of pneumonia. Will discontinue Rocephin and start the patient on Zosyn. Continue nebulizer treatments. Undergoing review further. She was being maintained in the ER for bed availability on ADA diet, receiving nebulizer treatments, started on azithromycin 250 IV q.24, ceftriaxone 1 gram IV q.24. Daily medications were continuing as well. She was put on regular insulin sliding scale t.i.d. a.c. nightly. Laboratory studies showing potassium of 3.4. Kidney functions BUN 33, creatinine 3.14, glucose 163. CBC: Hemoglobin 9.9, white cell count 11,000. She is now transferred up to the med/surg floor where she was continued on the ADA diet, resting comfortably. With further management of care, she was continued on azithromycin and her ceftriaxone was switched to Zosyn. Potassium was now at 3.4. BP medications were being adjusted further for better control. Dialysis was under way with Dr. Su without any difficulties. TSH was noted to be at 9.987. Further labs shows a potassium trended down to 3.1. BUN was down to 19, creatinine 2.06. Glucose 24. CBC: Hemoglobin trended down to 7.8, white cell count 10,400. She was continued on her ADA diet. Her p.o. intake was increasing. She was resting comfortably. She was in no acute distress. She was typed and cross matched for packed RBCs. She was transfused with 2 units. Followup hemoglobin was 12.4. White cell count improved further to 7600. On 10/03, noted that her sugar was 24. She was on dextrose IV. Followup glucose 94. She was stabilizing and arrangements were being carried out with case management assistance to be transferred back to [facility]. She was approved for transfer. Final potassium is 3.5, final glucose 92. BUN of 9 and creatinine 1.48. Final white cell count 7600, hemoglobin 12.4. Transferred back to [facility] 10/07/2017 2017 in stable condition. EKG showed normal sinus rhythm, anteroseptal infarct, age undetermined. As mentioned, she was transferred back to [facility]. She will continue on her renal diabetic diet. At that facility, she will continue on a full code status. She had some tissue breakdown in the sacral region, classified as stage 2. She will be receiving some tissue management at that location. Orders were written to have rotational position in her bed every 2 hours. I will be monitoring her progress at that location. I will be evaluating her status routinely. Staff will be contacting me at the office as needed. Dictated by RICARDO Torres EBONY ABREU MD Job#: [id number] DANTE
== END 2017-10-07 17:35 | DRG 193 ==
LOC: ER 02:57 → ERHOLD 06:40 → MED/SURG3 14:41
PROVIDERS: ADMIT Internal Medicine; ATTEND Internal Medicine
PROC: 5A1D70Z Performance of Urinary Filtration, Intermittent, Less than 6 Hours Per Day (ICD-10-PCS; 2017-09-30)
PROC: 30233N1 Transfusion of Nonautologous Red Blood Cells into Peripheral Vein, Percutaneous Approach (ICD-10-PCS; principal; 2017-10-02)
DX: J18.9 Pneumonia, unspecified organism (principal); N18.6 End stage renal disease; J96.91 Respiratory failure, unspecified with hypoxia; E43 Unspecified severe protein-calorie malnutrition; I13.2 Hypertensive heart and chronic kidney disease with heart failure and with stage 5 chronic kidney disease, or end stage renal disease; Z94.4 Liver transplant status; E27.1 Primary adrenocortical insufficiency; E11.22 Type 2 diabetes mellitus with diabetic chronic kidney disease; E11.649 Type 2 diabetes mellitus with hypoglycemia without coma; E11.65 Type 2 diabetes mellitus with hyperglycemia; I50.9 Heart failure, unspecified; Z99.2 Dependence on renal dialysis; Z79.4 Long term (current) use of insulin; K74.60 Unspecified cirrhosis of liver; E03.9 Hypothyroidism, unspecified; E87.6 Hypokalemia; D63.1 Anemia in chronic kidney disease; R53.81 Other malaise
CPT/HCPCS: 36415; 71045; 71250; 80048; 80053; 82550; 82553; 82947; 82948; 83036; 84443; 84484; 85025; 86704; 86706; 86850; 86900; 86920; 87040; 87340; 87493; 90962; 93005; 94640; 96367; 96372; 96374; 97139; 99285; J0360; J0456; J0696; J1644; J2405; J2543; J7030; J7050; J7507; J7799; P9016

== ENCOUNTER 2017-10-10 10:10 | Inpatient (IN) | payer MEDICARE, OTHER ==
[~2017-10-10] VITALS: Ht 157.5 cm; Wt 42.2 kg
--- OUTSIDE RECORDS SUMMARY | 2017-10-10 10:13 | XMS REPORT | Clinical Summary ---
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 She is doing well with normal liver enzymes. She is on low dose prograf for immunosuppression. Her dose has been changed and she is on 3/3 daily. Full labs pending today for dosing. DM (diabetes mellitus) ([facility]) 04/21/2013 Last Assessment & Plan: Poorly controlled [...] Date Type Specialty Care Team Description 07/27/2017 [facility] General Internal Medicine Gee Crenshaw MD Hypoglycemia (Primary - Encounter Castro Mcclain MD Dx);ESRD (end stage renal 08/01/2017 Bryce Angelo, orlin) (HCC);Adrenal MD insufficiency (HCC);Dominic Nieto MD difficile diarrhea;Type 2 Arnie Syed MD diabetes mellitus with other specified complication, with long-term current use of insulin (HCC);Status post liver transplantation (HCC);Diabetes mellitus due to underlying condition with ketoacidosis without coma, with long-term current use of insulin (HCC);ESRD (end stage renal disease) on dialysis (HCC) 06/23/2017 [facility] Cardiology Chad Henderson MD Acute - Encounter Gisele Ponce MD encephalopathy;Bradycardi 06/28/2017 a;Hypoglycemia;Hypothyroi dism, unspecified type;Status post liver transplantation (HCC);Acute cystitis without hematuria;Adrenal insufficiency (HCC);Severe sepsis (HCC);Type 2 diabetes mellitus treated with insulin (HCC);ESRD (end stage renal disease) (HCC);Essential hypertension;Immunosuppre ssion (HCC);VRE (vancomycin-resistant Enterococci) infection 06/23/2017 Telephone Critical Care Medicine Chad Henderson MD Advice Only 01/26/2017 [facility] General Internal Medicine Michele Ryan Severe sepsis (HCC);Acute - Encounter MD Kali encephalopathy;Hypoglycem 01/29/2017 Iron Malik;Type 2 diabetes MD Antwon mellitus with other Promise Crabtree MD specified complication Hannah Su MD (HCC);Status post liver transplantation (HCC);Sepsis secondary to UTI (HCC);Type 2 diabetes mellitus with other specified complication, with long-term current use of insulin (HCC);Clostridium difficile diarrhea;Urinary tract infection without hematuria, site unspecified;Type 2 diabetes mellitus with insulin therapy (HCC) 01/26/2017 Telephone Critical Care Medicine Michele Ryan Peer- to-Peer Call MD Kali 12/31/2016 Telephone Transplant Hepatology Kristen May RN 10/17/2016 Orders Only Transplant Hepatology Kristen May RN Status post liver transplantation (HCC) (Primary Dx) 10/17/2016 Telephone Transplant Hepatology Kristen May RN Medication Dose Change 10/15/2016 [facility] Radiology Palma Varner MD Dilated bile duct Encounter 10/15/2016 Follow-Up Transplant Hepatology Palma Varner MD Status post liver transplantation (Primary Dx);Immunosuppression (HCC);Dilated bile duct;Screening for malignant neoplasm;Type 2 diabetes mellitus with other specified complication (HCC);Elevated serum creatinine 10/15/2016 [facility] Radiology Palma Varner MD Status post liver Encounter transplantation (HCC);Encounter for long-term (current) use of high-risk medication;Encounter for therapeutic drug monitoring;Disorder of magnesium metabolism 10/15/2016 [facility] Palma Varner MD Status post liver Encounter transplantation (HCC);Encounter for long-term (current) use of high-risk medication;Encounter for therapeutic drug monitoring;Disorder of magnesium metabolism 10/15/2016 Orders Only Lab Palma Varner MD Status post liver transplantation (HCC);Encounter for long-term (current) use of high-risk medication;Encounter for therapeutic drug monitoring;Disorder of magnesium metabolism 10/15/2016 Abstract Transplant Hepatology Palma Varner MD 10/15/2016 Outside Orders Palma Varner MD after 10/09/2016 Family History Medical History Relation Name Comments [...] Taken Blood Pressure 158/77 08/01/2017 4:00 PM ORTHOPHOTOGRAPHY TECHNICIAN Pulse 68 08/01/2017 4:00 PM ORTHOPHOTOGRAPHY TECHNICIAN Temperature 35.7 C (96.3 F) 08/01/2017 4:00 PM ORTHOPHOTOGRAPHY TECHNICIAN Respiratory Rate 18 08/01/2017 4:00 PM ORTHOPHOTOGRAPHY TECHNICIAN Oxygen Saturation 100% 08/01/2017 4:00 PM ORTHOPHOTOGRAPHY TECHNICIAN Inhaled Oxygen - - Concentration Weight 41.7 kg (92 lb) 07/26/2017 3:53 PM ORTHOPHOTOGRAPHY TECHNICIAN Height 157.5 cm (5' 2") 07/26/2017 3:53 PM ORTHOPHOTOGRAPHY TECHNICIAN Body Mass Index 16.83 07/26/2017 3:53 PM ORTHOPHOTOGRAPHY TECHNICIAN Plan of Treatment Health Maintenance Due Date [...] Range POC-Glucose Meter 114 (H)Comment: TESTED AT [address] 70 - 110 mg /dL [place] [address] Specimen Performing [place] [address] * Tacrolimus level (08/01/2017 6:12 AM) Only the most recent of 14 results within the time period is included. Component Value Ref Range Tacrolimus Lvl 7.2 (L) 10.0 - 20.0 ng/mL Specimen Performing Laboratory Blood - Arm, Right [address] [address] * Hemodialysis (07/31/2017 1:21 PM) Elías Byrne RN 07/31/20171:21 PM Lab Results Component Value [...] period is included. Specimen Performing Laboratory Blood [address] [address] * Calcium, Ionized (07/31/2017 5:49 AM) Only the most recent of 6 results within the time period is included. Component Value Ref Range Calcium, Ion 0.94 (L) 1.12 - 1.27 mmol/L pH, Blood 7.43 Specimen Performing Laboratory Blood [address] [address] * CBC with platelet count + automated [...] 1 % Granulocytes-Relative Specimen Performing Laboratory Blood [address] [address] * CBC with platelet count + automated diff (07/31/2017 5:49 AM) Only the most recent of 14 results within the time period is included. Specimen Performing Laboratory Blood Narrative The following orders were created for panel order CBC with platelet count + automated diff. Procedure Abnormality Status --------- - ------ CBC with platelet count ...[[id number]]AbnormalFinal result Manual Differential[[id number]] Final result Please view results for these tests on the individual orders. * Phosphorus (07/31/2017 5:49 AM) Only the most recent of 11 results within the time period is included. Component Value Ref Range Phosphorus 4.3 2.3 - 4.7 mg/dL Specimen Performing Laboratory Blood [address] [address] * Magnesium (07/31/2017 5:49 AM) Only the most recent of 13 results within the time period is included. Component Value Ref Range Magnesium 1.7 1.6 - 2.6 mg/dL Specimen Performing Laboratory Blood [address] [address] * Hepatic function panel (07/31/2017 5:49 AM) [...] - 55 U/L Specimen Performing Laboratory Blood [address] [address] * Basic Metabolic Panel (07/31/2017 5:49 AM) [...] FOR DIALYSIS PATIENTS. Specimen Performing Laboratory Blood [address] [address] * T4, free (07/29/2017 7:00 AM) Only the most recent of 5 results within the time period is included. Component Value Ref Range Free T4 0.90 0.70 - 1.48 ng/dL Specimen Performing Laboratory Blood - Arm, [place] [address] * TSH/Free T4 If Indicated (07/28/2017 3:46 PM) Only the most recent of 2 results within the time period is included. Component Value Ref Range TSH 15.97 (H) 0.35 - 4.94 uIU/mL Specimen Performing Laboratory Blood - Arm, [place] [address] * Hepatitis B surface antigen (07/28/2017 3:46 PM) Only the most recent of 4 results within the time period is included. Component Value Ref Range hepatitis B Surface Ag Nonreactive Nonreactive Specimen Performing Laboratory Blood - Arm, [place] [address] * Clostridium difficile Toxin PCR (07/27/2017 10:49 AM) Only the most recent of 2 results within the time period is included. Component Value Ref Range C.Diff Toxin, PCR Detected (A) Not Detected Specimen Performing Laboratory Stool [address] [address] Narrative This qualitative real-time polymerase chain reaction [...] - 6.1 % Specimen Performing Laboratory Blood [address] [address] * Urinalysis Microscopic Only (07/27/2017 10:17 AM) Component Value Ref Range RBC, UA 2 /HPF WBC, UA 119 /HPF Bacteria, UA Many Squam Epithel, UA 5 /HPF Specimen Performing Laboratory Urine - Urine, [facility] Catch [address] [place] [address] * Urinalysis with Microscopic If Indicated (07/27/2017 10:17 AM) Component Value Ref Range Color, UA Yellow Clarity, UA Hazy Specific [place], UA 1.009 1.001 - 1.035 pH, UA 6.5 5.0 - 8.0 Protein, UA 300 mg/dL (A) Negative Glucose, UA Negative Negative Ketones, UA Negative Negative Bilirubin, UA Negative Negative Blood, UA Small (A) Negative Nitrite, UA Negative Negative Leukocytes, UA Large (A) Negative Urobilinogen, UA 0.2 0.2 - 1.0 mg/dL Specimen Source Specimen Performing Laboratory Urine - Urine, [facility] Catch [address] [place] [address] * Influenza A H1N1 PCR (07/27/2017 2:52 AM) Only the most recent of 2 results within the time period is included. Component Value Ref Range Influenza A RNA Not Detected Not Detected, Inconclusive Novel H1N1 RNA Not Detected Not Detected, Inconclusive Specimen Performing Laboratory Nasal - Nasopharyngeal [facility] Swab [address] [place] [address] Narrative These assays were performed by real-time RT-PCR (activity leader-PCR) utilizing fluorogenic hydrolysis probe technology for the detection of human Influenza A viruses and the differential detection of novel H1N1 Influenza virus in respiratory specimens. The test is composed of (1) an RNA extraction from patient specimen, and (2) activity leader-PCR amplification and detection with human Influenza A and novel [id number] primers and probes. A well-conserved region of [...] and its performance characteristics determined by the [facility] Pathology Department, Section of Molecular Pathology.It has not been cleared or approved by the U.S. Food and Drug Administration (FDA).Since FDA approval is not required for clinical use of the test, validation was done as required by The Clinical Laboratory Amendments of 1988. These assays were performed by real-time RT-PCR (activity leader-PCR) utilizing fluorogenic hydrolysis probe technology for the detection of human Influenza A viruses and the differential detection of novel H1N1 Influenza virus in respiratory specimens. The test is composed of (1) an RNA extraction from patient specimen, and (2) activity leader-PCR amplification and detection with human Influenza A and novel V5T1-cvmfrhis primers and probes. A well-conserved region of [...] and its performance characteristics determined by the [facility] Pathology Department, Section of Molecular Pathology.It has [...] - 36.0 seconds Specimen Performing Laboratory Blood [facility] [address] [place] [address] Narrative RECOMMENDED COUMADIN/WARFARIN INR THERAPY RANGES STANDARD [...] Inconclusive Specimen Performing Laboratory Nasal - Nasopharyngeal [facility] Swab [address] [place] [address] * Lipase (07/27/2017 2:52 AM) Only the most recent of 2 results within the time period is included. Component Value Ref Range Lipase <4 (L) 8 - 78 U/L Specimen Performing Laboratory Blood [address] [address] * XR femur right AP and lateral [...] MD Report Verified Date/Time:07/26/2017 23:34:07 Reading Location: [address] Consult Reading Room Procedure Note Interface, External Ris In - 07/26/2017 11:36 PM ORTHOPHOTOGRAPHY TECHNICIAN FINAL REPORT Right femur, two views. INDICATION: [...] Report Verified Date/Time: 07/26/2017 23:34:07 Reading Location: [facility] B1 C013W Consult Reading Room * EKG-SCANNED (07/25/2017 [...] WBC Specimen Performing Laboratory Blood - Arm, [address] [address] * TSH (06/28/2017 5:54 AM) Only the most recent of 2 results within the time period is included. Component Value Ref Range TSH 4.76 0.35 - 4.94 uIU/mL Specimen Performing Laboratory Blood - Arm, [address] [address] * Comprehensive metabolic panel (06/28/2017 5:54 AM) [...] Specimen Performing Laboratory Blood - Arm, Left [address] [address] * Vancomycin level, random (06/24/2017 4:37 AM) Only the most recent of 3 results within the time period is included. Component Value Ref Range Vancomycin Rm 16.5 ug/mL Specimen Performing Laboratory Blood [address] [address] Narrative Reference Range: No Normals * ECG 12 lead (06/23/2017 11:42 AM) Specimen Performing Laboratory GE MUSE Narrative Ventricular Rate 55 BPM Atrial Rate 55 BPM P-R Interval 128 ms QRS Duration 74 ms Q-T Interval 552 ms QTC Calculation(Bazett) 528 ms P [place] 77 degrees R [place] -1 degrees T [place] 0 degrees Sinus bradycardia Septal infarct (cited on or before 23-JUN-2017) Prolonged QT Abnormal ECG When compared with ECG of 31-JUL-2012 20:36, Nonspecific T wave abnormality now evident in Inferior leads QT has lengthened Confirmed by MD PLUMMER JOSEPH P ([id number]) on 06/24/2017 8:28:24 AM Procedure Note Interface, External Ris In - 06/24/2017 8:28 AM ORTHOPHOTOGRAPHY TECHNICIAN Ventricular Rate 55 BPM Atrial Rate 55 BPM P-R Interval 128 ms QRS Duration 74 ms Q-T Interval 552 ms QTC Calculation(Bazett) 528 ms P [place] 77 degrees R [place] -1 degrees T [place] 0 degrees Sinus bradycardia Septal infarct (cited on or before 23-JUN-2017) Prolonged QT Abnormal ECG When compared with ECG of 31-JUL-2012 20:36, Nonspecific T wave abnormality now evident in Inferior leads QT has lengthened Confirmed by MD PLUMMER JOSEPH P ([id number]) on 06/24/2017 8:28:24 AM * US Hepatic Portal Vessel with Doppler (06/23/2017 10:42 AM) Specimen Performing Laboratory GE RIS Narrative FINAL REPORT Ultrasound of the Abdomen [...] MD Report Verified Date/Time:06/23/2017 11:16:57 Reading Location: [facility] C013Y CT Body Reading Room Procedure Note Interface, External Ris In - 06/23/2017 11:19 AM ORTHOPHOTOGRAPHY TECHNICIAN FINAL REPORT Ultrasound of the Abdomen and [...] Report Verified Date/Time: 06/23/2017 11:16:57 Reading Location: [facility] B1 C013Y CT Body Reading Room * Blood culture (06/23/2017 9:24 AM) Only the most recent of 3 results within the time period is included. Component Value Ref Range Result No growth in 5 days Specimen Performing Laboratory Blood - Arm, Left [facility] [address] [address] * Troponin I (06/23/2017 9:23 AM) Only the most recent of 2 results within the time period is included. Component Value Ref Range Troponin I <0.01 0.00 - 0.03 ng/mL Specimen Performing Laboratory Blood - Arm, [address] [address] Narrative Troponin I (TnI) levels must be [...] mmol/L Specimen Performing Laboratory Blood - Arm, [address] [address] Narrative Effective 11/16/2015: Units/Reference Range Change New: 0.5-2.2 mmol/LPrevious: 5-20 mg/dL * Creatine Kinase (CK), Total and MB (06/23/2017 9:23 AM) Component Value Ref Range Total CK 29 29 - 200 U/L CK-MB 3.5 0.0 - 6.6 ng/mL MB Relative Index 12.1 % Specimen Performing Laboratory Blood - Arm, [address] [address] Narrative CK-MB Reference Range: <6.7Normal 6.7-10.0Borderline >10.0 Abnormal * Ammonia (06/23/2017 9:23 AM) Component Value Ref Range Ammonia 28 18 - 72 mol/L Specimen Performing Laboratory Blood - Arm, [address] [address] * Urinalysis w/Microscopic (06/23/2017 9:11 AM) Only the most recent of 2 results within the time period is included. Component Value Ref Range Color, UA Yellow Clarity, UA Hazy Specific [place], UA 1.006 1.001 - 1.035 pH, UA [...] Urine Few Yeast Few Specimen Source Urine, [place] Specimen Performing Laboratory Urine - Urine, [address] [address] * Urine culture (06/23/2017 9:11 AM) Only the most recent of 2 results within the time period is included. Component Value Ref Range Result Result 10-19,000 col/mL Vancomycin resistant Enterococcus species (A) Specimen Performing Laboratory Urine - Urine, [address] [address] Organism Antibiotic Method Susceptibility Vancomycin resistant Ampicillin [...] ug/dL Specimen Performing Laboratory Blood - Arm, [address] [address] * Prothrombin time/INR (06/23/2017 9:10 AM) Only the most recent of 5 results within the time period is included. Component Value Ref Range Protime 15.3 (H) 11.7 - 14.7 seconds INR 1.2 <=5.9 Specimen Performing Laboratory Blood - Arm, [address] [address] Narrative RECOMMENDED COUMADIN/WARFARIN INR THERAPY RANGES STANDARD DOSE: 2.0 - 3.0 Includes: PROPHYLAXIS for venous thrombosis, systemic embolization; TREATMENT for venous thrombosis and/or pulmonary embolus. HIGH RISK: Target INR is 2.5-3.5 for patients with mechanical heart valves. * Fibrinogen (06/23/2017 9:10 AM) Component Value Ref Range Fibrinogen 297 225 - 434 mg/dl Specimen Performing Laboratory Blood - Arm, Right [address] [address] * T3, free (06/23/2017 9:10 AM) Component Value Ref Range T3, Free 1.26 (L) 1.71 - 3.71 pg/mL Specimen Performing Laboratory Blood - Arm, Right [address] [address] * Blood gas, arterial (06/23/2017 9:08 AM) [...] Specimen Performing Laboratory Blood, Arterial - Arm, [facility] Right [address] [place] [address] * XR chest 1 view portable / [...] MD Report Verified Date/Time:06/23/2017 09:32:04 Reading Location: [address] Transitional Reading Room Procedure Note Interface, External Ris In - 06/23/2017 9:34 AM ORTHOPHOTOGRAPHY TECHNICIAN FINAL REPORT HISTORY : myxedema, sepsis. Comparison: [...] Report Verified Date/Time: 06/23/2017 09:32:04 Reading Location: [facility] C[facility] Transitional Reading Room * Prepare Leuko-Red RBC (01/29/2017 11:54 PM) Component Value Ref Range CROSSMATCH COMPATIBLE Unit ABO B Pos UNIT NUMBER [id number] Status TRANSFUSED Blood Bank Product RED BLOOD CELLS PRODUCT CODE [id number] Specimen Performing Laboratory Other [place] * Hepatitis B PCR, quantitative (01/29/2017 11:15 AM) Component Value Ref Range HBV PCR, Quantitative HBV DNA not detected HBV DNA not detected Specimen Performing Laboratory Blood [address] [address] Narrative This test uses a Real-Time Polymerase Chain Reaction (RT-PCR) methodology and was performed using SOH[employer] AmpliPrep/SOHA TaqMan HBV Test, v2.0 ([employer] Reportable range for this assay [...] Antigen Neutralization testing. Specimen Performing Laboratory Blood [address] [address] * Hepatitis B core antibody, IgM (01/29/2017 11:15 AM) Component Value Ref Range Hep B C IgM Nonreactive Nonreactive [place] [address] * Hepatitis B core antibody, total (01/29/2017 11:15 AM) Component Value Ref Range Hep B Core Total Ab Nonreactive Nonreactive [place] [address] * Hepatitis B surface antibody (01/29/2017 11:15 AM) Component Value Ref Range Hep B S Ab <8.0 <8.0 mIU/mL Specimen Performing Laboratory Blood [address] [address] * Transfuse Leuko-Red RBC (01/29/2017 5:46 AM) Only the most recent of 2 results within the time period is included. * CMV PCR, quantitative (01/29/2017 5:21 AM) Component Value Ref Range CMV DNA Viral Load Negative or below the linear range of the assay (<375 copies/mL) Specimen [place]forming [place] [address] Narrative Cytomegalovirus (CMV) infection can cause significant [...] and its performance characteristics determined by the [facility] Pathology Department, Section of Molecular Pathology. [...] Performing Laboratory Blood - Arm, Right [facility] [address] [place] [address], [place] [address] Narrative ACTH STIMULATION TEST INTERPRETATION GUIDELINES (Synonyms: [...] Specimen Performing Laboratory Blood - Arm, Right [address] [address] Narrative ACTH STIMULATION TEST INTERPRETATION GUIDELINES (Synonyms: [...] Specimen Performing Laboratory Blood - Arm, [place] [address] Narrative ACTH STIMULATION TEST INTERPRETATION GUIDELINES (Synonyms: [...] study by Mirella et al ( DOREEN 2000,283(8):5782-12), the ACTH Stimulation Test provides important prognostic [...] Procedure Abnormality Status --------- - ------ Cortisol, baseline[[id number]] Final result Cortisol, 30 minutes[[id number]] Final result Cortisol, 60 minutes[[id number]] Final result Please view results for these tests on the individual orders. * 2D Echo W/Doppler (Sepsis Protocol) (01/27/2017 3:16 PM) Component Value Ref Range Ejection Fraction LV EF 72.3 % (55-75) Index 57.8 %/m2 Specimen Performing Laboratory [facility] Echocardiography Laboratory [address] [place] [address] Voice:[phone] Transthoracic Echocardiogram Pat.Name:JULIOCESAR TERRIALEIDA GUADARRAMA Pat.ID:[id number] .Date: 01/27/2017 Refer.MD:MICHELE RYAN Exam Time: 3:16:00 PMStudy Type:Echo Complete Height:62inWeight:74lb BSA: 1.25 m2 DOBAge:1954,61Y Sex: FEMALEBP:90 /46 HR:71 bpmSonogrphr: Michelle Sigala [facility] Pat. Stat.:Inpatient Room:72 Reason for Study:Sepsis Protocol History / Clinical:Diabetes, [...] ml/m2 LA Area 15.6 cm2(8.8-23.4) Parasternal [place] Ao An2 cm (1.4-2.6) LV%fs 33.8 %(25-46) Ao Rtd2.52 cmLVPWd 1.06 cm IVSd1.21 cm LA Ds 3.72 cm (2.3-3.8) LVIDd 3.72 cm (4.3-5.1)* LV Wmn 1.13 cm LVIDs 2.47 cm (2-4) DOPPLER LVOT LVOT For Flow [id number] cm/s (70-110)* LVOT CO 5.77 l/min LVOT [...] 25.6 mmHg Signed 01/28/2017 12:57 PM Tato Plummer M.D. Procedure Note Interface, External Ris In - 01/28/2017 12:58 PM CDT Echocardiography Laboratory [address] [place] [address] Voice: [phone] Transthoracic Echocardiogram Pat.Name: TERRI GANDARA Pat.ID: [id number] .Date: 01/27/2017 Refer.MD: MICHELE RYAN Exam Time: 3:16:00 PM Study Type:Echo Complete Height: 62in Weight: 74lb BSA: 1.25 m2 Age: 11 1955,61Y Sex: FEMALE BP: 90/46 HR: 71 bpm Sonogrphr: Michelle Sigala [facility] Pat. Stat.:Inpatient Room: [facility] Reason for Study:Sepsis Protocol History / Clinical:Diabetes, [...] LA Area 15.6 cm2 (8.8-23.4) Parasternal [place] Ao An 2 cm (1.4-2.6) LV%fs 33.8 [...] 25.6 mmHg Signed 01/28/2017 12:57 PM Tato Plummer M.D. * Respiratory Panel [facility] (01/27/2017 2:43 PM) Component Value [...] Inconclusive Specimen Performing Laboratory Nasopharyngeal - Nasal, [facility] Right [address] [place] [address] * Vitamin B12 and Folate (01/27/2017 5:29 AM) Component Value Ref Range Vitamin B12 480 213 - 816 pg/mL Folate 6.3 (L) >=7.0 ng/mL Specimen Performing Laboratory Blood - Arm, [address] [address] Narrative Effective 06/01/2014: Folate Reference Range Change New: >=7.0Previous: >=5.4 * Iron, TIBC, % sat. (without ferritin) (01/27/2017 5:29 AM) Component Value Ref Range Iron 65 40 - 160 ug/dL TIBC 209 (L) 250 - 450 ug/dL Iron % Saturation 31 20 - 55 % Specimen Performing Laboratory Blood - Arm, [address] [address] * Ferritin (01/27/2017 5:29 AM) Component Value Ref Range Ferritin 670 (H) 5 - 275 ng/mL Specimen Performing Laboratory Blood - Arm, Right [facility] [address] Narrative Effective 06/01/2014: Reference Range Change New: Male 5Previous: Male [address] Female 5Female * Prepare RBC (01/27/2017 1:01 AM) Component Value Ref Range Status CANCELED Blood Bank Product RED BLOOD CELLS Unit ABO O Pos UNIT NUMBER [id number] Status CANCELED Blood Bank Product RED BLOOD CELLS PRODUCT CODE [id number] Unit ABO O Pos UNIT NUMBER [id number] Status WORK IN PROGRESS Blood Bank Product RED BLOOD CELLS PRODUCT CODE F8461N16 Specimen Performing Laboratory [place] * Type and screen, automated (01/27/2017 12:35 AM) Component Value Ref Range ABO/RH AUTOMATED (BEAKER) B POSITIVE Ab Scrn NEGATIVE Specimen Performing Laboratory [place] [address] * Ketones, blood (01/27/2017 12:35 AM) Component Value Ref Range Ketones, Blood 0.0 <0.4 mmol/L Specimen Performing Laboratory Blood [address] [address] * MRI abdomen without contrast (10/15/2016 3:14 [...] MD Report Verified Date/Time:10/15/2016 15:39:30 Reading Location: [address] Radiology Reading Room Procedure Note Interface, [...] Report Verified Date/Time: 10/15/2016 15:39:30 Reading Location: [address] Radiology Reading Room * US abdominal with doppler (10/15/2016 10:34 AM) Specimen Performing Laboratory nWay Narrative FINAL REPORT HISTORY : Liver transplant [...] MD Report Verified Date/Time:10/15/2016 11:19:07 Reading Location: [address] Radiology Reading Room Procedure Note Interface, [...] Report Verified Date/Time: 10/15/2016 11:19:07 Reading Location: [address] Radiology Reading Room * Bilirubin, direct (10/15/2016 8:40 AM) Component Value Ref Range Bilirubin, Direct 0.2 0.1 - 0.5 mg/dL Specimen Performing Laboratory Blood [address] [address] * Lipid panel (10/15/2016 8:40 AM) Component Value Ref Range Triglycerides 63 mg/dL Cholesterol 124 mg/dL HDL 34 mg/dL LDL Calculated 77 mg/dL Specimen Performing Laboratory Blood [address] [address] Narrative Triglyceride Reference Range: Low Risk <150 [id number] High Risk 200-499 Very High Risk>=500 Cholesterol Reference Range: Low Risk <200 [id number] High Risk>240 HDL Cholesterol Reference Range: Low Risk >=60 High Risk <40 LDL Cholesterol Reference Range: Optimal<100 Near [id number] Very High >=190 * XR chest 2 [...] MD Report Verified Date/Time:10/15/2016 08:43:36 Reading Location: [address] Radiology Reading Room Procedure Note Interface, [...] Report Verified Date/Time: 10/15/2016 08:43:36 Reading Location: [address] Radiology Reading Room after 10/09/2016
--- OUTSIDE RECORDS SUMMARY | 2017-10-10 10:15 | XMS REPORT | Continuity of Care Document ---
Author Author [facility] Organization [facility] Address [address] [place] [address] Phone Unavailable Care Team Providers Care Kitchen Stewardess Name Role Phone EBONY ABREU MD PCP Insurance Providers Guarantor Terri Gandara Address [address] [facility] [address] [place] [address] Email [email or web address] Payer [employer] Policy Number [id number] Subscriber's Name Terri Gandara Relationship 18 Self / Same As Patient Group Number [id number] Group Name UNEMPLOYED Effective Date 17 Payer [employer] Policy Number [id number] Subscriber's Name Terri Gandara Relationship 18 Self / Same As Patient Group Number [id number] Group Name [place] MEDICARE MEDICAID PLAN ([place]URI Effective Date 07 Advance Directives Directive Response Recorded Date/Time Does the patient have an advance directive? No 09/30/17 3:30pm If yes, is advance directive on file with [facility]? No 09/30/17 3:30pm If not on file with [facility] will patient provide a copy? Yes 09/30/17 3:31am Do you have a Directive to Physician? No 09/30/17 2:57am Do you have a Medical Power of Education Reporter? No 09/30/17 2:57am Do you have an out of hospital Do Not Resuscitate Order? No 09/30/17 2:57am Do you have any special needs we should be aware of? No 09/30/17 2:57am Do you have a support person here with you today? Yes 09/30/17 2:57am Did patient receive Notice of Privacy Practices? Yes 09/30/17 2:57am Did patient receive patient rights and responsibilities? Yes 09/30/17 2:57am Problems Medical Problem Onset Date Status Anemia Unknown Cellulitis, face Unknown Chronic anemia Unknown Dehydration Unknown ESRD (end stage renal disease) on dialysis Unknown Hyperglycemia 09/09/2014 Acute Hypocalcemia Unknown Hypoglycemia Unknown Multifocal pneumonia Unknown Renal failure Unknown Syncope and collapse [...] Daily Discontinued Duloxetine Hcl (Cymbalta) 30 Mg Capsule.dr, 30 Mg Oral Twice A Day Discontinued [...] Adh..patch, Transling Daily as needed Discontinued Lipase/Protease/Amylase (Creon Dr 24,000 Units Capsule) 1 Each Capsule.dr, 2 [...] Onset Date Status Hx Psychiatric Problems No 09/30/2017 3:30pm Not Applicable Not Applicable Hx Eating Disorder No 09/30/2017 3:30pm Not Applicable Not Applicable Hx Substance Use Disorder No 09/30/2017 3:30pm Not Applicable Not Applicable Hx Depression Yes 09/30/2017 3:30pm Not Applicable Not Applicable Hx Alcohol Use No 09/30/2017 3:30pm Not Applicable Not Applicable Hx Substance Use Treatment No 09/30/2017 3:30pm Not Applicable Not Applicable Hx Physical Abuse No 09/30/2017 3:30pm Not Applicable Not Applicable Smoking Status Start Date Stop Date Never Smoker Hospital Discharge Instructions No hospital discharge instruction information available. Plan of Care Discharge Date 10/07/17 5:35pm Disposition TRANSFER [facility] Prescriptions See Medication Section Functional Status Query Response Date Recorded FUNCTIONAL STATUS ` October 03, 2017 8:53am Ambulation Ability Total Assistance September 30, 2017 3:30pm Toileting Ability Maximum Assistance October 06, 2017 6:26pm Allergies, Adverse Reactions, Alerts No known allergies. Immunizations No immunization information available. Vital Signs Acute Vital Signs Vital Response Date/Time Temperature (Fahrenheit) 97.9 degrees F (97.6 - 99.5) 10/07/2017 4:28pm Pulse Pulse Rate (adult) 73 bpm (60 - 90) 10/07/2017 4:28pm Respiratory Rate 20 bpm (12 - 24) 10/07/2017 4:28pm Blood Pressure 178/86 mm Hg 10/07/2017 4:28pm Height 5 ft 1 in 09/30/2017 3:09am Weight 93.13 lb 10/03/2017 1:16am Body Mass Index 17.6 kg/m^2 10/03/2017 1:16am Results Laboratory Results Test Name Result Units Flags Reference Collection Date/Time Result Date/ Time Comments Lipase < 4 U/L L 8-78 01/26/2017 5:43pm 01/26/2017 6:34pm Red Cell Morphology Comment NORMAL 02/03/2017 3:36pm [...] Negative 02/04/2017 3:00pm 02/06/2017 4:07pm Performed at: [facility] [address] [id number] Ems Director: Edd Worthington MD, Phone: [phone] Hepatitis B Surface Ag Confirmation Positive H [...] information. Result confirmed by neutralization. Performed at: [facility] [place] [facility] [id number] Ems Director: Sharath Sims MD, Phone: [phone] B-Type Natriuretic Peptide 760.8 pg/mL H 0-100 05/31/2017 7:45pm 2016 5:27am Hepatitis A IgM Antibody Negative 06/01/2017 1:25pm 06/04/2017 8: 49am Hepatitis C Antibody 0.1 06/01/2017 1:25pm 06/04/2017 8:49am Reference Range: 0.0 - 0.9 Negative: < 0.8 Indeterminate: 0.8 - 0.9 Positive: > 0.9 The CDC recommends that a positive HCV antibody result be followed up with a HCV Nucleic Acid Amplification test (806134). Testing performed by: [address] [id number] Dir. Edd Worthington MD Prothrombin [...] CLEAR 06/23/2017 3:40am 06/23/2017 4:08am Urine Specific Fowler 1.015 1.010-1.025 06/23/2017 3:40am 2016 4:08am Urine [...] Screen NEGATIVE NEGATIVE 06/23/2017 2:40am 04/2017 3:29am Lactic Acid Level 9.5 MG/DL 4.5-19.8 09/03/2017 7:49am 09/03/2017 8: 21am Phosphorus Level 2.9 MG/DL 2.3-4.7 09/09/2017 6:05am 09/09/2017 6:52am Free Thyroxine 0.77 ng/dL L 0.9-1.8 09/03/2017 6:35am 09/03/2017 3:18pm Random Vancomycin Level 8.4 ug/mL 09/05/2017 4:14pm 09/05/2017 4: 51pm Hepatitis B Core IgM Antibody Negative Negative 09/04/2017 8:45am 7:42am Performed at: - [facility] [id number] Ems Director: Sharath Sims MD, Phone: [phone] White Blood Count 7.63 x10e3/uL 4.8-10.8 10/03/2017 7:00am 10/03/2017 7 :47am Red Blood Count 4.03 x10e6/uL # 3.6-5.1 10/03/2017 7:00am 10/03/2017 7: 47am Hemoglobin 12.4 g/dL # 12.0-16.0 10/03/2017 7:0010/03/2017 7:47am Hematocrit 35.7 % 34.2-44.1 10/03/2017 7:00am 10/03/2017 7:47am Mean Corpuscular Volume 88.6 fL # 81-99 10/03/2017 7:00am 10/03/2017 7: 47am Mean Corpuscular Hemoglobin 30.8 pg 28-32 10/03/2017 7:00am 10/03/2017 7:47am Mean Corpuscular Hemoglobin Concent 34.7 g/dL 31-35 10/03/2017 7:00am 10/03/2017 7:47am Red Cell Distribution Width 17.5 % H 11.7-14.4 10/03/2017 7:00am 2017 7:47am Platelet Count 78 x10e3/uL L 140-360 10/03/2017 7:00am 10/03/2017 7: 47am Neutrophils (%) (Auto) 70.2 % 38.7-80.0 10/03/2017 7:00am 10/03/2017 7: 47am Lymphocytes (%) (Auto) 21.5 % 18.0-39.1 10/03/2017 7:00am 10/03/2017 7: 47am Monocytes (%) (Auto) 3.4 % L 4.4-11.3 10/03/2017 7:00am 10/03/2017 7: 47am Eosinophils (%) (Auto) 3.9 % 0.0-6.0 10/03/2017 7:00am 10/03/2017 7: 47am Basophils (%) (Auto) 0.5 % 0.0-1.0 10/03/2017 7:00am 10/03/2017 7:47am IM GRANULOCYTES % 0.5 % 0.0-1.0 10/03/2017 7:00am 10/03/2017 7:47am Neutrophils # (Auto) 5.4 2.1-6.9 10/03/2017 7:00am 10/03/2017 7:47am Lymphocytes # (Auto) 1.6 1.0-3.2 10/03/2017 7:00am 10/03/2017 7:47am Monocytes # (Auto) 0.3 0.2-0.8 10/03/2017 7:00am 10/03/2017 7:47am Eosinophils # (Auto) 0.3 0.0-0.4 10/03/2017 7:00am 10/03/2017 7:47am Basophils # (Auto) 0.0 0.0-0.1 10/03/2017 7:00am 10/03/2017 7:47am Absolute Immature Granulocyte (auto 0.04 x10e3/uL 0-0.1 10/03/2017 7: 00am 10/03/2017 7:47am Differential Total Cells Counted 100 09/30/2017 3:10am 09/30/2017 4 :03am Neutrophils % (Manual) 75 % H 40-74 09/30/2017 3:10am 09/30/2017 4:03am Band Neutrophils % 15 % 09/30/2017 3:10am 09/30/2017 4:03am Lymphocytes % (Manual) 7 % L 19-48 09/30/2017 3:10am 09/30/2017 4:03am Monocytes % (Manual) 2 % L 3.4-9.0 09/30/2017 3:10am 09/30/2017 4:03am Eosinophils % (Manual) 1 % 0-7 09/30/2017 3:10am 09/30/2017 4:03am Platelet Estimate SLIGHTLY DECREASED 09/30/2017 3:10am 09/30/2017 4 :03am Platelet Morphology Comment NORMAL 09/30/2017 3:10am 09/30/2017 4: 03am Poikilocytosis SLIGHT 09/30/2017 3:10am 09/30/2017 4:03am Anisocytosis SLIG 09/30/2017 3:10am 09/30/2017 4:03am Sodium Level 140 mmol/L 136-145 10/05/2017 10:30am 10/05/2017 11:39am Potassium Level 3.5 mmol/L 3.5-5.1 10/05/2017 10:30am 10/05/2017 11: 39am Chloride Level 104 mmol/L 98-107 10/05/2017 10:30am 10/05/2017 11:39am Carbon Dioxide Level 30 mmol/L H 22-29 10/05/2017 10:30am 10/05/2017 11: 39am Anion Gap 9.5 mmol/L 8-16 10/05/2017 10:30am 10/05/2017 11:39am Blood Urea Nitrogen 9 mg/dL 7-26 10/05/2017 10:30am 10/05/2017 11:39am Creatinine 1.48 mg/dL H 0.57-1.11 10/05/2017 10:30am 10/05/2017 11:39am BUN/Creatinine Ratio 6 6-25 10/05/2017 10:30am 10/05/2017 11:39am Estimat Glomerular Filtration Rate 36 ML/MIN L 60- 10/05/2017 10:30am 11:39am Ranges were taken from the National Kidney Disease Education Program and the National Kid[employer] Foundation literature. Reference ranges: 60 or greater: Normal 16-59 (for 3 consecutive months): Chronic kidney disease 15 or less: Kidney failure Glucose Level 92 mg/dL 74-118 10/06/2017 12:00pm 10/06/2017 12:20pm Calcium Level 7.9 mg/dL L 8.4-10.2 10/05/2017 10:30am 10/05/2017 11: 39am Bedside Glucose 95 mg/dL 70-120 10/07/2017 3:11pm 10/07/2017 4:41pm Meter ID: [id number] Hemoglobin A1c Percent 4.3 % 4.0-7.0 09/30/2017 3:10am 09/30/2017 2: 28pm Total Bilirubin 0.3 mg/dL 0.2-1.2 10/02/2017 5:00am 10/02/2017 7:22am Aspartate Amino Transf (AST/SGOT) 26 IU/L 5-34 10/02/2017 5:00am 2017 7:22am Alanine Aminotransferase (ALT/SGPT) 38 IU/L 0-55 10/02/2017 5:00am 7:22am Total Protein 5.6 g/dL L 6.5-8.1 10/02/2017 5:00am 10/02/2017 7:22am Albumin 1.7 g/dL L 3.5-5.0 10/02/2017 5:00am 10/02/2017 7:22am Globulin 3.9 g/dL H 2.3-3.5 10/02/2017 5:00am 10/02/2017 7:22am Albumin/Globulin Ratio 0.4 L 0.8-2.0 10/02/2017 5:00am 10/02/2017 7: 22am Alkaline Phosphatase 122 IU/L 40-150 10/02/2017 5:00am 10/02/2017 7: 22am Creatine Kinase 47 IU/L 29-168 09/30/2017 7:08pm 09/30/2017 7:31pm Creatine Kinase MB 3.60 ng/mL 0-5.0 09/30/2017 7:08pm 09/30/2017 7: 38pm Troponin I 0.011 ng/mL 0-0.300 09/30/2017 7:08pm 09/30/2017 7:38pm Thyroid Stimulating Hormone (TSH) 4.483 uIU/mL 0.350-4.940 09/30/2017 11 :30am 09/30/2017 2:55pm Hepatitis B Surface Antibody, Quant 12.7 mIU/mL Immunity>9.9 09/30/2017 11:30am 10/01/2017 10:10am Status of Immunity Anti-HBs Level Inconsistent with Immunity 0.0 - 9.9 Consistent with Immunity >9.9 Hepatitis B Core Total Antibody Negative Negative 09/30/2017 11:30am 10/01/2017 10:10am Performed at: - [facility] [id number] Ems Director: Sharath Sims MD, Phone: [phone] Hepatitis B Surface Antigen Negative Negative 09/30/2017 11:30am 10:10am Clostridium Difficile Toxin A & B NEGATIVE NEGATIVE 10/03/2017 10: 30pm 10/04/2017 2:42pm Testing on stool aspirate specimens is outside wrong address clerk claims since specimen type not validated on this assay. Microbiology Results Procedure Source Organism/Result Collection Date/Time Result Date/Time Result Status Blood Culture Blood STAPH HOMINIS SUB HOMINIS 06/23/2017 2:40am 2017 5:56am Final Wound Culture Face STAPHYLOCOCCUS AUREUS-MRSA 09/07/2017 8:29am 2017 6:20am Final Blood Culture Blood NO GROWTH AFTER 5 DAYS, FINAL REPORT 09/30/2017 6:28am 10/05/2017 7:29am Final Procedures Procedure Status Date Provider(s) Unsched dialysis ESRD pt hos Completed 02/03/17 LINDA MASTERSON Unsched dialysis ESRD pt hos Completed 06/01/17 LINDA MASTERSON Incision and drainage Completed 09/07/17 DOTTIE HERNANDEZ MD X-ray of chest, two views Active 05/31/17 EDA SAVAGE MD Computed tomography of brain without radiopaque contrast Active 06/23/17 EDA SAVAGE MD Computed tomography of maxillofacial area with contrast Active 09/04/17 DOTTIE HERNANDEZ MD Computed tomography of chest without contrast Active 09/30/17 JOSEY PINK MD Encounters Encounter Location Arrival/Admit Date Discharge/Depart Date Attending Provider Discharged Inpatient [facility] 09/30/17 6:40am 10/07/17 5:35pm EBONY ABREU MD Discharged Inpatient [facility] [...]
[2017-10-10 10:58] LABS: BASOPHILS # (AUTO) 0.1 (0.0-0.1); BASOPHILS % 1.7 % (0.0-1.0); EOSINOPHILS # (AUTO) 0.5 (0.0-0.4); EOSINOPHILS % 5.5 % (0.0-6.0); HEMOGLOBIN 13.5 g/dL (12.0-16.0); LYMPHOCYTES # (AUTO) 1.8 (1.0-3.2); LYMPHOCYTES % 21.4 % (18.0-39.1); MEAN CORPUSCULAR HEMOGLOBIN 30.1 pg (28-32); MEAN CORPUSCULAR HGB CONC 34.6 g/dL (31-35); MEAN CORPUSCULAR VOLUME 86.9 fL (81-99); MONOCYTES # (AUTO) 0.4 (0.2-0.8); MONOCYTES % 4.2 % (4.4-11.3); NEUTROPHILS # (AUTO) 5.6 (2.1-6.9); PLATELET COUNT 90 x10e3/uL (140-360); RED BLOOD COUNT 4.49 x10e6/uL (3.6-5.1)
[2017-10-10 11:10] LABS: INR 1.24; PROTHROMBIN TIME 14.7 seconds (11.9-14.5)
[2017-10-10] MEDS ORDERED: CLONIDINE HCL 0.2 MG TAB PO STA (11:10)
[2017-10-10 11:11] LABS: PARTIAL THROMBOPLASTIN TIME 30.9 seconds (23.8-35.5)
--- NOTE | 2017-10-10 11:12 | Diagnostic Imaging Report ---
PROCEDURE: A single AP view of the chest. COMPARISON: [facility], DX, CHEST SINGLE (PORTABLE), 10/03/2017, 10:41. INDICATIONS: LOW BLOOD SUGAR FINDINGS: Lines/tubes: Stable right internal jugular tunneled hemodialysis catheter. Previously identified left IJ central line has been removed. Lungs: Focal increased density in the right lung base may represent atelectasis versus evolving pneumonia. Pleura: There is no pleural effusion or pneumothorax. Heart and mediastinum: The heart and the mediastinum are unremarkable. Calcification and tortuosity of the thoracic aorta. Bones: No acute bony abnormality. IMPRESSION: Focal left basilar opacity as described above. Saad Mckee D.O. Dictated by: Saad Mckee D.O. on 10/10/2017 at 11:12 Electronically approved by: Saad Mckee D.O. on 10/10/2017 at 11:12
[2017-10-10 11:17] LABS: ALBUMIN 1.9 g/dL (3.5-5.0); ALBUMIN/GLOBULIN RATIO 0.5 (0.8-2.0); ANION GAP 9.6 mmol/L (8-16); CALCIUM 7.9 mg/dL (8.4-10.2); CREATININE, SERUM 2.89 mg/dL (0.57-1.11); MAGNESIUM 1.7 MG/DL (1.3-2.1); POTASSIUM 3.6 mmol/L (3.5-5.1)
[2017-10-10 11:18] LABS: B-TYPE NATRIURETIC PEPTIDE2 2131.3 pg/mL (0-100)
[2017-10-10 11:24] LABS: CREATINE KINASE MB 2.5 ng/mL (0-5.0)
[2017-10-10 11:41] LABS: BILIRUBIN,URINE NEGATIVE (NEGATIVE); CLARITY,URINE CLOUDY (CLEAR); COLOR,URINE AMBER (YELLOW); KETONES,URINE NEGATIVE (NEGATIVE); LEUKOCYTE ESTERASE ,URINE 2+ (NEGATIVE); NITRITE,URINE NEGATIVE (NEGATIVE); PROTEIN,URINE DIPSTICK 3+ (NEGATIVE); URINE UROBILINOGEN 0.2 mg/dL (0.2 - 1)
[2017-10-10 12:00] LABS: BACTERIA,URINE MANY /HPF; EPITHELIAL CELLS,URINE MODERATE /LPF; RBC,URINE >50 /HPF (0-5); WBC,URINE (MAN) >50 /HPF (0-5)
[2017-10-10] MEDS ORDERED: LEVOFLOXACIN 500MG/D5W 100ML IV SCH (12:45)
[2017-10-10] MEDS ORDERED: LEVOFLOXACIN 500MG/D5W 100ML 100 ML IV SCH (13:00)
[2017-10-10] MEDS ORDERED: DEXTROSE 50% SYRINGE 50 ML IV PRN (13:30)
--- OUTSIDE RECORDS SUMMARY | 2017-10-10 13:35 | XMS REPORT | Clinical Summary ---
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 She is doing well with normal liver enzymes. She is on low dose prograf for immunosuppression. Her dose has been changed and she is on 3/3 daily. Full labs pending today for dosing. DM (diabetes mellitus) (FORMERLY [facility]) 04/21/2013 Last Assessment & Plan: Poorly controlled [...] Date Type Specialty Care Team Description 07/27/2017 [facility] General Internal Medicine Gee Crenshaw MD Hypoglycemia [...] stage renal disease) on dialysis (HCC) 06/23/2017 [facility] Cardiology Chad Henderson MD Acute - Encounter Gisele Ponce MD encephalopathy;Bradycardi 06/28/2017 a;Hypoglycemia;Hypothyroi dism, unspecified type;Status post liver transplantation (HCC);Acute cystitis without hematuria;Adrenal insufficiency (HCC);Severe sepsis (HCC);Type 2 diabetes mellitus treated with insulin (HCC);ESRD (end stage renal disease) (HCC);Essential hypertension;Immunosuppre ssion (HCC);VRE (vancomycin-resistant Enterococci) infection 06/23/2017 Telephone Critical Care Medicine Chad Henderson MD Advice Only 01/26/2017 [facility] General Internal Medicine Michele Ryan Severe sepsis (HCC);Acute - Encounter MD Kali encephalopathy;Hypoglycem 01/29/2017 Iorn Malik;Type 2 diabetes MD Antwon mellitus with [...] Kristen May RN Medication Dose Change 10/15/2016 [facility] Radiology Palma Varner MD Dilated bile duct Encounter 10/15/2016 Follow-Up Transplant Hepatology Palma Varner MD Status post liver transplantation (Primary Dx);Immunosuppression (HCC);Dilated bile duct;Screening for malignant neoplasm;Type 2 diabetes mellitus with other specified complication (HCC);Elevated serum creatinine 10/15/2016 [facility] Radiology Palma Varner MD Status post liver Encounter transplantation (HCC);Encounter for long-term (current) use of high-risk medication;Encounter for therapeutic drug monitoring;Disorder of magnesium metabolism 10/15/2016 [facility] Palma Varner MD Status post liver Encounter [...] Taken Blood Pressure 158/77 08/01/2017 4:00 PM ENVIRONMENTAL EPIDEMIOLOGIST Pulse 68 08/01/2017 4:00 PM ENVIRONMENTAL EPIDEMIOLOGIST Temperature 35.7 C (96.3 F) 08/01/2017 4:00 PM ENVIRONMENTAL EPIDEMIOLOGIST Respiratory Rate 18 08/01/2017 4:00 PM ENVIRONMENTAL EPIDEMIOLOGIST Oxygen Saturation 100% 08/01/2017 4:00 PM ENVIRONMENTAL EPIDEMIOLOGIST Inhaled Oxygen - - Concentration Weight 41.7 kg (92 lb) 07/26/2017 3:53 PM ENVIRONMENTAL EPIDEMIOLOGIST Height 157.5 cm (5' 2") 07/26/2017 3:53 PM ENVIRONMENTAL EPIDEMIOLOGIST Body Mass Index 16.83 07/26/2017 3:53 PM ENVIRONMENTAL EPIDEMIOLOGIST Plan of Treatment Health Maintenance Due Date [...] Range POC-Glucose Meter 114 (H)Comment: TESTED AT [address] 70 - 110 mg /dL [place] [address] Specimen Performing [place] [address] * Tacrolimus level (08/01/2017 6:12 AM) Only the most recent of 14 results within the time period is included. Component Value Ref Range Tacrolimus Lvl 7.2 (L) 10.0 - 20.0 ng/mL Specimen Performing Laboratory Blood - Arm, Right [address] [address] * Hemodialysis (07/31/2017 1:21 PM) Elías Byrne [...] period is included. Specimen Performing Laboratory Blood [address] [address] * Calcium, Ionized (07/31/2017 5:49 AM) Only the most recent of 6 results within the time period is included. Component Value Ref Range Calcium, Ion 0.94 (L) 1.12 - 1.27 mmol/L pH, Blood 7.43 Specimen Performing Laboratory Blood [address] [address] * CBC with platelet count + automated [...] 1 % Granulocytes-Relative Specimen Performing Laboratory Blood [address] [address] * CBC with platelet count + automated diff (07/31/2017 5:49 AM) Only the most recent of 14 results within the time period is included. Specimen Performing Laboratory Blood Narrative The following orders were created for panel order CBC with platelet count + automated diff. Procedure Abnormality Status --------- - ------ CBC with platelet count ...[[id number]]AbnormalFinal result Manual Differential[[id number]] Final result Please view results for these tests on the individual orders. * Phosphorus (07/31/2017 5:49 AM) Only the most recent of 11 results within the time period is included. Component Value Ref Range Phosphorus 4.3 2.3 - 4.7 mg/dL Specimen Performing Laboratory Blood [address] [address] * Magnesium (07/31/2017 5:49 AM) Only the most recent of 13 results within the time period is included. Component Value Ref Range Magnesium 1.7 1.6 - 2.6 mg/dL Specimen Performing Laboratory Blood [address] [address] * Hepatic function panel (07/31/2017 5:49 AM) [...] - 55 U/L Specimen Performing Laboratory Blood [address] [address] * Basic Metabolic Panel (07/31/2017 5:49 AM) [...] FOR DIALYSIS PATIENTS. Specimen Performing Laboratory Blood [address] [address] * T4, free (07/29/2017 7:00 AM) Only the most recent of 5 results within the time period is included. Component Value Ref Range Free T4 0.90 0.70 - 1.48 ng/dL Specimen Performing Laboratory Blood - Arm, [place] [address] * TSH/Free T4 If Indicated (07/28/2017 3:46 PM) Only the most recent of 2 results within the time period is included. Component Value Ref Range TSH 15.97 (H) 0.35 - 4.94 uIU/mL Specimen Performing Laboratory Blood - Arm, [place] [address] * Hepatitis B surface antigen (07/28/2017 3:46 PM) Only the most recent of 4 results within the time period is included. Component Value Ref Range hepatitis B Surface Ag Nonreactive Nonreactive Specimen Performing Laboratory Blood - Arm, [place] [address] * Clostridium difficile Toxin PCR (07/27/2017 10:49 AM) Only the most recent of 2 results within the time period is included. Component Value Ref Range C.Diff Toxin, PCR Detected (A) Not Detected Specimen Performing Laboratory Stool [address] [address] Narrative This qualitative real-time polymerase chain reaction [...] - 6.1 % Specimen Performing Laboratory Blood [address] [address] * Urinalysis Microscopic Only (07/27/2017 10:17 AM) Component Value Ref Range RBC, UA 2 /HPF WBC, UA 119 /HPF Bacteria, UA Many Squam Epithel, UA 5 /HPF Specimen Performing Laboratory Urine - Urine, [facility] [address] [place] [address] * Urinalysis with Microscopic If Indicated (07/27/2017 10:17 AM) Component Value Ref Range Color, UA Yellow Clarity, UA Hazy Specific [place], UA 1.009 1.001 - 1.035 pH, UA 6.5 5.0 - 8.0 Protein, UA 300 mg/dL (A) Negative Glucose, UA Negative Negative Ketones, UA Negative Negative Bilirubin, UA Negative Negative Blood, UA Small (A) Negative Nitrite, UA Negative Negative Leukocytes, UA Large (A) Negative Urobilinogen, UA 0.2 0.2 - 1.0 mg/dL Specimen Source Specimen Performing Laboratory Urine - Urine, [facility] [address] [place] [address] * Influenza A H1N1 PCR (07/27/2017 2:52 AM) Only the most recent of 2 results within the time period is included. Component Value Ref Range Influenza A RNA Not Detected Not Detected, Inconclusive Novel H1N1 RNA Not Detected Not Detected, Inconclusive Specimen Performing Laboratory Nasal - Nasopharyngeal [facility] Swab [address] [place] [address] Narrative These assays were performed by real-time RT-PCR (pattern drum maker-PCR) utilizing fluorogenic hydrolysis probe technology for the detection of human Influenza A viruses and the differential detection of novel H1N1 Influenza virus in respiratory specimens. The test is composed of (1) an RNA extraction from patient specimen, and (2) pattern drum maker-PCR amplification and detection with human Influenza A and novel [id number] primers and probes. A well-conserved region of [...] and its performance characteristics determined by the [facility] Pathology Department, Section of Molecular Pathology.It has not been cleared or approved by the U.S. Food and Drug Administration (FDA).Since FDA approval is not required for clinical use of the test, validation was done as required by The Clinical Laboratory Amendments of 1988. These assays were performed by real-time RT-PCR (pattern drum maker-PCR) utilizing fluorogenic hydrolysis probe technology for the detection of human Influenza A viruses and the differential detection of novel H1N1 Influenza virus in respiratory specimens. The test is composed of (1) an RNA extraction from patient specimen, and (2) pattern drum maker-PCR amplification and detection with human Influenza A and novel [id number] primers and probes. A well-conserved region of [...] and its performance characteristics determined by the [facility] Pathology Department, Section of Molecular Pathology.It has [...] MEDICAL [facility] [address] [place] [address] Narrative RECOMMENDED COUMADIN/WARFARIN INR THERAPY RANGES STANDARD [...] Inconclusive Specimen Performing Laboratory Nasal - Nasopharyngeal [facility] Swab [address] [place] [address] * Lipase (07/27/2017 2:52 AM) Only the most recent of 2 results within the time period is included. Component Value Ref Range Lipase <4 (L) 8 - 78 U/L Specimen Performing Laboratory Blood [address] [address] * XR femur right AP and lateral [...] MD Report Verified Date/Time:07/26/2017 23:34:07 Reading Location: [address] Consult Reading Room Procedure Note Interface, External Ris In - 07/26/2017 11:36 PM ENVIRONMENTAL EPIDEMIOLOGIST FINAL REPORT Right femur, two views. INDICATION: [...] Report Verified Date/Time: 07/26/2017 23:34:07 Reading Location: [facility] B1 C013W Consult Reading Room * EKG-SCANNED [...] WBC Specimen Performing Laboratory Blood - Arm, [address] [address] * TSH (06/28/2017 5:54 AM) Only the most recent of 2 results within the time period is included. Component Value Ref Range TSH 4.76 0.35 - 4.94 uIU/mL Specimen Performing Laboratory Blood - Arm, [address] [address] * Comprehensive metabolic panel (06/28/2017 5:54 AM) [...] Specimen Performing Laboratory Blood - Arm, Left [address] [address] * Vancomycin level, random (06/24/2017 4:37 AM) Only the most recent of 3 results within the time period is included. Component Value Ref Range Vancomycin Rm 16.5 ug/mL Specimen Performing Laboratory Blood [address] [address] Narrative Reference Range: No Normals * ECG 12 lead (06/23/2017 11:42 AM) Specimen Performing Laboratory GE MUSE Narrative Ventricular Rate 55 BPM Atrial Rate 55 BPM P-R Interval 128 ms QRS Duration 74 ms Q-T Interval 552 ms QTC Calculation(Bazett) 528 ms P [place] 77 degrees R [place] -1 degrees T [place] 0 degrees Sinus bradycardia Septal infarct (cited on or before 23-JUN-2017) Prolonged QT Abnormal ECG When compared with ECG of 31-JUL-2012 20:36, Nonspecific T wave abnormality now evident in Inferior leads QT has lengthened Confirmed by MD PLUMMER JOSEPH P ([id number]) on 06/24/2017 8:28:24 AM Procedure Note Interface, External Ris In - 06/24/2017 8:28 AM ENVIRONMENTAL EPIDEMIOLOGIST Ventricular Rate 55 BPM Atrial Rate 55 BPM P-R Interval 128 ms QRS Duration 74 ms Q-T Interval 552 ms QTC Calculation(Bazett) 528 ms P [place] 77 degrees R [place] -1 degrees T [place] 0 degrees Sinus bradycardia Septal infarct (cited [...] Report Verified Date/Time:06/23/2017 11:16:57 Reading Location: [facility] C013Y CT Body Reading Room Procedure Note Interface, External Ris In - 06/23/2017 11:19 AM ENVIRONMENTAL EPIDEMIOLOGIST FINAL REPORT Ultrasound of the Abdomen and [...] 11:16:57 Reading Location: [facility] B1 C013Y CT Body Reading Room * Blood culture (06/23/2017 9:24 AM) Only the most recent of 3 results within the time period is included. Component Value Ref Range Result No growth in 5 days Specimen Performing Laboratory Blood - Arm, Left [facility] [address] [address] * Troponin I (06/23/2017 9:23 AM) Only the most recent of 2 results within the time period is included. Component Value Ref Range Troponin I <0.01 0.00 - 0.03 ng/mL Specimen Performing Laboratory Blood - Arm, [address] [address] Narrative Troponin I (TnI) levels must be [...] mmol/L Specimen Performing Laboratory Blood - Arm, [address] [address] Narrative Effective 11/16/2015: Units/Reference Range Change New: 0.5-2.2 mmol/LPrevious: 5-20 mg/dL * Creatine Kinase (CK), Total and MB (06/23/2017 9:23 AM) Component Value Ref Range Total CK 29 29 - 200 U/L CK-MB 3.5 0.0 - 6.6 ng/mL MB Relative Index 12.1 % Specimen Performing Laboratory Blood - Arm, [address] [address] Narrative CK-MB Reference Range: <6.7Normal 6.7-10.0Borderline >10.0 Abnormal * Ammonia (06/23/2017 9:23 AM) Component Value Ref Range Ammonia 28 18 - 72 mol/L Specimen Performing Laboratory Blood - Arm, [address] [address] * Urinalysis w/Microscopic (06/23/2017 9:11 AM) Only the most recent of 2 results within the time period is included. Component Value Ref Range Color, UA Yellow Clarity, UA Hazy Specific [place], UA 1.006 1.001 - 1.035 pH, UA [...] Mann Specimen Performing Laboratory Urine - Urine, [address] [address] * Urine culture (06/23/2017 9:11 AM) Only the most recent of 2 results within the time period is included. Component Value Ref Range Result Result 10-19,000 col/mL Vancomycin resistant Enterococcus species (A) Specimen Performing Laboratory Urine - Urine, [address] [address] Organism Antibiotic Method Susceptibility Vancomycin resistant Ampicillin [...] ug/dL Specimen Performing Laboratory Blood - Arm, [address] [address] * Prothrombin time/INR (06/23/2017 9:10 AM) Only the most recent of 5 results within the time period is included. Component Value Ref Range Protime 15.3 (H) 11.7 - 14.7 seconds INR 1.2 <=5.9 Specimen Performing Laboratory Blood - Arm, [address] [address] Narrative RECOMMENDED COUMADIN/WARFARIN INR THERAPY RANGES STANDARD DOSE: 2.0 - 3.0 Includes: PROPHYLAXIS for venous thrombosis, systemic embolization; TREATMENT for venous thrombosis and/or pulmonary embolus. HIGH RISK: Target INR is 2.5-3.5 for patients with mechanical heart valves. * Fibrinogen (06/23/2017 9:10 AM) Component Value Ref Range Fibrinogen 297 225 - 434 mg/dl Specimen Performing Laboratory Blood - Arm, Right [address] [address] * T3, free (06/23/2017 9:10 AM) Component Value Ref Range T3, Free 1.26 (L) 1.71 - 3.71 pg/mL Specimen Performing Laboratory Blood - Arm, Right [address] [address] * Blood gas, arterial (06/23/2017 9:08 AM) [...] Specimen Performing Laboratory Blood, Arterial - Arm, [facility] Right [address] [place] [address] * XR chest 1 view portable / [...] MD Report Verified Date/Time:06/23/2017 09:32:04 Reading Location: [address] Transitional Reading Room Procedure Note Interface, External Ris In - 06/23/2017 9:34 AM ENVIRONMENTAL EPIDEMIOLOGIST FINAL REPORT HISTORY : myxedema, sepsis. Comparison: [...] Verified Date/Time: 06/23/2017 09:32:04 Reading Location: [facility] C0[facility] Transitional Reading Room * Prepare Leuko-Red RBC (01/29/2017 11:54 PM) Component Value Ref Range CROSSMATCH COMPATIBLE Unit ABO B Pos UNIT NUMBER [id number] Status TRANSFUSED Blood Bank Product RED BLOOD CELLS PRODUCT CODE [id number] Specimen Performing Laboratory Other [place] * Hepatitis B PCR, quantitative (01/29/2017 11:15 AM) Component Value Ref Range HBV PCR, Quantitative HBV DNA not detected HBV DNA not detected Specimen Performing Laboratory Blood [address] [address] Narrative This test uses a Real-Time Polymerase Chain Reaction (RT-PCR) methodology and was performed using [employer]OH[employer] AmpliPrep/SOHA TaqMan HBV Test, v2.0 ([employer] Reportable range for this assay [...] Antigen Neutralization testing. Specimen Performing Laboratory Blood [address] [address] * Hepatitis B core antibody, IgM (01/29/2017 11:15 AM) Component Value Ref Range Hep B C IgM Nonreactive Nonreactive [place] [address] * Hepatitis B core antibody, total (01/29/2017 11:15 AM) Component Value Ref Range Hep B Core Total Ab Nonreactive Nonreactive [place] [address] * Hepatitis B surface antibody (01/29/2017 11:15 AM) Component Value Ref Range Hep B S Ab <8.0 <8.0 mIU/mL Specimen Performing Laboratory Blood [address] [address] * Transfuse Leuko-Red RBC (01/29/2017 5:46 AM) Only the most recent of 2 results within the time period is included. * CMV PCR, quantitative (01/29/2017 5:21 AM) Component Value Ref Range CMV DNA Viral Load Negative or below the linear range of the assay (<375 copies/mL) Specimen Performing [place] [address] Narrative Cytomegalovirus (CMV) infection can cause significant [...] and its performance characteristics determined by the [facility] Pathology Department, Section of Molecular Pathology. It [...] Performing Laboratory Blood - Arm, Right [facility] [address] [place] [address], [place] [address] Narrative ACTH STIMULATION TEST INTERPRETATION GUIDELINES (Synonyms: [...] Specimen Performing Laboratory Blood - Arm, Right [address] [address] Narrative ACTH STIMULATION TEST INTERPRETATION GUIDELINES (Synonyms: [...] Specimen Performing Laboratory Blood - Arm, [place] [address] Narrative ACTH STIMULATION TEST INTERPRETATION GUIDELINES (Synonyms: [...] study by Mirella et al ( DOREEN 2000,283(8):0824-85), the ACTH Stimulation Test provides important prognostic [...] Procedure Abnormality Status --------- - ------ Cortisol, baseline[[id number]] Final result Cortisol, 30 minutes[[id number]] Final result Cortisol, 60 minutes[[id number]] Final result Please view results for these tests on the individual orders. * 2D Echo W/Doppler (Sepsis Protocol) (01/27/2017 3:16 PM) Component Value Ref Range Ejection Fraction LV EF 72.3 % (55-75) Index 57.8 %/m2 Specimen Performing Laboratory [facility] Echocardiography Laboratory [address] [place] [address] Voice:[phone] Transthoracic Echocardiogram Pat.Name:JULIOCESAR TERRIALEIDA GUAADRRAMA Pat.ID:[id number] .Date: 01/27/2017 Refer.MD:MICHELE RYAN Exam Time: 3:16:00 PMStudy Type:Echo Complete Height:62inWeight:74lb BSA: 1.25 m2 DOBAge:1954,61Y Sex: FEMALEBP:90 /46 HR:71 bpmSonogrphr: Michelle Sigala [facility] Pat. Stat.:Inpatient Room:72 Reason for Study:Sepsis Protocol [...] ml/m2 LA Area 15.6 cm2(8.8-23.4) Parasternal [place] Ao An2 cm (1.4-2.6) LV%fs 33.8 %(25-46) Ao Rtd2.52 cmLVPWd 1.06 cm IVSd1.21 cm LA Ds 3.72 cm (2.3-3.8) LVIDd 3.72 cm (4.3-5.1)* LV Wmn 1.13 cm LVIDs 2.47 cm (2-4) DOPPLER LVOT LVOT For Flow [id number] cm/s (70-110)* LVOT CO 5.77 l/min LVOT [...] - 01/28/2017 12:58 PM CDT Echocardiography Laboratory [address] [place] [address] Voice: [phone] Transthoracic Echocardiogram Pat.Name: TERRI GANDARA Pat.ID: [id number] .Date: 01/27/2017 Refer.MD: MICHELE RYAN Exam Time: 3:16:00 PM Study Type:Echo Complete Height: 62in Weight: 74lb BSA: 1.25 m2 Age: 11 1955,61Y Sex: FEMALE BP: 90/46 HR: 71 bpm Sonogrphr: Michelle Sigala [facility] Pat. Stat.:Inpatient Room: [facility] Reason for Study:Sepsis Protocol History / [...] LA Area 15.6 cm2 (8.8-23.4) Parasternal [place] Ao An 2 cm (1.4-2.6) LV%fs 33.8 [...] PM Tato Plummer M.D. * Respiratory Panel [facility] (01/27/2017 2:43 PM) Component Value Ref Range [...] Inconclusive Specimen Performing Laboratory Nasopharyngeal - Nasal, [facility] Right [address] [place] [address] * Vitamin B12 and Folate (01/27/2017 5:29 AM) Component Value Ref Range Vitamin B12 480 213 - 816 pg/mL Folate 6.3 (L) >=7.0 ng/mL Specimen Performing Laboratory Blood - Arm, [address] [address] Narrative Effective 06/01/2014: Folate Reference Range Change New: >=7.0Previous: >=5.4 * Iron, TIBC, % sat. (without ferritin) (01/27/2017 5:29 AM) Component Value Ref Range Iron 65 40 - 160 ug/dL TIBC 209 (L) 250 - 450 ug/dL Iron % Saturation 31 20 - 55 % Specimen Performing Laboratory Blood - Arm, [address] [address] * Ferritin (01/27/2017 5:29 AM) Component Value Ref Range Ferritin 670 (H) 5 - 275 ng/mL Specimen Performing Laboratory Blood - Arm, Right [facility] [address] Narrative Effective 06/01/2014: Reference Range Change New: Male 5Previous: Male [address] Female 5Female * Prepare RBC (01/27/2017 1:01 AM) Component Value Ref Range Status CANCELED Blood Bank Product RED BLOOD CELLS Unit ABO O Pos UNIT NUMBER [id number] Status CANCELED Blood Bank Product RED BLOOD CELLS PRODUCT CODE [id number] Unit ABO O Pos UNIT NUMBER [id number] Status WORK IN PROGRESS Blood Bank Product RED BLOOD CELLS PRODUCT CODE [id number] Specimen Performing Laboratory [place] * Type and screen, automated (01/27/2017 12:35 AM) Component Value Ref Range ABO/RH AUTOMATED (BEAKER) B POSITIVE Ab Scrn NEGATIVE Specimen Performing [place] [address] * Ketones, blood (01/27/2017 12:35 AM) Component Value Ref Range Ketones, Blood 0.0 <0.4 mmol/L Specimen Performing Laboratory Blood [address] [address] * MRI abdomen without contrast (10/15/2016 3:14 [...] MD Report Verified Date/Time:10/15/2016 15:39:30 Reading Location: [address] Radiology Reading Room Procedure Note Interface, [...] Report Verified Date/Time: 10/15/2016 15:39:30 Reading Location: [address] Radiology Reading Room * US abdominal with doppler (10/15/2016 10:34 AM) Specimen Performing Laboratory [place] Narrative FINAL REPORT HISTORY : Liver transplant [...] MD Report Verified Date/Time:10/15/2016 11:19:07 Reading Location: [address] Radiology Reading Room Procedure Note Interface, [...] Report Verified Date/Time: 10/15/2016 11:19:07 Reading Location: [address] Radiology Reading Room * Bilirubin, direct (10/15/2016 8:40 AM) Component Value Ref Range Bilirubin, Direct 0.2 0.1 - 0.5 mg/dL Specimen Performing Laboratory Blood [address] [address] * Lipid panel (10/15/2016 8:40 AM) Component Value Ref Range Triglycerides 63 mg/dL Cholesterol 124 mg/dL HDL 34 mg/dL LDL Calculated 77 mg/dL Specimen Performing Laboratory Blood [address] [address] Narrative Triglyceride Reference Range: Low Risk <150 [id number] High Risk 200-499 Very High Risk>=500 Cholesterol Reference Range: Low Risk <200 [id number] High Risk>240 HDL Cholesterol Reference Range: Low Risk >=60 High Risk <40 LDL Cholesterol Reference Range: Optimal<100 Near [id number] Very High >=190 * XR chest 2 [...] MD Report Verified Date/Time:10/15/2016 08:43:36 Reading Location: [address] Radiology Reading Room Procedure Note Interface, [...] Report Verified Date/Time: 10/15/2016 08:43:36 Reading Location: [address] Radiology Reading Room after 10/09/2016
[2017-10-10] MEDS ORDERED: METHYLPREDNISOLONE SOD SUCC 125 MG/2ML VIAL IV SCH (14:00)
[2017-10-10 14:09] VITALS: BP 195/107
[2017-10-10] MEDS ORDERED: OYST-CAL-D 500MG TABLET PO SCH (15:00)
[2017-10-10] MEDS ORDERED: ALBUTEROL/IPRATROPIUM 3 ML NEB NEB SCH (15:00)
[2017-10-10] MEDS: NIFEDIPINE CR 30 MG TAB PO SCH ×2 (15:30→21:37)
[2017-10-10] MEDS ORDERED: HEPARIN SOD (PORCINE) 1000 UNIT/ML SDV IV PRN (16:00)
[2017-10-10] MEDS ORDERED: SODIUM CHLORIDE 0.9% 1000ML 1,000 ML IV PRN (16:00)
[2017-10-10] MEDS: INSULIN REGULAR, HUMAN 100 UNIT/1 ML 3ML VIAL SQ SCH ×2 (16:30→21:38)
[2017-10-10] MEDS ORDERED: FLUDROCORTISONE ACETATE 0.1 MG TAB PO SCH (17:00)
[2017-10-10] MEDS ORDERED: TACROLIMUS 1 MG CAP PO SCH (17:00)
[2017-10-10] MEDS: DULOXETINE HCL 30 MG DELAYED RELEASE PO SCH (17:15)
--- NOTE | 2017-10-10 18:28 | History and Physical ---
CHIEF COMPLAINT: The patient is drowsy with severely low blood sugar early this morning at [facility]. HISTORY OF PRESENT ILLNESS: A 62-year-old white female with a past medical history of multiple medical problems with recurrent hospital admissions for same problems was found to be lethargic this morning with a sugar of 19 at the senior care. The patient was given intramuscular glucagon, oral sugar, but the blood sugar was not coming up. Hence, EMS was called. The patient was sent to the ER. In the emergency room, the patient was seen by the emergency room doctor and admitted for hypoglycemia with uncontrolled hypertension. The patient had missed hemodialysis yesterday. At present, the patient is lying comfortably in bed. No apparent distress. No chest pain. No shortness of breath. No nausea, vomiting or diarrhea. No abdominal pain or loss of consciousness. No . No hematemesis. No hematuria. No dysuria. No fever. No cough. No witnessed seizures. PAST MEDICAL HISTORY 1. Hypertension. 2. Diabetes mellitus. 3. Liver cirrhosis, status post liver transplant. 4. End-stage renal disease, on hemodialysis. 5. CHF. 6. Chronic back pain. 7. Rochester's disease. PAST SURGICAL HISTORY 1. Cholecystectomy. 2. Hysterectomy. 3. Liver transplant. 4. Appendectomy. ALLERGIES: NO KNOWN DRUG ALLERGIES. SOCIAL HISTORY: No smoking. No alcohol. alf resident. FAMILY HISTORY: Unremarkable. REVIEW OF SYSTEMS: As per HPI. PHYSICAL EXAMINATION GENERAL: The patient is alert and oriented times 3. No apparent distress. Laying in bed. Getting hemodialysis. The patient is cachectic. Temporal muscle wasting. Failure to thrive. VITALS: Temperature is 97, pulse 60 per minute, respirations 16 per minute, blood pressure is 195/90. HEENT: No cyanosis. No icterus. No pallor. Normocephalic and atraumatic. PERRLA. NECK: Soft and supple. No JVD or carotid bruits. LUNGS: Air entry bilaterally. HEART: S1 and S2 normal. ABDOMEN: Soft and nontender. Normal bowel sounds. 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 NEUROLOGICAL: No focal deficit. LABS: White count 8.29, [id number], hematocrit 39, and platelets 90,000. Sodium 139, potassium 3.6, chloride 105, bicarb 28, BUN 27, creatinine 2.89, glucose 116. Magnesium 1.7. AST 35, ALT 24. BNP 2131. Chest x-ray with focal left basilar opacity. ASSESSMENT 1. Recurrent hypoglycemia. 2. Adult failure to thrive. 3. Hypertension, uncontrolled. 4. History of diabetes mellitus. 5. End-stage renal disease. 6. Status post liver transplant. PLAN: Admit the patient to [facility]. The patient is getting hemodialysis as the patient missed hemodialysis yesterday. Accu-Cheks q.a.c. and at night with insulin coverage. Blood sugar right now is 109. Renal consultation with Dr. Su. Endocrine consultation with Dr. Diaz. I had a long discussion with the patient and son at bedside in detail. The patient has poor oral intake, adult failure to thrive, and hence will evaluate the patient for PEG tube placement. GI consultation with Dr. Todd. Will continue senior care medications. Further care and treatment for the patient while in the hospital. Job#: [id number] LONG
[2017-10-10 21:00] VITALS: BP 181/94
[2017-10-10 21:33] LABS: CREATINE KINASE MB 3.9 ng/mL (0-5.0)
[2017-10-10] MEDS: TACROLIMUS 1 MG CAP PO SCH (21:37)
[2017-10-11] VITALS (7 sets, daily range): BP systolic 125–160; BP diastolic 78–86
[2017-10-11] MEDS: CLONIDINE HCL 0.1 MG TAB PO PRN (00:57)
[2017-10-11] MEDS ORDERED: LEVOTHYROXINE SODIUM 25 MCG TABLET PO SCH ×2 (06:00)
[2017-10-11] MEDS: TACROLIMUS 1 MG CAP PO SCH ×3 (06:00→21:31)
[2017-10-11] MEDS ORDERED: DEXTROSE 10% 1,000 ML IV ONE (06:03)
[2017-10-11] MEDS: LEVOTHYROXINE SODIUM 75 MCG TAB PO SCH (06:28)
[2017-10-11] MEDS: LEVOTHYROXINE SODIUM 100 MCG TAB PO SCH (06:28)
[2017-10-11 06:54] LABS: BASOPHILS # (AUTO) 0.1 (0.0-0.1); BASOPHILS % 2.2 % (0.0-1.0); EOSINOPHILS # (AUTO) 0.3 (0.0-0.4); EOSINOPHILS % 6.4 % (0.0-6.0); HEMATOCRIT 34.2 % (34.2-44.1); LYMPHOCYTES # (AUTO) 1.1 (1.0-3.2); LYMPHOCYTES % 26.5 % (18.0-39.1); MEAN CORPUSCULAR HGB CONC 34.2 g/dL (31-35); MEAN CORPUSCULAR VOLUME 87.7 fL (81-99); MONOCYTES # (AUTO) 0.2 (0.2-0.8); MONOCYTES % 5.6 % (4.4-11.3); NEUTROPHILS # (AUTO) 2.4 (2.1-6.9); NEUTROPHILS % 59.3 % (38.7-80.0); PLATELET COUNT 82 x10e3/uL (140-360); RED CELL DISTRIBUTION WIDTH 16.5 % (11.7-14.4)
[2017-10-11 06:59] LABS: HEMOGLOBIN 11.7 g/dL (12.0-16.0)
[2017-10-11 07:27] LABS: ANION GAP 10.1 mmol/L (8-16); CALCIUM 7.3 mg/dL (8.4-10.2); CREATININE, SERUM 1.88 mg/dL (0.57-1.11); POTASSIUM 4.1 mmol/L (3.5-5.1)
[2017-10-11] MEDS: INSULIN REGULAR, HUMAN 100 UNIT/1 ML 3ML VIAL SQ SCH (07:30)
[2017-10-11] MEDS: PANTOPRAZOLE SOD 40 MG TABEC PO SCH (08:32)
[2017-10-11] MEDS: DULOXETINE HCL 30 MG DELAYED RELEASE PO SCH ×2 (08:32→16:45)
[2017-10-11] MEDS: HYDROCORTISONE 10 MG TAB PO SCH (08:32)
[2017-10-11] MEDS: LOSARTAN POTASSIUM 100 MG TAB PO SCH (08:32)
[2017-10-11] MEDS: NIFEDIPINE CR 30 MG TAB PO SCH ×2 (08:33→21:31)
[2017-10-11] MEDS ORDERED: NEBIVOLOL 10 MG TAB PO SCH (09:00)
[2017-10-11] MEDS ORDERED: SODIUM BICARBONATE 650 MG TAB PO SCH (09:00)
[2017-10-11] MEDS ORDERED: LEVOTHYROXINE SODIUM 50 MCG TAB PO SCH (09:00)
[2017-10-11] MEDS ORDERED: AMLODIPINE BESYLATE 10 MG TAB PO SCH (09:00)
[2017-10-11] MEDS ORDERED: EZETIMIBE 10 MG TAB PO SCH (09:00)
[2017-10-11] MEDS ORDERED: DIATRIZOATE MEGL/DIATRIZOA SOD 30 ML BTL PO ONE (10:00)
[2017-10-11 11:11] LABS: EOSINOPHILS % (MANUAL) 5 % (0-7); LYMPHOCYTES % (MANUAL) 17 % (19-48); MONOCYTES % (MANUAL) 2 % (3.4-9.0); NEUTROPHILS % (MANUAL) 71 % (40-74)
[2017-10-11 11:13] LABS: PLATELET ESTIMATE MODERATELY DECREASED; PLATELET MORPHOLOGY COMMENT NORMAL
[2017-10-11 11:14] LABS: ANISOCYTOSIS SLIGHT; RBC MORPHOLOGY COMMENT NORMAL
--- NOTE | 2017-10-11 13:56 | Diagnostic Imaging Report ---
PROCEDURE: CT ABDOMEN AND PELVIS WITHOUT CONTRAST TECHNIQUE: The abdomen and pelvis were scanned utilizing a multidetector helical scanner from the diaphragm to the lesser trochanter. No IV contrast was administered because of physician request. Coronal and sagittal multiplanar reformations were obtained. DLP: 189.2 mGy-cm COMPARISON: Abdominal CT 11/19/2016. INDICATIONS: RECURRENT HYPOGLYCEMIA, HYPERTENSION, FAILURE TO THRIVE FINDINGS: ABSENCE OF INTRAVENOUS CONTRAST DECREASES SENSITIVITY FOR DETECTION OF FOCAL LESIONS AND VASCULAR PATHOLOGY. LOWER THORAX: Small pleural effusions. HEPATOBILIARY: Status post liver transplant. Questionable heterogeneity of the left hepatic lobe (series 2 image 10) although this may related to metallic streak artifacts from overlying metallic leads. No focal hepatic lesions. No biliary ductal dilatation. SPLEEN: No splenomegaly. PANCREAS: Not well visualized. ADRENALS: No adrenal nodules. KIDNEYS/URETERS: Heterogeneous with multiple calcifications which may reflect medullary nephrocalcinosis. No hydronephrosis. PELVIC ORGANS/BLADDER: Mann catheter in place. PERITONEUM / RETROPERITONEUM: No free air. Small amount of ascites. LYMPH NODES: Limited evaluation. VESSELS: Diffuse vascular calcifications. GI TRACT: No distention. Limited evaluation. BONES AND SOFT TISSUES: Anasarca. Sclerotic appearance of the femoral heads may be related to avascular necrosis. IMPRESSION: 1. Severely limited exam secondary to lack of IV and oral contrast and severe cachexia. 2. Status post liver transplant. Questionable heterogeneity of the left hepatic lobe versus streak artifact from metallic lead on the skin. Consider correlation with labs and right upper quadrant ultrasound. 3. 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 4. Mild fluid overload with small pleural effusions, mild ascites, and mild anasarca. Dictated by: Michele Moses M.D. on 10/11/2017 at 13:56 Electronically approved by: Michele Moses M.D. on 10/11/2017 at 13:56
--- NOTE | 2017-10-11 15:26 | Consultation ---
DATE OF CONSULTATION: October 10, 2017 LOCATION: Emergency room. This is a late dictation because her name did not enter my list until late. This is a 62-year-old white female well known to us. History of orthotopic liver transplant on Prograf, end-stage renal disease, recent history of upper lip abscess status post I and D and drainage with remarkable improvement. She came in with hypoglycemia. She has underlying diabetes on insulin. Awake, alert, lying supine. She has been given 2 amps of dextrose 50% in the emergency room. Renal consulted for management of kidney failure. Labs show serum potassium of 3.6 with a calcium level of 7.9. LFTs show AST 35, ALT 24, total protein 6.1 with an anion gap 9.6, bicarbonate 28. Sodium 139. ALLERGIES: NO APPARENT DRUG ALLERGIES. HOME MEDICATIONS: Include: 1. Prograf 2 mg p.o. q.12. 2. Sodium bicarbonate 1,300 mg p.o. daily. 3. Nifedipine 30 mg p.o. q.12. 4. Losartan 100 mg daily. 5. Levothyroxine 75 mcg p.o. daily. 6. Apparently was on insulin which has been stopped. 7. She is on hydrocortisone sodium succinate 10 mg p.o. daily. 8. Fludrocortisone 0.1 mg q.48. 9. Clonidine 0.1 mg p.o. q.6 p.r.n. hypertension. 10. Amlodipine 10 mg daily. 11. Calcium carbonate 1,000 mg p.o. t.i.d. SOCIAL HISTORY: Does not smoke or drink. FAMILY HISTORY: Significant for hypertension. PHYSICAL EXAMINATION GENERAL: Awake, alert, lying supine, in no apparent distress. VITALS: Blood pressure of 195/107, pulse rate 57, afebrile. Oxygen saturation is 100% on room air. HEAD AND NECK: Corneas clear. Oral mucosa dry. Thin-built female. Poor muscle mass with occasional rales, right lower zone more than left. HEART: S1, S2 audible. No S3 or S4 noted. ABDOMEN: Otherwise soft and nontender. LOWER EXTREMITIES: No edema. IMPRESSION AND PLAN: Accelerated hypertension, poorly controlled, and end-stage renal disease. Has not been given her blood pressure medications. I will resume her home blood pressure medications along with immunosuppression. Blood sugar management per Dr. Young. I will arrange for dialysis, dialysis nurse informed. The patient is to be dialyzed today. Job#: [id number]
[2017-10-11] MEDS: INSULIN LISPRO 100 UNIT/1 ML 3ML VIAL SQ SCH ×2 (16:30→21:31)
--- NOTE | 2017-10-11 17:21 | Consultation ---
DATE OF CONSULTATION: October 11, 2017 ENDOCRINE CONSULTATION This is a patient of Dr. Young. Thank you very much for referring this patient. This is a 62-year-old female who is very well known to me from her previous hospital admissions and the followup. In fact, the patient was discharged from the hospital only about a week back. Patient was brought back to the hospital because of altered mental status and a blood sugar less than 30. Patient has known case of diabetes mellitus type 2 with multiple complications including severe diabetic sensorimotor neuropathy. She has end-stage renal failure, presently on hemodialysis. Patient is extremely brittle as far as the diabetic control is concerned and has recurrent hypoglycemic episodes in the past. Patient also is status post liver transplant in the past and is on Prograf. She has lost significant amount of weight and is very cachectic. PHYSICAL EXAMINATION GENERAL: On physical examination today, the patient is alert, awake. She looks very cachectic. She is thin-built. Decreased muscle mass. VITAL SIGNS: Her heart rate is around 70. Blood pressure 110/70 mmHg. HEENT: Essentially unremarkable. NECK: Thyroid is palpable. She also has history of hypothyroidism. CHEST: Bilateral vesicular breathing. No rales heard. CARDIOVASCULAR: Both 1st and 2nd heart sounds. There is no 3rd or 4th heart sound. Ejection sound grade 2/6. CLINICAL IMPRESSION 1. Hypoglycemia partly due to decreased oral intake and insulin administration. 2. Diabetes mellitus type 2, uncontrolled, with complications. 3. Hypothyroidism. 4. End-stage renal failure on hemodialysis. 5. Status post a liver transplant. The plan at this time is to use the Levemir about 2 to 3 units in the morning and change the sliding scale. Thanks for referring this patient. I will be following this patient with you. Job#: [id number] EV MTDD
[2017-10-12] VITALS: BP 139/80
[2017-10-12 04:00] VITALS: BP 101/64
[2017-10-12] MEDS: LEVOTHYROXINE SODIUM 75 MCG TAB PO SCH (06:16)
[2017-10-12] MEDS: LEVOTHYROXINE SODIUM 100 MCG TAB PO SCH (06:16)
[2017-10-12 07:13] LABS: ALBUMIN 1.7 g/dL (3.5-5.0); ALBUMIN/GLOBULIN RATIO 0.5 (0.8-2.0); ANION GAP 8.4 mmol/L (8-16); CALCIUM 7.1 mg/dL (8.4-10.2); CREATININE, SERUM 2.37 mg/dL (0.57-1.11); POTASSIUM 3.4 mmol/L (3.5-5.1)
[2017-10-12 07:30] VITALS: BP 102/72
[2017-10-12] MEDS: INSULIN LISPRO 100 UNIT/1 ML 3ML VIAL SQ SCH ×4 (07:30→21:00)
[2017-10-12] MEDS: PANTOPRAZOLE SOD 40 MG TABEC PO SCH (08:11)
[2017-10-12] MEDS: HYDROCORTISONE 10 MG TAB PO SCH (08:11)
[2017-10-12] MEDS: LOSARTAN POTASSIUM 100 MG TAB PO SCH (08:11)
[2017-10-12] MEDS: DULOXETINE HCL 30 MG DELAYED RELEASE PO SCH ×2 (08:11→18:25)
[2017-10-12] MEDS: TACROLIMUS 1 MG CAP PO SCH ×2 (08:12→22:34)
[2017-10-12] MEDS: NIFEDIPINE CR 30 MG TAB PO SCH ×2 (08:12→22:34)
[2017-10-12] MEDS ORDERED: INSULIN DETEMIR 100 UNIT/ML PEN SQ SCH (09:00)
[2017-10-12 11:00] VITALS: BP 112/68
[2017-10-12 15:34] LABS: FREE T4 (FREE THYROXINE) 1.19 ng/dL (0.9-1.8); THYROID STIMULATING HORMONE 0.464 uIU/mL (0.350-4.940)
[2017-10-12 15:48] VITALS: BP 139/80
--- NOTE | 2017-10-12 16:17 | Consultation ---
DATE OF CONSULTATION: October 12, 2017 HPI: This is a 62-year-old very well known to me who has history of cirrhosis, status post liver transplant, presented to the hospital because of problems with hypoglycemia, and she apparently has not been eating as much as she is supposed to eat. Her workup so far revealed that she is mildly anemic with hemoglobin of 11.7. Her BUN and creatinine are a little bit high. She is also on dialysis right now. She had a CAT scan of abdomen and pelvis that was done yesterday, which shows status post liver transplant and also renal disease and pleural effusions, ascites, and anasarca. OTHER MEDICAL PROBLEMS: Again significant for history of hypertension, history of diabetes, history of cirrhosis, status post liver transplant, end-stage renal disease on hemodialysis, CHF, chronic neck pain, history of Shen disease, status post cholecystectomy, hysterectomy, liver transplant, and appendectomy. ALLERGIES: NONE. SOCIAL HISTORY: No smoking or alcohol use. CURRENT MEDICATIONS: Insulin, tacrolimus, pantoprazole, Cortef, duloxetine, Synthroid, Catapres, Humalog, Cozaar, Procardia, and heparin. REVIEW OF SYSTEMS: She denies any chest pain at this point. Denies any shortness of breath. Denies any dysphagia or odynophagia. Denies any dysuria or hematuria or any kind of syncopal episode. PHYSICAL EXAMINATION GENERAL: The patient is awake and alert, appears to be stable, not in acute distress at this point. VITAL SIGNS: Afebrile currently. HEENT: Normocephalic, atraumatic. Sclerae are anicteric. NECK: Supple. HEART: Sounds regular. LUNGS: Clear. ABDOMEN: Soft. It has no rebound or mass. EXTREMITIES: No edema or clubbing. LABORATORY AND DIAGNOSTIC DATA: Significant for sodium 131, potassium 3.4, BUN of 24, and creatinine 2.37. Liver enzymes appear to be normal. Albumin was 1.7. WBC of 4.08, hemoglobin of 11.7. PT 14.7. CAT scan has been done before. IMPRESSION 1. Cirrhosis, status post liver transplant: Patient still has mild ascites. 2. Failure to thrive. 3. End-stage renal disease, on hemodialysis. 4. History of diabetes. RECOMMENDATIONS: Encourage oral intake at this point. I will hold off PEG placement because of the fact that patient still has ascites and if necessary, we can use TPN. Job#: [id number] JOSE ANGEL cc:Dr. Felix Young
[2017-10-12 20:00] VITALS: BP 133/83
[2017-10-13] VITALS (8 sets, daily range): BP systolic 119–198; BP diastolic 58–99
[2017-10-13] MEDS: CLONIDINE HCL 0.1 MG TAB PO PRN ×2 (00:18→06:11)
[2017-10-13] MEDS: LEVOTHYROXINE SODIUM 100 MCG TAB PO SCH (05:07)
[2017-10-13] MEDS: LEVOTHYROXINE SODIUM 75 MCG TAB PO SCH (05:07)
[2017-10-13] MEDS: INSULIN LISPRO 100 UNIT/1 ML 3ML VIAL SQ SCH ×4 (07:30→21:00)
[2017-10-13] MEDS: INSULIN DETEMIR 100 UNIT/ML PEN SQ SCH (09:10)
[2017-10-13] MEDS: PANTOPRAZOLE SOD 40 MG TABEC PO SCH (09:10)
[2017-10-13] MEDS: HYDROCORTISONE 10 MG TAB PO SCH (09:10)
[2017-10-13] MEDS: TACROLIMUS 1 MG CAP PO SCH ×2 (09:10→21:50)
[2017-10-13] MEDS: NIFEDIPINE CR 30 MG TAB PO SCH ×2 (09:10→21:50)
[2017-10-13] MEDS: DULOXETINE HCL 30 MG DELAYED RELEASE PO SCH ×2 (09:10→17:00)
[2017-10-13] MEDS: LOSARTAN POTASSIUM 100 MG TAB PO SCH (09:10)
[2017-10-13] MEDS ORDERED: HYDRALAZINE HCL 20 MG/ML VIAL IV PRN (13:15)
[2017-10-13] MEDS: HYDRALAZINE HCL 25 MG TAB PO SCH (17:10)
[2017-10-14] VITALS (8 sets, daily range): BP systolic 126–164; BP diastolic 67–78
[2017-10-14] MEDS: LEVOTHYROXINE SODIUM 100 MCG TAB PO SCH (06:04)
[2017-10-14] MEDS: LEVOTHYROXINE SODIUM 75 MCG TAB PO SCH (06:04)
[2017-10-14 06:59] LABS: BASOPHILS # (AUTO) 0.1 (0.0-0.1); BASOPHILS % 1.4 % (0.0-1.0); EOSINOPHILS # (AUTO) 0.2 (0.0-0.4); EOSINOPHILS % 4.3 % (0.0-6.0); HEMATOCRIT 33.7 % (34.2-44.1); HEMOGLOBIN 11.5 g/dL (12.0-16.0); LYMPHOCYTES # (AUTO) 2.3 (1.0-3.2); MEAN CORPUSCULAR HEMOGLOBIN 29.9 pg (28-32); MEAN CORPUSCULAR HGB CONC 34.1 g/dL (31-35); MEAN CORPUSCULAR VOLUME 87.5 fL (81-99); MONOCYTES # (AUTO) 0.3 (0.2-0.8); NEUTROPHILS % 41.1 % (38.7-80.0); PLATELET COUNT 79 x10e3/uL (140-360); RED BLOOD COUNT 3.85 x10e6/uL (3.6-5.1); RED CELL DISTRIBUTION WIDTH 16.4 % (11.7-14.4)
[2017-10-14 07:26] LABS: ALBUMIN 1.9 g/dL (3.5-5.0); ALBUMIN/GLOBULIN RATIO 0.5 (0.8-2.0); ANION GAP 8.5 mmol/L (8-16); CALCIUM 7.2 mg/dL (8.4-10.2); CREATININE, SERUM 2.17 mg/dL (0.57-1.11); POTASSIUM 3.5 mmol/L (3.5-5.1)
[2017-10-14] MEDS: INSULIN LISPRO 100 UNIT/1 ML 3ML VIAL SQ SCH ×4 (07:30→21:04)
[2017-10-14] MEDS: HYDROCORTISONE 10 MG TAB PO SCH (08:10)
[2017-10-14] MEDS: DULOXETINE HCL 30 MG DELAYED RELEASE PO SCH ×2 (08:10→16:33)
[2017-10-14] MEDS: TACROLIMUS 1 MG CAP PO SCH ×2 (08:10→21:03)
[2017-10-14] MEDS: PANTOPRAZOLE SOD 40 MG TABEC PO SCH (08:19)
[2017-10-14] MEDS: NIFEDIPINE CR 30 MG TAB PO SCH ×2 (09:00→21:02)
[2017-10-14] MEDS: HYDRALAZINE HCL 25 MG TAB PO SCH ×3 (09:00→18:33)
[2017-10-14] MEDS: INSULIN DETEMIR 100 UNIT/ML PEN SQ SCH (09:00)
[2017-10-14] MEDS: LOSARTAN POTASSIUM 100 MG TAB PO SCH (09:00)
[2017-10-14] MEDS: MEGACE 400MG/ 10ML CUP PO SCH (12:03)
[2017-10-15] VITALS (7 sets, daily range): BP systolic 102–133; BP diastolic 57–74
[2017-10-15] MEDS: LEVOTHYROXINE SODIUM 75 MCG TAB PO SCH (06:28)
[2017-10-15] MEDS: LEVOTHYROXINE SODIUM 100 MCG TAB PO SCH (06:28)
[2017-10-15] MEDS: INSULIN LISPRO 100 UNIT/1 ML 3ML VIAL SQ SCH ×4 (07:30→21:00)
[2017-10-15] MEDS: HYDRALAZINE HCL 25 MG TAB PO SCH ×3 (08:26→16:22)
[2017-10-15] MEDS: HYDROCORTISONE 10 MG TAB PO SCH (08:26)
[2017-10-15] MEDS: DULOXETINE HCL 30 MG DELAYED RELEASE PO SCH ×2 (08:26→16:22)
[2017-10-15] MEDS: PANTOPRAZOLE SOD 40 MG TABEC PO SCH (08:26)
[2017-10-15] MEDS: MEGACE 400MG/ 10ML CUP PO SCH (08:27)
[2017-10-15] MEDS: LOSARTAN POTASSIUM 100 MG TAB PO SCH (09:13)
[2017-10-15] MEDS: TACROLIMUS 1 MG CAP PO SCH ×2 (09:13→21:19)
[2017-10-15] MEDS: NIFEDIPINE CR 30 MG TAB PO SCH ×2 (09:13→21:20)
[2017-10-15] MEDS: INSULIN DETEMIR 100 UNIT/ML PEN SQ SCH (09:14)
[2017-10-15] MEDS ORDERED: HEPARIN SOD (PORCINE) 1000 UNIT/ML SDV IV PRN (10:15)
[2017-10-15] MEDS ORDERED: ALBUMIN HUMAN 50 ML IV PRN (10:30)
[2017-10-16] VITALS: BP 167/86
[2017-10-16 04:00] VITALS: BP 143/80
[2017-10-16] MEDS: LEVOTHYROXINE SODIUM 100 MCG TAB PO SCH (05:28)
[2017-10-16] MEDS: LEVOTHYROXINE SODIUM 75 MCG TAB PO SCH (05:28)
[2017-10-16] MEDS: INSULIN LISPRO 100 UNIT/1 ML 3ML VIAL SQ SCH ×4 (07:30→20:50)
[2017-10-16 08:45] VITALS: BP 143/80
[2017-10-16] MEDS: PANTOPRAZOLE SOD 40 MG TABEC PO SCH (08:45)
[2017-10-16] MEDS: NIFEDIPINE CR 30 MG TAB PO SCH ×2 (08:45→20:49)
[2017-10-16] MEDS: TACROLIMUS 1 MG CAP PO SCH ×2 (08:45→20:50)
[2017-10-16] MEDS: DULOXETINE HCL 30 MG DELAYED RELEASE PO SCH ×2 (08:45→17:50)
[2017-10-16] MEDS: HYDROCORTISONE 10 MG TAB PO SCH (08:45)
[2017-10-16] MEDS: LOSARTAN POTASSIUM 100 MG TAB PO SCH (08:45)
[2017-10-16] MEDS: MEGACE 400MG/ 10ML CUP PO SCH (08:50)
[2017-10-16] MEDS: INSULIN DETEMIR 100 UNIT/ML PEN SQ SCH (09:00)
[2017-10-16 09:11] VITALS: BP 143/80
[2017-10-16 13:01] VITALS: BP 138/78
[2017-10-16] MEDS: HYDRALAZINE HCL 25 MG TAB PO SCH (17:49)
[2017-10-16 20:00] VITALS: BP 105/61
[2017-10-17] VITALS (8 sets, daily range): BP systolic 105–179; BP diastolic 61–94
[2017-10-17] MEDS: LEVOTHYROXINE SODIUM 75 MCG TAB PO SCH (05:48)
[2017-10-17] MEDS: LEVOTHYROXINE SODIUM 100 MCG TAB PO SCH (05:48)
[2017-10-17] MEDS: PANTOPRAZOLE SOD 40 MG TABEC PO SCH (07:30)
[2017-10-17] MEDS: INSULIN LISPRO 100 UNIT/1 ML 3ML VIAL SQ SCH ×4 (07:30→21:00)
[2017-10-17] MEDS: HYDRALAZINE HCL 25 MG TAB PO SCH ×2 (09:00→17:12)
[2017-10-17] MEDS: MEGACE 400MG/ 10ML CUP PO SCH (09:00)
[2017-10-17] MEDS: HYDROCORTISONE 10 MG TAB PO SCH (09:00)
[2017-10-17] MEDS: TACROLIMUS 1 MG CAP PO SCH ×2 (09:00→20:38)
[2017-10-17] MEDS: DULOXETINE HCL 30 MG DELAYED RELEASE PO SCH ×2 (09:00→17:13)
[2017-10-17] MEDS: LOSARTAN POTASSIUM 100 MG TAB PO SCH (09:00)
[2017-10-17] MEDS: NIFEDIPINE CR 30 MG TAB PO SCH ×2 (09:00→20:38)
[2017-10-17] MEDS: INSULIN DETEMIR 100 UNIT/ML PEN SQ SCH (09:00)
[2017-10-18] VITALS: BP 158/94
[2017-10-18 01:04] VITALS: BP 158/94
[2017-10-18 04:00] VITALS: BP 124/71
[2017-10-18] MEDS: LEVOTHYROXINE SODIUM 75 MCG TAB PO SCH (06:14)
[2017-10-18] MEDS: LEVOTHYROXINE SODIUM 100 MCG TAB PO SCH (06:14)
[2017-10-18] MEDS: INSULIN LISPRO 100 UNIT/1 ML 3ML VIAL SQ SCH ×3 (07:30→16:30)
[2017-10-18 08:08] VITALS: BP 134/78
[2017-10-18 08:10] VITALS: BP 134/78
[2017-10-18] MEDS: PANTOPRAZOLE SOD 40 MG TABEC PO SCH (08:47)
[2017-10-18] MEDS: HYDROCORTISONE 10 MG TAB PO SCH (08:48)
[2017-10-18] MEDS: DULOXETINE HCL 30 MG DELAYED RELEASE PO SCH (08:48)
[2017-10-18] MEDS: TACROLIMUS 1 MG CAP PO SCH (08:48)
[2017-10-18] MEDS: LOSARTAN POTASSIUM 100 MG TAB PO SCH (08:48)
[2017-10-18] MEDS: HYDRALAZINE HCL 25 MG TAB PO SCH (08:48)
[2017-10-18] MEDS: MEGACE 400MG/ 10ML CUP PO SCH (08:48)
[2017-10-18] MEDS: NIFEDIPINE CR 30 MG TAB PO SCH (08:48)
[2017-10-18] MEDS: INSULIN DETEMIR 100 UNIT/ML PEN SQ SCH (08:49)
[2017-10-18 11:58] VITALS: BP 136/78
== END 2017-10-18 17:32 | disposition other institution (70) | DRG 291 ==
LOC: ER 10:10 → ERHOLD 13:32 → IMCU 13:36 → MED/SURG 10-12 15:59
PROVIDERS: ADMIT Internal Medicine; ATTEND Internal Medicine
PROC: 5A1D70Z Performance of Urinary Filtration, Intermittent, Less than 6 Hours Per Day (ICD-10-PCS; principal; 2017-10-10)
DX: I13.2 Hypertensive heart and chronic kidney disease with heart failure and with stage 5 chronic kidney disease, or end stage renal disease (principal); E43 Unspecified severe protein-calorie malnutrition; N18.6 End stage renal disease; D84.8 Other specified immunodeficiencies; R64 Cachexia; R18.8 Other ascites; Z94.4 Liver transplant status; E27.1 Primary adrenocortical insufficiency; Z68.1 Body mass index [BMI] 19.9 or less, adult; E11.22 Type 2 diabetes mellitus with diabetic chronic kidney disease; E11.649 Type 2 diabetes mellitus with hypoglycemia without coma; Z99.2 Dependence on renal dialysis; R62.7 Adult failure to thrive; K74.60 Unspecified cirrhosis of liver; E11.42 Type 2 diabetes mellitus with diabetic polyneuropathy; E03.9 Hypothyroidism, unspecified; I50.9 Heart failure, unspecified
CPT/HCPCS: 36415; 71045; 74176; 80048; 80053; 81001; 82550; 82553; 82948; 83036; 83605; 83735; 83880; 84134; 84439; 84443; 84484; 85025; 85610; 85730; 86705; 86706; 87040; 87340; 93005; 96372; 99284; J1644; J7030; J7507; J7799

== ENCOUNTER 2017-10-24 12:01 | Inpatient (IN) | payer MEDICARE, OTHER ==
[~2017-10-24] VITALS: Ht 157.5 cm; Wt 36.9 kg
--- OUTSIDE RECORDS SUMMARY | 2017-10-24 12:04 | XMS REPORT | Clinical Summary ---
Author Author JEAN [facility] Address Unknown Phone Unavailable Care Team Providers Care Method Consultant Name Role Phone PCP Unavailable Allergies No [...] subcutaneously nightly. 17 ued Use as directed furosemide (LASIX) 40 MG Take 40 mg [...] tablet total) by mouth daily for 17 14 days. hydrocortisone (CORTEF) 5 Take 1 tablet (5 mg 0 01/30/20 02/13/20 MG tablet total) by mouth every evening for 14 days. 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 She is doing well with normal liver enzymes. She is on low dose prograf for immunosuppression. Her dose has been changed and she is on 3/3 daily. Full labs pending today for dosing. DM (diabetes mellitus) ([facility]) 04/21/2013 Last Assessment & Plan: [...] Date Type Specialty Care Team Description 07/27/2017 [facility] General Internal Medicine [place] MD Hypoglycemia (Primary - Encounter Castro Mcclain [...] stage renal disease) on dialysis (HCC) 06/23/2017 [facility] Cardiology Chad Henderson MD Acute - Encounter Gisele Ponce MD encephalopathy;Bradycardi 06/28/2017 a;Hypoglycemia;Hypothyroi dism, unspecified type;Status post liver transplantation (HCC);Acute cystitis without hematuria;Adrenal insufficiency (HCC);Severe sepsis (HCC);Type 2 diabetes mellitus treated with insulin (HCC);ESRD (end stage renal disease) (HCC);Essential hypertension;Immunosuppre ssion (HCC);VRE (vancomycin-resistant Enterococci) infection 06/23/2017 Telephone Critical Care Medicine Chad Henderson MD Advice Only 01/26/2017 [facility] General Internal Medicine Michele Ryan Severe [...] 12/31/2016 Telephone Transplant Hepatology Kristen May RN after 10/23/2016 Family History Medical History Relation Name Comments [...] Taken Blood Pressure 158/77 08/01/2017 4:00 PM BOLT MACHINE OPERATOR Pulse 68 08/01/2017 4:00 PM BOLT MACHINE OPERATOR Temperature 35.7 C (96.3 F) 08/01/2017 4:00 PM BOLT MACHINE OPERATOR Respiratory Rate 18 08/01/2017 4:00 PM BOLT MACHINE OPERATOR Oxygen Saturation 100% 08/01/2017 4:00 PM BOLT MACHINE OPERATOR Inhaled Oxygen - - Concentration Weight 41.7 kg (92 lb) 07/26/2017 3:53 PM BOLT MACHINE OPERATOR Height 157.5 cm (5' 2") 07/26/2017 3:53 PM BOLT MACHINE OPERATOR Body Mass Index 16.83 07/26/2017 3:53 PM BOLT MACHINE OPERATOR Plan of Treatment Health Maintenance Due Date Last Done Comments INFLUENZA VACCINE 04/14/2018 Results * RHYTHM STRIP - SCAN (08/05/2017 7:20 AM) Only the most recent of 3 results within the time period is included. * POC-Glucose meter (08/01/2017 12:07 PM) Only the most recent of 79 results within the time period is included. Component Value Ref Range POC-Glucose Meter 114 (H)Comment: TESTED AT [address] 70 - 110 mg /dL [place] [address] Specimen [place] [address] * Tacrolimus level (08/01/2017 6:12 AM) Only the most recent of 13 results within the time period is included. Component Value Ref Range Tacrolimus Lvl 7.2 (L) 10.0 - 20.0 ng/mL Specimen Performing Laboratory Blood - Arm, Right [address] [address] * Hemodialysis (07/31/2017 1:21 PM) Narrative Elías [...] period is included. Specimen Performing Laboratory Blood [address] [address] * Calcium, Ionized (07/31/2017 5:49 AM) Only the most recent of 6 results within the time period is included. Component Value Ref Range Calcium, Ion 0.94 (L) 1.12 - 1.27 mmol/L pH, Blood 7.43 Specimen Performing Laboratory Blood [address] [address] * CBC with platelet count + automated [...] 1 % Granulocytes-Relative Specimen [place] [address] * CBC with platelet count + automated diff (07/31/2017 5:49 AM) Only the most recent of 13 results within the time period is included. Specimen Performing Laboratory Blood Narrative The following orders were created for panel order CBC with platelet count + automated diff. Procedure Abnormality Status --------- - ------ CBC with platelet count ...[[id number]]AbnormalFinal result Manual Differential[[id number]] Final result Please view results for these tests on the individual orders. * Phosphorus (07/31/2017 5:49 AM) Only the most recent of 10 results within the time period is included. Component Value Ref Range Phosphorus 4.3 2.3 - 4.7 mg/dL Specimen [place] [address] * Magnesium (07/31/2017 5:49 AM) Only the most recent of 12 results within the time period is included. Component Value Ref Range Magnesium 1.7 1.6 - 2.6 mg/dL Specimen Performing Laboratory Blood [address] [address] * Hepatic function panel (07/31/2017 5:49 AM) [...] - 55 U/L Specimen [place] [address] * Basic Metabolic Panel (07/31/2017 5:49 AM) [...] FOR DIALYSIS PATIENTS. Specimen [place] [address] * T4, free (07/29/2017 7:00 AM) Only the most recent of 5 results within the time period is included. Component Value Ref Range Free T4 0.90 0.70 - 1.48 ng/dL Specimen Performing Laboratory Blood - Arm, [place] [id number] * TSH/Free T4 If Indicated (07/28/2017 3:46 PM) Only the most recent of 2 results within the time period is included. Component Value Ref Range TSH 15.97 (H) 0.35 - 4.94 uIU/mL Specimen Performing Laboratory Blood - Arm, [address] [address] * Hepatitis B surface antigen (07/28/2017 3:46 PM) Only the most recent of 4 results within the time period is included. Component Value Ref Range hepatitis B Surface Ag Nonreactive Nonreactive Specimen Performing Laboratory Blood - Arm, [address] [address] * Clostridium difficile Toxin PCR (07/27/2017 10:49 AM) Only the most recent of 2 results within the time period is included. Component Value Ref Range C.Diff Toxin, PCR Detected (A) Not Detected Specimen Performing Laboratory Stool [address] [address] Narrative This qualitative real-time polymerase chain reaction [...] - 6.1 % Specimen Performing Laboratory Blood [address] [address] * Urinalysis Microscopic Only (07/27/2017 10:17 AM) Component Value Ref Range RBC, UA 2 /HPF WBC, UA 119 /HPF Bacteria, UA Many Squam Epithel, UA 5 /HPF Specimen Performing Laboratory Urine - Urine, [facility] Catch [address] [place] [address] * Urinalysis with Microscopic If Indicated (07/27/2017 10:17 AM) Component Value Ref Range Color, UA Yellow Clarity, UA Hazy Specific [place], UA 1.009 1.001 - 1.035 pH, UA 6.5 5.0 - 8.0 Protein, UA 300 mg/dL (A) Negative Glucose, UA Negative Negative Ketones, UA Negative Negative Bilirubin, UA Negative Negative Blood, UA Small (A) Negative Nitrite, UA Negative Negative Leukocytes, UA Large (A) Negative Urobilinogen, UA 0.2 0.2 - 1.0 mg/dL Specimen Source Specimen Performing Laboratory Urine - Urine, [facility] Catch [address] [place] [address] * Influenza A H1N1 PCR (07/27/2017 2:52 AM) Only the most recent of 2 results within the time period is included. Component Value Ref Range Influenza A RNA Not Detected Not Detected, Inconclusive Novel H1N1 RNA Not Detected Not Detected, Inconclusive Specimen Performing Laboratory Nasal - Nasopharyngeal [facility] Swab [address] [place] [address] Narrative These assays were performed by real-time RT-PCR (drawbridge operator-PCR) utilizing fluorogenic hydrolysis probe technology for the detection of human Influenza A viruses and the differential detection of novel H1N1 Influenza virus in respiratory specimens. The test is composed of (1) an RNA extraction from patient specimen, and (2) drawbridge operator-PCR amplification and detection with human Influenza A and novel G0R2-shbazoun primers and probes. A well-conserved region of [...] and its performance characteristics determined by the [facility] Pathology Department, Section of Molecular Pathology.It has not been cleared or approved by the U.S. Food and Drug Administration (FDA).Since FDA approval is not required for clinical use of the test, validation was done as required by The Clinical Laboratory Amendments of 1988. These assays were performed by real-time RT-PCR (drawbridge operator-PCR) utilizing fluorogenic hydrolysis probe technology for the detection of human Influenza A viruses and the differential detection of novel H1N1 Influenza virus in respiratory specimens. The test is composed of (1) an RNA extraction from patient specimen, and (2) drawbridge operator-PCR amplification and detection with human Influenza A and novel Z1P2-jipchogw primers and probes. A well-conserved region of [...] and its performance characteristics determined by the [facility] Pathology Department, Section of Molecular [...] - 36.0 seconds Specimen Performing Laboratory Blood [address] [address] Narrative RECOMMENDED COUMADIN/WARFARIN INR THERAPY RANGES STANDARD [...] Inconclusive Specimen Performing Laboratory Nasal - Nasopharyngeal [facility] Swab [address] [place] [address] * Lipase (07/27/2017 2:52 AM) Only the most recent of 2 results within the time period is included. Component Value Ref Range Lipase <4 (L) 8 - 78 U/L Specimen Performing Laboratory Blood [address] [address] * XR femur right AP and lateral [...] MD Report Verified Date/Time:07/26/2017 23:34:07 Reading Location: [address] Consult Reading Room Procedure Note Interface, External Ris In - 07/26/2017 11:36 PM BOLT MACHINE OPERATOR FINAL REPORT Right femur, two views. [...] Report Verified Date/Time: 07/26/2017 23:34:07 Reading Location: [address] Consult Reading Room * EKG-SCANNED (07/25/2017 8:42 [...] WBC Specimen Performing Laboratory Blood - Arm, [address] [address] * TSH (06/28/2017 5:54 AM) Only the most recent of 2 results within the time period is included. Component Value Ref Range TSH 4.76 0.35 - 4.94 uIU/mL Specimen Performing Laboratory Blood - Arm, [address] [address] * Comprehensive metabolic panel (06/28/2017 5:54 AM) Only the most recent of 5 [...] Specimen Performing Laboratory Blood - Arm, Left [address] [address] * Vancomycin level, random (06/24/2017 4:37 AM) Only the most recent of 3 results within the time period is included. Component Value Ref Range Vancomycin Rm 16.5 ug/mL Specimen Performing Laboratory Blood [address] [address] Narrative Reference Range: No Normals * ECG 12 lead (06/23/2017 11:42 AM) Specimen Performing Laboratory [facility] Narrative Ventricular Rate 55 BPM Atrial Rate 55 BPM P-R Interval 128 ms QRS Duration 74 ms Q-T Interval 552 ms QTC Calculation(Bazett) 528 ms P [place] 77 degrees R [place] -1 degrees T [place] 0 degrees Sinus bradycardia Septal infarct (cited on or before 23-JUN-2017) Prolonged QT Abnormal ECG When compared with ECG of 31-JUL-2012 20:36, Nonspecific T wave abnormality now evident in Inferior leads QT has lengthened Confirmed by MD KAVITHA, TATO Encinas ([id number]) on 06/24/2017 8:28:24 AM Procedure Note Interface, External Ris In - 06/24/2017 8:28 AM BOLT MACHINE OPERATOR Ventricular Rate 55 BPM Atrial Rate 55 BPM P-R Interval 128 ms QRS Duration 74 ms Q-T Interval 552 ms QTC Calculation(Bazett) 528 ms P [place] 77 degrees R [place] -1 degrees T [place] 0 degrees Sinus bradycardia Septal infarct (cited on or before 23-JUN-2017) Prolonged QT Abnormal ECG When compared with ECG of 31-JUL-2012 20:36, Nonspecific T wave abnormality now evident in Inferior leads QT has lengthened Confirmed by MD KAVITHA, TATO Encinas ([id number]) on 06/24/2017 8:28:24 AM * US Hepatic Portal Vessel with Doppler (06/23/2017 10:42 AM) Specimen Performing Laboratory [employer] FINAL REPORT Ultrasound of the Abdomen and [...] MD Report Verified Date/Time:06/23/2017 11:16:57 Reading Location: [facility] B1 C013Y CT Body Reading Room Procedure Note Interface, External Ris In - 06/23/2017 11:19 AM BOLT MACHINE OPERATOR FINAL REPORT Ultrasound of the Abdomen [...] Report Verified Date/Time: 06/23/2017 11:16:57 Reading Location: [facility] C013Y CT Body Reading Room * Blood culture (06/23/2017 9:24 AM) Only the most recent of 3 results within the time period is included. Component Value Ref Range Result No growth in 5 days Specimen Performing Laboratory Blood - [facility], [address] [address] * Troponin I (06/23/2017 9:23 AM) Only the most recent of 2 results within the time period is included. Component Value Ref Range Troponin I <0.01 0.00 - 0.03 ng/mL Specimen Performing Laboratory Blood - [facility], [place] [address] Narrative Troponin I (TnI) levels must be [...] 2.2 mmol/L Specimen Performing Laboratory Blood - [facility], [address] [address] Narrative Effective 11/16/2015: Units/Reference Range Change New: 0.5-2.2 mmol/LPrevious: 5-20 mg/dL * Creatine Kinase (CK), Total and MB (06/23/2017 9:23 AM) Component Value Ref Range Total CK 29 29 - 200 U/L CK-MB 3.5 0.0 - 6.6 ng/mL MB Relative Index 12.1 % Specimen Performing Laboratory Blood - [facility], [address] [address] Narrative CK-MB Reference Range: <6.7Normal 6.7-10.0Borderline >10.0 Abnormal * Ammonia (06/23/2017 9:23 AM) Component Value Ref Range Ammonia 28 18 - 72 mol/L Specimen Performing Laboratory Blood - Arm, Left [address] [address] * Urinalysis w/Microscopic (06/23/2017 9:11 AM) Only the most recent of 2 results within the time period is included. Component Value Ref Range Color, UA Yellow Clarity, UA Hazy Specific [place], UA 1.006 1.001 - 1.035 pH, UA [...] Urine Few Yeast Few Specimen Source Urine, [place] Specimen Performing Laboratory Urine - Urine, [address] [address] * Urine culture (06/23/2017 9:11 AM) Only the most recent of 2 results within the time period is included. Component Value Ref Range Result Result 10-19,000 col/mL Vancomycin resistant Enterococcus species (A) Specimen Performing Laboratory Urine - Urine, [address] [address] Organism Antibiotic Method Susceptibility Vancomycin resistant Ampicillin [...] Specimen Performing Laboratory Blood - Arm, Right [address] [address] * Prothrombin time/INR (06/23/2017 9:10 AM) Only the most recent of 5 results within the time period is included. Component Value Ref Range Protime 15.3 (H) 11.7 - 14.7 seconds INR 1.2 <=5.9 Specimen Performing Laboratory Blood - Arm, Right [address] [address] Narrative RECOMMENDED COUMADIN/WARFARIN INR THERAPY RANGES STANDARD DOSE: 2.0 - 3.0 Includes: PROPHYLAXIS for venous thrombosis, systemic embolization; TREATMENT for venous thrombosis and/or pulmonary embolus. HIGH RISK: Target INR is 2.5-3.5 for patients with mechanical heart valves. * Fibrinogen (06/23/2017 9:10 AM) Component Value Ref Range Fibrinogen 297 225 - 434 mg/dl Specimen Performing Laboratory Blood - Arm, Right [address] [address] * T3, free (06/23/2017 9:10 AM) Component Value Ref Range T3, Free 1.26 (L) 1.71 - 3.71 pg/mL Specimen Performing Laboratory Blood - Arm, [address] [address] * Blood gas, arterial (06/23/2017 9:08 AM) [...] Specimen Performing Laboratory Blood, Arterial - Arm, [facility] Right [address] [place], [place] [id number] * XR chest 1 view portable / [...] MD Report Verified Date/Time:06/23/2017 09:32:04 Reading Location: [address] Transitional Reading Room Procedure Note Interface, External Ris In - 06/23/2017 9:34 AM BOLT MACHINE OPERATOR FINAL REPORT HISTORY : myxedema, sepsis. [...] Report Verified Date/Time: 06/23/2017 09:32:04 Reading Location: [address] Transitional Reading Room * Prepare Leuko-Red RBC (01/29/2017 11:54 PM) Component Value Ref Range CROSSMATCH COMPATIBLE Unit ABO B Pos UNIT NUMBER [id number] Status TRANSFUSED Blood Bank Product RED BLOOD CELLS PRODUCT CODE A6724T85 Specimen Performing Laboratory Other [place] * Hepatitis B PCR, quantitative (01/29/2017 11:15 AM) Component Value Ref Range HBV PCR, Quantitative HBV DNA not detected HBV DNA not detected Specimen Performing Laboratory Blood [address] [address] Narrative This test uses a Real-Time Polymerase [...] Antigen Neutralization testing. Specimen Performing Laboratory Blood [address] [address] * Hepatitis B core antibody, IgM (01/29/2017 11:15 AM) Component Value Ref Range Hep B C IgM Nonreactive Nonreactive Specimen Performing Laboratory Blood [address] [address] * Hepatitis B core antibody, total (01/29/2017 11:15 AM) Component Value Ref Range Hep B Core Total Ab Nonreactive Nonreactive Specimen Performing Laboratory Blood [address] [address] * Hepatitis B surface antibody (01/29/2017 11:15 AM) Component Value Ref Range Hep B S Ab <8.0 <8.0 mIU/mL Specimen [place] [address] * Transfuse Leuko-Red RBC (01/29/2017 5:46 AM) Only the most recent of 2 results within the time period is included. * CMV PCR, quantitative (01/29/2017 5:21 AM) Component Value Ref Range CMV DNA Viral Load Negative or below the linear range of the assay (<375 copies/mL) Specimen [place] [address] Narrative Cytomegalovirus (CMV) infection can cause significant [...] and its performance characteristics determined by the [facility] Pathology Department, Section of Molecular Pathology. [...] Performing Laboratory Blood - Arm, [place] [address] Narrative ACTH STIMULATION TEST INTERPRETATION GUIDELINES (Synonyms: [...] Specimen Performing Laboratory Blood - Arm, [place] [address] Narrative ACTH STIMULATION TEST INTERPRETATION GUIDELINES (Synonyms: [...] study by Mirella et al ( DOREEN 2000,283(8):2377-58), the ACTH Stimulation Test provides important prognostic [...] Specimen Performing Laboratory Blood - Arm, Right [address] [address] Narrative ACTH STIMULATION TEST INTERPRETATION GUIDELINES (Synonyms: [...] study by Mirella et al ( DOREEN 2000,283(8):0262-45), the ACTH Stimulation Test provides important prognostic [...] Procedure Abnormality Status --------- - ------ Cortisol, baseline[[id number]] Final result Cortisol, 30 minutes[[id number]] Final result Cortisol, 60 minutes[[id number]] Final result Please view results for these tests on the individual orders. * 2D Echo W/Doppler (Sepsis Protocol) (01/27/2017 3:16 PM) Component Value Ref Range Ejection Fraction LV EF 72.3 % (55-75) Index 57.8 %/m2 Specimen Performing Laboratory [facility] Echocardiography Laboratory [address] [place] [address] Voice:[phone] Transthoracic Echocardiogram Pat.Name:TERRI GANDARA Pat.ID:[id number] .Date: 01/27/2017 Refer.MD:MICHELE RYAN Exam Time: 3:16:00 PMStudy Type:Echo Complete Height:62inWeight:74lb BSA: 1.25 m2 DOBAge:1954,61Y Sex: FEMALEBP:90 /46 HR:71 bpmSonogrphr: Michelle Sigala [facility] Pat. Stat.:Inpatient Room:[facility] Reason for Study:Sepsis Protocol History / Clinical:Diabetes, [...] ml/m2 LA Area 15.6 cm2(8.8-23.4) Parasternal [place] Ao An2 cm (1.4-2.6) LV%fs 33.8 %(25-46) Ao Rtd2.52 cmLVPWd 1.06 cm IVSd1.21 cm LA Ds 3.72 cm (2.3-3.8) LVIDd 3.72 cm (4.3-5.1)* LV Wmn 1.13 cm LVIDs 2.47 cm (2-4) DOPPLER LVOT LVOT For Flow [id number] cm/s (70-110)* LVOT CO 5.77 l/min LVOT [...] - 01/28/2017 12:58 PM CDT Echocardiography Laboratory [address] [place] [address] Voice: [phone] Transthoracic Echocardiogram Pat.Name: TERRI GANDARA Pat.ID: [id number] .Date: 01/27/2017 Refer.MD: MICHELE RYAN Exam Time: 3:16:00 PM Study Type:Echo Complete Height: 62in Weight: 74lb BSA: 1.25 m2 Age: 11 1955,61Y Sex: FEMALE BP: 90/46 HR: 71 bpm Sonogrphr: Michelle Sigala RDCS Pat. Stat.:Inpatient Room: [facility] Reason for Study:Sepsis Protocol History / Clinical:Diabetes, [...] LA Area 15.6 cm2 (8.8-23.4) Parasternal [place] Ao An 2 cm (1.4-2.6) LV%fs 33.8 [...] PM Tato White M.D. * Respiratory Panel [facility] (01/27/2017 2:43 PM) Component Value [...] Inconclusive Specimen Performing Laboratory Nasopharyngeal - Nasal, [facility] Right [address] [place] [address] * Vitamin B12 and Folate (01/27/2017 5:29 AM) Component Value Ref Range Vitamin B12 480 213 - 816 pg/mL Folate 6.3 (L) >=7.0 ng/mL Specimen Performing Laboratory Blood - Arm, Right [address] [address] Narrative Effective 06/01/2014: Folate Reference Range Change New: >=7.0Previous: >=5.4 * Iron, TIBC, % sat. (without ferritin) (01/27/2017 5:29 AM) Component Value Ref Range Iron 65 40 - 160 ug/dL TIBC 209 (L) 250 - 450 ug/dL Iron % Saturation 31 20 - 55 % Specimen Performing Laboratory Blood - Arm, [address] [address] * Ferritin (01/27/2017 5:29 AM) Component Value Ref Range Ferritin 670 (H) 5 - 275 ng/mL Specimen Performing Laboratory Blood - Arm, [address] [address] Narrative Effective 06/01/2014: Reference Range Change New: Male 5-275Previous: Male Female 5-275Female * Prepare RBC (01/27/2017 1:01 AM) Component Value Ref Range Status CANCELED Blood Bank Product RED BLOOD CELLS Unit ABO O Pos UNIT NUMBER [id number] Status CANCELED Blood Bank Product RED BLOOD CELLS PRODUCT CODE C4853D02 Unit ABO O Pos UNIT NUMBER [id number] Status WORK IN PROGRESS Blood Bank Product RED BLOOD CELLS PRODUCT CODE [id number] Specimen Performing Laboratory [place] * Type and screen, automated (01/27/2017 12:35 AM) Component Value Ref Range ABO/RH AUTOMATED (BEAKER) B POSITIVE Ab Scrn NEGATIVE Specimen Performing Laboratory Blood [address] [address] * Ketones, blood (01/27/2017 12:35 AM) Component Value Ref Range Ketones, Blood 0.0 <0.4 mmol/L Specimen Performing Laboratory Blood [address] [address] after 10/23/2016
[2017-10-24] MEDS ORDERED: SODIUM CHLORIDE 0.9% 500ML 500 ML IV STA (12:05)
[2017-10-24] MEDS ORDERED: DEXTROSE 50% SYRINGE 50 ML IV STA (12:05)
--- OUTSIDE RECORDS SUMMARY | 2017-10-24 12:05 | XMS REPORT | Continuity of Care Document ---
Author Author [facility] Organization [facility] Address [address] [place] [address] Phone Unavailable Care Team Providers Care Frame Runner Name Role Phone EBONY ABREU MD PCP Insurance Providers Guarantor Terri Gandara Address [address] [place] [address] Email [email or web address] Payer [employer] Policy Number [id number] Subscriber's Name Terri Gandara Relationship 18 Self / Same As Patient Group Number [id number] Group Name UNEMPLOYED Effective Date 17 Payer [employer] Policy Number [id number] Subscriber's Name Terri Gandara Relationship 18 Self / Same As Patient Group Number [id number] Group Name [place] MEDICARE MEDICAID PLAN ([place]URI Effective Date 07 Advance Directives Directive Response Recorded Date/Time Does the patient have an advance directive? No 10/10/17 2:09pm If yes, is advance directive on file with [facility]? No 09/30/17 3:30pm If not on file with [facility] will patient provide a copy? Yes 09/30/17 3:31am Do you have a Directive to Physician? No 10/10/17 11:35am Do you have a Medical Power of Physical Meteorologist? No 10/10/17 11:35am Do you have an out of hospital Do Not Resuscitate Order? No 10/10/17 11:35am Do you have any special needs we should be aware of? No 10/10/17 11:35am Do you have a support person here with you today? Yes 10/10/17 11:35am Did patient receive Notice of Privacy Practices? Yes 10/10/17 11:35am Did patient receive patient rights and responsibilities? Yes 10/10/17 11:35am Problems Medical Problem Onset Date Status Anemia Unknown COPD exacerbation Unknown Cellulitis, face Unknown Chronic anemia Unknown [...] Onset Date Status Hx Psychiatric Problems No 10/10/2017 2:09pm Not Applicable Not Applicable Hx Eating Disorder No 10/10/2017 2:09pm Not Applicable Not Applicable Hx Substance Use Disorder No 10/10/2017 2:09pm Not Applicable Not Applicable Hx Depression Yes 09/30/2017 3:30pm Not Applicable Not Applicable Hx Alcohol Use No 10/10/2017 2:09pm Not Applicable Not Applicable Hx Substance Use Treatment No 10/10/2017 2:09pm Not Applicable Not Applicable Hx Physical Abuse No 10/10/2017 2:09pm Not Applicable Not Applicable Smoking Status Start Date Stop Date Never Smoker Hospital Discharge Instructions No hospital discharge instruction information available. Plan of Care Discharge Date 10/18/17 5:32pm Disposition TRANS TO OTHER [facility] Prescriptions See Medication Section Functional Status Query Response Date Recorded FUNCTIONAL STATUS . October 18, 2017 11:36am Ambulation Ability Total Assistance October 10, 2017 2:09pm Toileting Ability Maximum Assistance October 18, 2017 12:46pm Allergies, Adverse Reactions, Alerts No known allergies. Immunizations No immunization information available. Vital Signs Acute Vital Signs Vital Response Date/Time Temperature (Fahrenheit) 96.6 degrees F (97.6 - 99.5) 10/18/2017 11:58am Pulse Pulse Rate (adult) 92 bpm (60 - 90) 10/18/2017 11:58am Respiratory Rate 18 bpm (12 - 24) 10/18/2017 11:58am Blood Pressure 136/78 mm Hg 10/18/2017 11:58am Height 5 ft 2 in 10/10/2017 2:09pm Weight 93 lb 10/10/2017 10:13am Body Mass Index 17.0 kg/m^2 10/10/2017 2:09pm Results Laboratory Results Test Name Result Units Flags Reference Collection Date/Time Result Date/ Time Comments Lipase < 4 U/L L 8-78 01/26/2017 5:43pm 01/26/2017 6:34pm Free Thyroxine Index 1.3477 L 1.4-3.8 02/05/2017 6:02am 02/05/2017 7: 01am Thyroxine (T4) 4.28 ug/dL L 4.5-10.9 02/05/2017 6:02am 02/05/2017 7: 01am Our current method for Total T4 is not recommended for use as the only marker for evaluating patients for thyroid disorders. Triiodothyronine (T3) Uptake 31.49 % 22.50-37.00 02/05/2017 6:02am 7:01am Hepatitis Be Antibody Negative Negative 02/04/2017 3:00pm 02/06/2017 4:07pm Performed at: [address] [id number] Core Drill Operator Helper: Edd Worthington MD, Phone: [phone] Hepatitis B Surface Ag Confirmation Positive H [...] information. Result confirmed by neutralization. Performed at: [address] [id number] Core Drill Operator Helper: Sharath Sims MD, Phone: [phone] Hepatitis A IgM Antibody Negative 06/01/2017 1:25pm 06/04/2017 8: 49am Hepatitis C Antibody 0.1 06/01/2017 1:25pm 06/04/2017 8:49am Reference Range: 0.0 - 0.9 Negative: < 0.8 Indeterminate: 0.8 - 0.9 Positive: > 0.9 The CDC recommends that a positive HCV antibody result be followed up with a HCV Nucleic Acid Amplification test (821599). Testing performed by: [address] [id number] Dir. Edd Worthington MD Influenza Virus Types A,B Antigen NEGATIVE NEGATIVE 06/23/2017 2:40am 06/23/2017 3:31am Group A Streptococcus Screen NEGATIVE NEGATIVE 06/23/2017 2:40am 04/2017 3:29am Phosphorus Level 2.9 MG/DL 2.3-4.7 09/09/2017 6:05am 09/09/2017 6:52am Random Vancomycin Level 8.4 ug/mL 09/05/2017 4:14pm 09/05/2017 4: 51pm Band Neutrophils % 15 % 09/30/2017 3:10am 09/30/2017 4:03am Poikilocytosis SLIGHT 09/30/2017 3:10am 09/30/2017 4:03am Hepatitis B Core Total Antibody Negative Negative 09/30/2017 11:30am 10/01/2017 10:10am Performed at: - [facility] [address] [id number] Core Drill Operator Helper: Sharath Sims MD, Phone: [phone] Clostridium Difficile Toxin A & B NEGATIVE NEGATIVE 10/03/2017 10: 30pm 10/04/2017 2:42pm Testing on stool aspirate specimens is outside certified professional midwife claims since specimen type not validated on this assay. White Blood Count 4.89 x10e3/uL 4.8-10.8 10/14/2017 6:35am 10/14/2017 7 :01am Red Blood Count 3.85 x10e6/uL 3.6-5.1 10/14/2017 6:35am 10/14/2017 7: 01am Hemoglobin 11.5 g/dL L 12.0-16.0 10/14/2017 6:35am 10/14/2017 7:01am Hematocrit 33.7 % L 34.2-44.1 10/14/2017 6:35am 10/14/2017 7:01am Mean Corpuscular Volume 87.5 fL 81-99 10/14/2017 6:35am 10/14/2017 7: 01am Mean Corpuscular Hemoglobin 29.9 pg 28-32 10/14/2017 6:35am 10/14/2017 7:01am Mean Corpuscular Hemoglobin Concent 34.1 g/dL 31-35 10/14/2017 6:35am 10/14/2017 7:01am Red Cell Distribution Width 16.4 % H 11.7-14.4 10/14/2017 6:35am 2017 7:01am Platelet Count 79 x10e3/uL L 140-360 10/14/2017 6:35am 10/14/2017 7: 01am Neutrophils (%) (Auto) 41.1 % 38.7-80.0 10/14/2017 6:35am 10/14/2017 7: 01am Lymphocytes (%) (Auto) 46.0 % H 18.0-39.1 10/14/2017 6:35am 10/14/2017 7 :01am Monocytes (%) (Auto) 7.0 % 4.4-11.3 10/14/2017 6:35am 10/14/2017 7: 01am Eosinophils (%) (Auto) 4.3 % 0.0-6.0 10/14/2017 6:35am 10/14/2017 7: 01am Basophils (%) (Auto) 1.4 % H 0.0-1.0 10/14/2017 6:35am 10/14/2017 7: 01am IM GRANULOCYTES % 0.2 % 0.0-1.0 10/14/2017 6:35am 10/14/2017 7:01am Neutrophils # (Auto) 2.0 L 2.1-6.9 10/14/2017 6:35am 10/14/2017 7: 01am Lymphocytes # (Auto) 2.3 1.0-3.2 10/14/2017 6:35am 10/14/2017 7:01am Monocytes # (Auto) 0.3 0.2-0.8 10/14/2017 6:35am 10/14/2017 7:01am Eosinophils # (Auto) 0.2 0.0-0.4 10/14/2017 6:35am 10/14/2017 7:01am Basophils # (Auto) 0.1 0.0-0.1 10/14/2017 6:35am 10/14/2017 7:01am Absolute Immature Granulocyte (auto 0.01 x10e3/uL 0-0.1 10/14/2017 6: 35am 10/14/2017 7:01am Differential Total Cells Counted 100 10/11/2017 6:10am 10/11/2017 11:15am Neutrophils % (Manual) 71 % 40-74 10/11/2017 6:10am 10/11/2017 11:15am Lymphocytes % (Manual) 17 % L 19-48 10/11/2017 6:10am 10/11/2017 11: 15am Monocytes % (Manual) 2 % L 3.4-9.0 10/11/2017 6:10am 10/11/2017 11:15am Eosinophils % (Manual) 5 % 0-7 10/11/2017 6:10am 10/11/2017 11:15am Basophils % (Manual) 2 % H 0-1.5 10/11/2017 6:10am 10/11/2017 11:15am Reactive Lymphocytes 3 10/11/2017 6:10am 10/11/2017 11:15am Platelet Estimate MODERATELY DECREASED 10/11/2017 6:10am 2017 11:15am Platelet Morphology Comment NORMAL 10/11/2017 6:10am 10/11/2017 11: 15am Anisocytosis SLIGHT 10/11/2017 6:10am 10/11/2017 11:15am Red Cell Morphology Comment NORMAL 10/11/2017 6:10am 10/11/2017 11: 15am Prothrombin Time 14.7 seconds H 11.9-14.5 10/10/2017 10:50am 10/10/2017 11:11am Prothromb Time International Ratio 1.24 10/10/2017 10:50am 2017 11:11am Oral Anticoagulant Therapy INR Values: 1. Low Intensity Therapy 1.5 - 2.0 2. Moderate Intensity Therapy 2.0 - 3.0 3. High Intensity Therapy(1) 2.5 - 3.5 4. High Intensity Therapy(2) 3.0 - 4.0 5. Panic Value INR > 5.0 Activated Partial Thromboplast Time 30.9 seconds 23.8-35.5 10/10/2017 10 :50am 10/10/2017 11:11am Urine Color ADI H YELLOW 10/10/2017 11:09am 10/10/2017 11:41am Urine Clarity CLOUDY H CLEAR 10/10/2017 11:09am 10/10/2017 11:41am Urine Specific Sheldon 1.015 1.010-1.025 10/10/2017 11:09am 2017 11:41am Urine pH 8 H 5 - 7 10/10/2017 11:0910/10/2017 11:41am Urine Leukocyte Esterase 2+ H NEGATIVE 10/10/2017 11:0910/10/2017 11:41am Urine Nitrite NEGATIVE NEGATIVE 10/10/2017 11:0910/10/2017 11: 41am Urine Protein 3+ H NEGATIVE 10/10/2017 11:0910/10/2017 11:41am Urine Glucose (UA) NEGATIVE NEGATIVE 10/10/2017 11:0910/10/2017 11 :41am Urine Ketones NEGATIVE NEGATIVE 10/10/2017 11:0910/10/2017 11: 41am Urine Urobilinogen 0.2 mg/dL 0.2 - 1 10/10/2017 11:0910/10/2017 11: 41am Urine Bilirubin NEGATIVE NEGATIVE 10/10/2017 11:0910/10/2017 11: 41am Urine Blood 4+ H NEGATIVE 10/10/2017 11:0910/10/2017 11:41am Urine WBC >50 /HPF H 0-5 10/10/2017 11:0910/10/2017 12:00pm Urine RBC >50 /HPF H 0-5 10/10/2017 11:0910/10/2017 12:00pm Urine Bacteria MANY /HPF H NONE 10/10/2017 11:0910/10/2017 12:00pm Urine Epithelial Cells MODERATE /LPF NONE 10/10/2017 11:092017 12:00pm Sodium Level 134 mmol/L L 136-145 10/14/2017 6:35am 10/14/2017 7:27am Potassium Level 3.5 mmol/L 3.5-5.1 10/14/2017 6:35am 10/14/2017 7:27am Chloride Level 101 mmol/L 98-107 10/14/2017 6:35am 10/14/2017 7:27am Carbon Dioxide Level 28 mmol/L 10/14/2017 6:35am 10/14/2017 7: 27am Anion Gap 8.5 mmol/L 8-16 10/14/2017 6:35am 10/14/2017 7:27am Blood Urea Nitrogen 15 mg/dL 02-0610/14/2017 6:35am 10/14/2017 7:27am Creatinine 2.17 mg/dL H 0.57-1.11 10/14/2017 6:35am 10/14/2017 7:27am BUN/Creatinine Ratio 7 6-25 10/14/2017 6:35am 10/14/2017 7:27am Estimat Glomerular Filtration Rate 23 ML/MIN L 60- 10/14/2017 6:35am 08/2017 7:27am Ranges were taken from the National Kidney Disease Education Program and the National Kidney Foundation literature. Reference ranges: 60 or greater: Normal 16-59 (for 3 consecutive months): Chronic kidney disease 15 or less: Kidney failure Glucose Level 101 mg/dL 74-118 10/14/2017 6:35am 10/14/2017 7:27am Calcium Level 7.2 mg/dL L 8.4-10.2 10/14/2017 6:35am 10/14/2017 7:27am Bedside Glucose 117 mg/dL 70-120 10/18/2017 3:05pm 10/18/2017 3:55pm Meter ID: [id number] Hemoglobin A1c Percent 4.5 % 4.0-7.0 10/12/2017 6:10am 10/12/2017 3: 20pm Lactic Acid Level 5.0 MG/DL 4.5-19.8 10/10/2017 10:50am 10/10/2017 11: 17am Magnesium Level 1.7 MG/DL 1.3-2.1 10/10/2017 10:50am 10/10/2017 11: 18am Total Bilirubin 0.3 mg/dL 0.2-1.2 10/14/2017 6:35am 10/14/2017 7:27am Aspartate Amino Transf (AST/SGOT) 31 IU/L 5-34 10/14/2017 6:35am 2017 7:27am Alanine Aminotransferase (ALT/SGPT) 31 IU/L 0-55 10/14/2017 6:35am 08/2017 7:27am Total Protein 5.6 g/dL L 6.5-8.1 10/14/2017 6:35am 10/14/2017 7:27am Albumin 1.9 g/dL L 3.5-5.0 10/14/2017 6:35am 10/14/2017 7:27am Globulin 3.7 g/dL H 2.3-3.5 10/14/2017 6:35am 10/14/2017 7:27am Albumin/Globulin Ratio 0.5 L 0.8-2.0 10/14/2017 6:35am 10/14/2017 7: 27am Alkaline Phosphatase 122 IU/L 40-150 10/14/2017 6:35am 10/14/2017 7: 27am B-Type Natriuretic Peptide 2131.3 pg/mL H 0-100 10/10/2017 10:50am 10/10 11:21am Creatine Kinase 29 IU/L 29-168 10/10/2017 8:35pm 10/10/2017 9:27pm Creatine Kinase MB 3.90 ng/mL 0-5.0 10/10/2017 8:35pm 10/10/2017 9: 36pm Troponin I 0.076 ng/mL 0-0.300 10/10/2017 8:35pm 10/10/2017 9:36pm Free Thyroxine 1.19 ng/dL 0.9-1.8 10/12/2017 6:10am 10/12/2017 3:39pm Thyroid Stimulating Hormone (TSH) 0.464 uIU/mL 0.350-4.940 10/12/2017 6: 10am 10/12/2017 3:39pm Hepatitis B Surface Antibody, Quant 8.6 mIU/mL L Immunity>9.9 10/15/2017 6:40am 10/16/2017 9:51am Verified by repeat analysis Status of Immunity Anti-HBs Level Inconsistent with Immunity 0.0 - 9.9 Consistent with Immunity >9.9 Hepatitis B Surface Antigen Negative Negative 10/15/2017 6:40am 10/16 9:51am Hepatitis B Core IgM Antibody Negative Negative 10/15/2017 6:40am 10/2017 9:51am Performed at: [facility] [id number] Core Drill Operator Helper: Sharath Sims MD, Phone: [phone] Prealbumin 11 mg/dL 10-36 10/14/2017 6:35am 10/15/2017 9:42am Performed at: [facility] - [facility] [address] [id number] Core Drill Operator Helper: Sharath Sims MD, Phone: [phone] Microbiology Results Procedure Source Organism/Result Collection Date/Time Result Date/Time Result Status Blood Culture Blood STAPH HOMINIS SUB HOMINIS 06/23/2017 2:40am 2017 5:56am Final Wound Culture Face STAPHYLOCOCCUS AUREUS-MRSA 09/07/2017 8:29am 2017 6:20am Final Blood Culture Blood NO GROWTH AFTER 5 DAYS, FINAL REPORT 10/10/2017 10: 50am 10/15/2017 10:54am Final Procedures Procedure Status Date Provider(s) Unsched [...] without contrast Active 09/30/[address] of abdomen and pelvis without contrast Active 10/11/17 EBONY ABREU MD Encounters Encounter Location Arrival/Admit Date Discharge/Depart Date Attending Provider Discharged Inpatient [facility] 10/10/17 1:32pm 10/18/17 5:32pm EBONY ABREU MD Discharged Inpatient [facility] 09/30/17 6:40am 10/07/17 5:35pm EBONY ABREU MD Discharged Inpatient [facility] 09/05/17 8:40am 09/13/17 6:00pm EBONY ABREU MD Departed Emergency Room [facility] 06/23/17 12:59am 06/23 6:30am EDA SAVAGE MD Discharged Inpatient (obs) [facility] 06/01/17 9:49am 12:53pm EBONY ABREU MD Departed Emergency [facility] 02/26/17 4:01pm 11:00pm JOSEY PINK MD Departed [facility] 02/18/17 9:02pm 2:30am JOSEY PINK MD Discharged Inpatient (obs) [facility] 02/03/17 5:48pm 3:56pm EBONY ABREU MD [facility] 01/26/17 4:30pm 9:01pm ERNIE PAUL
[2017-10-24] MEDS: DEXTROSE 50% SYRINGE 50 ML IV PRN ×3 (12:10→22:22)
[2017-10-24 12:17] LABS: BASOPHILS # (AUTO) 0.1 (0.0-0.1); BASOPHILS % 0.6 % (0.0-1.0); EOSINOPHILS # (AUTO) 0.2 (0.0-0.4); EOSINOPHILS % 1.9 % (0.0-6.0); HEMATOCRIT 24.8 % (34.2-44.1); HEMOGLOBIN 8.8 g/dL (12.0-16.0); LYMPHOCYTES # (AUTO) 2.4 (1.0-3.2); LYMPHOCYTES % 29.4 % (18.0-39.1); MEAN CORPUSCULAR HEMOGLOBIN 30.1 pg (28-32); MEAN CORPUSCULAR HGB CONC 35.5 g/dL (31-35); MEAN CORPUSCULAR VOLUME 84.9 fL (81-99); MONOCYTES # (AUTO) 0.6 (0.2-0.8); NEUTROPHILS # (AUTO) 4.9 (2.1-6.9); NEUTROPHILS % 60.7 % (38.7-80.0); PLATELET COUNT 86 x10e3/uL (140-360); RED BLOOD COUNT 2.92 x10e6/uL (3.6-5.1); RED CELL DISTRIBUTION WIDTH 16.2 % (11.7-14.4)
[2017-10-24 12:25] LABS: INR 1.5
[2017-10-24 12:33] LABS: ALBUMIN 1.6 g/dL (3.5-5.0); ALBUMIN/GLOBULIN RATIO 0.6 (0.8-2.0); ANION GAP 9.8 mmol/L (8-16); CREATININE, SERUM 2.05 mg/dL (0.57-1.11)
[2017-10-24] MEDS ORDERED: SODIUM CHLORIDE 0.9% 1000ML 1,000 ML ONE (12:36)
[2017-10-24 12:42] LABS: CALCIUM 6.5 mg/dL (8.4-10.2); MAGNESIUM 1.1 MG/DL (1.3-2.1); POTASSIUM 2.8 mmol/L (3.5-5.1)
[2017-10-24 12:52] LABS: CREATINE KINASE MB 10.7 ng/mL (0-5.0); THYROID STIMULATING HORMONE 0.544 uIU/mL (0.350-4.940)
--- NOTE | 2017-10-24 12:55 | Diagnostic Imaging Report ---
PROCEDURE: A single AP view of the chest. COMPARISON: Portable chest 10/10/2017. INDICATIONS: WEAKNESS, HIGH BLOOD PRESSURE FINDINGS: Lines/tubes: Right internal jugular tunneled central venous catheter with tip projecting over the expected region of the right atrium. Lungs: The lungs are well inflated and clear. There is no evidence of pneumonia or pulmonary edema. Pleura: There is no pleural effusion or pneumothorax. Heart and mediastinum: The heart and the mediastinum are unremarkable. Atherosclerotic calcifications. Bones: No acute bony abnormality. Degenerative changes of the thoracic spine. IMPRESSION: No acute radiographic abnormality. Dictated by: Wilson Cox M.D. on 10/24/2017 at 12:55 Electronically approved by: Wilson Cox M.D. on 10/24/2017 at 12:55
[2017-10-24 13:27] LABS: PARTIAL THROMBOPLASTIN TIME 236.1 seconds (23.8-35.5)
[2017-10-24] MEDS ORDERED: SODIUM CHLORIDE FLUSH 10 ML SYR INJ PRN (14:15)
[2017-10-24 14:23] LABS: INR 1.23; PROTHROMBIN TIME 14.6 seconds (11.9-14.5)
[2017-10-24] MEDS ORDERED: POTASSIUM CHLORIDE 20MEQ/100ML 100 ML IV ONE (14:30)
[2017-10-24] MEDS ORDERED: MAGNESIUM SULFATE 2GM/50ML 50 ML IV ONE (14:30)
[2017-10-24] MEDS ORDERED: EPOETIN ALFA 10000 UNIT/ML VIAL SC NR (14:30)
[2017-10-24 14:31] LABS: ALBUMIN 1.9 g/dL (3.5-5.0); ALBUMIN/GLOBULIN RATIO 0.6 (0.8-2.0); ANION GAP 10.9 mmol/L (8-16); CALCIUM 7.1 mg/dL (8.4-10.2); CREATININE, SERUM 1.81 mg/dL (0.57-1.11)
[2017-10-24 14:35] LABS: POTASSIUM 2.9 mmol/L (3.5-5.1)
[2017-10-24] MEDS ORDERED: LEVOTHYROXINE175 MCG PO (14:52)
[2017-10-24] MEDS ORDERED: LOSARTAN POTAS100 MG PO (14:52)
[2017-10-24] MEDS ORDERED: GLUCAGEN1 M1 IJ (14:52)
[2017-10-24] MEDS ORDERED: NIFEDIPINE ER30 MG PO (14:52)
[2017-10-24] MEDS ORDERED: CYMBALTA30 MG PO (14:52)
[2017-10-24] MEDS ORDERED: DEXTROSE 10% 1,000 ML IV ONE (16:15)
--- NOTE | 2017-10-24 16:21 | Consultation ---
DATE OF CONSULTATION: October 24, 2017 NEPHROLOGY CONSULTATION Seen in the ER. She has a history of a liver transplant, end-stage renal disease, dialyzes Saturday/Saturday/Saturday with a tunneled dialysis catheter. Came with low blood sugar about 616 or so. That has since gone up but is again trying to come down. Because it appears that the hypoglycemia may be recurring, she is now being admitted. Chest x-ray is not showing any fluid overload. Potassium is low. Magnesium is low. Earlier glucose was 851 but is already coming down. Albumin is only 1.6. She has been dealing with chronic malnourishment. PAST HISTORY: Protein allergy, malnourishment, type 2 diabetes, liver cirrhosis with a liver transplant, chronic immunosuppression, end-stage renal disease, history of prior fluid overload, recent pneumonia that is now clearing. HOME MEDICATIONS: Please see list. FAMILY HISTORY: No kidney problems. REVIEW OF SYSTEMS: As above. Neuro additionally found she was drowsy. PHYSICAL EXAMINATION GENERAL: Lying in bed. Appears frail, thinly built. VITAL SIGNS: Temperature 95.6, pulse 92, blood pressure 138/87. HEENT: Atraumatic. NECK: No JVD. CHEST: Clear at this time. CARDIAC: Normal heart tones. Rhythm sounds regular. EXTREMITIES: No edema. ABDOMEN: Benign. VASCULAR: Right IJ catheter. NEUROLOGIC: Appears drowsy but does wake up, stays appropriate when she does. Chest x-ray is clear. Potassium is 2.8, creatinine 2, with low muscle mass, BUN 17, glucose 851, magnesium was low at 1.1, calcium 6.5, albumin is only 1.6. Troponin is elevated, which is common in ESRD even in the absence of fluid overload. Hemoglobin is 8.8. ASSESSMENT 1. End-stage renal disease. 2. Anemia of chronic kidney disease. 3. Volume status seems reasonable. 4. Hypoglycemia being a current cause of admission. PLAN: One dose of Epogen. AM chemistries. Will follow along. Dialysis to stay per usual schedule. Sincerely, Job#: [id number] EV
--- NOTE | 2017-10-24 16:39 | History and Physical ---
CHIEF COMPLAINT: Patient found to have low blood sugar of 16 at care home today. HISTORY OF PRESENT ILLNESS: This 62-year-old, pleasant, white female with a past medical history of multiple medical problems and recurrent hospitalizations for the same problem of hypoglycemia. The patient was found to have low blood sugar of 16 today at the care home, and the patient was referred to the ER for further care and treatment. In the ER, the patient was given IV D50, and the blood sugar came up to 107. At present, patient is lying comfortably in bed. No chest pain. No shortness of breath. No nausea, vomiting or diarrhea. No abdominal pain, loss of consciousness or palpitations. No headache. No hematemesis. No melena or hematuria. No dysuria. No fever. No cough. No witnessed seizures. PAST MEDICAL HISTORY 1. Hypertension. 2. Diabetes mellitus. Patient is not getting any kind of insulin or other antidiabetic medications at the care home. 3. Liver cirrhosis, status post liver transplant. 4. End-stage renal disease, on hemodialysis. 5. CHF. 6. Chronic back pain. 7. Eric's disease. PAST SURGICAL HISTORY 1. Cholecystectomy. 2. Hysterectomy. 3. Liver transplant. 4. Appendectomy. ALLERGIES: NO KNOWN DRUG ALLERGIES. SOCIAL HISTORY: No smoking. No alcohol. [facility] resident. FAMILY HISTORY: Unremarkable. REVIEW OF SYSTEMS: As per HPI. PHYSICAL EXAMINATION GENERAL: The patient is alert and oriented times 3. No apparent distress. Lying in bed. The patient is cachectic. VITALS: Temperature is 96, pulse 90 per minute, respirations 16 per minute, blood pressure is 128/80. Saturation is 100%. HEENT: No cyanosis. No icterus. No pallor. Normocephalic and atraumatic. PERRLA. NECK: Soft and supple. No JVD or carotid bruits. No lymphadenopathy. LUNGS: Air entry bilaterally equal. HEART: S1 and S2 normal. No murmur. ABDOMEN: Soft and nontender. Normal bowel sounds. LABOR ARBITRATOR HEARING OFFICE: Alert, awake. Obeys commands. Moves extremities. LABS: On admission to the ER, white count 8, hemoglobin 8.8, hematocrit 24.8, platelets 86. DICTATION STOPPED AT THIS POINT. Job#: [id number]
[2017-10-24] MEDS ORDERED: EPOETIN ALFA 10000 UNIT/ML VIAL SC SCH (17:15)
--- OUTSIDE RECORDS SUMMARY | 2017-10-24 18:00 | XMS REPORT | Clinical Summary ---
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 Adrenal insufficiency ([facility]) 06/23/2017 Hypertension 06/23/2017 Acute cystitis without hematuria 06/23/2017 Hypothermia 01/27/2017 Bradycardia 01/27/2017 ESRD (end stage renal disease) ([facility]) 01/27/2017 Hypoglycemia 01/26/2017 Acute encephalopathy 01/26/2017 Severe sepsis ([facility]) 01/26/2017 Pancreatic cyst 12/14/2013 Status post liver transplantation ([facility]) 04/21/2013 Overview: ICD9 DX Dice Manager L ast Assessment & Plan: 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 She is doing well with normal liver enzymes. She is on low dose prograf for immunosuppression. Her dose has been changed and she is on 3/3 daily. Full labs pending today for dosing. DM (diabetes mellitus) ([facility]) 04/21/2013 Last Assessment & Plan: Poorly controlled [...] Date Type Specialty Care Team Description 07/27/2017 [facility] General Internal Medicine Wal[place] MD Hypoglycemia (Primary - Encounter Castro Mcclain [...] stage renal disease) on dialysis (HCC) 06/23/2017 [facility] Cardiology Chad Henderson MD Acute - Encounter Gisele Ponce MD encephalopathy;Bradycardi 06/28/2017 a;Hypoglycemia;Hypothyroi dism, unspecified type;Status post liver transplantation (HCC);Acute cystitis without hematuria;Adrenal insufficiency (HCC);Severe sepsis (HCC);Type 2 diabetes mellitus treated with insulin (HCC);ESRD (end stage renal disease) (HCC);Essential hypertension;Immunosuppre ssion (HCC);VRE (vancomycin-resistant Enterococci) infection 06/23/2017 Telephone Critical Care Medicine Chad Henderson MD Advice Only 01/26/2017 [facility] General Internal Medicine Michele Ryan Severe [...] Taken Blood Pressure 158/77 08/01/2017 4:00 PM LEAD JAVA DEVELOPER ARCHITECT Pulse 68 08/01/2017 4:00 PM LEAD JAVA DEVELOPER ARCHITECT Temperature 35.7 C (96.3 F) 08/01/2017 4:00 PM LEAD JAVA DEVELOPER ARCHITECT Respiratory Rate 18 08/01/2017 4:00 PM LEAD JAVA DEVELOPER ARCHITECT Oxygen Saturation 100% 08/01/2017 4:00 PM LEAD JAVA DEVELOPER ARCHITECT Inhaled Oxygen - - Concentration Weight 41.7 kg (92 lb) 07/26/2017 3:53 PM LEAD JAVA DEVELOPER ARCHITECT Height 157.5 cm (5' 2") 07/26/2017 3:53 PM LEAD JAVA DEVELOPER ARCHITECT Body Mass Index 16.83 07/26/2017 3:53 PM LEAD JAVA DEVELOPER ARCHITECT Plan of Treatment Health Maintenance Due Date [...] Range POC-Glucose Meter 114 (H)Comment: TESTED AT [address] 70 - 110 mg /dL [place] [address] Specimen Performing [place] [address] * Tacrolimus level (08/01/2017 6:12 AM) Only the most recent of 13 results within the time period is included. Component Value Ref Range Tacrolimus Lvl 7.2 (L) 10.0 - 20.0 ng/mL Specimen Performing Laboratory Blood - Arm, Right [address] [address] * Hemodialysis (07/31/2017 1:21 PM) Narrative Elías [...] period is included. Specimen Performing Laboratory Blood [address] [address] * Calcium, Ionized (07/31/2017 5:49 AM) Only the most recent of 6 results within the time period is included. Component Value Ref Range Calcium, Ion 0.94 (L) 1.12 - 1.27 mmol/L pH, Blood 7.43 Specimen Performing Laboratory Blood [address] [address] * CBC with platelet count + automated [...] 1 % Granulocytes-Relative Specimen Performing [place] [address] * CBC with platelet count + automated diff (07/31/2017 5:49 AM) Only the most recent of 13 results within the time period is included. Specimen Performing Laboratory Blood Narrative The following orders were created for panel order CBC with platelet count + automated diff. Procedure Abnormality Status --------- - ------ CBC with platelet count ...[[id number]]AbnormalFinal result Manual Differential[[id number]] Final result Please view results for these tests on the individual orders. * Phosphorus (07/31/2017 5:49 AM) Only the most recent of 10 results within the time period is included. Component Value Ref Range Phosphorus 4.3 2.3 - 4.7 mg/dL Specimen Performing [place] [address] * Magnesium (07/31/2017 5:49 AM) Only the most recent of 12 results within the time period is included. Component Value Ref Range Magnesium 1.7 1.6 - 2.6 mg/dL Specimen Performing Laboratory Blood [address] [address] * Hepatic function panel (07/31/2017 5:49 AM) [...] - 55 U/L Specimen Performing [place] [address] * Basic Metabolic Panel (07/31/2017 5:49 AM) [...] FOR DIALYSIS PATIENTS. Specimen Performing [place] [address] * T4, free (07/29/2017 7:00 AM) Only the most recent of 5 results within the time period is included. Component Value Ref Range Free T4 0.90 0.70 - 1.48 ng/dL Specimen Performing Laboratory Blood - Arm, [place] [id number] * TSH/Free T4 If Indicated (07/28/2017 3:46 PM) Only the most recent of 2 results within the time period is included. Component Value Ref Range TSH 15.97 (H) 0.35 - 4.94 uIU/mL Specimen Performing Laboratory Blood - Arm, [address] [address] * Hepatitis B surface antigen (07/28/2017 3:46 PM) Only the most recent of 4 results within the time period is included. Component Value Ref Range hepatitis B Surface Ag Nonreactive Nonreactive Specimen Performing Laboratory Blood - Arm, [address] [address] * Clostridium difficile Toxin PCR (07/27/2017 10:49 AM) Only the most recent of 2 results within the time period is included. Component Value Ref Range C.Diff Toxin, PCR Detected (A) Not Detected Specimen Performing Laboratory Stool [address] [address] Narrative This qualitative real-time polymerase chain reaction [...] - 6.1 % Specimen Performing Laboratory Blood [address] [address] * Urinalysis Microscopic Only (07/27/2017 10:17 AM) Component Value Ref Range RBC, UA 2 /HPF WBC, UA 119 /HPF Bacteria, UA Many Squam Epithel, UA 5 /HPF Specimen Performing Laboratory Urine - Urine, [facility] Catch [address] [place] [address] * Urinalysis with Microscopic If Indicated (07/27/2017 10:17 AM) Component Value Ref Range Color, UA Yellow Clarity, UA Hazy Specific [place], UA 1.009 1.001 - 1.035 pH, UA 6.5 5.0 - 8.0 Protein, UA 300 mg/dL (A) Negative Glucose, UA Negative Negative Ketones, UA Negative Negative Bilirubin, UA Negative Negative Blood, UA Small (A) Negative Nitrite, UA Negative Negative Leukocytes, UA Large (A) Negative Urobilinogen, UA 0.2 0.2 - 1.0 mg/dL Specimen Source Specimen Performing Laboratory Urine - Urine, [facility] Catch [address] [place] [address] * Influenza A H1N1 PCR (07/27/2017 2:52 AM) Only the most recent of 2 results within the time period is included. Component Value Ref Range Influenza A RNA Not Detected Not Detected, Inconclusive Novel H1N1 RNA Not Detected Not Detected, Inconclusive Specimen Performing Laboratory Nasal - Nasopharyngeal [facility] Swab [address] [place] [address] Narrative These assays were performed by real-time RT-PCR (manufacturing job titles-PCR) utilizing fluorogenic hydrolysis probe technology for the detection of human Influenza A viruses and the differential detection of novel H1N1 Influenza virus in respiratory specimens. The test is composed of (1) an RNA extraction from patient specimen, and (2) manufacturing job titles-PCR amplification and detection with human Influenza A and novel [id number] primers and probes. A well-conserved region of [...] and its performance characteristics determined by the [facility] Pathology Department, Section of Molecular Pathology.It has not been cleared or approved by the U.S. Food and Drug Administration (FDA).Since FDA approval is not required for clinical use of the test, validation was done as required by The Clinical Laboratory Amendments of 1988. These assays were performed by real-time RT-PCR (manufacturing job titles-PCR) utilizing fluorogenic hydrolysis probe technology for the detection of human Influenza A viruses and the differential detection of novel H1N1 Influenza virus in respiratory specimens. The test is composed of (1) an RNA extraction from patient specimen, and (2) manufacturing job titles-PCR amplification and detection with human Influenza A and novel [id number] primers and probes. A well-conserved region of [...] and its performance characteristics determined by the [facility] Pathology Department, Section of Molecular Pathology.It has [...] - 36.0 seconds Specimen Performing Laboratory Blood [address] [address] Narrative RECOMMENDED COUMADIN/WARFARIN INR THERAPY RANGES STANDARD [...] Inconclusive Specimen Performing Laboratory Nasal - Nasopharyngeal [facility] Swab [address] [place] [address] * Lipase (07/27/2017 2:52 AM) Only the most recent of 2 results within the time period is included. Component Value Ref Range Lipase <4 (L) 8 - 78 U/L Specimen Performing Laboratory Blood [address] [address] * XR femur right AP and lateral [...] MD Report Verified Date/Time:07/26/2017 23:34:07 Reading Location: [address] Consult Reading Room Procedure Note Interface, External Ris In - 07/26/2017 11:36 PM LEAD JAVA DEVELOPER ARCHITECT FINAL REPORT Right femur, two views. INDICATION: [...] Report Verified Date/Time: 07/26/2017 23:34:07 Reading Location: [address] Consult Reading Room * EKG-SCANNED (07/25/2017 [...] WBC Specimen Performing Laboratory Blood - Arm, [address] [address] * TSH (06/28/2017 5:54 AM) Only the most recent of 2 results within the time period is included. Component Value Ref Range TSH 4.76 0.35 - 4.94 uIU/mL Specimen Performing Laboratory Blood - Arm, [address] [address] * Comprehensive metabolic panel (06/28/2017 5:54 AM) [...] Specimen Performing Laboratory Blood - Arm, Left [address] [address] * Vancomycin level, random (06/24/2017 4:37 AM) Only the most recent of 3 results within the time period is included. Component Value Ref Range Vancomycin Rm 16.5 ug/mL Specimen Performing Laboratory Blood [address] [address] Narrative Reference Range: No Normals * ECG 12 lead (06/23/2017 11:42 AM) Specimen Performing Laboratory [facility] Narrative Ventricular Rate 55 BPM Atrial Rate 55 BPM P-R Interval 128 ms QRS Duration 74 ms Q-T Interval 552 ms QTC Calculation(Bazett) 528 ms P Arnold 77 degrees R Arnold -1 degrees T Arnold 0 degrees Sinus bradycardia Septal infarct (cited on or before 23-JUN-2017) Prolonged QT Abnormal ECG When compared with ECG of 31-JUL-2012 20:36, Nonspecific T wave abnormality now evident in Inferior leads QT has lengthened Confirmed by MD KAVITHA, TATO Encinas ([id number]) on 06/24/2017 8:28:24 AM Procedure Note Interface, External Ris In - 06/24/2017 8:28 AM LEAD JAVA DEVELOPER ARCHITECT Ventricular Rate 55 BPM Atrial Rate 55 BPM P-R Interval 128 ms QRS Duration 74 ms Q-T Interval 552 ms QTC Calculation(Bazett) 528 ms P Arnold 77 degrees R Arnold -1 degrees T Arnold 0 degrees Sinus bradycardia Septal infarct (cited on or before 23-JUN-2017) Prolonged QT Abnormal ECG When compared with ECG of 31-JUL-2012 20:36, Nonspecific T wave abnormality now evident in Inferior leads QT has lengthened Confirmed by MD KAVITHA, TATO Encinas ([id number]) on 06/24/2017 8:28:24 AM * US Hepatic Portal Vessel with Doppler (06/23/2017 10:42 AM) Specimen Performing Laboratory [facility] FINAL REPORT Ultrasound of the Abdomen and [...] MD Report Verified Date/Time:06/23/2017 11:16:57 Reading Location: [facility] B1 C013Y CT Body Reading Room Procedure Note Interface, External Ris In - 06/23/2017 11:19 AM LEAD JAVA DEVELOPER ARCHITECT FINAL REPORT Ultrasound of the Abdomen and [...] Report Verified Date/Time: 06/23/2017 11:16:57 Reading Location: [facility] C013Y CT Body Reading Room * Blood culture (06/23/2017 9:24 AM) Only the most recent of 3 results within the time period is included. Component Value Ref Range Result No growth in 5 days Specimen Performing Laboratory Blood - [facility], [address] [address] * Troponin I (06/23/2017 9:23 AM) Only the most recent of 2 results within the time period is included. Component Value Ref Range Troponin I <0.01 0.00 - 0.03 ng/mL Specimen Performing Laboratory Blood - [facility], [place] [address] Narrative Troponin I (TnI) levels must be [...] 2.2 mmol/L Specimen Performing Laboratory Blood - [facility], [address] [address] Narrative Effective 11/16/2015: Units/Reference Range Change New: 0.5-2.2 mmol/LPrevious: 5-20 mg/dL * Creatine Kinase (CK), Total and MB (06/23/2017 9:23 AM) Component Value Ref Range Total CK 29 29 - 200 U/L CK-MB 3.5 0.0 - 6.6 ng/mL MB Relative Index 12.1 % Specimen Performing Laboratory Blood - [facility], [address] [address] Narrative CK-MB Reference Range: <6.7Normal 6.7-10.0Borderline >10.0 Abnormal * Ammonia (06/23/2017 9:23 AM) Component Value Ref Range Ammonia 28 18 - 72 mol/L Specimen Performing Laboratory Blood - Arm, Left [address] [address] * Urinalysis w/Microscopic (06/23/2017 9:11 AM) Only the most recent of 2 results within the time period is included. Component Value Ref Range Color, UA Yellow Clarity, UA Hazy Specific [place], UA 1.006 1.001 - 1.035 pH, UA [...] Urine Few Yeast Few Specimen Source Urine, [place] Specimen Performing Laboratory Urine - Urine, [address] [address] * Urine culture (06/23/2017 9:11 AM) Only the most recent of 2 results within the time period is included. Component Value Ref Range Result Result 10-19,000 col/mL Vancomycin resistant Enterococcus species (A) Specimen Performing Laboratory Urine - Urine, [address] [address] Organism Antibiotic Method Susceptibility Vancomycin resistant Ampicillin [...] Specimen Performing Laboratory Blood - Arm, Right [address] [address] * Prothrombin time/INR (06/23/2017 9:10 AM) Only the most recent of 5 results within the time period is included. Component Value Ref Range Protime 15.3 (H) 11.7 - 14.7 seconds INR 1.2 <=5.9 Specimen Performing Laboratory Blood - Arm, Right [address] [address] Narrative RECOMMENDED COUMADIN/WARFARIN INR THERAPY RANGES STANDARD DOSE: 2.0 - 3.0 Includes: PROPHYLAXIS for venous thrombosis, systemic embolization; TREATMENT for venous thrombosis and/or pulmonary embolus. HIGH RISK: Target INR is 2.5-3.5 for patients with mechanical heart valves. * Fibrinogen (06/23/2017 9:10 AM) Component Value Ref Range Fibrinogen 297 225 - 434 mg/dl Specimen Performing Laboratory Blood - Arm, Right [address] [address] * T3, free (06/23/2017 9:10 AM) Component Value Ref Range T3, Free 1.26 (L) 1.71 - 3.71 pg/mL Specimen Performing Laboratory Blood - Arm, [address] [address] * Blood gas, arterial (06/23/2017 9:08 AM) [...] Specimen Performing Laboratory Blood, Arterial - Arm, [facility] Right [address] [place], [place] [id number] * XR chest 1 view portable / [...] MD Report Verified Date/Time:06/23/2017 09:32:04 Reading Location: [address] Transitional Reading Room Procedure Note Interface, External Ris In - 06/23/2017 9:34 AM LEAD JAVA DEVELOPER ARCHITECT FINAL REPORT HISTORY : myxedema, sepsis. Comparison: [...] Report Verified Date/Time: 06/23/2017 09:32:04 Reading Location: [address] Transitional Reading Room * Prepare Leuko-Red RBC (01/29/2017 11:54 PM) Component Value Ref Range CROSSMATCH COMPATIBLE Unit ABO B Pos UNIT NUMBER [id number] Status TRANSFUSED Blood Bank Product RED BLOOD CELLS PRODUCT CODE [id number] Specimen Performing Laboratory Other [place] * Hepatitis B PCR, quantitative (01/29/2017 11:15 AM) Component Value Ref Range HBV PCR, Quantitative HBV DNA not detected HBV DNA not detected Specimen Performing Laboratory Blood [address] [address] Narrative This test uses a Real-Time Polymerase [...] Antigen Neutralization testing. Specimen Performing Laboratory Blood [address] [address] * Hepatitis B core antibody, IgM (01/29/2017 11:15 AM) Component Value Ref Range Hep B C IgM Nonreactive Nonreactive Specimen Performing Laboratory Blood [address] [address] * Hepatitis B core antibody, total (01/29/2017 11:15 AM) Component Value Ref Range Hep B Core Total Ab Nonreactive Nonreactive Specimen Performing Laboratory Blood [address] [address] * Hepatitis B surface antibody (01/29/2017 11:15 AM) Component Value Ref Range Hep B S Ab <8.0 <8.0 mIU/mL Specimen Performing [place] [address] * Transfuse Leuko-Red RBC (01/29/2017 5:46 AM) Only the most recent of 2 results within the time period is included. * CMV PCR, quantitative (01/29/2017 5:21 AM) Component Value Ref Range CMV DNA Viral Load Negative or below the linear range of the assay (<375 copies/mL) Specimen Performing [place] [address] Narrative Cytomegalovirus (CMV) infection can cause significant [...] and its performance characteristics determined by the [facility] Pathology Department, Section of Molecular [...] Performing Laboratory Blood - Arm, [place] [address] Narrative ACTH STIMULATION TEST INTERPRETATION GUIDELINES (Synonyms: [...] Specimen Performing Laboratory Blood - Arm, [place] [address] Narrative ACTH STIMULATION TEST INTERPRETATION GUIDELINES (Synonyms: [...] study by Mirella et al ( DOREEN 2000,283(8):9650-55), the ACTH Stimulation Test provides important prognostic [...] Specimen Performing Laboratory Blood - Arm, Right [address] [address] Narrative ACTH STIMULATION TEST INTERPRETATION GUIDELINES (Synonyms: [...] study by Mirella et al ( DOREEN 2000,283(8):4281-45), the ACTH Stimulation Test provides important prognostic [...] Procedure Abnormality Status --------- - ------ Cortisol, baseline[[id number]] Final result Cortisol, 30 minutes[[id number]] Final result Cortisol, 60 minutes[[id number]] Final result Please view results for these tests on the individual orders. * 2D Echo W/Doppler (Sepsis Protocol) (01/27/2017 3:16 PM) Component Value Ref Range Ejection Fraction LV EF 72.3 % (55-75) Index 57.8 %/m2 Specimen Performing Laboratory [facility] Echocardiography Laboratory [address] [place] [address] Voice:[phone] Transthoracic Echocardiogram Pat.Name:TERRI GANDARA Pat.ID:[id number] .Date: 01/27/2017 Refer.MD:MICHELE RYAN Exam Time: 3:16:00 PMStudy Type:Echo Complete Height:62inWeight:74lb BSA: 1.25 m2 DOBAge:1954,61Y Sex: FEMALEBP:90 /46 HR:71 bpmSonogrphr: Michelle Sigala [facility] Pat. Stat.:Inpatient Room:[facility] Reason for Study:Sepsis Protocol History / Clinical:Diabetes, [...] ml/m2 LA Area 15.6 cm2(8.8-23.4) Parasternal Long Arnold Ao An2 cm (1.4-2.6) LV%fs 33.8 %(25-46) Ao Rtd2.52 cmLVPWd 1.06 cm IVSd1.21 cm LA Ds 3.72 cm (2.3-3.8) LVIDd 3.72 cm (4.3-5.1)* LV Wmn 1.13 cm LVIDs 2.47 cm (2-4) DOPPLER LVOT LVOT For Flow [id number] cm/s (70-110)* LVOT CO 5.77 l/min LVOT [...] - 01/28/2017 12:58 PM CDT Echocardiography Laboratory [address] [place] [address] Voice: [phone] Transthoracic Echocardiogram Pat.Name: TERRI GANDARA Pat.ID: [id number] .Date: 01/27/2017 Refer.MD: MICHELE RYAN Exam Time: 3:16:00 PM Study Type:Echo Complete Height: 62in Weight: 74lb BSA: 1.25 m2 Age: 11 1955,61Y Sex: FEMALE BP: 90/46 HR: 71 bpm Sonogrphr: Michelle Sigala RDCS Pat. Stat.:Inpatient Room: [facility] Reason for Study:Sepsis Protocol History / Clinical:Diabetes, [...] LA Area 15.6 cm2 (8.8-23.4) Parasternal Long Arnold Ao An 2 cm (1.4-2.6) LV%fs 33.8 [...] PM Tato White M.D. * Respiratory Panel [facility] (01/27/2017 2:43 PM) Component Value Ref [...] Inconclusive Specimen Performing Laboratory Nasopharyngeal - Nasal, [facility] Right [address] [place] [address] * Vitamin B12 and Folate (01/27/2017 5:29 AM) Component Value Ref Range Vitamin B12 480 213 - 816 pg/mL Folate 6.3 (L) >=7.0 ng/mL Specimen Performing Laboratory Blood - Arm, Right [address] [address] Narrative Effective 06/01/2014: Folate Reference Range Change New: >=7.0Previous: >=5.4 * Iron, TIBC, % sat. (without ferritin) (01/27/2017 5:29 AM) Component Value Ref Range Iron 65 40 - 160 ug/dL TIBC 209 (L) 250 - 450 ug/dL Iron % Saturation 31 20 - 55 % Specimen Performing Laboratory Blood - Arm, [address] [address] * Ferritin (01/27/2017 5:29 AM) Component Value Ref Range Ferritin 670 (H) 5 - 275 ng/mL Specimen Performing Laboratory Blood - Arm, [address] [address] Narrative Effective 06/01/2014: Reference Range Change New: Male 5-275Previous: Male Female 5-275Female * Prepare RBC (01/27/2017 1:01 AM) Component Value Ref Range Status CANCELED Blood Bank Product RED BLOOD CELLS Unit ABO O Pos UNIT NUMBER [id number] Status CANCELED Blood Bank Product RED BLOOD CELLS PRODUCT CODE [id number] Unit ABO O Pos UNIT NUMBER [id number] Status WORK IN PROGRESS Blood Bank Product RED BLOOD CELLS PRODUCT CODE [id number] Specimen Performing Laboratory [facility] [place] * Type and screen, automated (01/27/2017 12:35 AM) Component Value Ref Range ABO/RH AUTOMATED (BEAKER) B POSITIVE Ab Scrn NEGATIVE Specimen Performing Laboratory Blood [address] [address] * Ketones, blood (01/27/2017 12:35 AM) Component Value Ref Range Ketones, Blood 0.0 <0.4 mmol/L Specimen Performing Laboratory Blood [address] [address] after 10/23/2016
[2017-10-25 03:40] LABS: BASOPHILS % 0.3 % (0.0-1.0); EOSINOPHILS # (AUTO) 0.1 (0.0-0.4); EOSINOPHILS % 0.4 % (0.0-6.0); HEMATOCRIT 27.2 % (34.2-44.1); HEMOGLOBIN 9.7 g/dL (12.0-16.0); LYMPHOCYTES # (AUTO) 2.7 (1.0-3.2); MEAN CORPUSCULAR HEMOGLOBIN 29.7 pg (28-32); MEAN CORPUSCULAR HGB CONC 35.7 g/dL (31-35); MEAN CORPUSCULAR VOLUME 83.2 fL (81-99); MONOCYTES # (AUTO) 0.9 (0.2-0.8); MONOCYTES % 6.5 % (4.4-11.3); NEUTROPHILS # (AUTO) 9.3 (2.1-6.9); NEUTROPHILS % 71.4 % (38.7-80.0); PLATELET COUNT 93 x10e3/uL (140-360); RED BLOOD COUNT 3.27 x10e6/uL (3.6-5.1); RED CELL DISTRIBUTION WIDTH 16.5 % (11.7-14.4)
[2017-10-25 03:54] LABS: ALBUMIN 1.8 g/dL (3.5-5.0); ALBUMIN/GLOBULIN RATIO 0.5 (0.8-2.0); CALCIUM 7.2 mg/dL (8.4-10.2); CREATININE, SERUM 2.21 mg/dL (0.57-1.11)
[2017-10-25] MEDS ORDERED: DEXTROSE 5% 1,000 ML IV ONE (08:15)
[2017-10-25] MEDS ORDERED: ACETAMINOPHEN 325 MG TAB PO PRN (08:15)
[2017-10-25] MEDS ORDERED: LEVOTHYROXINE SODIUM 50 MCG TAB PO SCH (09:00)
[2017-10-25] MEDS: LOSARTAN POTASSIUM 100 MG TAB PO SCH (10:00)
[2017-10-25] MEDS: TACROLIMUS 1 MG CAP PO SCH ×2 (10:00→21:23)
[2017-10-25] MEDS: DULOXETINE HCL 30 MG DELAYED RELEASE PO SCH ×2 (10:00→17:53)
[2017-10-25] MEDS: NIFEDIPINE CR 30 MG TAB PO SCH ×2 (10:00→21:17)
[2017-10-25] MEDS: LEVOTHYROXINE SODIUM 100 MCG TAB PO SCH (10:00)
[2017-10-25] MEDS: PANTOPRAZOLE SOD 40 MG TABEC PO SCH (10:00)
[2017-10-25] MEDS: LEVOTHYROXINE SODIUM 75 MCG TAB PO SCH (10:00)
[2017-10-25] MEDS: HYDROCORTISONE 10 MG TAB PO SCH (10:31)
--- NOTE | 2017-10-25 12:20 | Progress Note ---
DATE: October 25, 2017 NEPHROLOGY PROGRESS NOTE Had some swelling. More alert. She has been on dextrose IV. The last blood sugar is 203. PHYSICAL EXAMINATION GENERAL: Lying in bed in no distress, more awake. VITAL SIGNS: Pulse is 111, temperature 99.4, blood pressure 152/90. EXTREMITIES: Edema plus up to the sacrum. CHEST: Still clear. NEURO: Alert and appropriate, more awake. ASSESSMENT 1. End-stage renal disease. 2. Hypoglycemia, improving. 3. Hospital hyperphosphatemia, which is now controlled at 3.3. 4. Acid-base balance is controlled. 5. Fluid overload by exam. PLAN: Hemodialysis today, 3-1/2-hour run, 3 L fluid removal, 3 potassium bath. Will follow along. One dose of Epogen. Job#: [id number]
[2017-10-25] MEDS ORDERED: DEXTROSE 5% 1,000 ML IV SCH (12:45)
[2017-10-25 14:38] LABS: FREE T4 (FREE THYROXINE) 1.39 ng/dL (0.9-1.8); THYROID STIMULATING HORMONE 0.466 uIU/mL (0.350-4.940)
--- NOTE | 2017-10-25 15:01 | Consultation ---
DATE OF CONSULTATION: October 25, 2017 ENDOCRINE CONSULTATION This is a patient of Dr. Young. Thank you very much for referring this patient. This is a 62-year-old lady, who is very well known to me from her previous hospital admission. In fact, the patient was discharged from the hospital only a few days back. The patient has a history of diabetes mellitus, type 2, uncontrolled with complications. She has history of liver transplant in the past, hypothyroidism, hypertension. She came to the hospital with history of recurrent hypoglycemic episodes in the correction. Her oral intake is very significantly low. Patient has end-stage renal failure on chronic hemodialysis. According to information, her blood sugars have been significantly low with altered mental status in spite of the fact the patient has not received any insulin for almost 4 days. She is on multiple other medications at home including hydrocortisone. For hypothyroidism, she is on Synthroid 0.175 mg once daily. PHYSICAL EXAMINATION GENERAL: Today the patient is alert and awake. She looks very cachectic. She has lost a lot of muscle mass. VITALS: Her heart rate is around 60. Blood pressure is 104/70 mmHg. HEENT: Examination is essentially unremarkable. Thyroid is palpable. Clinically she looks near euthyroid. CHEST: Bilateral vesicular breathing. She has mild bronchospasm. CARDIAC: First and 2nd heart sounds. There is no 3rd or 4th heart sounds. Ejection systolic murmur grade 2/6 CLINICAL IMPRESSION 1. Hypoglycemia, multifactorial. 2. Decreased oral intake. 3. End-stage renal failure on chronic dialysis. 4. Hypothyroidism. 5. Hypocortisolism. 6. Hypotension. At the time of admission, because of the D50, her blood sugar jumped up to 851, but the anion gap was normal. Presently, the blood sugar is 163 to 200. The plan at this time would be to do a hemoglobin A1c and thyroid function test and start her on tube feedings. If she cannot be put on the PEG tube feedings, we can start her on Dobbhoff tube feedings and improve her nutrition and overall being. Thanks again for referring this patient. I will be following this patient with you. Job#: [id number] ELBA MEJIA
[2017-10-25] MEDS: INSULIN LISPRO 100 UNIT/1 ML 3ML VIAL SQ SCH ×2 (17:18→21:00)
--- NOTE | 2017-10-25 17:39 | Diagnostic Imaging Report ---
PROCEDURE: A single AP view of the chest. COMPARISON: 10/24/17 INDICATIONS: DOBHOFF TUBE PLACEMENT FINDINGS: See impression. IMPRESSION: Dedicated x-ray to confirm Dobbhoff tube placement. Subdiaphragmatic course of Dobbhoff tube with tip overlying the gastric fundus. Dictated by: Piotr Rich M.D. on 10/25/2017 at 17:40 Electronically approved by: Piotr Rich M.D. on 10/25/2017 at 17:40
--- NOTE | 2017-10-25 19:51 | Diagnostic Imaging Report ---
RADIOGRAPH(S) OF THE ABDOMEN AND PELVIS, 1 view(s) HISTORY: Dobbhoff placement COMPARISON: None available. FINDINGS: Single radiograph centered on the left upper quadrant of the abdomen. A Dobbhoff tube extends below the level of the diaphragm, the tip projects in the expected region of the lateral stomach. No specific evidence of obstruction or ileus. Diffuse scattered atherosclerotic vascular calcifications. The bones are partially obscured by stool and overlying bowel gas. Incompletely healed fracture involving the lateral aspect of the left 11th rib. IMPRESSION: Status post Dobbhoff tube placement. Signed by: Dr. Jim Landrum D.O., M.M.M. on 10/25/2017 7:44 PM
[2017-10-25 20:00] VITALS: BP 168/94
--- NOTE | 2017-10-25 22:07 | Consultation ---
DATE OF CONSULTATION: October 25, 2017 GASTROENTEROLOGY CONSULTATION HISTORY OF PRESENT ILLNESS: This is a 62-year-old known to me, who has a history of cirrhosis, previous liver transplant, presented to the hospital again because of failure to thrive and hypoglycemia. Patient apparently has not been eating. She also has some anemia with hemoglobin as low as 8.8. She denies any nausea or vomiting or bleeding along with the problem. She has been losing weight. MEDICAL PROBLEMS: Significant for a history of cirrhosis, previous liver transplant, history of hypertension, history of diabetes, history of [place] disease, status post cholecystectomy, hysterectomy, liver transplant, appendectomy. ALLERGIES: NONE. SOCIAL HISTORY: No alcohol use. FAMILY HISTORY: Noncontributory. CURRENT MEDICATIONS: Including Cymbalta, Solu-Cortef, Synthroid, Prograf, Protonix, Procardia, Cozaar and Humalog. REVIEW OF SYSTEMS: At this point she denies any chest pain. No shortness of breath. Denies any dysphagia or odynophagia. Denies any dysuria, hematuria, or any syncopal episode. PHYSICAL EXAMINATION GENERAL: The patient is awake, alert, appears to be stable. Not in acute distress at this point. VITAL SIGNS: Afebrile currently. HEAD, EYES, EARS, NOSE AND THROAT: Normocephalic and atraumatic. Sclera is anicteric. NECK: Supple. CARDIAC: Heart sounds regular. LUNGS: Clear. ABDOMEN: Soft. There is no distention at this point. It is nontender. EXTREMITIES: No cyanosis, no clubbing. LAB VALUES: WBC of 13, hemoglobin of 9.7. The BUN was 21, creatinine of 2.21. PT is 14.6, INR 1.23. IMPRESSION 1. Failure to thrive. 2. Weight loss. 3. Anemia. RECOMMENDATIONS: Start on Dobbhoff feeding tube. Follow clinically. Job#: [id number] EV cc:EBONY ABREU M.D.
[2017-10-25 22:24] VITALS: BP 168/94
[2017-10-26] VITALS (7 sets, daily range): BP systolic 105–145; BP diastolic 64–82
[2017-10-26] MEDS: LEVOTHYROXINE SODIUM 75 MCG TAB PO SCH (06:02)
[2017-10-26] MEDS: LEVOTHYROXINE SODIUM 100 MCG TAB PO SCH (06:02)
[2017-10-26] MEDS ORDERED: POTASSIUM CHLORIDE 20 MEQ TAB CR PO STA (06:10)
[2017-10-26] MEDS ORDERED: SODIUM CHLORIDE 0.9% 1000ML 1,000 ML IV ONE ×2 (06:15)
[2017-10-26] MEDS ORDERED: SODIUM CHLORIDE 0.9% 250ML 250 ML ONE (06:44)
[2017-10-26] MEDS ORDERED: POTASSIUM CHLORIDE 20MEQ/15ML UDC NG ONE (07:00)
[2017-10-26] MEDS: INSULIN LISPRO 100 UNIT/1 ML 3ML VIAL SQ SCH ×4 (07:30→20:19)
[2017-10-26] MEDS: LOSARTAN POTASSIUM 100 MG TAB PO SCH (09:00)
[2017-10-26] MEDS: TACROLIMUS 1 MG CAP PO SCH ×2 (09:00→20:19)
[2017-10-26] MEDS: NIFEDIPINE CR 30 MG TAB PO SCH ×2 (09:00→20:19)
[2017-10-26] MEDS: PANTOPRAZOLE SOD 40 MG TABEC PO SCH (09:10)
[2017-10-26] MEDS: HYDROCORTISONE 10 MG TAB PO SCH (09:10)
[2017-10-26] MEDS: DULOXETINE HCL 30 MG DELAYED RELEASE PO SCH ×2 (09:10→17:00)
--- NOTE | 2017-10-26 12:33 | Progress Note ---
DATE: October 26, 2017 NEPHROLOGY PROGRESS NOTE SUBJECTIVE: Seen on dialysis, tolerating procedure. Got a feeding tube after agreeing to being fed given her issues with malnutrition. However, now wants it out. OBJECTIVE GENERAL: Lying in bed. No distress. Appears frail. VITAL SIGNS: Temperature 95.3, pulse 86, blood pressure 110/62. CHEST: Clear. EXTREMITIES: Trace sacral edema. ABDOMEN: Benign. HEENT: Feeding tube in place. Hemoglobin was 9.7. Repeat chemistries are pending. Yesterday potassium was low at 3. ASSESSMENT 1. End-stage renal disease. 2. Malnutrition. 3. Hypoalbuminemia. 4. History of hypertension. 5. Diabetes. 6. Status post liver transplant. PLAN: Hemodialysis today, 3-1/2 hour run, 3 potassium bath, 2 liters fluid removal, blood flow rate 350 mL per minute, fluid flow rate 500 mL per minute. Will follow along. Sincerely, Job#: [id number] EV
[2017-10-27] VITALS (9 sets, daily range): BP systolic 140–178; BP diastolic 74–97
[2017-10-27] MEDS: LEVOTHYROXINE SODIUM 100 MCG TAB PO SCH (06:06)
[2017-10-27] MEDS: LEVOTHYROXINE SODIUM 75 MCG TAB PO SCH (06:06)
[2017-10-27] MEDS: INSULIN LISPRO 100 UNIT/1 ML 3ML VIAL SQ SCH ×4 (07:30→21:00)
[2017-10-27 07:41] LABS: BASOPHILS % 0.4 % (0.0-1.0); EOSINOPHILS # (AUTO) 0.2 (0.0-0.4); EOSINOPHILS % 3.3 % (0.0-6.0); HEMATOCRIT 24.9 % (34.2-44.1); HEMOGLOBIN 8.7 g/dL (12.0-16.0); LYMPHOCYTES # (AUTO) 2.6 (1.0-3.2); LYMPHOCYTES % 34.8 % (18.0-39.1); MEAN CORPUSCULAR HEMOGLOBIN 29.9 pg (28-32); MEAN CORPUSCULAR HGB CONC 34.9 g/dL (31-35); MEAN CORPUSCULAR VOLUME 85.6 fL (81-99); MONOCYTES # (AUTO) 0.4 (0.2-0.8); MONOCYTES % 5.4 % (4.4-11.3); NEUTROPHILS # (AUTO) 4.1 (2.1-6.9); NEUTROPHILS % 55.8 % (38.7-80.0); RED BLOOD COUNT 2.91 x10e6/uL (3.6-5.1); RED CELL DISTRIBUTION WIDTH 16.8 % (11.7-14.4)
[2017-10-27 07:43] LABS: PLATELET COUNT 44 x10e3/uL (140-360)
[2017-10-27 07:57] LABS: ALBUMIN 1.7 g/dL (3.5-5.0); ALBUMIN/GLOBULIN RATIO 0.5 (0.8-2.0); ANION GAP 8.4 mmol/L (8-16); CALCIUM 7.3 mg/dL (8.4-10.2); CREATININE, SERUM 1.8 mg/dL (0.57-1.11); POTASSIUM 4.4 mmol/L (3.5-5.1)
[2017-10-27] MEDS: PANTOPRAZOLE SOD 40 MG TABEC PO SCH (08:45)
[2017-10-27] MEDS: DULOXETINE HCL 30 MG DELAYED RELEASE PO SCH ×2 (08:45→17:00)
[2017-10-27] MEDS: HYDROCORTISONE 10 MG TAB PO SCH (08:45)
[2017-10-27] MEDS: LOSARTAN POTASSIUM 100 MG TAB PO SCH (08:45)
[2017-10-27] MEDS: NIFEDIPINE CR 30 MG TAB PO SCH ×2 (08:45→21:23)
[2017-10-27] MEDS: TACROLIMUS 1 MG CAP PO SCH ×2 (08:45→21:23)
[2017-10-27] MEDS: CLONIDINE HCL 0.1 MG TAB PO PRN (17:31)
[2017-10-28] VITALS (8 sets, daily range): BP systolic 90–176; BP diastolic 51–92
[2017-10-28] MEDS: LEVOTHYROXINE SODIUM 75 MCG TAB PO SCH (05:44)
[2017-10-28] MEDS: LEVOTHYROXINE SODIUM 100 MCG TAB PO SCH (05:44)
[2017-10-28 07:22] LABS: BASOPHILS # (AUTO) 0.1 (0.0-0.1); BASOPHILS % 0.7 % (0.0-1.0); EOSINOPHILS # (AUTO) 0.3 (0.0-0.4); EOSINOPHILS % 4.5 % (0.0-6.0); HEMATOCRIT 23.9 % (34.2-44.1); HEMOGLOBIN 8.1 g/dL (12.0-16.0); LYMPHOCYTES # (AUTO) 2.2 (1.0-3.2); LYMPHOCYTES % 31.6 % (18.0-39.1); MEAN CORPUSCULAR HEMOGLOBIN 29.3 pg (28-32); MEAN CORPUSCULAR HGB CONC 33.9 g/dL (31-35); MEAN CORPUSCULAR VOLUME 86.6 fL (81-99); MONOCYTES # (AUTO) 0.4 (0.2-0.8); MONOCYTES % 5.7 % (4.4-11.3); NEUTROPHILS % 57.4 % (38.7-80.0); PLATELET COUNT 91 x10e3/uL (140-360); RED BLOOD COUNT 2.76 x10e6/uL (3.6-5.1); RED CELL DISTRIBUTION WIDTH 16.6 % (11.7-14.4)
[2017-10-28] MEDS: INSULIN LISPRO 100 UNIT/1 ML 3ML VIAL SQ SCH ×4 (07:30→20:38)
[2017-10-28 08:11] LABS: HIV 1&2 AB SCREEN NON-REACTIVE (NONREACTIVE)
[2017-10-28 08:34] LABS: IRON 75 ug/dL (50-170); TRANSFERRIN < 70 mg/dL (180-382)
[2017-10-28 08:42] LABS: FREE T4 (FREE THYROXINE) 1.27 ng/dL (0.9-1.8); THYROID STIMULATING HORMONE 0.254 uIU/mL (0.350-4.940)
[2017-10-28 08:55] LABS: FERRITIN 1095.75 ng/mL (4.63-204.00)
[2017-10-28] MEDS ORDERED: SODIUM CHLORIDE 0.9% 1000ML 2,000 ML ONE (08:59)
[2017-10-28] MEDS: HYDROCORTISONE 10 MG TAB PO SCH (09:00)
[2017-10-28] MEDS: PANTOPRAZOLE SOD 40 MG TABEC PO SCH (09:00)
[2017-10-28] MEDS: TACROLIMUS 1 MG CAP PO SCH ×2 (09:00→20:38)
[2017-10-28] MEDS: DULOXETINE HCL 30 MG DELAYED RELEASE PO SCH ×2 (09:00→17:00)
[2017-10-28] MEDS: LOSARTAN POTASSIUM 100 MG TAB PO SCH (09:00)
[2017-10-28] MEDS: NIFEDIPINE CR 30 MG TAB PO SCH ×2 (09:00→20:38)
[2017-10-28 09:01] LABS: FOLATE 3.8 ng/mL (7.0-15.4)
[2017-10-28] MEDS: BALSAM PERU/CASTOR OIL 60 GM OINT...G. TP SCH ×2 (09:19→17:42)
[2017-10-28] MEDS ORDERED: ALBUMIN HUMAN 12.5GM / 50ML IV PRN (13:15)
[2017-10-28] MEDS ORDERED: HEPARIN SOD (PORCINE) 1000 UNIT/ML SDV IV PRN (13:15)
[2017-10-28] MEDS ORDERED: SODIUM CHLORIDE 0.9% 1000ML 2,000 ML IV PRN (13:15)
--- NOTE | 2017-10-28 18:22 | Diagnostic Imaging Report ---
PROCEDURE:ABDOMINAL ULTRASOUND COMPARISON:Abdominal CT 07/30/2013. INDICATIONS: Thrombocytopenia, Liver Transplant TECHNIQUE: Transverse and longitudinal images of the upper abdomen were obtained. FINDINGS: Liver: Size: 11.1 cm in the right midclavicular line, normal Appearance: Increased echogenicity, smooth contour Mass: No focal masses Spleen: Size: 9.9 cm in length, normal Echogenicity: Normal Mass: No focal masses Gallbladder: Absent. Bile Ducts: Intrahepatic Ducts: No dilatation Extrahepatic Ducts: Common bile duct measures 1.2 cm, dilated likely secondary to reservoir effect. Pancreas: Limited visualization secondary to overlying bowel gas. Right Kidney: Size: 9.7 cm Echogenicity: Increased Collecting System: No hydronephrosis Stone: Echogenic foci may represent stones, vascular calcifications, or prominent renal sinus fat. Cyst/Mass: None Left Kidney: Size: 6.9 cm Echogenicity: Increased Collecting System: No hydronephrosis Stone: Echogenic foci may represent stones, vascular calcifications, or prominent renal sinus fat. Cyst/Mass: None Vessels: Aorta: Atherosclerotic calcifications. Normal diameter within the visualized portions. Inferior Vena Cava: Visualized portions and normal Main Portal Vein: 1.2 cm, normal size with hepatopetal flow. Free Fluid: No ascites. Small pleural effusions, right greater than left. IMPRESSION: 1. Status post liver transplant. Increased liver echogenicity may reflect hepatic steatosis. 2. Medical renal disease. Echogenic foci may represent stones, vascular calcifications, or prominent renal sinus fat. 3. Small pleural effusions, right greater than left. Dictated by: Michele Moses M.D. on 10/28/2017 at 18:23 Electronically approved by: Michele Moses M.D. on 10/28/2017 at 18:23
[2017-10-29] VITALS (8 sets, daily range): BP systolic 137–176; BP diastolic 72–98
[2017-10-29] MEDS: LEVOTHYROXINE SODIUM 75 MCG TAB PO SCH (05:27)
[2017-10-29] MEDS: LEVOTHYROXINE SODIUM 100 MCG TAB PO SCH (05:27)
[2017-10-29] MEDS: INSULIN LISPRO 100 UNIT/1 ML 3ML VIAL SQ SCH ×4 (07:30→20:56)
[2017-10-29] MEDS: NIFEDIPINE CR 30 MG TAB PO SCH ×2 (09:22→20:56)
[2017-10-29] MEDS: TACROLIMUS 1 MG CAP PO SCH ×2 (09:22→20:56)
[2017-10-29] MEDS: HYDROCORTISONE 10 MG TAB PO SCH (09:22)
[2017-10-29] MEDS: PANTOPRAZOLE SOD 40 MG TABEC PO SCH (09:22)
[2017-10-29] MEDS: LOSARTAN POTASSIUM 100 MG TAB PO SCH (09:22)
[2017-10-29] MEDS: BALSAM PERU/CASTOR OIL 60 GM OINT...G. TP SCH ×2 (09:22→17:43)
[2017-10-29] MEDS: DULOXETINE HCL 30 MG DELAYED RELEASE PO SCH ×2 (09:22→17:00)
[2017-10-29] MEDS: IRON SUCROSE 100 MG in SODIUM CHLORIDE 0.9% 100 ML 100 ML IV SCH (13:00)
[2017-10-29] MEDS: CLONIDINE HCL 0.1 MG TAB PO PRN (17:50)
[2017-10-30] VITALS (7 sets, daily range): BP systolic 134–190; BP diastolic 67–88
[2017-10-30] MEDS: LEVOTHYROXINE SODIUM 75 MCG TAB PO SCH (05:19)
[2017-10-30] MEDS: LEVOTHYROXINE SODIUM 100 MCG TAB PO SCH (05:19)
[2017-10-30] MEDS: INSULIN LISPRO 100 UNIT/1 ML 3ML VIAL SQ SCH ×4 (07:30→21:00)
[2017-10-30] MEDS: DULOXETINE HCL 30 MG DELAYED RELEASE PO SCH ×2 (09:00→17:00)
[2017-10-30] MEDS: HYDROCORTISONE 10 MG TAB PO SCH (09:00)
[2017-10-30] MEDS: FOLIC ACID/CYANOCOB/PYRIDOXINE TAB PO SCH (09:00)
[2017-10-30] MEDS: NIFEDIPINE CR 30 MG TAB PO SCH ×2 (09:00→20:43)
[2017-10-30] MEDS: TACROLIMUS 1 MG CAP PO SCH ×2 (09:00→20:43)
[2017-10-30] MEDS: LOSARTAN POTASSIUM 100 MG TAB PO SCH (09:00)
[2017-10-30] MEDS: PANTOPRAZOLE SOD 40 MG TABEC PO SCH (09:00)
[2017-10-30] MEDS: BALSAM PERU/CASTOR OIL 60 GM OINT...G. TP SCH ×2 (14:30→17:00)
[2017-10-30] MEDS: EPOETIN ALFA 10000 UNIT/ML VIAL SC SCH (14:30)
[2017-10-30] MEDS: IRON SUCROSE 100 MG in SODIUM CHLORIDE 0.9% 100 ML 100 ML IV SCH (14:30)
--- NOTE | 2017-10-30 15:20 | Diagnostic Imaging Report ---
PROCEDURE:NASO GASTRIC TUBE PLACE W/FLUORO COMPARISON:None. INDICATIONS:Difficulty with Dobbhoff catheter placement. FINDINGS:The patient was transferred to the radiology department for evaluation of an existing Dobbhoff catheter and the request to reposition the catheter if needed. Patient was placed supine on the fluoroscopy table. Director Of Orthopedics images demonstrated the enteric feeding catheter with the tip extending through the right mainstem bronchus, down the inferior aspect of the right hemithorax, and extending upwards, projecting over the right midlung region. The enteric feeding catheter was withdrawn to the level of the oropharynx. Utilizing direct fluoroscopic guidance, the Dobbhoff tube was advanced into the esophagus and down into the stomach. Additional manipulation enabled advancement of the catheter into the transverse portion of the duodenum. The catheter was secured in proper position. Post procedure fluoroscopic images demonstrate right pneumothorax. An upright PA chest radiograph was ordered for confirmation. CONCLUSION: Successful repositioning of the Dobbhoff catheter into the duodenum utilizing fluoroscopic guidance. Dictated by: Wilson Cox M.D. on 10/30/2017 at 15:21 Electronically approved by: Wilson Cox M.D. on 10/30/2017 at 15:21
--- NOTE | 2017-10-30 15:30 | Diagnostic Imaging Report ---
PROCEDURE: CHEST XRAY POST PROCEDURE COMPARISON: Portable chest 10/25/2017. INDICATIONS: DOBBHOFF PLACEMENT FINDINGS: Lines: Right internal jugular tunneled central venous catheter with tip projecting over the expected region of the right atrium. Enteric feeding catheter with the tip projecting over the expected region of the mid duodenum. LUNGS: No consolidations or edema. PLEURA: Large right pneumothorax. Minimal shifting of the mediastinal structures to the left. HEART \T\ MEDIASTINUM: The heart is within normal size-limits. BONES \T\ SOFT TISSUES: No acute findings. CONCLUSION: Large right pneumothorax with minimal shifting of mediastinal structures to the left suggesting early tension pneumothorax. Dictated by: Wilson Cox M.D. on 10/30/2017 at 15:31 Electronically approved by: Wilson Cox M.D. on 10/30/2017 at 15:31
--- NOTE | 2017-10-30 15:36 | Diagnostic Imaging Report ---
PROCEDURE:CHEST TUBE PLACEMENT COMPARISON:Nasogastric catheter placement 10/30/2017. INDICATIONS:Right pneumothorax. DESCRIPTION OF PROCEDURE:Informed consent was obtained. The patient was placed supine on the fluoroscopy table. The right lateral chest wall was prepped and draped in the usual sterile fashion. [employer] Worker image demonstrated a large right pneumothorax. 1% lidocaine was used into the subcutaneous tissues for local anesthesia. Utilizing fluoroscopic guidance, an 18 gauge needle was advanced into the right pleural space. Aspiration of air confirmed entry into the pleural space. A 0.035 inch wire was advanced through the needle into the right apex. 10 Irish dilator was advanced over the wire. 12 Irish all-purpose drainage catheter was advanced over the wire. The wire was removed. The tip was positioned within the right apex. The pneumothorax was aspirated. Post procedure radiograph demonstrated the catheter tip in the right midlung region and resolution of the right pneumothorax. The catheter was placed to closed vacuum drainage on wall suction. The catheter was secured to the skin with 3-0 Ethilon suture. A sterile dressing was applied. The patient was transferred to the post procedure area in stable condition. CONCLUSION: Successful right pleural drainage catheter placement utilizing fluoroscopic guidance for a right pneumothorax. Dictated by: Wilson Cox M.D. on 10/30/2017 at 15:37 Electronically approved by: Wilson Cox M.D. on 10/30/2017 at 15:37
--- NOTE | 2017-10-30 17:35 | Consultation ---
DATE OF CONSULTATION: PULMONARY CONSULTATION REASON FOR CONSULTATION: Pneumothorax. HISTORY OF PRESENT ILLNESS: Ms. Black is a 62-year-old female known to me from previous admission. Patient is a resident of [facility]. She has a history of liver transplant. She is here because of severe malnutrition. A Dobbhoff tube was placed, and it resulted in pneumothorax as the chest tube went into the lung. Patient developed a pneumothorax post procedure, and a chest tube was placed by Interventional Radiology. Currently I examined her, and there is no air leak. She is denying any complaints of chest pain, abdominal pain, nausea vomiting. REVIEW OF SYSTEMS: GENERAL: She denies any fever or chills. HEENT: Denies any head trauma. ENT: Denies any earache. CVS: Denies any chest pain. RESPIRATORY: Shortness of breath is better. REST OF THE REVIEW OF SYSTEMS: Negative except as in history of present illness. PAST MEDICAL HISTORY: Hypertension, diabetes, cirrhosis of liver status post liver transplant, end-stage renal disease on hemodialysis, chronic back pain, [place]'s disease. PAST SURGICAL HISTORY: Cholecystectomy, hysterectomy, liver transplant, appendectomy. FAMILY HISTORY AND SOCIAL HISTORY: She never smoked. She is a intermediate resident. She does not drink. PHYSICAL EXAMINATION: VITALS: Temperature 97.4. Pulse of 82. Blood pressure 168/85. Respiratory rate of 18. O2 sat 95% on 2 liters. SKIN: Warm and dry. HEENT: Head atraumatic, normocephalic. Pupils reactive. NECK: Supple. CHEST: Clear to auscultation bilaterally. Patient has a right-sided chest tube for pneumothorax. There is no air leak, and it is on suction. ABDOMEN: Soft, nontender, nondistended. Bowel sounds audible. EXTREMITIES: No pedal edema. NEUROLOGICALLY: Awake, alert. Following commands. LABORATORY DATA: White count of 6.9, hemoglobin 8.1, platelets of 91. Chemistry: Sodium 133, potassium 4.4, BUN 15, creatinine 1.8. CHEST X-RAY: I have reviewed the film. A large right pneumothorax with some mediastinal shift, and patient underwent a chest tube insertion. Post chest tube insertion, the pneumothorax resolved, was done by IR. There is no air leak. ASSESSMENT AND PLAN: A 62-year-old female here because she has been malnourished, and she is here for hypoglycemia. Patient underwent a Dobbhoff tube placement which resulted in a pneumothorax status post chest tube, currently stable. PLAN 1. Continue the patient on chest tube drainage for now, currently is on suction. Will follow closely. Repeat a chest x-ray in a.m. Since there is no air leak, will consider clamping in the a.m. and review the patient again with chest x-ray. 2. 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 3. Patient is on hemodialysis per Nephrology recommendation. Thank you for this consult. Job#: [id number] EV
[2017-10-31] VITALS (7 sets, daily range): BP systolic 114–171; BP diastolic 58–86
[2017-10-31] MEDS: LEVOTHYROXINE SODIUM 75 MCG TAB PO SCH (05:51)
[2017-10-31] MEDS: LEVOTHYROXINE SODIUM 100 MCG TAB PO SCH (05:51)
--- NOTE | 2017-10-31 06:18 | Diagnostic Imaging Report ---
CHEST SINGLE (PORTABLE), 10/31/2017 7:00 AM Technique: CHEST SINGLE (PORTABLE) Comparison: 10/30/2017 Clinical history: Pneumothorax Findings: See Impression Impression: 1. Lines/Tubes: New right pleural pigtail catheter over the lower thorax. Stable right IJ dialysis catheter over the right atrium and subdiaphragmatic enteric tube. 2. Essentially resolved right pneumothorax and mediastinal shift. 3. Moderate left pleural effusion. Left sided skin fold. 4. Bibasilar atelectasis or infection. Signed by: Dr Homa Fernández MD on 10/31/2017 6:14 AM
[2017-10-31 07:29] LABS: ALBUMIN 1.7 g/dL (3.5-5.0); ALBUMIN/GLOBULIN RATIO 0.5 (0.8-2.0); CALCIUM 7.4 mg/dL (8.4-10.2); CREATININE, SERUM 2.48 mg/dL (0.57-1.11)
[2017-10-31] MEDS: INSULIN LISPRO 100 UNIT/1 ML 3ML VIAL SQ SCH ×4 (07:30→21:00)
[2017-10-31 08:05] LABS: BASOPHILS # (AUTO) 0.1 (0.0-0.1); EOSINOPHILS # (AUTO) 0.4 (0.0-0.4); EOSINOPHILS % 4.6 % (0.0-6.0); HEMATOCRIT 23.6 % (34.2-44.1); HEMOGLOBIN 8.2 g/dL (12.0-16.0); LYMPHOCYTES # (AUTO) 1.9 (1.0-3.2); LYMPHOCYTES % 21.1 % (18.0-39.1); MEAN CORPUSCULAR HEMOGLOBIN 30.4 pg (28-32); MEAN CORPUSCULAR HGB CONC 34.7 g/dL (31-35); MEAN CORPUSCULAR VOLUME 87.4 fL (81-99); MONOCYTES # (AUTO) 0.9 (0.2-0.8); MONOCYTES % 9.9 % (4.4-11.3); NEUTROPHILS # (AUTO) 5.7 (2.1-6.9); NEUTROPHILS % 62.8 % (38.7-80.0); PLATELET COUNT 151 x10e3/uL (140-360); RED CELL DISTRIBUTION WIDTH 16.8 % (11.7-14.4)
[2017-10-31] MEDS: FOLIC ACID/CYANOCOB/PYRIDOXINE TAB PO SCH (09:00)
[2017-10-31] MEDS: BALSAM PERU/CASTOR OIL 60 GM OINT...G. TP SCH ×2 (09:00→17:00)
[2017-10-31] MEDS: HYDRALAZINE HCL 25 MG TAB PO SCH ×3 (09:00→20:31)
[2017-10-31] MEDS ORDERED: SODIUM CHLORIDE 0.9% 250ML 500 ML IV PRN (09:15)
[2017-10-31] MEDS ORDERED: MANNITOL 25% 12.5GM/50 ML VIAL IV PRN (09:15)
[2017-10-31] MEDS ORDERED: ALBUMIN HUMAN 12.5GM / 50ML IV PRN (09:15)
[2017-10-31] MEDS ORDERED: SODIUM CHLORIDE 0.9% 1000ML 2,000 ML IV PRN (09:15)
[2017-10-31] MEDS: LOSARTAN POTASSIUM 100 MG TAB PO SCH (10:43)
[2017-10-31] MEDS: DULOXETINE HCL 30 MG DELAYED RELEASE PO SCH ×2 (10:43→17:00)
[2017-10-31] MEDS: HYDROCORTISONE 10 MG TAB PO SCH (10:43)
[2017-10-31] MEDS: NIFEDIPINE CR 30 MG TAB PO SCH ×2 (10:44→20:32)
[2017-10-31] MEDS: PANTOPRAZOLE SOD 40 MG TABEC PO SCH (10:44)
[2017-10-31] MEDS: TACROLIMUS 1 MG CAP PO SCH ×2 (10:44→20:32)
[2017-10-31] MEDS: IRON SUCROSE 100 MG in SODIUM CHLORIDE 0.9% 100 ML 100 ML IV SCH (11:00)
--- NOTE | 2017-10-31 15:26 | Consultation ---
DATE OF CONSULTATION: October 31, 2017 CARDIOLOGY CONSULTATION REQUESTING PHYSICIAN: Dr. Young. REASON FOR CONSULTATION: Congestive heart failure. 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 She is a resident of [facility]. She was found to be hypoglycemic with a blood sugar of 16, for which she was sent to [facility] ER. Due to severe malnutrition, patient underwent placement of a Dobbhoff tube. Hospital course was complicated by right tension pneumothorax with mediastinal shift, for which pulmonary placed a chest tube. Chest x-ray revealed a left pleural effusion, for which cardiology is consulted to evaluate for congestive heart failure. The patient denies any history of heart disease. She denies chest pain, shortness of breath, palpitations, edema, orthopnea, PND, lightheadedness, or syncope. REVIEW OF SYSTEMS: Negative except as per HPI. PAST MEDICAL HISTORY 1. Cirrhosis, status post liver transplant in 2008. 2. End-stage renal disease, on hemodialysis. 3. Diabetes mellitus. 4. Hypertension. 5. Eric disease. 6. Reported history of congestive heart failure. PAST SURGICAL HISTORY 1. Cholecystectomy. 2. Hysterectomy. 3. Liver transplant. 4. Appendectomy. ALLERGIES: Please see EMR. MEDICATIONS: Please see medication list. SOCIAL HISTORY: No tobacco, alcohol, or illicit drugs. She is currently residing in a prison. FAMILY HISTORY: Noncontributory. PHYSICAL EXAM VITAL SIGNS: Temperature 97.8 degrees, pulse 99, respiratory rate 22, blood pressure 171/86, oxygen saturation 100% on 2 liters nasal cannula. GENERAL: Cachectic, chronically ill appearing woman, no acute distress. HEENT: Normocephalic, atraumatic. Pupils equal. No scleral icterus. NECK: Supple. No thyromegaly or cervical lymphadenopathy. No carotid bruits. LUNGS: Diminished breath sounds, but clear to auscultation. No wheezes or crackles. Right-sided chest tube is present. Decreased breath sounds on the left. CARDIOVASCULAR: Normal rate, regular rhythm. No murmur. Normal S1, S2. ABDOMEN: Soft, nontender. EXTREMITIES: No edema. NEUROLOGIC: Nonfocal exam. LABS: WBC 9, hemoglobin 8.2, hematocrit 23.6, platelets 151. Sodium 135, potassium 4, chloride 100, CO2 of 29, BUN 38, creatinine 2.48. BNP 996. EKG, normal sinus rhythm, ST and T-wave abnormality, consider anterior ischemia, prolonged QT. Echocardiogram dated May 2017 did show normal LV size and systolic function with EF between 65% and 70%. There was trace aortic regurgitation, trace mitral regurgitation, and mild tricuspid regurgitation. Pharmacologic nuclear stress test dated May 2017 demonstrated no evidence of ischemia or infarction. IMPRESSION 1. Volume overload. 2. Severe malnutrition. 3. Right tension pneumothorax, status post chest tube. 4. End-stage renal disease, on hemodialysis. 5. History of liver transplant secondary to cirrhosis. 6. Hypertension. 7. Diabetes mellitus. 8. [place] disease. RECOMMENDATIONS: Volume management per nephrology given hemodialysis. Defer decision regarding thoracentesis to pulmonary. Will repeat echocardiogram and BNP. Patient likely would benefit from further ultrafiltration. Will discuss with nephrology. Monitor patient on telemetry. Thank you for this consult. We will continue to follow. Job#: [id number] MARI
--- NOTE | 2017-10-31 15:52 | Diagnostic Imaging Report ---
PROCEDURE:HAND RIGHT 3 VIEWS AP \T\ LAT COMPARISON:None. INDICATIONS:RIGHT HAND SWELLING FINDINGS: Normal mineralization. No acute, displaced fracture or dislocation. No lytic or blastic lesion. Minimal joint space narrowing and osteophytosis in the distal interphalangeal joints reflecting minimal osteoarthritis. Other calcifications. Soft tissues are otherwise unremarkable. CONCLUSION: No acute abnormalities. Rolando Reid M.D. Dictated by: Rolando Reid M.D. on 10/31/2017 at 15:53 Electronically approved by: Rolando Reid M.D. on 10/31/2017 at 15:53
--- NOTE | 2017-10-31 15:53 | Diagnostic Imaging Report ---
PROCEDURE:X-RAY RIGHT WRIST, COMPLETE COMPARISON:None. INDICATIONS:RIGHT WRIST SWELLING FINDINGS: Normal mineralization. No acute displaced fracture or dislocation. No lytic or blastic lesion. Vascular calcifications. Mild soft tissue swelling in the wrist. CONCLUSION: Mild soft tissue swelling in the wrist without underlying bony abnormalities. Rolando Reid M.D. Dictated by: Rolando Reid M.D. on 10/31/2017 at 15:54 Electronically approved by: Rolando Reid M.D. on 10/31/2017 at 15:54
[2017-11-01] VITALS: BP 156/76
[2017-11-01 04:00] VITALS: BP 145/73
[2017-11-01] MEDS: LEVOTHYROXINE SODIUM 100 MCG TAB PO SCH (05:43)
[2017-11-01] MEDS: LEVOTHYROXINE SODIUM 75 MCG TAB PO SCH (05:43)
[2017-11-01 07:15] VITALS: BP 140/76
[2017-11-01 07:25] LABS: BASOPHILS % 0.6 % (0.0-1.0); EOSINOPHILS # (AUTO) 0.3 (0.0-0.4); EOSINOPHILS % 4.8 % (0.0-6.0); HEMOGLOBIN 7.4 g/dL (12.0-16.0); LYMPHOCYTES # (AUTO) 1.6 (1.0-3.2); MEAN CORPUSCULAR HEMOGLOBIN 30.5 pg (28-32); MEAN CORPUSCULAR HGB CONC 34.1 g/dL (31-35); MEAN CORPUSCULAR VOLUME 89.3 fL (81-99); MONOCYTES # (AUTO) 0.8 (0.2-0.8); NEUTROPHILS # (AUTO) 3.5 (2.1-6.9); PLATELET COUNT 155 x10e3/uL (140-360); RED BLOOD COUNT 2.43 x10e6/uL (3.6-5.1); RED CELL DISTRIBUTION WIDTH 17.2 % (11.7-14.4)
[2017-11-01] MEDS: INSULIN LISPRO 100 UNIT/1 ML 3ML VIAL SQ SCH ×4 (07:30→20:33)
[2017-11-01 07:33] LABS: HEMATOCRIT 21.7 % (34.2-44.1)
[2017-11-01 07:38] LABS: ANION GAP 8.9 mmol/L (8-16); CALCIUM 7.5 mg/dL (8.4-10.2); CREATININE, SERUM 1.49 mg/dL (0.57-1.11); POTASSIUM 3.9 mmol/L (3.5-5.1)
[2017-11-01 07:58] VITALS: BP 140/76
[2017-11-01] MEDS: TACROLIMUS 1 MG CAP PO SCH ×2 (09:34→20:31)
[2017-11-01] MEDS: LOSARTAN POTASSIUM 100 MG TAB PO SCH (09:34)
[2017-11-01] MEDS: NIFEDIPINE CR 30 MG TAB PO SCH ×2 (09:34→20:31)
[2017-11-01] MEDS: DULOXETINE HCL 30 MG DELAYED RELEASE PO SCH ×2 (09:34→17:00)
[2017-11-01] MEDS: HYDROCORTISONE 10 MG TAB PO SCH (09:34)
[2017-11-01] MEDS: BALSAM PERU/CASTOR OIL 60 GM OINT...G. TP SCH ×2 (09:34→18:03)
[2017-11-01] MEDS: PANTOPRAZOLE SOD 40 MG TABEC PO SCH (09:34)
[2017-11-01] MEDS: FOLIC ACID/CYANOCOB/PYRIDOXINE TAB PO SCH (09:34)
[2017-11-01] MEDS: HYDRALAZINE HCL 25 MG TAB PO SCH ×3 (09:34→20:37)
--- NOTE | 2017-11-01 10:59 | Diagnostic Imaging Report ---
PROCEDURE: X-RAY CHEST, TWO VIEWS COMPARISON: Images from chest tube placement 10/30/2017, chest radiograph 10/31/2017. INDICATIONS: F/U PTX FINDINGS: Right basal pleural drainage catheter is unchanged in position. No pneumothorax. Stable position of right internal jugular tunneled hemodialysis catheter. Dobbhoff tube tip projects off the current radiograph, inferior to the diaphragm. Trace left pleural effusion with improved left lower lobe subsegmental atelectasis. CONCLUSION: Stable position of right-sided chest tube without reaccumulation of pneumothorax. The chest tube will remain clamped for one hour, followed by removal provided no reaccumulation of pneumothorax is appreciated on followup chest radiograph Dictated by: Joshua Diaz M.D. on 11/01/2017 at 11:00 Electronically approved by: Joshua Diaz M.D. on 11/01/2017 at 11:00
--- NOTE | 2017-11-01 12:53 | Diagnostic Imaging Report ---
PROCEDURE:X-RAY CHEST, ONE VIEW COMPARISON:11/01/2017 at 1116 hrs.. INDICATIONS:UPRIGHT CHEST. Chest tube clamped x1 hour FINDINGS: See conclusion CONCLUSION: Right-sided chest tube is stable in appearance. No residual or recurrent pneumothorax. Otherwise no interval change in the appearance of the chest relative to 1116 hrs. Dictated by: Joshua Diaz M.D. on 11/01/2017 at 12:54 Electronically approved by: Joshua Diaz M.D. on 11/01/2017 at 12:54
--- NOTE | 2017-11-01 14:21 | Progress Note ---
DATE: November 01, 2017 CARDIOLOGY PROGRESS NOTE SUBJECTIVE: Patient DICTATION STOPPED AT THIS POINT ("CANCEL DICTATION.") Job#: [id number]
--- NOTE | 2017-11-01 14:35 | Diagnostic Imaging Report ---
PROCEDURE:X-RAY CHEST, ONE VIEW COMPARISON:11/01/2017 at 1234 hrs.. INDICATIONS:POST CHEST TUBE REMOVAL FINDINGS: See conclusion CONCLUSION: Interval removal of right-sided chest tube without residual or recurrent pneumothorax. Stable position of remaining support lines and tubes. Stable small left pleural effusion with adjacent left lower lobe airspace disease, likely atelectasis. Dictated by: Joshua Diaz M.D. on 11/01/2017 at 14:35 Electronically approved by: Joshua Diaz M.D. on 11/01/2017 at 14:35
[2017-11-01] MEDS: IRON SUCROSE 100 MG in SODIUM CHLORIDE 0.9% 100 ML 100 ML IV SCH (15:00)
[2017-11-01] MEDS: EPOETIN ALFA 10000 UNIT/ML VIAL SC SCH (15:00)
[2017-11-01 15:52] VITALS: BP 87/57
--- NOTE | 2017-11-01 19:45 | Progress Note ---
DATE: November 01, 2017 CARDIOLOGY PROGRESS NOTE SUBJECTIVE: The patient denies chest pain or shortness of breath. OBJECTIVE VITAL SIGNS: Temperature 97.6 degrees, pulse 89, respiratory rate 16, blood pressure 87/57, oxygen saturation 98% on 2 liters nasal cannula. GENERAL: Cachectic, chronically ill-appearing woman, no acute distress. LUNGS: Diminished breath sounds, but clear to auscultation. No wheezes or crackles. Decreased breath sounds on the left base. CARDIOVASCULAR: Normal rate, regular rhythm. No murmur. Normal S1, S2. ABDOMEN: Soft, nontender. EXTREMITIES: No edema. LABS: WBC 6.26, hemoglobin 7.4, hematocrit 21.7, platelets 155,000, sodium 134, potassium 3.9, chloride 101, CO2 of 28, BUN 22, creatinine 1.49. Chest x-ray: Interval removal of right-sided chest tube without residual or chronic pneumothorax. Stable position of remaining support lines and tubes, stable small left pleural effusion with adjacent left lower lobe airspace disease likely atelectasis. Echocardiogram revealed normal LV size with moderate concentric LVH. There is normal systolic function. Diastolic filling pattern indicates impaired relaxation. Right ventricular systolic pressure is noted by Doppler at 26 mmHg with some R pressure of 3 mmHg. Trivial pericardial effusion and large pleural effusion is present. TELEMETRY: Normal sinus rhythm. IMPRESSION 1. Volume overload. 2. Severe malnutrition. 3. Right tension pneumothorax, status post chest tube, resolved. 4. End-stage renal disease, on hemodialysis. 5. History of liver transplant secondary to cirrhosis. 6. Hypertension. 7. Diabetes mellitus. 8. [place] disease. RECOMMENDATIONS: As the patient does not urinate in any significant quantity, volume management per nephrology will request further ultrafiltration given significantly elevated BNP. Monitor the patient on telemetry. Continue current cardiac medications, otherwise. Thank you for this consult. We will continue to follow. Job#: [id number]
[2017-11-01 20:00] VITALS: BP 124/68
[2017-11-02] VITALS (8 sets, daily range): BP systolic 129–186; BP diastolic 66–88
[2017-11-02] MEDS: LEVOTHYROXINE SODIUM 100 MCG TAB PO SCH (05:27)
[2017-11-02] MEDS: LEVOTHYROXINE SODIUM 75 MCG TAB PO SCH (05:27)
[2017-11-02] MEDS ORDERED: SODIUM CHLORIDE 0.9% 250ML 250 ML IV ONE (06:00)
[2017-11-02] MEDS: INSULIN LISPRO 100 UNIT/1 ML 3ML VIAL SQ SCH ×4 (07:30→20:44)
[2017-11-02] MEDS: NIFEDIPINE CR 30 MG TAB PO SCH ×2 (09:00→20:43)
[2017-11-02] MEDS: FOLIC ACID/CYANOCOB/PYRIDOXINE TAB PO SCH (09:00)
[2017-11-02] MEDS: PANTOPRAZOLE SOD 40 MG TABEC PO SCH (09:00)
[2017-11-02] MEDS: DULOXETINE HCL 30 MG DELAYED RELEASE PO SCH ×2 (09:00→17:00)
[2017-11-02] MEDS: HYDRALAZINE HCL 25 MG TAB PO SCH ×3 (09:00→20:43)
[2017-11-02] MEDS: LOSARTAN POTASSIUM 100 MG TAB PO SCH (09:00)
[2017-11-02] MEDS: HYDROCORTISONE 10 MG TAB PO SCH (09:00)
[2017-11-02] MEDS: TACROLIMUS 1 MG CAP PO SCH ×2 (09:00→20:43)
[2017-11-02] MEDS: BALSAM PERU/CASTOR OIL 60 GM OINT...G. TP SCH ×2 (09:19→17:26)
[2017-11-02] MEDS ORDERED: SODIUM CHLORIDE 0.9% 1000ML 2,000 ML ONE (10:32)
[2017-11-02] MEDS: IRON SUCROSE 100 MG in SODIUM CHLORIDE 0.9% 100 ML 100 ML IV SCH (15:58)
[2017-11-02] MEDS ORDERED: TRAMADOL HCL 50 MG TAB PO PRN (16:15)
--- NOTE | 2017-11-02 17:45 | Diagnostic Imaging Report ---
EXAMINATION: CHEST SINGLE (PORTABLE) INDICATION: Chest tube removed yesterday. Altered mental status. COMPARISON: Chest x-ray 11/01/2017 FINDINGS: AP view TUBES and LINES: Right internal dialysis catheter with tip in the right atrium is unchanged. Enteric tube courses into the second segment of the duodenum. LUNGS: Lungs are well inflated. Left lung atelectasis. PLEURA: Small left pleural effusion. HEART AND MEDIASTINUM: The cardiomediastinal silhouette is unremarkable. There are atherosclerotic calcifications within the aorta. BONES AND SOFT TISSUES: No acute osseous lesion. Soft tissues are unremarkable. UPPER ABDOMEN: No free air under the diaphragm. IMPRESSION: 1. No pneumothorax. 2. Small left pleural effusion with associated atelectasis. Signed by: Dr. Varghese Albright M.D. on 11/02/2017 5:38 PM
--- NOTE | 2017-11-02 17:47 | Progress Note ---
DATE: November 02, 2017 CARDIOLOGY PROGRESS NOTE SUBJECTIVE: No new complaints. Continues to have abnormal chest typical discomfort. Analgesics prescribed. OBJECTIVE VITAL SIGNS: Temperature 97.5, heart rate 104, respiratory rate 18, blood pressure 129/70 up to 170/88, and O2 sat 98% on room air. GENERAL: In no acute distress. Cachectic, ill, and frail appearing. CHEST: Clear to auscultation. CARDIOVASCULAR: Regular rate and rhythm. Normal S1 and S2. Telemetry in sinus rhythm and sinus tachycardia. ABDOMEN: Soft. EXTREMITIES: No edema. CARDIOVASCULAR MEDICATIONS: Reviewed. Cardiac medications include clonidine p.r.n., hydralazine 25 mg t.i.d., nifedipine 30 mg q.12 hours, and losartan 100 mg daily. LABORATORY STUDIES: Studies reviewed. Hemoglobin 7.4. Glucose 101 and creatinine 1.9. ASSESSMENT 1. Volume overload. 2. Severe malnutrition. 3. Right tension pneumothorax system, status post chest tube, resolved with residual chest discomfort. 4. End-stage renal disease, on dialysis. 5. History of liver transplant secondary to cirrhosis. 6. Hypertension. 7. Diabetes mellitus. 8. [place]'s disease. 9. Severe cachexia. PLAN 1. Pain management. 2. Serial x-rays as needed. 3. Undergoing ultrafiltration per nephrology due to decreased urine output. 4. Keep on telemetry and continue current cardiovascular medications. Guarded prognosis. Job#: [id number] JOSE ANGEL
[2017-11-03] VITALS (8 sets, daily range): BP systolic 132–176; BP diastolic 60–90
[2017-11-03] MEDS: LEVOTHYROXINE SODIUM 75 MCG TAB PO SCH (06:17)
[2017-11-03] MEDS: LEVOTHYROXINE SODIUM 100 MCG TAB PO SCH (06:17)
[2017-11-03] MEDS: INSULIN LISPRO 100 UNIT/1 ML 3ML VIAL SQ SCH ×4 (07:30→21:00)
[2017-11-03] MEDS: HYDROCORTISONE 10 MG TAB PO SCH (09:27)
[2017-11-03] MEDS: HYDRALAZINE HCL 25 MG TAB PO SCH ×3 (09:27→21:35)
[2017-11-03] MEDS: FOLIC ACID/CYANOCOB/PYRIDOXINE TAB PO SCH (09:28)
[2017-11-03] MEDS: LOSARTAN POTASSIUM 100 MG TAB PO SCH (09:28)
[2017-11-03] MEDS: BALSAM PERU/CASTOR OIL 60 GM OINT...G. TP SCH ×2 (09:28→17:22)
[2017-11-03] MEDS: TACROLIMUS 1 MG CAP PO SCH ×2 (09:28→21:35)
[2017-11-03] MEDS: NIFEDIPINE CR 30 MG TAB PO SCH ×2 (09:28→21:35)
[2017-11-03] MEDS: DULOXETINE HCL 30 MG DELAYED RELEASE PO SCH ×2 (09:28→17:22)
[2017-11-03] MEDS: PANTOPRAZOLE SOD 40 MG TABEC PO SCH (09:28)
[2017-11-03] MEDS: IRON SUCROSE 100 MG in SODIUM CHLORIDE 0.9% 100 ML 100 ML IV SCH (11:12)
--- NOTE | 2017-11-03 15:03 | Progress Note ---
DATE: November 03, 2017 CARDIOLOGY PROGRESS NOTE SUBJECTIVE: No complaints. Chest pain improved. Discussed chest x-ray results. OBJECTIVE VITALS: Temperature 99.8, heart rate 104, respiratory rate 20, blood pressure 160/80, O2 sat 96% on room air. GENERAL: No acute distress. Frail and cachectic. Chronically ill-appearing. CHEST: Clear to auscultation. CARDIOVASCULAR: Regular rate and rhythm. Normal S1 and S2. ABDOMEN: Soft. EXTREMITIES: No edema. On telemetry, in sinus rhythm. STUDIES: Reviewed. Glucose today is 98. Chest x-ray from yesterday shows no pneumothorax, small left pleural effusion with associated atelectasis. Of note, the patient has been counseled on using incentive spirometer, which is currently in her hands. ASSESSMENT 1. Volume overload. 2. Severe malnutrition. 3. Right tension pneumothorax: Status post chest tube, resolved with now improved chest discomfort. 4. End-stage renal disease, on dialysis. 5. History of liver transplant secondary to cirrhosis. 6. Hypertension. 7. Diabetes. 8. Eric disease. 9. Severe cachexia. RECOMMENDATIONS: Volume status improving and defer to nephrology expertise. Keep on telemetry. Continue current cardiovascular medications. Blood pressure remains slightly elevated. If continues to remain over 140 by tomorrow, consider up titration of calcium channel nu. Job#: [id number] LONG
[2017-11-03] MEDS: MEGACE 400MG/ 10ML CUP PO SCH (17:22)
[2017-11-04] VITALS (7 sets, daily range): BP systolic 88–152; BP diastolic 48–74
[2017-11-04] MEDS: LEVOTHYROXINE SODIUM 100 MCG TAB PO SCH (06:24)
[2017-11-04] MEDS: LEVOTHYROXINE SODIUM 75 MCG TAB PO SCH (06:24)
[2017-11-04 07:03] LABS: BASOPHILS # (AUTO) 0.1 (0.0-0.1); BASOPHILS % 0.5 % (0.0-1.0); EOSINOPHILS # (AUTO) 0.2 (0.0-0.4); EOSINOPHILS % 0.6 % (0.0-6.0); HEMATOCRIT 32.1 % (34.2-44.1); HEMOGLOBIN 11.1 g/dL (12.0-16.0); LYMPHOCYTES # (AUTO) 2.3 (1.0-3.2); LYMPHOCYTES % 9.2 % (18.0-39.1); MEAN CORPUSCULAR HEMOGLOBIN 30.1 pg (28-32); MEAN CORPUSCULAR HGB CONC 34.6 g/dL (31-35); MONOCYTES # (AUTO) 1.5 (0.2-0.8); MONOCYTES % 5.9 % (4.4-11.3); NEUTROPHILS # (AUTO) 20.7 (2.1-6.9); NEUTROPHILS % 81.4 % (38.7-80.0); PLATELET COUNT 204 x10e3/uL (140-360); RED BLOOD COUNT 3.69 x10e6/uL (3.6-5.1); RED CELL DISTRIBUTION WIDTH 18.6 % (11.7-14.4)
[2017-11-04 07:30] LABS: ALBUMIN 1.6 g/dL (3.5-5.0); ALBUMIN/GLOBULIN RATIO 0.4 (0.8-2.0); ANION GAP 11.5 mmol/L (8-16); CALCIUM 7.7 mg/dL (8.4-10.2); CREATININE, SERUM 1.89 mg/dL (0.57-1.11); POTASSIUM 3.5 mmol/L (3.5-5.1)
[2017-11-04] MEDS: INSULIN LISPRO 100 UNIT/1 ML 3ML VIAL SQ SCH ×4 (07:30→21:00)
[2017-11-04 08:03] LABS: ANISOCYTOSIS SLIGHT; BAND NEUTROPHILS % (MANUAL) 3 %; EOSINOPHILS % (MANUAL) 1 % (0-7); LYMPHOCYTES % (MANUAL) 9 % (19-48); MONOCYTES % (MANUAL) 4 % (3.4-9.0); NEUTROPHILS % (MANUAL) 83 % (40-74); PLATELET ESTIMATE ADEQUATE; PLATELET MORPHOLOGY COMMENT NORMAL; POIKILOCYTOSIS SLIGHT; RBC MORPHOLOGY COMMENT NORMAL
[2017-11-04] MEDS: FOLIC ACID/CYANOCOB/PYRIDOXINE TAB PO SCH (08:30)
[2017-11-04] MEDS: HYDROCORTISONE 10 MG TAB PO SCH (08:30)
[2017-11-04] MEDS: MEGACE 400MG/ 10ML CUP PO SCH ×2 (08:30→17:00)
[2017-11-04] MEDS: DULOXETINE HCL 30 MG DELAYED RELEASE PO SCH ×2 (08:30→17:00)
[2017-11-04] MEDS: PANTOPRAZOLE SOD 40 MG TABEC PO SCH (08:30)
[2017-11-04 08:37] LABS: BASOPHILS # (AUTO) 0.1 (0.0-0.1); BASOPHILS % 0.5 % (0.0-1.0); EOSINOPHILS # (AUTO) 0.2 (0.0-0.4); EOSINOPHILS % 0.7 % (0.0-6.0); HEMATOCRIT 33.7 % (34.2-44.1); HEMOGLOBIN 11.6 g/dL (12.0-16.0); LYMPHOCYTES # (AUTO) 2.1 (1.0-3.2); LYMPHOCYTES % 8.7 % (18.0-39.1); MEAN CORPUSCULAR HEMOGLOBIN 30.3 pg (28-32); MEAN CORPUSCULAR HGB CONC 34.4 g/dL (31-35); MONOCYTES # (AUTO) 1.3 (0.2-0.8); MONOCYTES % 5.2 % (4.4-11.3); NEUTROPHILS # (AUTO) 20.3 (2.1-6.9); NEUTROPHILS % 83.4 % (38.7-80.0); PLATELET COUNT 209 x10e3/uL (140-360); RED BLOOD COUNT 3.83 x10e6/uL (3.6-5.1); RED CELL DISTRIBUTION WIDTH 18.7 % (11.7-14.4)
[2017-11-04 08:48] LABS: ANION GAP 11.5 mmol/L (8-16); CALCIUM 7.8 mg/dL (8.4-10.2); CREATININE, SERUM 1.97 mg/dL (0.57-1.11); POTASSIUM 3.5 mmol/L (3.5-5.1)
[2017-11-04] MEDS: LOSARTAN POTASSIUM 100 MG TAB PO SCH (09:00)
[2017-11-04] MEDS: NIFEDIPINE CR 30 MG TAB PO SCH ×2 (09:00→20:52)
[2017-11-04] MEDS: HYDRALAZINE HCL 25 MG TAB PO SCH ×3 (09:00→21:00)
[2017-11-04] MEDS: BALSAM PERU/CASTOR OIL 60 GM OINT...G. TP SCH ×2 (09:00→17:00)
[2017-11-04] MEDS: TACROLIMUS 1 MG CAP PO SCH ×2 (11:30→20:52)
[2017-11-04] MEDS: EPOETIN ALFA 10000 UNIT/ML VIAL SC SCH (12:30)
[2017-11-04] MEDS: IRON SUCROSE 100 MG in SODIUM CHLORIDE 0.9% 100 ML 100 ML IV SCH (12:30)
--- NOTE | 2017-11-04 13:34 | Diagnostic Imaging Report ---
PROCEDURE: A single AP view of the chest. COMPARISON: 11/02/17 INDICATIONS: PNEUMONIA FINDINGS: Lines/tubes: Stable right IJ dialysis catheter. Lungs: The lungs are well inflated. Increased left lung opacification. Pleura: There is no pneumothorax. Small left pleural effusion. Heart and mediastinum: The heart and the mediastinum are unremarkable. Bones: No acute bony abnormality. IMPRESSION: Increased left lung opacification, concerning for worsening pneumonia. Small left pleural effusion, slightly increased from prior exam. Dictated by: Piotr Rich M.D. on 11/04/2017 at 13:36 Electronically approved by: Piotr Rich M.D. on 11/04/2017 at 13:36
[2017-11-04] MEDS ORDERED: VANCOMYCIN 1GM/NS 250 ML 250 ML IV SCH (18:30)
--- NOTE | 2017-11-04 20:05 | Progress Note ---
DATE: November 04, 2017 CARDIOLOGY PROGRESS NOTE SUBJECTIVE: The patient denies chest pain or shortness of breath. She is receiving hemodialysis. OBJECTIVE VITAL SIGNS: Temperature 97.5 degrees, pulse 100, respiratory rate 17, blood pressure 88/48, oxygen saturation 94% on room air. GENERAL: Awake, alert and in no acute distress. Frail and cachectic and chronically ill appearing. LUNGS: Clear to auscultation bilaterally with no wheezes or crackles. CARDIOVASCULAR: Normal rate, regular rhythm. No murmur. Normal S1, S2. ABDOMEN: Soft, nontender. EXTREMITIES: There is 1+ pitting edema in bilateral lower extremities. CARDIAC MEDICATIONS: 1. Hydralazine 25 mg p.o. t.i.d. 2. Levothyroxine 175 mcg p.o. daily. 3. Clonidine 0.1 mg p.o. q.8 h. p.r.n. 4. Nifedipine 30 mg p.o. q.12 h. 5. Losartan 100 mg p.o. daily. LABS: WBCs 24.34, hemoglobin 11.6, hematocrit 33.7, platelets 209,000, sodium 135, potassium 3.5, chloride 102, CO2 is 25. BUN 37, creatinine 1.97. TELEMETRY: Normal sinus rhythm. IMPRESSION 1. Volume overload. 2. Severe malnutrition. 3. Right tension pneumothorax, status post chest tube, now resolved. 4. End-stage renal disease, on hemodialysis. 5. History of liver transplant secondary to cirrhosis. 6. Hypertension. 7. Diabetes mellitus. 8. [place] disease. RECOMMENDATIONS: Volume management per nephrology given end-stage renal disease on hemodialysis. Monitor the patient on telemetry. Continue current cardiac medications. No change in antihypertensive therapy at this time given hypotension today. Thank you for this consult. We will continue to follow. Job#: [id number]
[2017-11-04] MEDS ORDERED: SODIUM CHLORIDE 0.9% 250ML 250 ML ONE (20:42)
[2017-11-04] MEDS: VANCOMYCIN 1GM/NS 250 ML 250 ML IV SCH (20:52)
[2017-11-05] VITALS (7 sets, daily range): BP systolic 111–134; BP diastolic 58–82
--- NOTE | 2017-11-05 00:47 | Consultation ---
DATE OF CONSULTATION: November 04, 2017 REASON FOR CONSULTATION: Leukocytosis, recommendation for antibiotic. HISTORY OF PRESENT ILLNESS: This is a 62-year-old white female, history of end-stage renal disease, end-stage liver disease, status post a liver transplant in 2008, end-stage renal disease, on hemodialysis, hypertension, diabetes mellitus, Eric disease. She comes into the hospital with her altered mental status, was found to have low blood sugar in the 16. She was admitted here. The patient has severe malnutrition. She had Dobbhoff tube placement. She had right pneumothorax with mediastinal shift. She had pulmonary chest tube placed. She also had a left pleural effusion. Patient has been seen by cardiology for congestive heart failure. The patient was admitted on October 24, 2017. I was asked to see her today on November 04, 2017. Patient, when I saw her, has no complaints. She is lying down in bed. She is very weak. Patient, as mentioned above, was admitted on October 24. She does have the above medical problem of hypertension, diabetes mellitus, liver cirrhosis, status post liver transplant, end-stage renal disease, on hemodialysis, congestive heart failure, chronic back pain, Eric disease. PAST SURGICAL HISTORY: Cholecystectomy, hysterectomy, liver transplant, appendectomy. ALLERGIES: NKA. FAMILY HISTORY: There is no smoking, drug abuse, alcohol abuse. FAMILY HISTORY: Noncontributory. REVIEW OF SYSTEMS: At present time, she denies any. HEENT: Negative. PULMONARY: Negative. CARDIAC: Negative. : Negative. SKIN: No rash. SUPERVISOR PURIFICATION: Confused. LABORATORY DATA: Reviewed. Patient's blood glucose 98. Chest x-ray showed, no pneumothorax. Small pleural effusion noted. Her blood cultures, no growth. White count today was 24.3, on admission was 6.26, hemoglobin 11.6, hematocrit 33, she had 83% segs. HIV and hepatitis are negative. Sodium 135, potassium 3.5, creatinine 1.97. MEDICATION LIST: She is on Megace, Cymbalta. She is on Epogen, Prograf, Nephro-Trent, Protonix, hydrocortisone 10 mg daily, levothyroxine, Synthroid, Catapres, saline, nifedipine Cozaar. PHYSICAL EXAMINATION GENERAL: She is currently alert, comfortable, does not seem in acute distress. VITALS: Stable afebrile. HEENT: She is pale, icteric. NECK: Supple. CHEST: Clear, bilateral coarse with some murmur. ABDOMEN: Soft. IMPRESSIONS 1. Leukocytosis. Concern about early infection and sepsis and the patient has been in the hospital. Agree with blood cultures. Will get urine cultures. Will put on vancomycin and cefepime for the time being. Patient is immunocompromised. Source of infection could not be clear at present time. 2. Status post liver transplant. 3. End-stage renal disease. 4. Anemia. 5. Fluid overload. 6. Will follow with you. Job#: [id number] CQ
[2017-11-05] MEDS: LEVOTHYROXINE SODIUM 100 MCG TAB PO SCH (06:08)
[2017-11-05] MEDS: LEVOTHYROXINE SODIUM 75 MCG TAB PO SCH (06:08)
[2017-11-05] MEDS: INSULIN LISPRO 100 UNIT/1 ML 3ML VIAL SQ SCH ×4 (07:30→21:00)
[2017-11-05] MEDS: HYDROCORTISONE 10 MG TAB PO SCH (08:30)
[2017-11-05] MEDS: LOSARTAN POTASSIUM 100 MG TAB PO SCH (08:30)
[2017-11-05] MEDS: NIFEDIPINE CR 30 MG TAB PO SCH ×2 (08:30→21:30)
[2017-11-05] MEDS: FOLIC ACID/CYANOCOB/PYRIDOXINE TAB PO SCH (08:30)
[2017-11-05] MEDS: DULOXETINE HCL 30 MG DELAYED RELEASE PO SCH ×2 (08:30→17:00)
[2017-11-05] MEDS: TACROLIMUS 1 MG CAP PO SCH ×2 (08:30→23:56)
[2017-11-05] MEDS: PANTOPRAZOLE SOD 40 MG TABEC PO SCH (08:30)
[2017-11-05] MEDS: MEGACE 400MG/ 10ML CUP PO SCH ×2 (08:30→17:00)
[2017-11-05 08:55] LABS: BASOPHILS # (AUTO) 0.1 (0.0-0.1); BASOPHILS % 0.3 % (0.0-1.0); EOSINOPHILS # (AUTO) 0.2 (0.0-0.4); EOSINOPHILS % 0.7 % (0.0-6.0); HEMATOCRIT 31.9 % (34.2-44.1); HEMOGLOBIN 11.2 g/dL (12.0-16.0); LYMPHOCYTES # (AUTO) 1.7 (1.0-3.2); MEAN CORPUSCULAR HEMOGLOBIN 30.6 pg (28-32); MEAN CORPUSCULAR HGB CONC 35.1 g/dL (31-35); MEAN CORPUSCULAR VOLUME 87.2 fL (81-99); MONOCYTES # (AUTO) 1.4 (0.2-0.8); MONOCYTES % 6.6 % (4.4-11.3); PLATELET COUNT 212 x10e3/uL (140-360); RED BLOOD COUNT 3.66 x10e6/uL (3.6-5.1); RED CELL DISTRIBUTION WIDTH 18.6 % (11.7-14.4)
[2017-11-05] MEDS: CEFEPIME HCL 1 GM VIAL IV SCH (09:00)
[2017-11-05] MEDS: HYDRALAZINE HCL 25 MG TAB PO SCH ×3 (09:00→21:30)
[2017-11-05] MEDS: BALSAM PERU/CASTOR OIL 60 GM OINT...G. TP SCH ×2 (11:24→17:00)
[2017-11-05 12:11] LABS: LYMPHOCYTES % (MANUAL) 9 % (19-48); MONOCYTES % (MANUAL) 6 % (3.4-9.0); NEUTROPHILS % (MANUAL) 84 % (40-74); PROMYELOCYTES % (MANUAL) 1 % (0-0)
[2017-11-05 12:12] LABS: PLATELET ESTIMATE ADEQUATE; POLYCHROMASIA MODE; RBC MORPHOLOGY COMMENT ABNORMAL
--- NOTE | 2017-11-05 12:27 | Diagnostic Imaging Report ---
PROCEDURE: CT CHEST WITHOUT CONTRAST CT scan of the chest WITHOUT intravenous contrast, using standard protocol. TECHNIQUE: The chest was scanned utilizing a multidetector helical scanner from the apex to the level of the adrenal glands. No IV contrast was administered. Coronal and sagittal multiplanar reformations were obtained. DLP: 312.95 mGy-cm COMPARISON: None. INDICATIONS: PNEUMONIA FINDINGS: Lines/tubes: Tunneled right IJ hemodialysis catheter. Lungs and Airways: Left upper lobe airspace opacity. Bibasilar compressive atelectasis. Pleura: Moderate bilateral pleural effusions. Heart and mediastinum: The thyroid gland is normal. No significant mediastinal, hilar or axillary lymphadenopathy is seen. The heart and pericardium are within normal limits. Diffuse vascular calcification. Soft tissues: Normal. Abdomen: Limited views of the upper abdomen show no abnormality within the visualized liver, spleen, pancreas, or kidneys. The adrenal glands are normal. Diffuse arterial vascular calcification. Bones: Degenerative changes of the spine. Compression abnormality of T7 vertebral body. IMPRESSION: 1. Left upper lobe airspace opacity compatible with pneumonia. 2. Moderate bilateral pleural effusions. Saad Mckee D.O. Dictated by: Saad Mckee D.O. on 11/05/2017 at 12:28 Electronically approved by: Saad Mckee D.O. on 11/05/2017 at 12:28
[2017-11-05] MEDS: IRON SUCROSE 100 MG in SODIUM CHLORIDE 0.9% 100 ML 100 ML IV SCH (12:30)
--- NOTE | 2017-11-05 16:21 | Progress Note ---
DATE: November 05, 2017 CARDIOLOGY PROGRESS NOTE SUBJECTIVE: The patient denies chest pain or shortness of breath. OBJECTIVE VITAL SIGNS: Temperature 98.3 degrees, pulse 100, respiratory rate 18, blood pressure 111/62, oxygen saturation 98% on room air. GENERAL: Cachectic, chronically ill-appearing woman, frail, in no acute distress, awake and alert. LUNGS: Clear to auscultation bilaterally with no wheezes or crackles. CARDIOVASCULAR: Normal rate, regular rhythm. No murmur. Normal S1, S2. ABDOMEN: Soft, nontender. EXTREMITIES: There is 1+ pitting edema in bilateral lower extremities. CARDIAC MEDICATIONS 1. Nifedipine 30 mg p.o. q.12 h. 2. Losartan 100 mg p.o. daily. 3. Levothyroxine 175 mcg p.o. daily. LABS: WBC 20.98, hemoglobin 11.2, hematocrit 31.9, platelets 212,000. TELEMETRY: Normal sinus rhythm. IMPRESSION 1. Volume overload. 2. Severe protein-calorie malnutrition. 3. Right tension pneumothorax, status post chest tube, now resolved. 4. End-stage renal disease, on hemodialysis. 5. History of liver transplant secondary to cirrhosis. 6. Hypertension. 7. Diabetes mellitus. 8. Eric disease. RECOMMENDATIONS: Volume management per nephrology given end-stage renal disease on hemodialysis. Monitor the patient on telemetry. Continue current cardiac medications. Blood pressure is controlled. Thank you for this consult. We will continue to follow. Job#: [id number]
[2017-11-06] MEDS: LEVOTHYROXINE SODIUM 75 MCG TAB PO SCH (07:00)
[2017-11-06] MEDS: LEVOTHYROXINE SODIUM 100 MCG TAB PO SCH (07:00)
[2017-11-06] MEDS: INSULIN LISPRO 100 UNIT/1 ML 3ML VIAL SQ SCH ×4 (07:30→21:25)
[2017-11-06 07:42] VITALS: BP 135/72
[2017-11-06] MEDS: NIFEDIPINE CR 30 MG TAB PO SCH ×2 (09:00→21:24)
[2017-11-06] MEDS: LOSARTAN POTASSIUM 100 MG TAB PO SCH (09:00)
[2017-11-06] MEDS: HYDRALAZINE HCL 25 MG TAB PO SCH ×3 (09:00→21:24)
[2017-11-06] MEDS: CEFEPIME HCL 1 GM VIAL IV SCH (09:38)
[2017-11-06] MEDS: PANTOPRAZOLE SOD 40 MG TABEC PO SCH (09:38)
[2017-11-06] MEDS: BALSAM PERU/CASTOR OIL 60 GM OINT...G. TP SCH ×2 (09:38→16:00)
[2017-11-06] MEDS: HYDROCORTISONE 10 MG TAB PO SCH (09:38)
[2017-11-06] MEDS: MEGACE 400MG/ 10ML CUP PO SCH ×2 (09:38→17:09)
[2017-11-06] MEDS: FOLIC ACID/CYANOCOB/PYRIDOXINE TAB PO SCH (09:38)
[2017-11-06] MEDS: TACROLIMUS 1 MG CAP PO SCH ×2 (09:38→21:24)
[2017-11-06] MEDS: DULOXETINE HCL 30 MG DELAYED RELEASE PO SCH ×2 (09:38→17:09)
--- NOTE | 2017-11-06 09:39 | Progress Note ---
DATE: November 06, 2017 CARDIOLOGY PROGRESS NOTE SUBJECTIVE: The patient denies chest pain or shortness of breath. OBJECTIVE VITALS: Temperature 97.4 degrees, pulse 101, respiratory rate 18, blood pressure 135/72, oxygen saturation 98% on room air. GENERAL: Cachectic and chronically ill-appearing woman in no acute distress. Frail, awake and alert. LUNGS: Clear to auscultation bilaterally. No wheezes or crackles. CARDIOVASCULAR: Normal rate. Regular rhythm. No murmur. Normal S1 and S2. ABDOMEN: Soft and nontender. EXTREMITIES: One plus pitting edema in dependent areas of the bilateral lower extremities. CARDIAC MEDICATIONS 1. Levothyroxine 175 mcg p.o. daily. 2. Hydralazine 25 mg p.o. t.i.d. 3. Nifedipine 30 mg p.o. q.12 h. 4. Losartan 100 mg p.o. daily. LABS: None today. Telemetry is normal sinus rhythm. IMPRESSION 1. Volume overload. 2. Severe protein calorie malnutrition. 3. Right tension pneumothorax: Status post chest tube, now resolved. 4. End-stage renal disease, on hemodialysis. 5. History of liver transplant secondary to cirrhosis. 6. Hypertension. 7. Eric disease. RECOMMENDATIONS: Volume management per nephrology given end-stage renal disease. Monitor the patient on telemetry. Continue current cardiac medications. The patient's blood pressure is controlled. Thank you for this consult. We will continue to follow. Job#: [id number] LONG
[2017-11-06] MEDS: IRON SUCROSE 100 MG in SODIUM CHLORIDE 0.9% 100 ML 100 ML IV SCH (11:35)
[2017-11-06 11:39] VITALS: BP 124/71
[2017-11-06 13:37] VITALS: BP 124/71
[2017-11-06] MEDS ORDERED: HEPARIN SOD (PORCINE) 1000 UNIT/ML SDV INJ PRN (15:00)
[2017-11-06] MEDS ORDERED: HEPARIN SOD (PORCINE) 1000 UNIT/ML 10ML MDV IV ONE (15:00)
[2017-11-06 16:10] VITALS: BP 117/61
[2017-11-06] MEDS: VANCOMYCIN 1GM/NS 250 ML 250 ML IV SCH (18:04)
[2017-11-06 20:00] VITALS: BP 138/71
[2017-11-07] VITALS (7 sets, daily range): BP systolic 118–150; BP diastolic 63–80
[2017-11-07] MEDS: LEVOTHYROXINE SODIUM 100 MCG TAB PO SCH (05:19)
[2017-11-07] MEDS: LEVOTHYROXINE SODIUM 75 MCG TAB PO SCH (05:20)
[2017-11-07] MEDS: INSULIN LISPRO 100 UNIT/1 ML 3ML VIAL SQ SCH ×4 (07:30→20:21)
[2017-11-07] MEDS: CEFEPIME HCL 1 GM VIAL IV SCH (08:33)
[2017-11-07] MEDS: HYDROCORTISONE 10 MG TAB PO SCH (08:33)
[2017-11-07] MEDS: HYDRALAZINE HCL 25 MG TAB PO SCH ×3 (08:33→20:22)
[2017-11-07] MEDS: DULOXETINE HCL 30 MG DELAYED RELEASE PO SCH ×2 (08:34→16:10)
[2017-11-07] MEDS: BALSAM PERU/CASTOR OIL 60 GM OINT...G. TP SCH ×2 (08:34→16:10)
[2017-11-07] MEDS: PANTOPRAZOLE SOD 40 MG TABEC PO SCH (08:34)
[2017-11-07] MEDS: FOLIC ACID/CYANOCOB/PYRIDOXINE TAB PO SCH (08:34)
[2017-11-07] MEDS: LOSARTAN POTASSIUM 100 MG TAB PO SCH (08:34)
[2017-11-07] MEDS: MEGACE 400MG/ 10ML CUP PO SCH ×2 (08:34→16:10)
[2017-11-07] MEDS: TACROLIMUS 1 MG CAP PO SCH ×2 (08:34→20:22)
[2017-11-07] MEDS: NIFEDIPINE CR 30 MG TAB PO SCH ×2 (08:34→20:22)
[2017-11-07] MEDS: IRON SUCROSE 100 MG in SODIUM CHLORIDE 0.9% 100 ML 100 ML IV SCH (11:23)
--- NOTE | 2017-11-07 12:18 | Progress Note ---
DATE: November 07, 2017 CARDIOLOGY PROGRESS NOTE SUBJECTIVE: Patient denies chest pain or shortness of breath. OBJECTIVE VITAL SIGNS: Temperature 97.6 degrees, pulse 98, respiratory rate 18, blood pressure 132/68, oxygen saturation 97% on room . GENERAL: Cachectic, chronically ill-appearing woman in no acute distress, frail, awake and alert. LUNGS: Clear to auscultation bilaterally. No wheezes or crackles. CARDIOVASCULAR: Normal rate, regular rhythm. No murmur. Normal S1 and S2. ABDOMEN: Soft, nontender. EXTREMITIES: 1+ pitting edema in dependent areas of the bilateral lower extremities. CARDIAC MEDICATIONS 1. Nifedipine 30 mg p.o. q.12 h. 2. Losartan 100 mg p.o. daily. 3. Hydralazine 25 mg p.o. t.i.d. 4. Levothyroxine 175 mcg p.o. daily. LABS: None today. TELEMETRY: Normal sinus rhythm. IMPRESSION 1. Volume overload. 2. Severe protein calorie malnutrition. 3. Right tension pneumothorax status post chest tube, now resolved. 4. End-stage renal disease, on hemodialysis. 5. History of liver transplant secondary to cirrhosis. 6. Hypertension. 7. [place]'s disease. RECOMMENDATIONS: Volume management per Nephrology given end-stage renal disease. Monitor patient on telemetry. Continue current cardiac medications. The patient's blood pressure is controlled. Thank you for this consult. We will continue to follow. Job#: [id number] EV
[2017-11-08] VITALS (7 sets, daily range): BP systolic 121–169; BP diastolic 53–86
[2017-11-08] MEDS: LEVOTHYROXINE SODIUM 100 MCG TAB PO SCH (05:33)
[2017-11-08] MEDS: LEVOTHYROXINE SODIUM 75 MCG TAB PO SCH (05:33)
[2017-11-08 07:12] LABS: BASOPHILS % 0.4 % (0.0-1.0); EOSINOPHILS # (AUTO) 0.2 (0.0-0.4); EOSINOPHILS % 1.8 % (0.0-6.0); HEMATOCRIT 32.1 % (34.2-44.1); HEMOGLOBIN 11.1 g/dL (12.0-16.0); LYMPHOCYTES # (AUTO) 1.8 (1.0-3.2); LYMPHOCYTES % 19.3 % (18.0-39.1); MEAN CORPUSCULAR HEMOGLOBIN 30.5 pg (28-32); MEAN CORPUSCULAR HGB CONC 34.6 g/dL (31-35); MEAN CORPUSCULAR VOLUME 88.2 fL (81-99); MONOCYTES # (AUTO) 0.7 (0.2-0.8); MONOCYTES % 7.6 % (4.4-11.3); NEUTROPHILS # (AUTO) 6.6 (2.1-6.9); NEUTROPHILS % 69.6 % (38.7-80.0); PLATELET COUNT 172 x10e3/uL (140-360); RED BLOOD COUNT 3.64 x10e6/uL (3.6-5.1); RED CELL DISTRIBUTION WIDTH 19.1 % (11.7-14.4)
[2017-11-08] MEDS: INSULIN LISPRO 100 UNIT/1 ML 3ML VIAL SQ SCH ×4 (07:30→21:00)
[2017-11-08 07:42] LABS: ALBUMIN 1.7 g/dL (3.5-5.0); ALBUMIN/GLOBULIN RATIO 0.4 (0.8-2.0); ANION GAP 9.2 mmol/L (8-16); CALCIUM 7.6 mg/dL (8.4-10.2); CREATININE, SERUM 1.74 mg/dL (0.57-1.11); POTASSIUM 3.2 mmol/L (3.5-5.1)
--- NOTE | 2017-11-08 08:31 | Progress Note ---
DATE: November 08, 2017 Denies any swelling. Denies any trouble breathing. Eager to eat. PHYSICAL EXAMINATION VITALS: Temperature is 95.9, pulse 92, blood pressure 136/77. CHEST: Clear. EXTREMITIES: Trace edema. ABDOMEN: Benign. NEURO: Alert and appropriate. Vascular tunneled catheter in place. ASSESSMENT 1. End-stage renal disease. 2. Anemia. 3. Chronic kidney disease. 4. Hypertension. 5. Type 2 diabetes by history. PLAN: Hemodialysis today of a 4-hour run, F160 filter, blood flow rate 350, dialysis fluid flow rate 700, 3.5 potassium bath, 2-3 L fluid removal target. Will follow along. Job#: [id number] LONG
[2017-11-08] MEDS: MEGACE 400MG/ 10ML CUP PO SCH ×2 (09:00→17:00)
[2017-11-08] MEDS: BALSAM PERU/CASTOR OIL 60 GM OINT...G. TP SCH ×2 (09:00→17:00)
[2017-11-08] MEDS: LOSARTAN POTASSIUM 100 MG TAB PO SCH (09:00)
[2017-11-08] MEDS: NIFEDIPINE CR 30 MG TAB PO SCH ×2 (09:00→21:00)
[2017-11-08] MEDS: TACROLIMUS 1 MG CAP PO SCH ×2 (09:00→21:00)
[2017-11-08] MEDS: HYDRALAZINE HCL 25 MG TAB PO SCH ×3 (09:00→21:00)
[2017-11-08] MEDS: CEFEPIME HCL 1 GM VIAL IV SCH (09:00)
[2017-11-08] MEDS: DULOXETINE HCL 30 MG DELAYED RELEASE PO SCH ×2 (09:00→17:00)
[2017-11-08] MEDS: HYDROCORTISONE 10 MG TAB PO SCH (09:00)
[2017-11-08] MEDS: FOLIC ACID/CYANOCOB/PYRIDOXINE TAB PO SCH (09:00)
[2017-11-08] MEDS: PANTOPRAZOLE SOD 40 MG TABEC PO SCH (09:00)
[2017-11-08] MEDS: IRON SUCROSE 100 MG in SODIUM CHLORIDE 0.9% 100 ML 100 ML IV SCH ×2 (11:00→21:08)
--- NOTE | 2017-11-08 12:18 | Consultation ---
DATE OF CONSULTATION: October 27, 2017 CONSULTATION TO: Dr. Gigi Ness, Dr. Diaz, Dr. Todd, Dr. Young. Terri Black is a 62-year-old female referred to me for evaluation of thrombocytopenia. PAST HISTORY 1. History of cirrhosis of liver. 2. History of liver transplant. 3. History of hypertension. 4. History of diabetes mellitus. 5. History of hypothyroidism. 6. History of chronic renal failure. 7. History of feeling weak and losing weight. SOCIAL HISTORY: Noncontributory. FAMILY HISTORY: Noncontributory. ALLERGIES: REPORTED NONE. MEDICATIONS AT THIS TIME 1. Sodium chloride. 2. Dextrose. 3. Losartan. 4. Tylenol. 5. Insulin. 6. Duloxetine. 7. Tacrolimus. 8. Clonidine. 9. Protonix. 10. Synthroid. 11. Hydrocortisone. REVIEW OF SYSTEMS HEENT: Normal. CARDIAC: History of hypertension. RESPIRATORY: Normal. GI: History of liver transplant. : Chronic renal failure on dialysis. MUSCULOSKELETAL: Normal. NEUROENDOCRINE: History of diabetes and hypothyroidism. PHYSICAL EXAMINATION GENERAL: A cachectic female. Anemic. No palpable adenopathy. HEART: Within normal limits. LUNGS: Clear. ABDOMEN: Obese. There is no hepatosplenomegaly. Scar of surgery seen. RECTAL AND VAGINAL: Examinations deferred. CENTRAL NERVOUS SYSTEM: Essentially normal. LABS: Hemoglobin of 8.1, white count 6900, platelets 91,000, hematocrit 23.9 with normal indices. BUN 15, creatinine 1.8, sodium 133, potassium 4.4, chloride 100, CO2 of 29. Bilirubin 0.3, SGOT 23, SGPT 52, alkaline phosphatase 187. IMPRESSION 1. Cirrhosis of liver. 2. History of liver transplant. 3. History of hypertension. 4. History of diabetes mellitus. 5. Hypothyroidism. 6. Chronic renal failure. 7. History of hysterectomy. 8. History of cholecystectomy. 9. History of appendectomy. 10. Anemia of chronic disease. 11. Thrombocytopenia. 12. Hypokalemia (2.8). 13. Diabetes mellitus (851 blood sugar). 14. Hypocalcemia (6.5). 15. Hypomagnesemia (1.1). 16. Hypoproteinemia (4.3). 17. Hypoalbuminemia (1.6). 18. Congestive heart failure. 19. Dobbhoff feeding tube. PLAN, COMMENTS AND SUGGESTIONS: Will monitor the platelets. This is because of cirrhosis. I will confine myself to hematology. Thank you. Job#: [id number] ELBA
[2017-11-08] MEDS: VANCOMYCIN 1GM/NS 250 ML 250 ML IV SCH (17:53)
--- NOTE | 2017-11-08 18:11 | Progress Note ---
DATE: November 08, 2017 SUBJECTIVE: The patient denies chest pain or shortness of breath. She was seen receiving hemodialysis. OBJECTIVE VITAL SIGNS: Temperature 95.3 degrees, pulse 94, respiratory rate 16, blood pressure 121/66, oxygen saturation 96% on room air. GENERAL: Awake, alert, chronically ill-appearing woman, cachectic and frail. No acute distress. LUNGS: Clear to auscultation bilaterally. No wheezes or crackles. CARDIOVASCULAR: Normal rate, regular rhythm. No murmur. Normal S1 and S2. ABDOMEN: Soft, nontender. EXTREMITIES: 1+ pitting edema in dependent areas of the bilateral lower extremities. CARDIAC MEDICATIONS 1. Nifedipine 30 mg p.o. q.12 h. 2. Losartan 100 mg p.o. daily. 3. Hydralazine 25 mg p.o. t.i.d. 4. Levothyroxine 175 mcg p.o. daily. LABS: WBC 9.52, hemoglobin 11.1, hematocrit 32.1, platelets 172,000. Sodium 135, potassium 3.2, chloride 103, CO2 of 26, BUN 18, creatinine 1.74. TELEMETRY: Normal sinus rhythm. IMPRESSION 1. Volume overload. 2. Severe protein calorie malnutrition. 3. Right tension pneumothorax status post chest tube, now resolved. 4. End-stage renal disease, on hemodialysis. 5. History of liver transplant secondary to cirrhosis. 6. Hypertension. 7. [place]'s disease. RECOMMENDATIONS: Volume management per nephrology, given end-stage renal disease. Monitor the patient on telemetry. Continue current cardiac medications. The patient's blood pressure is controlled. Thank you for this consult. We will continue to follow. Job#: [id number]
[2017-11-09] VITALS (8 sets, daily range): BP systolic 138–182; BP diastolic 79–90
[2017-11-09] MEDS: LEVOTHYROXINE SODIUM 100 MCG TAB PO SCH (06:00)
[2017-11-09] MEDS: LEVOTHYROXINE SODIUM 75 MCG TAB PO SCH (06:00)
[2017-11-09] MEDS: INSULIN LISPRO 100 UNIT/1 ML 3ML VIAL SQ SCH ×4 (07:30→21:30)
[2017-11-09] MEDS: LOSARTAN POTASSIUM 100 MG TAB PO SCH (09:00)
[2017-11-09] MEDS: TACROLIMUS 1 MG CAP PO SCH ×2 (09:00→21:30)
[2017-11-09] MEDS: HYDRALAZINE HCL 25 MG TAB PO SCH ×3 (09:00→21:30)
[2017-11-09] MEDS: MEGACE 400MG/ 10ML CUP PO SCH ×2 (09:00→17:00)
[2017-11-09] MEDS: DULOXETINE HCL 30 MG DELAYED RELEASE PO SCH ×2 (09:00→17:57)
[2017-11-09] MEDS: NIFEDIPINE CR 30 MG TAB PO SCH ×2 (09:00→21:30)
[2017-11-09] MEDS: PANTOPRAZOLE SOD 40 MG TABEC PO SCH (09:00)
[2017-11-09] MEDS: BALSAM PERU/CASTOR OIL 60 GM OINT...G. TP SCH ×2 (09:00→17:00)
[2017-11-09] MEDS: CEFEPIME HCL 1 GM VIAL IV SCH (09:00)
[2017-11-09] MEDS: FOLIC ACID/CYANOCOB/PYRIDOXINE TAB PO SCH (09:00)
[2017-11-09] MEDS: HYDROCORTISONE 10 MG TAB PO SCH (09:00)
[2017-11-09] MEDS: IRON SUCROSE 100 MG in SODIUM CHLORIDE 0.9% 100 ML 100 ML IV SCH (11:00)
--- NOTE | 2017-11-09 15:14 | Progress Note ---
DATE: November 09, 2017 CARDIOLOGY PROGRESS NOTE SUBJECTIVE: Patient denies chest pain or shortness of breath. She was seen sitting up in a chair. OBJECTIVE VITAL SIGNS: Temperature 96.9 degrees, pulse 84, respiratory rate 18, blood pressure 149/82, oxygen saturation 97% on room air. GENERAL: Cachectic, frail, chronically ill-appearing woman, in no acute distress. LUNGS: Clear to auscultation bilaterally. No wheezes or crackles. CARDIOVASCULAR: Normal rate, regular rhythm. No murmur. Normal S1 and S2. ABDOMEN: Soft, nontender. EXTREMITIES: No edema. CARDIAC MEDICATIONS 1. Hydralazine 25 mg p.o. t.i.d. 2. Nifedipine 30 mg p.o. q.12 h. 3. Losartan 100 mg p.o. daily. 4. Levothyroxine 175 mcg p.o. daily. LABS: None today. TELEMETRY: Normal sinus rhythm. IMPRESSION 1. Volume overload. 2. Severe protein calorie malnutrition. 3. Right tension pneumothorax status post chest tube, now resolved. 4. End-stage renal disease, on hemodialysis. 5. History of liver transplant secondary to cirrhosis. 6. Hypertension. 7. [place]'s disease. RECOMMENDATIONS: Volume management per Nephrology given end-stage renal disease. Monitor patient on telemetry. Continue current cardiac medications. Thank you for this consult. We will continue to follow. Job#: [id number] OSVALDO
[2017-11-10] VITALS (8 sets, daily range): BP systolic 99–175; BP diastolic 57–90
[2017-11-10] MEDS: CLONIDINE HCL 0.1 MG TAB PO PRN (01:32)
[2017-11-10] MEDS: LEVOTHYROXINE SODIUM 75 MCG TAB PO SCH (06:11)
[2017-11-10] MEDS: LEVOTHYROXINE SODIUM 100 MCG TAB PO SCH (06:11)
[2017-11-10] MEDS: INSULIN LISPRO 100 UNIT/1 ML 3ML VIAL SQ SCH ×4 (07:30→22:41)
[2017-11-10] MEDS: NIFEDIPINE CR 30 MG TAB PO SCH ×2 (08:40→22:40)
[2017-11-10] MEDS: DULOXETINE HCL 30 MG DELAYED RELEASE PO SCH ×2 (08:40→16:26)
[2017-11-10] MEDS: HYDROCORTISONE 10 MG TAB PO SCH (08:40)
[2017-11-10] MEDS: BALSAM PERU/CASTOR OIL 60 GM OINT...G. TP SCH ×2 (08:40→16:27)
[2017-11-10] MEDS: PANTOPRAZOLE SOD 40 MG TABEC PO SCH (08:40)
[2017-11-10] MEDS: HYDRALAZINE HCL 25 MG TAB PO SCH ×2 (08:40→15:00)
[2017-11-10] MEDS: FOLIC ACID/CYANOCOB/PYRIDOXINE TAB PO SCH (08:40)
[2017-11-10] MEDS: TACROLIMUS 1 MG CAP PO SCH ×2 (08:40→22:40)
[2017-11-10] MEDS: MEGACE 400MG/ 10ML CUP PO SCH ×2 (08:40→16:26)
[2017-11-10] MEDS: LOSARTAN POTASSIUM 100 MG TAB PO SCH (08:40)
[2017-11-10] MEDS: CEFEPIME HCL 1 GM VIAL IV SCH (08:40)
[2017-11-10] MEDS: IRON SUCROSE 100 MG in SODIUM CHLORIDE 0.9% 100 ML 100 ML IV SCH (12:18)
--- NOTE | 2017-11-10 16:42 | Progress Note ---
DATE: November 10, 2017 CARDIOLOGY PROGRESS NOTE SUBJECTIVE: Patient denies chest pain or shortness of breath. OBJECTIVE VITAL SIGNS: Temperature 97.5 degrees, pulse 81, respiratory rate 18, blood pressure 113/65, oxygen saturation 98% on 1.5 L nasal cannula. GENERAL: Awake, alert, cachectic, frail, chronically ill-appearing woman, in no acute distress. LUNGS: Clear to auscultation bilaterally. No wheezes or crackles. CARDIOVASCULAR: Normal rate, regular rhythm. No murmur. Normal S1 and S2. ABDOMEN: Soft, nontender. EXTREMITIES: No edema. CARDIAC MEDICATIONS 1. Nifedipine 30 mg p.o. q.12 h. 2. Losartan 100 mg p.o. daily. 3. Levothyroxine 175 mcg p.o. daily. LABS: None today. TELEMETRY: Normal sinus rhythm. IMPRESSION 1. Volume overload. 2. Severe protein calorie malnutrition. 3. Right tension pneumothorax, status post chest tube, now resolved. 4. End-stage renal disease, on hemodialysis. 5. History of liver transplant secondary to cirrhosis. 6. Hypertension. 7. Eric's disease. RECOMMENDATIONS: Volume management per nephrology given end-stage renal disease. Monitor patient on telemetry. Continue current cardiac medications. Thank you for this consult. We will continue to follow. Job#: [id number]
[2017-11-11] VITALS (7 sets, daily range): BP systolic 109–150; BP diastolic 63–79
[2017-11-11] MEDS: NIFEDIPINE CR 30 MG TAB PO SCH ×2 (00:10→09:00)
[2017-11-11] MEDS: HYDRALAZINE HCL 25 MG TAB PO SCH ×3 (00:35→15:00)
[2017-11-11] MEDS: LEVOTHYROXINE SODIUM 100 MCG TAB PO SCH (06:00)
[2017-11-11] MEDS: LEVOTHYROXINE SODIUM 75 MCG TAB PO SCH (06:00)
[2017-11-11 06:50] LABS: BASOPHILS % 0.5 % (0.0-1.0); EOSINOPHILS # (AUTO) 0.1 (0.0-0.4); EOSINOPHILS % 1.8 % (0.0-6.0); HEMOGLOBIN 11.3 g/dL (12.0-16.0); LYMPHOCYTES # (AUTO) 1.9 (1.0-3.2); LYMPHOCYTES % 24.2 % (18.0-39.1); MEAN CORPUSCULAR HEMOGLOBIN 30.1 pg (28-32); MEAN CORPUSCULAR HGB CONC 33.2 g/dL (31-35); MEAN CORPUSCULAR VOLUME 90.7 fL (81-99); MONOCYTES # (AUTO) 0.5 (0.2-0.8); NEUTROPHILS % 65.7 % (38.7-80.0); PLATELET COUNT 127 x10e3/uL (140-360); RED BLOOD COUNT 3.75 x10e6/uL (3.6-5.1); RED CELL DISTRIBUTION WIDTH 19.3 % (11.7-14.4)
[2017-11-11 07:21] LABS: ALBUMIN 1.6 g/dL (3.5-5.0); ALBUMIN/GLOBULIN RATIO 0.4 (0.8-2.0); CALCIUM 7.3 mg/dL (8.4-10.2); CREATININE, SERUM 2.22 mg/dL (0.57-1.11); MAGNESIUM 1.3 MG/DL (1.3-2.1)
[2017-11-11] MEDS: INSULIN LISPRO 100 UNIT/1 ML 3ML VIAL SQ SCH ×4 (07:30→21:00)
[2017-11-11] MEDS: CEFEPIME HCL 1 GM VIAL IV SCH (08:58)
[2017-11-11] MEDS: DULOXETINE HCL 30 MG DELAYED RELEASE PO SCH ×2 (08:58→16:19)
[2017-11-11] MEDS: HYDROCORTISONE 10 MG TAB PO SCH (08:58)
[2017-11-11] MEDS: BALSAM PERU/CASTOR OIL 60 GM OINT...G. TP SCH ×2 (08:59→16:19)
[2017-11-11] MEDS: PANTOPRAZOLE SOD 40 MG TABEC PO SCH (08:59)
[2017-11-11] MEDS: TACROLIMUS 1 MG CAP PO SCH ×2 (08:59→21:00)
[2017-11-11] MEDS: FOLIC ACID/CYANOCOB/PYRIDOXINE TAB PO SCH (08:59)
[2017-11-11] MEDS: MEGACE 400MG/ 10ML CUP PO SCH ×2 (08:59→16:19)
[2017-11-11] MEDS: LOSARTAN POTASSIUM 100 MG TAB PO SCH (09:00)
--- NOTE | 2017-11-11 09:44 | Diagnostic Imaging Report ---
PROCEDURE: X-RAY CHEST, TWO VIEWS COMPARISON: 11/05/2017. INDICATIONS: PNEUMONIA, PLEURAL EFFUSION FINDINGS: Right internal jugular tunneled hemodialysis catheter unchanged in position. Unchanged left upper lobe greater than left lower lobe airspace disease. Small left pleural effusion. Small right pleural effusion. Cardiomediastinal contour and pulmonary vasculature are unchanged. No acute osseous abnormality. Left thoracic skin folds. CONCLUSION: Left upper lobe pneumonia. Small left pleural effusion with passive atelectasis of the left lower lobe. Small right pleural effusion with passive atelectasis of the right lower lobe. Dictated by: Joshua Diaz M.D. on 11/11/2017 at 9:45 Electronically approved by: Joshua Diaz M.D. on 11/11/2017 at 9:45
[2017-11-11] MEDS: IRON SUCROSE 100 MG in SODIUM CHLORIDE 0.9% 100 ML 100 ML IV SCH (11:43)
--- NOTE | 2017-11-11 13:59 | Progress Note ---
DATE: November 11, 2017 CARDIOLOGY PROGRESS NOTE SUBJECTIVE: Patient denies chest pain or shortness of breath. OBJECTIVE VITAL SIGNS: Temperature 97.6 degrees, pulse 89, respiratory rate 18, blood pressure 121/67, oxygen saturation 95% on room air. GENERAL: Cachectic, chronically ill-appearing woman, frail, in no acute distress. LUNGS: Clear to auscultation bilaterally. No wheezes or crackles. CARDIOVASCULAR: Normal rate, regular rhythm. No murmur. Normal S1 and S2. ABDOMEN: Soft, nontender. EXTREMITIES: No edema. CARDIAC MEDICATIONS 1. Hydralazine 25 mg p.o. t.i.d. 2. Levothyroxine 175 mcg p.o. daily. 3. Nifedipine 30 mg p.o. q.12 h. 4. Losartan 100 mg p.o. daily. LABS: WBC 7.66, hemoglobin 11.3, hematocrit 34, platelets 127. Sodium 135, potassium 3, chloride 101, CO2 26, BUN 20, creatinine 2.22. TELEMETRY: Normal sinus rhythm. IMPRESSION 1. Volume overload. 2. Severe protein calorie malnutrition. 3. Right tension pneumothorax, status post chest tube, now resolved. 4. End-stage renal disease, on hemodialysis. 5. History of liver transplant secondary to cirrhosis. 6. Hypertension. 7. Eric's disease. RECOMMENDATIONS: Volume management per nephrology given end-stage renal disease. She would benefit from further ultrafiltration given her lower extremity edema. Monitor patient on telemetry. Continue current cardiac medications. Thank you for this consult. We will continue to follow. Job#: [id number]
[2017-11-11 21:45] LABS: ANION GAP 9.9 mmol/L (8-16); CALCIUM 7.2 mg/dL (8.4-10.2); CREATININE, SERUM 1.77 mg/dL (0.57-1.11); PHOSPHORUS 2.3 MG/DL (2.3-4.7)
[2017-11-11 21:46] LABS: POTASSIUM 2.9 mmol/L (3.5-5.1)
[2017-11-11] MEDS ORDERED: POTASSIUM CHLORIDE 10 MEQ TABCR PO ONE (23:15)
[2017-11-12] VITALS (7 sets, daily range): BP systolic 112–162; BP diastolic 61–93
[2017-11-12] MEDS: TACROLIMUS 1 MG CAP PO SCH ×3 (00:10→20:56)
[2017-11-12] MEDS: HYDRALAZINE HCL 25 MG TAB PO SCH ×4 (00:58→20:56)
[2017-11-12] MEDS: LEVOTHYROXINE SODIUM 100 MCG TAB PO SCH (06:05)
[2017-11-12] MEDS: LEVOTHYROXINE SODIUM 75 MCG TAB PO SCH (06:06)
[2017-11-12] MEDS: INSULIN LISPRO 100 UNIT/1 ML 3ML VIAL SQ SCH ×4 (07:30→20:58)
[2017-11-12 07:49] LABS: ANION GAP 10.2 mmol/L (8-16); CALCIUM 7.5 mg/dL (8.4-10.2); CREATININE, SERUM 1.65 mg/dL (0.57-1.11); POTASSIUM 3.2 mmol/L (3.5-5.1)
[2017-11-12] MEDS: DULOXETINE HCL 30 MG DELAYED RELEASE PO SCH ×3 (08:42→16:30)
[2017-11-12] MEDS: BALSAM PERU/CASTOR OIL 60 GM OINT...G. TP SCH ×2 (09:06→16:30)
[2017-11-12] MEDS: MEGACE 400MG/ 10ML CUP PO SCH ×2 (09:06→16:30)
[2017-11-12] MEDS: NIFEDIPINE CR 30 MG TAB PO SCH ×2 (09:06→20:56)
[2017-11-12] MEDS: HYDROCORTISONE 10 MG TAB PO SCH (09:06)
[2017-11-12] MEDS: LOSARTAN POTASSIUM 100 MG TAB PO SCH (09:06)
[2017-11-12] MEDS: PANTOPRAZOLE SOD 40 MG TABEC PO SCH (09:06)
[2017-11-12] MEDS: FOLIC ACID/CYANOCOB/PYRIDOXINE TAB PO SCH (09:06)
--- NOTE | 2017-11-12 10:46 | Progress Note ---
DATE: November 12, 2017 CARDIOLOGY PROGRESS NOTE SUBJECTIVE: The patient denies chest pain or shortness of breath. OBJECTIVE VITALS: Temperature 96.7 degrees, pulse 95, respiratory rate 18, blood pressure 162/92, oxygen saturation 99% on room air. GENERAL: Cachectic chronically ill-appearing woman frail and in no acute distress. LUNGS: Clear to auscultation bilaterally. No wheezes or crackles. CARDIOVASCULAR: Normal rate. Regular rhythm. No murmur. Normal S1 and S2. ABDOMEN: Soft and nontender. EXTREMITIES: One plus pitting edema at the ankle. CARDIAC MEDICATIONS 1. Hydralazine 25 mg p.o. t.i.d. 2. Nifedipine 30 mg p.o. q.12 h. 3. Losartan 100 mg p.o. daily. 4. Levothyroxine 175 mcg p.o. daily. LABS: Sodium 136, potassium 3.2, chloride 103, CO2 26, BUN 13, creatinine 1.65. Telemetry is normal sinus rhythm. IMPRESSION 1. Volume overload. 2. Severe protein calorie malnutrition. 3. Right tension pneumothorax: Status post chest pain and now resolved. 4. End-stage renal disease, on hemodialysis. 5. History of liver transplant secondary to cirrhosis. 6. Hypertension. 7. Eric disease. RECOMMENDATIONS: Volume management per nephrology given end-stage renal disease. Monitor the patient on telemetry. Continue current cardiac medications. The patient's blood pressure is quite labile. We will continue current antihypertensive therapy without changes. Thank you for this consult. We will continue to follow. Job#: [id number] LONG
[2017-11-12] MEDS ORDERED: POTASSIUM CHLORIDE 20 MEQ TAB CR PO NR ×2 (12:00→12:15)
[2017-11-12] MEDS ORDERED: MAGNESIUM SULF 1GRAM/DEXTROSE 100 ML IV ONE (12:00)
[2017-11-12] MEDS: IRON SUCROSE 100 MG in SODIUM CHLORIDE 0.9% 100 ML 100 ML IV SCH (13:19)
[2017-11-13] VITALS: BP 108/62
[2017-11-13 04:00] VITALS: BP 124/94
[2017-11-13] MEDS: LEVOTHYROXINE SODIUM 100 MCG TAB PO SCH (05:45)
[2017-11-13] MEDS: LEVOTHYROXINE SODIUM 75 MCG TAB PO SCH (05:45)
[2017-11-13] MEDS: INSULIN LISPRO 100 UNIT/1 ML 3ML VIAL SQ SCH ×2 (07:30→11:30)
[2017-11-13 07:43] VITALS: BP 150/79
[2017-11-13] MEDS: HYDROCORTISONE 10 MG TAB PO SCH (08:42)
[2017-11-13] MEDS: PANTOPRAZOLE SOD 40 MG TABEC PO SCH (08:42)
[2017-11-13] MEDS: MEGACE 400MG/ 10ML CUP PO SCH (08:42)
[2017-11-13] MEDS: TACROLIMUS 1 MG CAP PO SCH (08:42)
[2017-11-13] MEDS: FOLIC ACID/CYANOCOB/PYRIDOXINE TAB PO SCH (08:42)
[2017-11-13] MEDS: NIFEDIPINE CR 30 MG TAB PO SCH (09:00)
[2017-11-13] MEDS: HYDRALAZINE HCL 25 MG TAB PO SCH (09:00)
[2017-11-13] MEDS: LOSARTAN POTASSIUM 100 MG TAB PO SCH (09:00)
[2017-11-13 09:20] VITALS: BP 150/79
[2017-11-13] MEDS: BALSAM PERU/CASTOR OIL 60 GM OINT...G. TP SCH (09:31)
--- NOTE | 2017-11-13 10:09 | Progress Note ---
DATE: November 13, 2017 CARDIOLOGY PROGRESS NOTE SUBJECTIVE: The patient denies chest pain or shortness of breath. OBJECTIVE VITALS: Temperature 96.4 degrees, pulse 86, respiratory rate 16, blood pressure 150/79, oxygen saturation 98% on room air. GENERAL: Cachectic, chronically ill-appearing woman, frail, and in no acute distress. LUNGS: Clear to auscultation bilaterally. No wheezes or crackles. CARDIOVASCULAR: Normal rate. Regular rhythm. No murmur. Normal S1 and S2. ABDOMEN: Soft and nontender. EXTREMITIES: No edema. CARDIAC MEDICATIONS 1. Levothyroxine 175 mcg p.o. daily. 2. Hydralazine 25 mg p.o. t.i.d. 3. Nifedipine 30 mg p.o. q.12 h. 4. Losartan 100 mg p.o. daily. LABS: None today. Telemetry is normal sinus rhythm. IMPRESSION 1. Volume overload. 2. Severe protein calorie malnutrition. 3. Right tension pneumothorax: Status post chest tube, now resolved. 4. End-stage renal disease, on hemodialysis. 5. History of liver transplant secondary to cirrhosis. 6. Hypertension. 7. [place] disease. RECOMMENDATIONS: Volume management per nephrology given end-stage renal disease. Monitor the patient on telemetry. Continue current cardiac medications. The patient's blood pressure is quite labile. However, she often has doses of her antihypertensive therapies held. We will discuss with staff to ensure she receives her medications unless she is getting ready for dialysis. Thank you for this consult. We will continue to follow. Job#: [id number] LONG
[2017-11-13 11:34] VITALS: BP 113/60
[2017-11-13] MEDS ORDERED: VANCOMYCIN 1GM/NS 250 ML 250 ML IV SCH (16:00)
== END 2017-11-13 14:58 | DRG 853 ==
LOC: ER 12:01 → EDBEDREQ 16:22 → EDBEDREQSVC 17:43 → ERHOLD 17:57 → MED/SURG3 10-25 16:40
PROVIDERS: ADMIT Internal Medicine; ATTEND Internal Medicine
PROC: 5A1D70Z Performance of Urinary Filtration, Intermittent, Less than 6 Hours Per Day (ICD-10-PCS; 2017-10-26)
PROC: 5A1D70Z Performance of Urinary Filtration, Intermittent, Less than 6 Hours Per Day (ICD-10-PCS; 2017-10-28)
PROC: 0B9N30Z Drainage of Right Pleura with Drainage Device, Percutaneous Approach (ICD-10-PCS; principal; 2017-10-30)
PROC: 0DW63UZ Revision of Feeding Device in Stomach, Percutaneous Approach (ICD-10-PCS; 2017-10-30)
PROC: 0BPQX0Z Removal of Drainage Device from Pleura, External Approach (ICD-10-PCS; 2017-11-01)
PROC: 30243N1 Transfusion of Nonautologous Red Blood Cells into Central Vein, Percutaneous Approach (ICD-10-PCS; 2017-11-02)
PROC: 5A1D70Z Performance of Urinary Filtration, Intermittent, Less than 6 Hours Per Day (ICD-10-PCS; 2017-11-02)
PROC: 5A1D70Z Performance of Urinary Filtration, Intermittent, Less than 6 Hours Per Day (ICD-10-PCS; 2017-11-06)
PROC: 5A1D70Z Performance of Urinary Filtration, Intermittent, Less than 6 Hours Per Day (ICD-10-PCS; 2017-11-08)
PROC: 5A1D70Z Performance of Urinary Filtration, Intermittent, Less than 6 Hours Per Day (ICD-10-PCS; 2017-11-09)
PROC: 5A1D70Z Performance of Urinary Filtration, Intermittent, Less than 6 Hours Per Day (ICD-10-PCS; 2017-11-13)
DX: A41.9 Sepsis, unspecified organism (principal); J93.0 Spontaneous tension pneumothorax; E43 Unspecified severe protein-calorie malnutrition; J18.9 Pneumonia, unspecified organism; N18.6 End stage renal disease; I13.2 Hypertensive heart and chronic kidney disease with heart failure and with stage 5 chronic kidney disease, or end stage renal disease; D84.9 Immunodeficiency, unspecified; R64 Cachexia; E70.1 Other hyperphenylalaninemias; E27.1 Primary adrenocortical insufficiency; Z94.4 Liver transplant status; Z68.1 Body mass index [BMI] 19.9 or less, adult; E11.22 Type 2 diabetes mellitus with diabetic chronic kidney disease; R62.7 Adult failure to thrive; D69.59 Other secondary thrombocytopenia; E87.6 Hypokalemia; E83.51 Hypocalcemia; E88.09 Other disorders of plasma-protein metabolism, not elsewhere classified; E03.9 Hypothyroidism, unspecified; D63.8 Anemia in other chronic diseases classified elsewhere; G89.29 Other chronic pain; B96.20 Unspecified Escherichia coli [E. coli] as the cause of diseases classified elsewhere; Z16.12 Extended spectrum beta lactamase (ESBL) resistance; I50.9 Heart failure, unspecified; Z99.2 Dependence on renal dialysis; E11.649 Type 2 diabetes mellitus with hypoglycemia without coma; Z79.4 Long term (current) use of insulin
CPT/HCPCS: 32557; 36415; 43752; 71045; 71046; 71250; 74018; 74470; 76700; 80048; 80053; 80202; 82550; 82553; 82607; 82728; 82746; 82948; 83036; 83525; 83540; 83605; 83735; 83880; 84100; 84439; 84443; 84466; 84484; 84681; 85025; 85610; 85730; 86039; 86431; 86707; 86850; 86900; 86920; 87040; 87340; 87350; 87390; 90962; 93005; 93306; 96361; 96367; 96372; 97139; 99285; G0433; G0435; J0692; J1644; J1756; J2150; J3370; J3475; J3480; J7030; J7050; J7070; J7507; J7799; P9016; Q4081